=== PATIENT | male | born 1970 | race Caucasian/White ===

== ENCOUNTER → 2018-05-17 | Outpatient (CLI) | payer OTHER ==
--- NOTE | 2018-05-17 16:41 | XR ---
EXAMINATION TYPE: XR shoulder complete RT DATE OF EXAM: 05/17/2018 CLINICAL HISTORY: pain TECHNIQUE: Three views of the right shoulder are obtained. COMPARISON: None FINDINGS: There is no acute fracture/dislocation evident. The acromioclavicular and glenohumeral maryse int spaces appear within normal limits. The visualized ribs are intact and unremarkable. IMPRESSION: 1. There is no acute fracture or dislocation. ICD 10 NO FRACTURE, INITIAL EVALUATION
== END | disposition home or self-care (01) ==
LOC: RADXRMAIN 16:14
PROVIDERS: ATTEND Emergency Medicine
DX: S43.401A Unspecified sprain of right shoulder joint, initial encounter (principal)

== ENCOUNTER 2019-03-03 13:02 | Emergency (ER) | payer BC ==
[2019-03-03] MEDS ORDERED: ONDANSETRON 4 MG/2 ML VIAL IVP STA (13:36)
[2019-03-03] MEDS ORDERED: SODIUM CHLORIDE 0.9% 1,000 ML IV STA ×2 (13:36)
[2019-03-03] MEDS ORDERED: PANTOPRAZOLE 40 MG/10 ML VIAL IVP STA (13:36)
[2019-03-03] MEDS ORDERED: MORPHINE SULFATE 4 MG/ML SYRINGE IV STA (13:36)
--- NOTE | 2019-03-03 13:39 | ED ---
Abdominal Pain HPI - General Chief Complaint: Abdominal Pain Stated Complaint: abdominal pain low right side Time Seen by Provider: 03/03/19 13:22 Source: patient, RN notes reviewed, old records reviewed Mode of arrival: ambulatory Limitations: no limitations - History of Present Illness Initial Comments: Patient's a pleasant 49-year-old male complains of right lower quadrant abdominal pain and back pain onset this morning. Patient states he has a hi story of kidney stones and feels different than his previous kidney stones. Denies any change in urination. He reports he's had some nausea and vomiting due to pain. He has had normal stools. Patient's gallbladder is removed. - Related Data Home Medications Medication Instructions Recorded Confirmed Albuterol Sulfate [Ventolin HFA] 2 puff INHALATION DIRECTED PRN 11/27/14 12/04/14 Losartan Potassium [Cozaar] 100 mg PO DAILY 11/27/14 12/04/14 Previous Rx's Medication Instructions Recorded Cyclobenzaprine [Flexeril] 10 mg PO TID PRN #90 tab 12/06/14 Hydrocodone/Acetaminophen [Luna 1 - 2 each PO Q6HR PRN #90 tab 12/06/14 5-325] Ciprofloxacin HCl [Cipro] 500 mg PO BID 3 Days #6 tab 03/03/19 HYDROcodone/APAP 5-325MG [Luna 1 tab PO Q6HR PRN #10 tab 03/03/19 5-325] Ketorolac [Toradol] 10 mg PO Q6HR #20 tab 03/03/19 Ondansetron [Zofran ODT] 4 mg PO Q12HR #20 tab 03/03/19 Tamsulosin [Flomax] 0.4 mg PO DAILY #7 cap 03/03/19 Allergies Allergy/AdvReac Type Severity Reaction Status Date / Time penicillin V Allergy Swelling Verified 03/03/19 13:14 Review of Systems ROS Statement: Those systems with pertinent positive or pertinent negative responses have been documented in the HPI. ROS Other: All systems not noted in ROS Statement are negative. Past Medical History Past Medical History: Asthma, Hypertension Additional Past Medical History / Comment(s): NUMBNESS/TINGLING LAWRENCE LEGS History of Any Multi-Drug Resistant Organisms: None Reported Past Surgical History: Cholecystectomy, Heart Catheterization, Hernia Repair, Orthopedic Surgery Additional Past Surgical History / Comment(s): RT KNEE, LAWRENCE WRIST, RIGHT SHOULDER, SINUS SX Past Anesthesia/Blood Transfusion Reactions: No Reported Reaction Past Psychological History: No Psychological Hx Reported Smoking Status: Current every day smoker - Past Family History Father Family Medical History: Cancer Additional Family Medical History / Comment(s): COLON General Exam - General Exam Comments Initial Comments: 49 -year-old male. Limitations: no limitations General appearance: alert, in no apparent distress Head exam: Present: atraumatic, normocephalic, normal inspection Eye exam: Present: normal appearance, PERRL, EOMI. Absent: scleral icterus, conjunctival injection, periorbital swelling ENT exam: Present: normal exam, mucous membranes moist Neck exam: Present: normal inspection. Absent: tenderness, meningismus, lymphadenopathy Respiratory exam: Present: normal lung sounds bilaterally. Absent: respiratory distress, wheezes, rales, rhonchi, stridor Cardiovascular Exam: Present: regular rate, normal rhythm, normal heart sounds. Absent: systolic murmur, diastolic murmur, rubs, gallop, clicks GI/Abdominal exam: Present: soft, tenderness (Right lower quadrant tenderness.), normal bowel sounds. Absent: distended, guarding, rebound, rigid Extremities exam: Present: normal inspection Back exam: Present: normal inspection Neurological exam: Present: alert, oriented X3, CN II-XII intact Psychiatric exam: Present: normal affect, normal mood Course Vital Signs 03/03/19 03/03/19 13:12 16:59 Temperature 97.6 F 98.7 F Pulse Rate 56 L 78 Respiratory 18 16 Rate Blood Pressure 162/90 128/70 O2 Sat by Pulse 94 L 98 Oximetry Medical Decision Making - Medical Decision Making 49-year-old male presents for a surgically absent right lower quadrant pain. Patient has a evidence of right lower quadrant pain onset. Urinalysis is positive for blood. Patient's CT shows evidence of a right urinalysis junction stone. Patient's was at house and the elevated. We'll put the Patient on antibiotic until urinalysis is culture is complete. Discussed appropriate follow-up with PCP. - Lab Data Result diagrams: 03/03/19 13:33 03/03/19 13:33 Lab Results 03/03/19 03/03/19 03/03/19 Range/Units 13:33 13:33 13:33 WBC 19.6 H (3.8-10.6) k/uL RBC 5.39 (4.30-5.90) m/uL Hgb 15.8 (13.0-17.5) gm/dL Hct 46.4 (39.0-53.0) % MCV 86.0 (80.0-100.0) fL MCH 29.3 (25.0-35.0) pg MCHC 34.1 (31.0-37.0) g/dL RDW 14.7 (11.5-15.5) % Plt Count 305 (150-450) k/uL Neutrophils % 84 % Lymphocytes % 8 % Monocytes % 5 % Eosinophils % 1 % Basophils % 0 % Neutrophils # 16.5 H (1.3-7.7) k/uL Lymphocytes # 1.6 (1.0-4.8) k/uL Monocytes # 1.0 (0-1.0) k/uL Eosinophils # 0.2 (0-0.7) k/uL Basophils # 0.1 (0-0.2) k/uL PT 10.5 (9.0-12.0) sec INR 1.0 (<1.2) APTT 23.3 (22.0-30.0) sec Sodium 136 L (137-145) mmol/L Potassium 4.5 (3.5-5.1) mmol/L Chloride 105 (98-107) mmol/L Carbon Dioxide 22 (22-30) mmol/L Anion Gap 9 mmol/L BUN 26 H (9-20) mg/dL Creatinine 1.18 (0.66-1.25) mg/dL Est GFR (CKD-EPI)AfAm 82 (>60 ml/min/1.73 sqM) Est GFR (CKD-EPI)NonAf 71 (>60 ml/min/1.73 sqM) Glucose 138 H (74-99) mg/dL Calcium 10.5 H (8.4-10.2) mg/dL Total Bilirubin 0.7 (0.2-1.3) mg/dL AST 35 (17-59) U/L ALT 33 (21-72) U/L Alkaline Phosphatase 86 (38-126) U/L Total Protein 7.6 (6.3-8.2) g/dL Albumin 4.5 (3.5-5.0) g/dL Amylase 32 (30-110) U/L Lipase 198 (23-300) U/L Urine Color Urine Appearance (Clear) Urine pH (5.0-8.0) Ur Specific [place] (1.001-1.035) Urine Protein (Negative) Urine Glucose (UA) (Negative) Urine Ketones (Negative) Urine Blood (Negative) Urine Nitrite (Negative) Urine Bilirubin (Negative) Urine Urobilinogen (<2.0) mg/dL Ur Leukocyte Esterase (Negative) Urine RBC (0-5) /hpf Urine WBC (0-5) /hpf Urine Mucus (None) /hpf 03/03/19 Range/Units 15:34 WBC (3.8-10.6) k/uL RBC (4.30-5.90) m/uL Hgb (13.0-17.5) gm/dL Hct (39.0-53.0) % MCV (80.0-100.0) fL MCH (25.0-35.0) pg MCHC (31.0-37.0) g/dL RDW (11.5-15.5) % Plt Count (150-450) k/uL Neutrophils % % Lymphocytes % % Monocytes % % Eosinophils % % Basophils % % Neutrophils # (1.3-7.7) k/uL Lymphocytes # (1.0-4.8) k/uL Monocytes # (0-1.0) k/uL Eosinophils # (0-0.7) k/uL Basophils # (0-0.2) k/uL PT (9.0-12.0) sec INR (<1.2) APTT (22.0-30.0) sec Sodium (137-145) mmol/L Potassium (3.5-5.1) mmol/L Chloride (98-107) mmol/L Carbon Dioxide (22-30) mmol/L Anion Gap mmol/L BUN (9-20) mg/dL Creatinine (0.66-1.25) mg/dL Est GFR (CKD-EPI)AfAm (>60 ml/min/1.73 sqM) Est GFR (CKD-EPI)NonAf (>60 ml/min/1.73 sqM) Glucose (74-99) mg/dL Calcium (8.4-10.2) mg/dL Total Bilirubin (0.2-1.3) mg/dL AST (17-59) U/L ALT (21-72) U/L Alkaline Phosphatase (38-126) U/L Total Protein (6.3-8.2) g/dL Albumin (3.5-5.0) g/dL Amylase (30-110) U/L Lipase (23-300) U/L Urine Color Yellow Urine Appearance Clear (Clear) Urine pH 5.5 (5.0-8.0) Ur Specific [place] 1.031 (1.001-1.035) Urine Protein Trace H (Negative) Urine Glucose (UA) Negative (Negative) Urine Ketones Negative (Negative) Urine Blood Moderate H (Negative) Urine Nitrite Negative (Negative) Urine Bilirubin Negative (Negative) Urine Urobilinogen <2.0 (<2.0) mg/dL Ur Leukocyte Esterase Negative (Negative) Urine RBC >182 H (0-5) /hpf Urine WBC 4 (0-5) /hpf Urine Mucus Rare H (None) /hpf - Radiology Data Radiology results: report reviewed Small starting high-dose of the right irritable school junction. Disposition Clinical Impression: Right ureteral stone Disposition: HOME SELF-CARE Condition: Good Instructions (If sedation given, give patient instructions): Ureteral Stones (ED) Additional Instructions: Take the medication as prescribed. Close follow-up with primary care doctor. Return to emergency department if any alarming signs or symptoms occur. Prescriptions: Ciprofloxacin HCl [Cipro] 500 mg PO BID 3 Days #6 tab Tamsulosin [Flomax] 0.4 mg PO DAILY #7 cap HYDROcodone/APAP 5-325MG [Luna 5-325] 1 tab PO Q6HR PRN #10 tab PRN Reason: Pain Ketorolac [Toradol] 10 mg PO Q6HR #20 tab Ondansetron [Zofran ODT] 4 mg PO Q12HR #20 tab Is patient prescribed a controlled substance at d/c from ED?: Yes If prescribed controlled substance>3 days was MAPS reviewed?: Prescribed <3 Days If opioid is for acute pain is fill amount 7 days or less?: Yes If Rx opioid, was Start Talking consent form obtained?: Yes Referrals: Manuel Jameson MD [Primary Care Provider] - 1-2 days Time of Disposition: 16:45
[2019-03-03 14:11] LABS: Basophils # (A) 0.1 k/uL (0-0.2); Basophils % (A) 0 %; Eosinophils # (A) 0.2 k/uL (0-0.7); Eosinophils % (A) 1 %; HCT 46.4 % (39.0-53.0); HGB 15.8 gm/dL (13.0-17.5); Lymphocytes # (A) 1.6 k/uL (1.0-4.8); Lymphocytes % (A) 8 %; MCH 29.3 pg (25.0-35.0); MCHC 34.1 g/dL (31.0-37.0); Monocytes % (A) 5 %; Neutrophils # (A) 16.5 k/uL (1.3-7.7); Neutrophils % (A) 84 %; Platelet Count 305 k/uL (150-450); RBC 5.39 m/uL (4.30-5.90); RDW 14.7 % (11.5-15.5); WBC 19.6 k/uL (3.8-10.6)
[2019-03-03 14:21] LABS: Albumin 4.5 g/dL (3.5-5.0); Calcium 10.5 mg/dL (8.4-10.2); Potassium 4.5 mmol/L (3.5-5.1); Total Bilirubin 0.7 mg/dL (0.2-1.3); Total Protein 7.6 g/dL (6.3-8.2)
[2019-03-03 14:23] LABS: Partial Thromboplastin Time 23.3 sec (22.0-30.0); Prothrombin Time 10.5 sec (9.0-12.0)
--- NOTE | 2019-03-03 15:54 | CT ---
EXAMINATION TYPE: CT abdomen pelvis w con DATE OF EXAM: 03/03/2019 COMPARISON: None HISTORY: Pelvic pain with fever and diarrhea CT DLP: 955.3 mGycm Automated exposure control for dose reduction was used. TECHNIQUE: Helical acquisition of images was performed from the lung bases through the pelvis. CONTRAST: Performed without Oral Contrast and with IV Contrast, patient injected with 100 mL of Isovue 300. FINDINGS: There is subsegmental atelectasis at the posterior lung bases. Heart size is normal. There is no jah cardial effusion. Liver spleen pancreas appear normal. There are clips from cholecystectomy. Bile ducts are not dilated . Stomach appears normal. There is no adrenal mass. Right kidney is small. Left kidney has normal size. There is mild right-serge ed hydronephrosis. There is a 5 mm calculus at the right ureterovesical junction. Bladder distends sm oothly. There is no inguinal hernia. There is no free fluid in the pelvis. Appendix appears normal. T here is a 1 cm anterior subluxation of L5 in relation to S1. There is posterior fusion surgery at L5- S1. I see no focal bone destruction. There is no compression fracture. There is no mesenteric edema. There is no ascites. There is no free air. There is no sign of a bowel obstruction. IMPRESSION: THERE IS A SMALL OBSTRUCTING CALCULUS AT THE RIGHT URETEROVESICAL JUNCTION WITH MILD RIGHT-SIDED HYDR ONEPHROSIS AND HYDROURETER. THERE ARE CALCIFICATIONS AT THE LEFT RENAL HILUM THAT ARE PROBABLY VASCUL AR. NORMAL APPENDIX.
[2019-03-03 16:10] LABS: Appearance,Urine Clear (Clear); Bilirubin,Urine Negative (Negative); Blood,Urine Moderate (Negative); Color,Urine Yellow; Glucose,Urine (UA) Negative (Negative); Ketones,Urine Negative (Negative); Leukocyte Esterase,Urine Negative (Negative); Mucus,Urine Rare /hpf; Nitrite,Urine Negative (Negative); PH, Urine 5.5 (5.0-8.0); Protein,Urine Trace (Negative); RBC,Urine >182 /hpf (0-5); Specific Gravity,Urine 1.031 (1.001-1.035); Urobilinogen,Urine <2.0 mg/dL (<2.0); WBC,Urine 4 /hpf (0-5)
[2019-03-03] MEDS ORDERED: KETOROLAC 30 MG/ML 1 ML VIAL IVP STA (16:39)
[2019-03-03] MEDS ORDERED: HYDROmorphone 1 MG/ML 1 ML SYRINGE IVP STA (16:39)
[2019-03-03] MEDS ORDERED: TAMSULOSIN 0.4 MG CAP.ER.24H PO STA (16:46)
[2019-03-03 17:00] VITALS: BP 128/70; PULSE 78; RESP 16; TEMP 98.7
== END 2019-03-03 16:59 | disposition home or self-care (01) ==
LOC: EC 13:02
DX: N13.2 Hydronephrosis with renal and ureteral calculous obstruction (principal); I10 Essential (primary) hypertension; F17.200 Nicotine dependence, unspecified, uncomplicated; Z79.899 Other long term (current) drug therapy; Z88.0 Allergy status to penicillin; Z90.49 Acquired absence of other specified parts of digestive tract; Z95.5 Presence of coronary angioplasty implant and graft
CPT/HCPCS: 36415; 80053; 82150; 83690; 85025; 85610; 85730; 81001; 74177; 99284; 96374; 96375 ×4; 96361 ×3; J2270; J2405; J1885; J1170; C9113; Q9967

== ENCOUNTER → 2019-03-06 | Outpatient (CLI) | payer BC ==
--- NOTE | 2019-03-06 17:01 | XR ---
EXAMINATION TYPE: XR KUB DATE OF EXAM: 03/06/2019 COMPARISON: None INDICATION: Ureteral calculus TECHNIQUE: Single view abdomen supine view FINDINGS: There is a normal bowel gas pattern. Psoas margins are normal. No organomegaly is present. No suspicious calcifications are identified. Some nonspecific calcifications are in the left renal pe lvic region could be some renal stones. Pedicle screws are present L5-S1. Degenerative disc changes are present to that level. Normal bowel g as is present. Cholecystectomy has been performed. IMPRESSION: 1. Possible left renal pelvis stones.
== END ==
LOC: LABWHC1 10:36
PROVIDERS: ATTEND Urology
DX: N20.1 Calculus of ureter (principal); E83.52 Hypercalcemia
CPT/HCPCS: 36415; 74018; 82310; 83970

== ENCOUNTER 2019-04-03 12:59 | Inpatient (IN) | payer BC ==
[2019-04-03] MEDS ORDERED: ASPIRIN 81 MG PO STA (13:06)
--- NOTE | 2019-04-03 13:32 | XR ---
EXAMINATION TYPE: XR chest 2V DATE OF EXAM: 04/03/2019 COMPARISON: NONE HISTORY: Chest pain TECHNIQUE: Frontal and lateral views of the chest are obtained. FINDINGS: There is no focal air space opacity, pleural effusion, or pneumothorax seen. Minimal stran d-like bibasilar atelectasis. The cardiac silhouette size is within normal limits. The osseous str uctures are intact. Mild multilevel degenerative changes of the thoracic spine are noted. IMPRESSION: Minimal strand-like bibasilar subsegmental atelectasis otherwise no acute cardiopulmonar y process.
[2019-04-03 13:36] LABS: Basophils # (A) 0.1 k/uL (0-0.2); Basophils % (A) 1 %; Eosinophils # (A) 0.3 k/uL (0-0.7); Eosinophils % (A) 2 %; HCT 45.7 % (39.0-53.0); HGB 15.3 gm/dL (13.0-17.5); Lymphocytes % (A) 21 %; MCHC 33.4 g/dL (31.0-37.0); MCV 86.7 fL (80.0-100.0); Mean Platelet Volume 7.8; Monocytes # (A) 0.8 k/uL (0-1.0); Monocytes % (A) 6 %; Neutrophils # (A) 9.6 k/uL (1.3-7.7); Neutrophils % (A) 68 %; Platelet Count 280 k/uL (150-450); RBC 5.27 m/uL (4.30-5.90); RDW 14.7 % (11.5-15.5); WBC 14.2 k/uL (3.8-10.6)
[2019-04-03 13:43] LABS: Partial Thromboplastin Time 24.5 sec (22.0-30.0); Prothrombin Time 10.4 sec (9.0-12.0)
[2019-04-03 13:46] LABS: ALT 23 U/L (21-72); AST 23 U/L (17-59); Albumin 4.3 g/dL (3.5-5.0); Alkaline Phosphatase 95 U/L (38-126); Anion Gap 9 mmol/L; Blood Urea Nitrogen 16 mg/dL (9-20); Carbon Dioxide 22 mmol/L (22-30); Chloride 104 mmol/L (98-107); Glucose 108 mg/dL (74-99); Magnesium 1.8 mg/dL (1.6-2.3); Potassium 4.3 mmol/L (3.5-5.1); Sodium 135 mmol/L (137-145); Total Bilirubin 0.7 mg/dL (0.2-1.3); Total Protein 7.2 g/dL (6.3-8.2)
[2019-04-03] MEDS ORDERED: NITROGLYCERIN SL TABS 0.4 MG TAB SUBLINGUAL PRN ×2 (14:46→19:54)
[2019-04-03] MEDS ORDERED: HEPARIN SODIUM,PORCINE 5,000 UNIT/ML 1 ML VIAL IV ONE (14:46)
--- NOTE | 2019-04-03 14:46 | ED ---
Chest Pain HPI - General Chief Complaint: Chest Pain Stated Complaint: chest pain Time Seen by Provider: 04/03/19 13:06 Source: patient, RN notes reviewed Mode of arrival: wheelchair Limitations: no limitations - History of Present Illness Initial Comments: 49-year-old male presents emergency from with chief complaint of Chest pain. Patient states started 1 hour prior arrival. Patient states it's centralized chest pain nonradiating. Patient does have history of hypertension, hyperlipidemia, diabetes and smoking history. Patient states she's had a prior cardiac cath years ago with no acute findings. Patient states he took 3 nitro prior arrival for this pain did not alleviated. Patient did not take any aspirin today. - Related Data Home Medications Medication Instructions Recorded Confirmed Albuterol Sulfate [Ventolin HFA] 2 puff INHALATION RT-Q6H PRN 11/27/14 04/03/19 Atorvastatin [Lipitor] 20 mg PO DAILY 04/03/19 04/03/19 Budesonide-Formot 160-4.5 Mcg 2 puff INHALATION RT-BID 04/03/19 04/03/19 [Symbicort 160-4.5 Mcg Inhaler] Escitalopram [Lexapro] 20 mg PO DAILY 04/03/19 04/03/19 Famotidine [Pepcid] 20 mg PO BID 04/03/19 04/03/19 Losartan/Hydrochlorothiazide 1 tab PO DAILY 04/03/19 04/03/19 [Losartan-Hctz 100-25 mg Tab] Nitroglycerin Sl Tabs [Nitrostat] 0.4 mg SUBLINGUAL Q5M PRN 04/03/19 04/03/19 metFORMIN HCL 1,000 mg PO TID 04/03/19 04/03/19 Previous Rx's Medication Instructions Recorded Tamsulosin [Flomax] 0.4 mg PO DAILY #7 cap 03/03/19 Allergies Allergy/AdvReac Type Severity Reaction Status Date / Time penicillin V Allergy Swelling Verified 04/03/19 14:05 Review of Systems ROS Statement: Those systems with pertinent positive or pertinent negative responses have been documented in the HPI. ROS Other: All systems not noted in ROS Statement are negative. EKG Findings - EKG Comments: EKG Findings:: EKG on at 13:21 sinus bradycardia rate of 58 FL 190 QRS 90 QT/ QTC 414/406 Past Medical History Past Medical History: Asthma, Hypertension Additional Past Medical History / Comment(s): NUMBNESS/TINGLING LAWRENCE LEGS, kidney stone History of Any Multi-Drug Resistant Organisms: None Reported Past Surgical History: Cholecystectomy, Heart Catheterization, Hernia Repair, Orthopedic Surgery Additional Past Surgical History / Comment(s): RT KNEE, LAWRENCE WRIST, RIGHT SHOULDER, SINUS SX Past Anesthesia/Blood Transfusion Reactions: No Reported Reaction Past Psychological History: No Psychological Hx Reported Smoking Status: Current every day smoker Past Alcohol Use History: None Reported Past Drug Use History: None Reported - Past Family History Father Family Medical History: Cancer Additional Family Medical History / Comment(s): COLON General Exam Limitations: no limitations General appearance: alert, in no apparent distress Head exam: Present: atraumatic, normocephalic, normal inspection Neck exam: Present: normal inspection. Absent: tenderness, meningismus, lymphadenopathy Respiratory exam: Present: normal lung sounds bilaterally. Absent: respiratory distress, wheezes, rales, rhonchi, stridor Cardiovascular Exam: Present: regular rate, normal rhythm, normal heart sounds. Absent: systolic murmur, diastolic murmur, rubs, gallop, clicks GI/Abdominal exam: Present: soft, normal bowel sounds. Absent: distended, tenderness, guarding, rebound, rigid Course Vital Signs 04/03/19 04/03/19 04/03/19 13:03 13:20 14:38 Temperature 97.6 F Pulse Rate 64 57 L Respiratory 20 18 18 Rate Blood Pressure 148/89 159/96 O2 Sat by Pulse 99 99 Oximetry Chest Pain MDM - MDM Patiently admitted for NSTEMI Patient started on heparin. Critical Care Time Critical Care Time: Yes Total Critical Care Time: 35 Critical Care Time: Total 35 minutes of critical care time used initially evaluated patient, reviewed vitals, reviewed daily, past medical history. Lab work, EKG, chest x- ray of were ordered and obtained. No acute changes an EKG though patient is found to have elevated she'll 0.1138 patient was started on heparin patient was given aspirin and patient took nitro prior arrival. Patient will be admitted for stroke troponins, cardiology evaluation. Disposition Clinical Impression: NSTEMI (non-ST elevated myocardial infarction) Disposition: ADMITTED IP TO THIS HOSP Condition: Fair Referrals: Manuel Jameson MD [Primary Care Provider] - 1-2 days
[2019-04-03] MEDS ORDERED: HEPARIN SOD,PORK IN 0.45% NACL 25,000 UNIT in 0.45% NACL 1 250ML.BAG IV SCH (15:00)
[2019-04-03] MEDS ORDERED: MORPHINE SULFATE 4 MG/ML SYRINGE IVP STA (17:43)
[2019-04-03] MEDS: NITROGLYCERIN OINT 1 INCH/GM PACKET TOPICAL SCH ×2 (18:16→22:30)
[2019-04-03] MEDS ORDERED: ENALAPRILAT 1.25 MG/ML 1 ML VIAL IVP STA (18:47)
[2019-04-03] MEDS ORDERED: HYDROcodone/APAP 5-325MG 1 EACH TAB PO PRN (19:51)
[2019-04-03] MEDS ORDERED: MORPHINE SULFATE 4 MG/ML SYRINGE IV PRN (19:51)
[2019-04-03] MEDS ORDERED: NALOXONE 0.4 MG/ML 1 ML VIAL IV PRN (19:51)
[2019-04-03] MEDS ORDERED: MELATONIN 3 MG TABLET PO PRN (19:51)
[2019-04-03] MEDS ORDERED: ACETAMINOPHEN TAB 325 MG TAB PO PRN (19:51)
[2019-04-03] MEDS ORDERED: ONDANSETRON 4 MG/2 ML VIAL IVP PRN (19:51)
[2019-04-03] MEDS ORDERED: ALBUTEROL NEBULIZED 2.5 MG/3 ML INHALATION PRN (19:54)
--- NOTE | 2019-04-03 20:07 | P.HPIM ---
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 In the emergency department he underwent an extensive evaluation. On arrival his blood pressure is slightly elevated at 148/89. Initial laboratory analysis demonstrated a slightly elevated white blood cell count of 14.2, sodium 135, and troponin 0.118. EKG as reviewed by myself showed sinus bradycardia at a rate of 58, OR 190, QRS 90, QTC 409. Nonsignificant ST segment elevation in V2 and V3 that is less than 2 mm. There was concerns for non-ST segment elevated myocardial infarction. He was started on a heparin drip, he was not given beta madeleine secondary to bradycardia. His abdomen a dose of aspirin. Arrangements were made for admission. Patient seen and examined at bedside in the emergency department. 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 It was left-sided in nature without radiation. It was as sociated with shortness of breath and some diaphoresis. He also reported intermittent left arm numbness and lightheadedness. He took 2 nitro at work without relief. He did not notice any palpitations. He states that his fit that registered his heart rate is fluctuating between 68 and 98 which is on normal for him. He then went home and continued to have chest pain and took a third nitro. He states that Dr. Jameson prescribed nitroglycerin for his chest pain in the past, he denies any history of coronary artery disease. He states he had his cardiac catheterization approximately 10 years ago that was normal. He does not see a comber tender. He does report that he has overall been more fatigued over the last 2 weeks. He denies any recent cough, cold, fever, flu, nausea, vomiting, diarrhea, constipation. He was having some dysuria approximately a month ago and was diagnosed with kidney stones that this is better. Review of Systems Pertinent positives and negatives as discussed in HPI, a complete review of systems was performed and all other systems are negative. Past Medical History Past Medical History: Asthma, Hypertension Additional Past Medical History / Comment(s): NUMBNESS/TINGLING LAWRENCE LEGS, kidney stone History of Any Multi-Drug Resistant Organisms: None Reported Past Surgical History: Cholecystectomy, Heart Catheterization, Hernia Repair, Orthopedic Surgery Additional Past Surgical History / Comment(s): RT KNEE, LAWRENCE WRIST, RIGHT SHOULDER, SINUS SX Past Anesthesia/Blood Transfusion Reactions: No Reported Reaction Past Psychological History: No Psychological Hx Reported Smoking Status: Current every day smoker Past Alcohol Use History: None Reported Past Drug Use History: None Reported - Past Family History Father Family Medical History: Cancer Additional Family Medical History / Comment(s): COLON Family Additional Family Medical History / Comment(s): Multiple people hypertension. Denies any history of coronary artery disease. Medications and Allergies Home Medications Medication Instructions Recorded Confirmed Type Albuterol Sulfate [Ventolin HFA] 2 puff INHALATION RT-Q6H PRN 11/27/14 04/03/19 History Tamsulosin [Flomax] 0.4 mg PO DAILY #7 cap 03/03/19 04/03/19 Rx Atorvastatin [Lipitor] 20 mg PO DAILY 04/03/19 04/03/19 History Budesonide-Formot 160-4.5 Mcg 2 puff INHALATION RT-BID 04/03/19 04/03/19 History [Symbicort 160-4.5 Mcg Inhaler] Escitalopram [Lexapro] 20 mg PO DAILY 04/03/19 04/03/19 History Famotidine [Pepcid] 20 mg PO BID 04/03/19 04/03/19 History Losartan/Hydrochlorothiazide 1 tab PO DAILY 04/03/19 04/03/19 History [Losartan-Hctz 100-25 mg Tab] Nitroglycerin Sl Tabs [Nitrostat] 0.4 mg SUBLINGUAL Q5M PRN 04/03/19 04/03/19 History metFORMIN HCL 1,000 mg PO TID 04/03/19 04/03/19 History Allergies Allergy/AdvReac Type Severity Reaction Status Date / Time penicillin V Allergy Swelling Verified 04/03/19 14:05 Physical Exam Osteopathic Statement: *. No significant issues noted on an osteopathic structural exam other than those noted in the History and Physical/Consult. Vitals: Vital Signs Temp Pulse Resp BP Pulse Ox 04/03/19 19:09 97.6 F 56 L 18 178/99 97 04/03/19 18:47 180/105 04/03/19 18:39 60 18 182/113 99 04/03/19 16:49 52 L 18 169/98 98 04/03/19 15:21 52 L 18 161/97 98 04/03/19 14:38 57 L 18 159/96 99 04/03/19 13:20 18 04/03/19 13:03 97.6 F 64 20 148/89 99 Intake and Output 04/03/19 04/03/19 04/03/19 06:59 14:59 22:59 Other: Weight 145.15 kg General: non toxic, distress secondary to pain, appears at stated age, obese Derm: no unusual rashes/lesions no unusual ecchymoses, warm, dry, multiple tattoos Head: atraumatic, normocephalic, symmetric Eyes: EOMI, no lid lag, anicteric sclera, pupils equal round reactive to light ENT: Nose and ears atraumatic, no thrush, no pharyngeal erythema Neck: No thyromegaly, no cervical lymphadenopathy, trachea midline, supple Mouth: no lip lesion, mucus membranes moist Cardiovascular: S1S2 reg, no murmur, positive posterior tibial pulse bilateral, no edema, capillary refill less than 2 seconds, chest pain not reproducible Lungs: CTA bilateral, no rhonchi, no rales , no accessory muscle use Abdominal: soft, nontender to palpation, no guarding, no appreciable organomegaly, normal bowel sounds Ext: no gross muscle atrophy, muscle strength 5 out of 5 in all 4 extremities grossly, no contractures, Neuro: CN II-XI grossly intact, light touch intact all 4 extremities, finger to nose within normal limits, Psych: Alert, oriented, appropriate affect Results CBC & Chem 7: 04/03/19 13:15 04/03/19 13:15 Labs: Abnormal Lab Results - Last 24 Hours (Table) 04/03/19 04/03/19 04/03/19 Range/Units 13:15 13:15 13:15 WBC 14.2 H (3.8-10.6) k/uL Neutrophils # 9.6 H (1.3-7.7) k/uL Sodium 135 L (137-145) mmol/L Glucose 108 H (74-99) mg/dL Troponin I 0.118 H* (0.000-0.034) ng/mL Comments: EKG as reviewed by myself showed sinus bradycardia at a rate of 58, OR 190, QRS 90, QTC 409. Nonsignificant ST segment elevation in V2 and V3 that is less than 2 mm. Chest x-ray: report reviewed Thrombosis Risk Factor Assmnt - DVT/VTE Prophylaxis DVT/VTE Prophylaxis: Pharmacologic Prophylaxis ordered Assessment and Plan Assessment: Non-ST segment elevated myocardial infarction -Patient continues to have chest pain will go for morphine and place nitro patch -Serial troponins -Aspirin, increase Lipitor to 80 mg, will not do metoprolol this point in time secondary to bradycardia, heparin gtt -Telemetry, echocardiogram in the morning -Nothing by mouth for tonight -Cardiology consultation - Risk factors include hypertension, morbid obesity, insulin resistance with metformin use, and dyslipidemia Hypertensive urgency versus emergency -Enalaprilat 1 now as blood sugars blood pressure did not decrease with nitro or morphine use -Avoid beta madeleine secondary to bradycardia -Follow blood pressures Dyslipidemia -Check lipid profile -In light of elevated troponins increase Lipitor to 80 mg daily Morbid obesity with BMI 43.4 -Structured outpatient weight loss Asthma without exacerbation -Continue with as needed albuterol inhaler -Resume home Symbicort Leukocytosis - likely stress induced - no other symptoms - check UA with recent kidney stone The patient is admitted with an anticipated greater than 2 midnight stay for evaluation of chest pain with non-STEMI. Surrogate decision-maker: CODE STATUS:Full Code-would not want prolonged mechanical ventilation or life support DVT prophylaxis: Heparin gtt Discussed with: pt, ED nursing, cardiac nursing Anticipated discharge date: 2-[address]: home A total of 55 minutes was spent on the care of this complex patient more than 50% of the time was spent in counseling and care coordination.
[2019-04-03] MEDS: SYMBICORT 160-4.5 MCG INHALER INHALATION SCH (20:27)
[2019-04-03] MEDS: FAMOTIDINE 20 MG TAB PO SCH (20:49)
[2019-04-03] MEDS: LOSARTAN-HCTZ 50-12.5 MG 1 EACH TAB PO SCH (20:49)
[2019-04-03] MEDS: ATORVASTATIN 80 MG TAB PO SCH (20:49)
[2019-04-03] MEDS: INSULIN ASPART (NovoLOG) 100 UNIT/ML VIAL SQ SCH (20:53)
[2019-04-03 20:54] LABS: Glucose,Whole Blood 104 mg/dL (75-99)
[2019-04-04 06:21] LABS: Glucose,Whole Blood 121 mg/dL (75-99)
[2019-04-04] MEDS: INSULIN ASPART (NovoLOG) 100 UNIT/ML VIAL SQ SCH ×4 (06:21→21:37)
[2019-04-04] MEDS: NITROGLYCERIN OINT 1 INCH/GM PACKET TOPICAL SCH ×2 (06:25→20:51)
[2019-04-04] MEDS: LOSARTAN-HCTZ 50-12.5 MG 1 EACH TAB PO SCH (07:54)
[2019-04-04] MEDS: FAMOTIDINE 20 MG TAB PO SCH ×2 (07:55→19:54)
[2019-04-04] MEDS: TAMSULOSIN 0.4 MG CAP.ER.24H PO SCH (07:55)
[2019-04-04] MEDS: ESCITALOPRAM 20 MG TAB PO SCH (07:55)
[2019-04-04] MEDS: SYMBICORT 160-4.5 MCG INHALER INHALATION SCH ×2 (08:07→20:24)
[2019-04-04] MEDS ORDERED: ALPRAZolam 0.5 MG TAB PO PRN (08:24)
[2019-04-04] MEDS ORDERED: ASPIRIN 325 MG TAB PO STA (08:24)
[2019-04-04] MEDS ORDERED: NITROGLYCERIN SL TABS 0.4 MG TAB SUBLINGUAL PRN ×2 (08:24→12:03)
[2019-04-04] MEDS ORDERED: ATORVASTATIN 80 MG TAB PO STA (08:24)
[2019-04-04] MEDS ORDERED: ALPRAZolam 0.25 MG TAB PO PRN (08:24)
[2019-04-04] MEDS ORDERED: SODIUM CHLORIDE 0.9% 1,000 ML in EMPTY BAG 1 BAG IV ONE (08:24)
[2019-04-04] MEDS ORDERED: ASPIRIN 325 MG TAB PO SCH (09:00)
--- NOTE | 2019-04-04 09:28 | CONS ---
CONSULTATION Mr. Murillo is a 49-year-old male with a history of chronic tobacco use, hypertension, hyperlipidemia, and diabetes mellitus who presented with symptoms of chest discomfort that occurred at work. The discomfort persisted, came into the emergency room and subsequently admitted. At the time my evaluation, his pain has resolved. He had not been feeling well for the last few weeks, more tired. He has occasional chest discomfort on and off and he has use nitroglycerin, but has underwent cardiac catheterization about [address] De La Rosa and that was unremarkable. He has not been followed by Cardiology in a long time. He denies any peripheral edema. No dizziness. No palpitation. No syncope. His discomfort yesterday radiated to the left arm. His coronary risk factors are remarkable for hypertension, hyperlipidemia, diabetes and he smokes about a pack and a half a day. MEDICATIONS: His medications include metformin 1 gram 3 times a day, Flomax 0.4 mg daily, losartan HCT 100-25 mg daily, Lexapro 20 mg daily, Symbicort, Lipitor 20 mg daily, and albuterol. REVIEW OF SYSTEMS: RESPIRATOR SYSTEM: He has dyspnea on exertion, history of chronic obstructive lung disease. GI SYSTEM: No recent GI bleeding. No peptic ulcer disease. SYSTEM: No dysuria or hematuria. NERVOUS SYSTEM: No stroke or seizure. PHYSICAL EXAMINATION: He is a 49-year-old male, alert, oriented, in no apparent distress. Blood pressure 133/69 with the heart rate in the 50s. HEAD: Normocephalic. EYES: Sclerae anicteric. NECK: Good carotid upstroke. No bruit. No jugular venous distention. LUNGS: With decreased air exchange, no wheezes. HEART: Regular rate and rhythm. S1, S2. No S3. No rub or gallop appreciated. ABDOMEN: Soft, nontender. Positive bowel sounds. No organomegaly. EXTREMITIES: No edema. Intact distal pulses. LAB DATA: Lab data revealed a troponin of 0.118, 1.2, 5.7. BUN and creatinine 16 and 1.06. Hemoglobin of 15.3. EKG revealed a sinus mechanism, normal axis, rate of 58, early repolarization changes noted with mild ST-segment changes in the anterior precordial leads. Chest x-ray shows no acute infiltrate. IMPRESSION: 1. Non ST-segment elevation myocardial infarction. 2. Hypertension. 3. Hyperlipidemia. 4. Diabetes mellitus. 5. Chronic tobacco use. 6. History of neuropathy. RECOMMENDATION: I recommend proceeding with coronary angiography to assess his status and guide his treatment. The rationale behind the procedure as well as the risks and the complications were discussed with the patient who is in full understanding and agreement. Thank you for this consult. We will follow with you. RIN / ISHA: [id number] /
[2019-04-04] MEDS ORDERED: VERAPAMIL 2.5 MG/ML 2 ML AMP ONE (09:38)
[2019-04-04] MEDS ORDERED: fentaNYL (PF) 50 MCG/ML 2 ML AMP ONE (09:38)
[2019-04-04] MEDS ORDERED: LIDOCAINE 1% INJ 10MG/ML (20 ML MDV) ONE (09:38)
[2019-04-04] MEDS ORDERED: HEPARIN SODIUM 1,000 UN/ML (10ML VL) ONE (09:38)
[2019-04-04] MEDS ORDERED: IV FLUID CONTINUATION 1,000 ML IV ONE (09:43)
[2019-04-04 09:57] LABS: Mean Platelet Volume 7.8; Platelet Count 281 k/uL (150-450)
[2019-04-04 10:07] LABS: Cholesterol 157 mg/dL (<200); HDL Cholesterol 39 mg/dL (40-60); LDL Cholesterol,Calculated 94 mg/dL (0-99); Triglycerides 122 mg/dL (<150)
[2019-04-04] MEDS ORDERED: fentaNYL (PF) 50 MCG/ML 2 ML AMP IV ONE (10:32)
[2019-04-04] MEDS ORDERED: LIDOCAINE 1% INJ 10MG/ML (20 ML MDV) SQ ONE ×2 (10:35)
[2019-04-04] MEDS ORDERED: MIDAZOLAM (PF) 2 MG/2 ML VIAL IV ONE (10:36)
[2019-04-04] MEDS ORDERED: VERAPAMIL SYRINGE (5 MG/10 ML) INTRAARTER ONE (10:37)
[2019-04-04] MEDS ORDERED: PRASUGREL 10 MG TAB ONE (10:44)
[2019-04-04] MEDS ORDERED: BIVALIRUDIN BOLUS 250 MG/50 ML IV ONE (10:45)
[2019-04-04] MEDS ORDERED: PRASUGREL 10 MG TAB PO ONE (10:48)
[2019-04-04] MEDS ORDERED: BIVALIRUDIN 250 MG in SODIUM CHLORIDE 0.9% 50 ML IV ONE ×2 (10:48→11:21)
[2019-04-04] MEDS ORDERED: IOPAMIDOL-370 150ML BTL INJ ONE (11:03)
[2019-04-04] MEDS ORDERED: NITROGLYCERIN 1000MCG/10ML SYRINGE INTRACORON ONE (11:07)
[2019-04-04] MEDS ORDERED: IOPAMIDOL-370 100ML BTL INJ ONE ×2 (11:30→11:40)
[2019-04-04] MEDS ORDERED: RX INFO: IV CONTRAST WAS GIVEN 1 EACH MISC MISCELLANE PRN (12:03)
[2019-04-04] MEDS ORDERED: ZOLPIDEM 5 MG TAB PO PRN (12:03)
[2019-04-04] MEDS ORDERED: ATROPINE SULFATE 0.1 MG/ML 10ML SYRINGE IV PRN (12:03)
[2019-04-04] MEDS ORDERED: MAG HYDROX/AL HYDROX/SIMETH 30 ML CUP PO PRN (12:03)
[2019-04-04] MEDS ORDERED: SODIUM CHLORIDE 0.9% 1,000 ML IV SCH (12:15)
[2019-04-04 12:23] LABS: Glucose,Whole Blood 101 mg/dL (75-99)
--- NOTE | 2019-04-04 12:26 | PTCA ---
PERCUTANEOUSTRANS CORORONARY ANGIOGRAPHY Mr. Murillo is a 49-year-old male with known history of hypertension, hyperlipidemia, diabetes mellitus, and chronic tobacco use, who presented with symptoms of chest discomfort and had evidence of non ST-segment elevation myocardial infarction. He underwent cardiac catheterization, was found totally occluded left circumflex. In view of that, recommendation made regarding angioplasty and stenting. The procedures, risks and complication were discussed with the patient who is in full understanding and agreement. PROCEDURE: Using the 6-[place] FL 3.5 guiding catheter, attempts to advance a wire into the left circumflex using a 0.014 balanced medium weight J-wire were unsuccessful because of the acute angulation of the takeoff of the left circumflex. At that point, the wire was removed and a Super Cross 90 degree catheter with the 0.014 balanced medium weight J- wire were readvanced into the system, but the wire could not be advanced across the total occlusion at that time. The wire was exchanged to a 0.014 whisper J-wire that was successful in crossing the lesion and was positioned in the distal obtuse marginal branch. Following that, a 2.25 x 12 mm Trek balloon was advanced and one inflation at 10 atmospheres was done. Following that, the balloon was removed and attempt to advance a 2.5 x 12 mm Xience Riddhi stent were unsuccessful, because of the tortuosity, that stent was removed and attempt to advance a GuideLiner into the proximal left circumflex were unsuccessful as well. At that point, the guiding catheter, the GuideLiner and the wire were removed and a 6-[place] LB 3.75 guiding catheter introduced into system after cannulating the left main. The left circumflex was re-crossed using the whisper J-wire with the help of the Super Cross 90 degree. Subsequently, the 2.25 x 12 mm Trek balloon was readvanced and one inflation was done at 10 atmospheres. Following that, the balloon was removed and the GuideLiner was readvanced into the system and with the help of the GuideLiner, the 2.5 x 12 mm Xience Riddhi stent was advanced, deployed and post-dilated to 16 atmospheres. After the last inflation, after appropriate wait, the balloon and the guidewire were withdrawn back in the guiding catheter. Images were obtained, repeated. Those images reveal stable successful stenting. At that point, the guiding catheter, the balloon and the guidewire were removed. Subsequently, a left ventricular end-diastolic pressure was calculated using a pigtail catheter. Subsequently, catheter and sheath were removed. Hemostasis was obtained with deployment of a TR band. There was no immediate complication. Patient was returned to his room in stable condition. Of note, the patient received Angiomax per protocol as well as oral loading dose of Effient. He had no significant chest pain or EKG changes with the inflations. RESULTS: Successful recanalization of a totally occluded left circumflex with reduction of stenosis from 100% to 0%. RECOMMENDATION: Patient will be continued on aspirin, Effient, beta blockers and statin. The importance of dual antiplatelet treatment were discussed with the patient and his family and they are in full understanding and agreement. Duration of the procedure is 71 minutes. RIN / ISHA: [id number] /
--- NOTE | 2019-04-04 12:26 | CC ---
CARDIAC CATHETERIZATION REPORT Mr. Murillo is a 49-year-old male with a known history of hypertension, hyperlipidemia, chronic tobacco use, and diabetes mellitus who presented with symptoms of chest discomfort and troponin elevation consistent with non ST-segment elevation myocardial infarction. In view of that, recommendation was made regarding cardiac catheterization. The procedure as well as risks and the complications were discussed with the patient who is in full understanding and agreement. PROCEDURE: Patient was brought to phlebotomy lab assistant in a fasting semi-sedated state after receiving fentanyl and Benadryl and achieving moderate conscious sedated state. Using Xylocaine anesthesia in the Seldinger technique, a 6-Canadian sheath was introduced in the right radial artery. Selective right and left coronary angiography performed using 5- Canadian 3.5 bend right Carol catheter and a 6-Canadian FL 3.5 guiding catheter. Images of the coronary arteries were obtained. Subsequently angioplasty and stenting of the left circumflex was performed. Following that, a 5-Canadian tight pigtail catheter was introduced in the left ventricle and pressures were calculated. Following that catheter and sheath were removed. Hemostasis was obtained with deployment of a TR band. There was no immediate complication. Patient was returned to his room in stable condition. Of note, patient received Angiomax per protocol as well as oral loading dose of Effient. FINDINGS: LEFT MAIN: This is a large-sized vessel trifurcating into the left circumflex, ramus intermedius, and left anterior descending artery. Left main coronary artery has no evidence of high-grade stenosis. LEFT ANTERIOR DESCENDING ARTERY: This is a large-sized vessel reaching toward the apex with a wraparound apex segment giving rise to 2 diagonal branches. Left anterior descending artery proximally has a plaque of 20% in the mid segment has a 30% to 40% plaque. The rest of the vessel has no high-grade stenosis. RAMUS INTERMEDIUS: This is a small size vessel that has no evidence of high- grade stenosis. LEFT CIRCUMFLEX: This vessel is totally occluded proximally with no significant antegrade flow. It has a very acute takeoff from the left main. RIGHT CORONARY ARTERY: This is a large-sized vessel dominant bifurcating distally PDA and posterolateral segment and branches. The right coronary artery in mid segment has a 30% to 40% plaque. The rest of the vessel has no high-grade stenosis. COLLATERALS: There is collateral from the right coronary system toward the obtuse marginal branch. LEFT VENTRICULOGRAM: The left ventriculogram was not performed. HEMODYNAMICS: There was no gradient across the aortic valve. The left ventricular end- diastolic pressure was 8 to 10 mmHg. CONCLUSION: 1. Acutely occluded left circumflex. 2. Mild disease in the left anterior descending artery and the right coronary artery. RECOMMENDATION: In view of finding anatomy, I have recommended proceeding with angioplasty and stenting of the left circumflex. The procedure as well as the risks and the complications were discussed with the patient who is in full understanding and agreement. MMMALLORY / TUNGN: [id number] / MTDD
--- NOTE | 2019-04-04 12:42 | ECHOF ---
Referral Reason:NSTEMI MEASUREMENTS -------- HEIGHT: 182.9 cm WEIGHT: 145.1 kg BP: 159/96 RVIDd: 3.2 cm (< 3.3) IVSd: 1.4 cm (0.6 - 1.1) LVIDd: 4.6 cm (3.9 - 5.3) LVPWd: 1.3 cm (0.6 - 1.1) IVSs: 1.8 cm LVIDs: 3.3 cm LVPWs: 1.6 cm LA Diam: 3.8 cm (2.7 - 3.8) LAESV Index (A-L): 23.94 ml/m Ao Diam: 3.9 cm (2.0 - 3.7) AV Cusp: 2.5 cm (1.5 - 2.6) MV EXCURSION: 19.436 mm (> 18.000) MV EF SLOPE: 130 mm/s (70 - 150) EPSS: 0.3 cm MV E Rohit: 1.09 m/s MV DecT: 215 ms MV A Rohit: 0.29 m/s MV E/A Ratio: 3.80 RAP: 5.00 mmHg RVSP: 35.70 mmHg FINDINGS -------- Sinus rhythm. This was a technically good study. The left ventricular size is normal. There is moderate concentric left ventricular hypertrophy. O verall left ventricular systolic function is normal with, an EF between 60 - 65 %. The right ventricle is normal in size. Normal LA size by volume 22+/-6 ml/m2. The right atrium is normal in size. Interatrial and interventricular septum intact. The aortic valve is trileaflet and appears structurally normal. There is trace to mild mitral regurgitation. Mild tricuspid regurgitation present. There is mild pulmonary hypertension. The right ventricular systolic pressure, as measured by Doppler, is 35.70mmHg. Trace/mild (physiologic) pulmonic regurgitation. The aortic root is dilated measuring 3.9cm. Normal inferior vena cava with normal inspiratory collapse consistent with estimated right atrial pre ssure of 5 mmHg. There is no pericardial effusion. CONCLUSIONS -------- 1. Sinus rhythm. 2. This was a technically good study. 3. The left ventricular size is normal. 4. There is moderate concentric left ventricular hypertrophy. 5. Overall left ventricular systolic function is normal with, an EF between 60 - 65 %. 6. The right ventricle is normal in size. 7. Normal LA size by volume 22+/-6 ml/m2. 8. The right atrium is normal in size. 9. Interatrial and interventricular septum intact. 10. The aortic valve is trileaflet and appears structurally normal. 11. There is trace to mild mitral regurgitation. 12. Mild tricuspid regurgitation present. 13. There is mild pulmonary hypertension. 14. The right ventricular systolic pressure, as measured by Doppler, is 35.70mmHg. 15. Trace/mild (physiologic) pulmonic regurgitation. 16. The aortic root is dilated measuring 3.9cm. 17. Normal inferior vena cava with normal inspiratory collapse consistent with estimated right atrial pressure of 5 mmHg. 18. There is no pericardial effusion. JIG WORKER: Honey Raya RDCS
[2019-04-04 13:49] VITALS: BMI 40.7
--- NOTE | 2019-04-04 14:06 | P.PN ---
Subjective Progress Note Date: 04/04/19 Principal diagnosis: Chest pain Patient is a 49-year-old male with a past medical history of hypertension, neuropathy secondary to chronic degenerative joint disease status post lumbar fusion, asthma, and recent kidney stones who presented to the ER with complaints of chest pain. In the emergency department he underwent an extensive evaluation. On arrival his blood pressure is slightly elevated at 148/89. Initial laboratory analysis demonstrated a slightly elevated white blood cell count of 14.2, sodium 135, and troponin 0.118. EKG as reviewed by myself showed sinus bradycardia at a rate of 58, HI 190, QRS 90, QTC 409. Nonsignificant ST segment elevation in V2 and V3 that is less than 2 mm. There was concerns for non-ST segment elevated myocardial infarction. He was started on a heparin drip, he was not given beta madeleine secondary to bradycardia. His abdomen a dose of aspirin. Arrangements were made for admission. 04/04/2019: Patient is status post cardiac catheterization and stent placement, no chest pain no abdominal pain no nausea no vomiting no shortness of breath no abdominal pain. Patient's is at bedside. Objective - Vital Signs Vital signs: Vital Signs Temp 98.1 F 04/04/19 08:00 Pulse 65 04/04/19 13:48 Resp 18 04/04/19 13:48 BP 128/72 04/04/19 13:48 Pulse Ox 96 04/04/19 13:48 Intake & Output 04/03/19 04/04/19 04/04/19 18:59 06:59 18:59 Intake Total 300 695 Output Total 600 Balance 300 95 Weight 145.15 kg 136.3 kg 136.3 kg Intake: IV 215 Oral 300 480 Output: Urine 600 Other: Voiding Method Urinal # Voids 2 - Exam Constitutional: No acute distress, conversant, pleasant Eyes: Anicteric sclerae, moist conjunctiva, PERRLA ENMT: NC/AT Neck:Supple, FROM, no masses, or JVD, No carotid bruits; No thyromegaly Lungs: Clear to auscultation, Clear to percussion, Normal respiratory effort, no accessory muscle use Cardiovascular: Heart regular in rate and rhythm, No murmurs, gallops, or rubs no peripheral edema Abdominal: Soft Nontender, nom distended, no guarding, no rebound or rigidity, Normoactive bowel sounds No hepatomegaly, No splenomegaly Skin: Normal temperature, tone Extremities:No digital cyanosis No clubbing Psychiatric: Alert and oriented to person, place and time Neuro: Muscles Strength 5/5 in all 4 extremities, Cranial nerves II-XII grossly intact. No focal sensory deficits - Labs CBC & Chem 7: 04/04/19 09:19 04/03/19 13:15 Labs: Abnormal Lab Results - Last 24 Hours (Table) 04/03/19 04/03/19 04/03/19 Range/Units 13:15 19:03 20:53 APTT (22.0-30.0) sec POC Glucose (mg/dL) 104 H (75-99) mg/dL Troponin I 0.118 H* 1.240 H* (0.000-0.034) ng/mL HDL Cholesterol (40-60) mg/dL 04/04/19 04/04/19 04/04/19 Range/Units 00:25 06:19 09:19 APTT (22.0-30.0) sec POC Glucose (mg/dL) 121 H (75-99) mg/dL Troponin I 5.720 H* (0.000-0.034) ng/mL HDL Cholesterol 39 L (40-60) mg/dL 04/04/19 04/04/19 Range/Units 09:19 12:21 APTT 32.2 H (22.0-30.0) sec POC Glucose (mg/dL) 101 H (75-99) mg/dL Troponin I (0.000-0.034) ng/mL HDL Cholesterol (40-60) mg/dL Microbiology - Last 24 Hours (Table) 04/03/19 23:59 Urine Culture - Preliminary Urine,Voided Assessment and Plan Plan: Non-ST segment elevated myocardial infarction Appreciate cardiology input, status post cardiac catheterization and stent placement. -Aspirin, increased Lipitor to 80 mg, not on metoprolol this point in time secondary to bradycardia echocardiogram consistent with EF 60-65%. Trace to mild mild mitral regurgitation, mild tricuspid regurgitation. Mild pulmonary hypertension., Tra ce/mild pulmonary regurgitation. Hypertensive urgency versus emergency -Enalaprilat 1 now as blood sugars blood pressure did not decrease with nitro or morphine use -Avoid beta madeleine secondary to bradycardia Dyslipidemia increased Lipitor to 80 mg daily Morbid obesity with BMI 43.4 Conservative treatment Asthma without exacerbation -Oxygen and bronchodilators as indicated -Continue home Symbicort Leukocytosis - likely stress induced - no other symptoms -Recheck labs Surrogate decision-maker: CODE STATUS:Full Code-would not want prolonged mechanical ventilation or life support DVT prophylaxis: scd Discussed with: pt and his Anticipated discharge date: tomorrow Anticipated discharge place: home A total of 21 minutes was spent on the care of this complex patient more than 50% of the time was spent in counseling and care coordination.
[2019-04-04 16:51] LABS: Glucose,Whole Blood 105 mg/dL (75-99)
[2019-04-04] MEDS: ATORVASTATIN 80 MG TAB PO SCH (19:54)
[2019-04-04 21:53] LABS: Glucose,Whole Blood 104 mg/dL (75-99)
[2019-04-05 06:08] LABS: Glucose,Whole Blood 116 mg/dL (75-99)
[2019-04-05] MEDS: INSULIN ASPART (NovoLOG) 100 UNIT/ML VIAL SQ SCH ×4 (06:17→20:58)
[2019-04-05 06:36] LABS: Basophils # (A) 0.1 k/uL (0-0.2); Basophils % (A) 1 %; Eosinophils # (A) 0.3 k/uL (0-0.7); Eosinophils % (A) 2 %; HCT 49.2 % (39.0-53.0); HGB 15.8 gm/dL (13.0-17.5); Lymphocytes # (A) 2.4 k/uL (1.0-4.8); Lymphocytes % (A) 18 %; MCH 28.4 pg (25.0-35.0); MCHC 32.1 g/dL (31.0-37.0); MCV 88.5 fL (80.0-100.0); Mean Platelet Volume 7.5; Monocytes % (A) 8 %; Neutrophils # (A) 8.8 k/uL (1.3-7.7); Neutrophils % (A) 69 %; Platelet Count 277 k/uL (150-450); RBC 5.56 m/uL (4.30-5.90); RDW 13.9 % (11.5-15.5); WBC 12.8 k/uL (3.8-10.6)
[2019-04-05 06:45] LABS: Albumin 4.1 g/dL (3.5-5.0); Calcium 10.1 mg/dL (8.4-10.2); Potassium 4.8 mmol/L (3.5-5.1); Total Bilirubin 0.7 mg/dL (0.2-1.3)
[2019-04-05] MEDS: SYMBICORT 160-4.5 MCG INHALER INHALATION SCH ×2 (07:39→19:11)
[2019-04-05] MEDS: ASPIRIN 81 MG PO SCH (08:05)
[2019-04-05] MEDS: ESCITALOPRAM 20 MG TAB PO SCH (08:05)
[2019-04-05] MEDS: TAMSULOSIN 0.4 MG CAP.ER.24H PO SCH (08:05)
[2019-04-05] MEDS: FAMOTIDINE 20 MG TAB PO SCH ×2 (08:05→19:57)
[2019-04-05] MEDS: LOSARTAN-HCTZ 50-12.5 MG 1 EACH TAB PO SCH (08:06)
--- NOTE | 2019-04-05 10:58 | PN ---
PROGRESS NOTE Mr. Murillo is a 49-year-old male who presented with non ST-segment elevation myocardial infarction, underwent cardiac catheterization yesterday and stenting of his totally occluded left circumflex. He is doing well this morning, ambulating without difficulty. Denying any chest pain. Denies any dizziness or palpitation. He continues to be on aspirin once a day, Lipitor 80 mg daily, lisinopril HCT 100-25 mg daily, Effient 10 mg daily. PHYSICAL EXAMINATION: Blood pressure 132/70 with the heart rate in 50s. LUNGS: Clear. HEART: Regular rate and rhythm. S1, S2. No S3. No rub. ABDOMEN: Soft, nontender. Right radial pulse intact. LAB DATA: Lab data revealed BUN and creatinine 17 and 1.1, potassium 4.8, hemoglobin of 15.8. He had an echocardiogram performed yesterday and that revealed an ejection fraction of 60% to 65% with mild tricuspid regurgitation. IMPRESSION: 1. Status post [id number] elevation myocardial infarction and stenting of the left circumflex. 2. History of hypertension. 3. Hyperlipidemia. 4. Diabetes mellitus. 5. Chronic tobacco use. RECOMMENDATION: Will increase his present therapy, if he is stable I would expect he should be able to be discharged home tomorrow. MMODL / IJN: [id number] /
[2019-04-05 11:12] LABS: Glucose,Whole Blood 102 mg/dL (75-99)
[2019-04-05] MEDS: PRASUGREL 10 MG TAB PO SCH (15:19)
[2019-04-05 16:06] LABS: Glucose,Whole Blood 111 mg/dL (75-99)
--- NOTE | 2019-04-05 19:31 | PN ---
PROGRESS NOTE DATE OF SERVICE: April 05, 2019. PRESENTING COMPLAINT: Chest pain. INTERVAL HISTORY: Patient admitted with acute non ST elevation myocardial infarction with coronary intervention to left circumflex. Up and about in the hallway. No chest pain or shortness of breath. Feeling well. Seen by Cardiology. REVIEW OF SYSTEMS: Done for constitutional, cardiovascular, GI, pulmonary; relevant findings as above. CURRENT MEDICATIONS: Reviewed that include aspirin, Lipitor, Hyzaar, Effient, Flomax. EXAMINATION: VITAL SIGNS: Afebrile. Pulse 61, respiration 16, blood pressure 117/68. Pulse ox 98% on room air. LUNGS: Slightly decreased breath sounds. CARDIOVASCULAR: First and second sounds normal. No edema. ABDOMEN: Soft, nontender. Liver and spleen not palpable. PSYCHIATRY: Alert and oriented x3. Mood and affect normal. INVESTIGATIONS: White count 12.8, hemoglobin 15.5, potassium 4.8, LDL 94. 2D echocardiogram EF of 60- 65 percent. ASSESSMENT: 1. Acute non-Q-wave myocardial infarction, POA. 2. Urgent cardiac catheterization with intervention to the left circumflex with a stent. 3. COPD in a current smoker. 4. Chronic nicotine dependence, patient is a cigarette smoker. 5. Essential hypertension. 6. Diabetes mellitus type 2. PLAN: Care was discussed with the patient. Continue current medication and treatment plan. I am hoping patient can go home tomorrow. Smoking cessation counseling: This was done with the patient. The patient has been given a nicotine patch. More than 3 minutes was spent on this aspect of the case. MMODL / IJN: [id number] /
[2019-04-05] MEDS: ATORVASTATIN 80 MG TAB PO SCH (19:57)
[2019-04-05 20:57] LABS: Glucose,Whole Blood 128 mg/dL (75-99)
[2019-04-06] MEDS: INSULIN ASPART (NovoLOG) 100 UNIT/ML VIAL SQ SCH (06:22)
[2019-04-06 06:29] LABS: Glucose,Whole Blood 122 mg/dL (75-99)
[2019-04-06] MEDS: SYMBICORT 160-4.5 MCG INHALER INHALATION SCH (08:08)
[2019-04-06] MEDS: ESCITALOPRAM 20 MG TAB PO SCH (08:21)
[2019-04-06] MEDS: FAMOTIDINE 20 MG TAB PO SCH (08:21)
[2019-04-06] MEDS: ASPIRIN 81 MG PO SCH (08:21)
[2019-04-06] MEDS: LOSARTAN-HCTZ 50-12.5 MG 1 EACH TAB PO SCH (08:21)
[2019-04-06] MEDS: PRASUGREL 10 MG TAB PO SCH (08:22)
[2019-04-06] MEDS: TAMSULOSIN 0.4 MG CAP.ER.24H PO SCH (08:22)
[2019-04-06 08:55] LABS: Basophils # (A) 0.1 k/uL (0-0.2); Basophils % (A) 1 %; Eosinophils # (A) 0.3 k/uL (0-0.7); Eosinophils % (A) 2 %; HCT 49.6 % (39.0-53.0); HGB 16.2 gm/dL (13.0-17.5); Lymphocytes # (A) 2.4 k/uL (1.0-4.8); Lymphocytes % (A) 17 %; MCH 28.5 pg (25.0-35.0); MCHC 32.6 g/dL (31.0-37.0); MCV 87.2 fL (80.0-100.0); Mean Platelet Volume 7.8; Monocytes # (A) 0.6 k/uL (0-1.0); Monocytes % (A) 4 %; Neutrophils # (A) 10.3 k/uL (1.3-7.7); Neutrophils % (A) 75 %; Platelet Count 279 k/uL (150-450); RBC 5.69 m/uL (4.30-5.90); RDW 14.7 % (11.5-15.5); WBC 13.8 k/uL (3.8-10.6)
--- NOTE | 2019-04-06 09:07 | PN ---
PROGRESS NOTE Mr. Murillo is a 49-year-old male who presented with non ST-segment elevation myocardial infarction, underwent cardiac catheterization, coronary angioplasty and stenting of the left circumflex. He is doing well this morning. His breathing has been stable. He is denying any chest pain. No dizziness. No palpitation. He denies any nausea. He has been ambulating without difficulty. He continues to be at this time on aspirin once a day, Lipitor 80 mg daily, losartan HCT 100-25 mg daily, Effient 10 mg daily. PHYSICAL EXAMINATION: Blood pressure 124/70 with the heart rate in the 60s. LUNGS: Clear. HEART: Regular rate and rhythm. S1, S2. No S3. No rub. ABDOMEN: Soft, nontender. EXTREMITIES: No edema. His echocardiogram that was performed on the has shown a normal systolic function. IMPRESSION: 1. Status post hrg-[id number] elevation myocardial infarction with stenting of the left circumflex. 2. History of hypertension. 3. Hyperlipidemia. 4. Diabetes mellitus. 5. Chronic tobacco use. RECOMMENDATION: Patient should be able to be discharged home today and followed as an outpatient. Metformin can be re-initiated if it is required at this point. MMODL / IJN: [id number] /
[2019-04-06 09:10] LABS: Albumin 4.1 g/dL (3.5-5.0); Calcium 9.8 mg/dL (8.4-10.2); Potassium 4.4 mmol/L (3.5-5.1); Total Bilirubin 0.9 mg/dL (0.2-1.3); Total Protein 7.1 g/dL (6.3-8.2)
[2019-04-06 11:08] VITALS: BP 112/68; PULSE 80; RESP 16; TEMP 98
--- NOTE | 2019-04-06 22:35 | DS ---
DISCHARGE SUMMARY DATE OF ADMISSION: 04/03/2019 DATE OF DISCHARGE: 04/06/2019 FINAL DIAGNOSES: 1. Acute non-Q-wave myocardial infarction, POA. 2. Urgent cardiac catheterization with intervention to the left circumflex with a stent. 3. Chronic obstructive pulmonary disease in a current smoker. 4. Chronic nicotine dependence, patient is a cigarette smoker. 5. Essential hypertension. 6. Diabetes mellitus type 2. CONSULTATION: Dr. Lozano from Cardiology. HOSPITAL COURSE: This patient presented with acute [place]. Intervention was carried out as above by Dr. Lozano. Two-D echocardiogram shows preserved LV function. On the day of discharge, patient is up and about. PHYSICAL EXAMINATION: Temperature 98, pulse 80, respiration 16, blood pressure 112/68, pulse ox 98% on room air. Lungs slightly decreased breath sounds. Cardiovascular: 1st and 2nd sounds normal. INVESTIGATIONS: Potassium 4.4. DISCHARGE MEDICATIONS: 1. Ventolin HFA 2 puffs q.6 p.r.n. 2. Flomax 0.4 mg p.o. daily. 3. Symbicort 160/4.5, 2 puffs b.i.d. 4. Lexapro 20 mg p.o. daily. 5. Pepcid 20 mg p.o. b.i.d. 6. Losartan hydrochlorothiazide 100/25 1 tablet p.o. daily. 7. Nitrostat 0.4 sublingual q.5 p.r.n. 8. Metformin 1000 mg p.o. t.i.d. 9. Effient 10 mg p.o. daily. 10.Aspirin 81 mg p.o. daily. 11.Lipitor 80 mg q.h.s. FOLLOW UP: Follow up with Dr. Lozano in 1 week; follow up with Dr. Jameson on April 11, 2019. Copy to Dr. Manuel Jameson. MMODL / IJN: [id number] /
--- NOTE | 2019-04-09 00:49 | CDI ---
Pt Name: Tenzin Murillo CONFIDENTIAL MR#: [id number] Adm Date: 04/03/2019 2:34:00 PM Printed:04/09/2019 Physician Documentation Request Page 1 of 1 ICD-10-CM Ready Physicians Documentation Request This Form is Not a Permanent Document in the Medical Record Pt Name: Tenzin Murillo MR #: [id number] Payor: [facility] Unit/Bed: [id number] Adm Date: 04/03/2019 2:34:00 PM Reviewer: Fareed Sesay Ext. call to [phone] Query Date: 04/09/19 By submitting this query, we are merely seeking further clarification of documentation to accurately reflect all conditions that you are monitoring, evaluating, treating or that extend the hospitalization or utilize additional resources of care. Please utilize your independent clinical judgment when addressing the question(s) below. Dear Doctor Alexander Brooks, The patients Clinical Indicators include: See below... Hypertension is document in the medical record. Hypertensive urgency or emergency-Enalaprilat 1 now as blood sugars blood pressure did not decrease with nitro or morphine use, Documented in Progress notes by Raheel Braun. Please specify the type of hypertension such as: Emergency Urgency Other (please specify in the medical record) Clinically unable to further specify Unknown PLEASE DOCUMENT ANY ADDITIONAL DIAGNOSES AND/OR SPECIFICITY IN THE PROGRESS NOTES AND/OR DISCHARGE SUMMARY. Agreed & documented Clinically unable to determine/unknown Disagree with the above request Need to discuss clinically unable to further specify MTDD
== END 2019-04-06 11:55 | disposition home or self-care (01) | DRG 247 ==
LOC: EC 12:59 → 3SCARD 14:34
PROVIDERS: ADMIT Hospitalist; ATTEND Hospitalist
DX: I21.4 Non-ST elevation (NSTEMI) myocardial infarction (principal); Z68.41 Body mass index [BMI] 40.0-44.9, adult; E66.01 Morbid (severe) obesity due to excess calories; I10 Essential (primary) hypertension; E78.5 Hyperlipidemia, unspecified; F17.210 Nicotine dependence, cigarettes, uncomplicated; E11.40 Type 2 diabetes mellitus with diabetic neuropathy, unspecified; I25.10 Atherosclerotic heart disease of native coronary artery without angina pectoris; J44.9 Chronic obstructive pulmonary disease, unspecified; D72.829 Elevated white blood cell count, unspecified; I27.20 Pulmonary hypertension, unspecified; Z79.51 Long term (current) use of inhaled steroids; Z79.02 Long term (current) use of antithrombotics/antiplatelets; Z79.84 Long term (current) use of oral hypoglycemic drugs; Z79.899 Other long term (current) drug therapy; Z88.0 Allergy status to penicillin; Z87.442 Personal history of urinary calculi; Z90.49 Acquired absence of other specified parts of digestive tract; Z80.0 Family history of malignant neoplasm of digestive organs; Z98.1 Arthrodesis status; Z98.890 Other specified postprocedural states; Z82.49 Family history of ischemic heart disease and other diseases of the circulatory system
CPT/HCPCS: 36415; 71046; 80053; 80061; 83036; 83735; 84484; 85025; 85049; 85347; 85379; 85610; 85730; 87086; 93005; 93306; 93458; 94640; 94760; 96365; 96366; 96375; 96376; 99291; C1874

== ENCOUNTER 2019-05-25 07:47 | Day surgery (SDC) | payer BC ==
[~2019-05-25 07:47] MED LIST: ALPRAZolam 0.25 MG TAB PO PRN; ALPRAZolam 0.5 MG TAB PO PRN; ASPIRIN 325 MG TAB PO STA; ATORVASTATIN 80 MG TAB PO STA; NITROGLYCERIN SL TABS 0.4 MG TAB SUBLINGUAL PRN; SODIUM CHLORIDE 0.9% 1,000 ML in EMPTY BAG 1 BAG IV ONE
[2019-05-25] MEDS ORDERED: SODIUM CHLORIDE 0.9% 1,000 ML IV ONE (08:10)
[2019-05-25 08:15] LABS: Glucose,Whole Blood 110 mg/dL (75-99)
[2019-05-25] MEDS ORDERED: fentaNYL (PF) 50 MCG/ML 2 ML AMP ONE (08:31)
[2019-05-25] MEDS ORDERED: LIDOCAINE 1% INJ 10MG/ML (20 ML MDV) ONE (08:31)
[2019-05-25] MEDS ORDERED: VERAPAMIL 2.5 MG/ML 2 ML AMP ONE (08:32)
[2019-05-25] MEDS ORDERED: HEPARIN SODIUM 1,000 UN/ML (10ML VL) ONE ×2 (08:32→09:40)
[2019-05-25] MEDS ORDERED: fentaNYL (PF) 50 MCG/ML 2 ML AMP IV ONE (09:10)
[2019-05-25] MEDS ORDERED: LIDOCAINE 1% INJ 10MG/ML (20 ML MDV) SQ ONE (09:17)
[2019-05-25] MEDS ORDERED: VERAPAMIL SYRINGE (5 MG/10 ML) INTRAARTER ONE (09:20)
[2019-05-25] MEDS: HEPARIN SODIUM 1,000 UN/ML (10ML VL) IV ONE ×2 (09:29→09:41)
[2019-05-25] MEDS ORDERED: NITROGLYCERIN 1000MCG/10ML SYRINGE INTRACORON ONE (09:36)
[2019-05-25] MEDS ORDERED: ADENOSINE 180 MG in SODIUM CHLORIDE 0.9% 30 ML IVP ONE (09:39)
[2019-05-25] MEDS ORDERED: IOPAMIDOL-370 100ML BTL INJ ONE ×2 (09:46→09:53)
[2019-05-25] MEDS ORDERED: PRASUGREL 10 MG TAB ONE (09:53)
[2019-05-25] MEDS ORDERED: PRASUGREL 10 MG TAB PO ONE (09:56)
[2019-05-25] MEDS ORDERED: ZOLPIDEM 5 MG TAB PO PRN (10:16)
[2019-05-25] MEDS ORDERED: MAG HYDROX/AL HYDROX/SIMETH 30 ML CUP PO PRN (10:16)
[2019-05-25] MEDS ORDERED: ATROPINE SULFATE 0.1 MG/ML 10ML SYRINGE IV PRN (10:16)
[2019-05-25] MEDS ORDERED: RX INFO: IV CONTRAST WAS GIVEN 1 EACH MISC MISCELLANE PRN (10:16)
[2019-05-25] MEDS ORDERED: NITROGLYCERIN SL TABS 0.4 MG TAB SUBLINGUAL PRN (10:16)
[2019-05-25 10:28] LABS: Glucose,Whole Blood 112 mg/dL (75-99)
[2019-05-25] MEDS ORDERED: SODIUM CHLORIDE 0.9% 1,000 ML IV SCH (10:30)
--- NOTE | 2019-05-25 10:31 | CC ---
CARDIAC CATHETERIZATION REPORT Mr. Murillo is a 49-year-old male with known history of hypertension, hyperlipidemia, diabetes mellitus, history of chronic tobacco use, who in March, underwent stenting of his left circumflex in the setting of a myocardial infarction. He presents with symptoms of exertional chest discomfort. In view of that, recommendation made regarding cardiac catheterization, the procedures, risks, and complications were discussed with the patient who is in full understanding and agreement. PROCEDURE: Patient was brought to the tag and label cutter in a fasting semi-sedated state after receiving fentanyl and Benadryl and achieving moderate conscious sedated state. Using Xylocaine anesthesia and Seldinger technique, a 6-Ecuadorean sheath was introduced in the right radial artery. Selective right and left coronary angiography performed using 5-Ecuadorean 3.5 bend right and left Carol catheter. Multiple views of the coronary artery including hemiaxial views obtained. Following that, angioplasty and stenting was performed. Following that 5-Ecuadorean tight pigtail catheter introduced in the left ventricle and a 30 degree CHERRY view the left ventricle was obtained. Following that, catheter and sheaths were removed. Hemostasis was obtained with deployment of a TR band. There was no immediate complication. Patient is returned to his room in stable condition. Of note, the patient received intra-arterial verapamil and a total of 11,000 units of intrahepatic venous heparin throughout the procedure. FINDINGS: LEFT MAIN: This is a large-sized vessel, trifurcating into left circumflex, left anterior descending artery. Left main coronary artery has no evidence of high-grade stenosis. LEFT ANTERIOR DESCENDING ARTERY: This is a large-sized vessel, reaching toward the apex with a wraparound apex segment, giving rise to a large diagonal branch. The vessel is mildly aneurysmal approximately, mildly calcified in the mid segment after the takeoff of diagonal branch. There is a 50%-60% plaque. The rest of the vessel has no high-grade stenosis. RAMUS INTERMEDIUS: This is a small size vessel that has no evidence of high-grade stenosis. LEFT CIRCUMFLEX: This is a nondominant vessel, giving rise to a moderately sized obtuse marginal branch. The stented segment in the proximal left circumflex is patent with no evidence of significant obstructive disease. There is mild plaque in the obtuse marginal branch. RIGHT CORONARY ARTERY: This is a large dominant vessel, bifurcating distally into PDA and posterolateral segment and branches. The mid right coronary artery has a 30% to 40% plaque. The rest of the vessel has no high-grade stenosis. LEFT VENTRICULOGRAM: The left ventriculogram is performed in 30 degree CHERRY view and revealed normal left ventricular size and systolic function. Ejection fraction is 55%. There was no significant mitral regurgitation. HEMODYNAMICS: There was no gradient across the aortic valve. The left ventricular end- diastolic pressure was 20 mmHg. CONCLUSION: 1. Borderline significant lesion in the mid left anterior descending artery. 2. Patent stent of the left circumflex. 3. Mild disease in the right coronary artery. 4. Normal left ventricular size and systolic function. RECOMMENDATION: In view of finding anatomy, I recommend proceeding with evaluation of the left anterior descending artery by fractional flow reserve and depending on that, further recommendation will be made. Those findings and recommendations were discussed with the patient who is in full understanding and agreement. MMODL / IJN: [id number] /
--- NOTE | 2019-05-25 11:01 | PTCA ---
PERCUTANEOUSTRANS CORORONARY ANGIOGRAPHY Mr. Murillo is a 49-year-old male with known history of coronary artery disease who presented with symptoms of chest discomfort, underwent cardiac catheterization, was found to have borderline significant lesion in the mid LAD. In view of that, recommendation made regarding evaluation by fractional flow reserve. The procedures, risks and complication were discussed with the patient who is in full understanding and agreement. PROCEDURE: A 6-Azeri FL 3.5 guiding catheter introduced into the system, after cannulating the left main, a [employer] Doppler flow wire was introduced, positioned distally. Following that and after infusion of adenosine per protocol, the fraction flow reserve was calculated at 0.76. At that point a 3.0 x 18 mm Xience Riddhi stent was advanced, deployed and post-dilated at 16 atmospheres. After the last inflation, after appropriate wait, the balloon and the guidewire were withdrawn back in the guiding catheter. Images were obtained and repeated. Those images reveal stable successful stenting. At that point, a left ventriculogram was performed. Following that, catheter and sheath were removed. Hemostasis was obtained with deployment of a TR band. There was no immediate complication. Patient is returned to his room in stable condition. Of note, the patient received a total of 11,000 units of intravenous heparin. He had mild chest discomfort that resolved at the end of the procedure as well EKG changes that resolved. RESULTS: Successful stenting of the mid LAD with positive fractional flow reserve with reduction of stenosis from 60%-70% to 0%. RECOMMENDATION: Patient will be continued on aspirin, Effient, beta madeleine, MILAGROS inhibitor, statin. The importance of dual antiplatelet treatment as well as smoking cessation were discussed with the patient and his family who are in full understanding and agreement. DURATION OF PROCEDURE: 41 minutes. MMODL / IJN: [id number] /
[2019-05-25 13:52] VITALS: BMI 42.4
[2019-05-25] MEDS ORDERED: METOPROLOL TARTRATE 25 MG TAB PO STA (17:48)
[2019-05-25] MEDS ORDERED: LOSARTAN-HCTZ 50-12.5 MG 1 EACH TAB PO ONE (17:51)
[2019-05-25] MEDS: SYMBICORT 160-4.5 MCG INHALER INHALATION SCH (19:13)
[2019-05-25] MEDS ORDERED: ATORVASTATIN 80 MG TAB PO SCH (21:00)
[2019-05-25 21:12] LABS: Glucose,Whole Blood 104 mg/dL (75-99)
[2019-05-25] MEDS: METOPROLOL TARTRATE 12.5 MG TAB PO SCH (23:08)
[2019-05-26 05:18] LABS: African American GFR (CKD) >90 (>60 ml/min/1.73 sqM); Anion Gap 6 mmol/L; Blood Urea Nitrogen 15 mg/dL (9-20); Calcium 8.7 mg/dL (8.4-10.2); Carbon Dioxide 29 mmol/L (22-30); Chloride 102 mmol/L (98-107); Glucose 103 mg/dL (74-99); Potassium 4.9 mmol/L (3.5-5.1); Sodium 137 mmol/L (137-145)
[2019-05-26 06:49] VITALS: PULSE 48
[2019-05-26 07:03] LABS: Glucose,Whole Blood 125 mg/dL (75-99)
[2019-05-26] MEDS ORDERED: INSULIN ASPART (NovoLOG) 100 UNIT/ML VIAL SQ SCH (07:30)
[2019-05-26] MEDS: SYMBICORT 160-4.5 MCG INHALER INHALATION SCH (07:58)
[2019-05-26] MEDS: METOPROLOL TARTRATE 12.5 MG TAB PO SCH (08:25)
[2019-05-26 08:28] VITALS: BP 129/92; RESP 16; TEMP 98.2
--- NOTE | 2019-05-26 08:42 | PN ---
PROGRESS NOTE Mr. Murillo is a 49-year-old male with known history of coronary artery disease who presented with symptoms of chest discomfort, underwent cardiac catheterization, was found to have patent left circumflex stented segment, but had a moderate significant disease in the LAD. Had a positive fractional flow reserve and stenting of the LAD. He is doing well this morning. His breathing has been stable. He is denying any chest pain. No dizziness. No palpitation. He denies any nausea. He continues to be on aspirin once a day, Lipitor 80 mg daily. Hyzaar 100-25 mg daily. PHYSICAL EXAMINATION: Blood pressure 125/80 with a heart rate in the 40s. LUNGS: Clear. HEART: Regular rate and rhythm S1, S2. No S3. No rub. ABDOMEN: Soft nontender. EXTREMITIES: No edema. Right radial pulse intact. LAB DATA: Lab data revealed BUN and creatinine 15 and 0.92, potassium 4.9. IMPRESSION: 1. Status post stenting of the LAD. 2. Hyperlipidemia. 3. Chronic tobacco use. 4. Diabetes. 5. Hypertension. RECOMMENDATIONS: Patient will be discharged home today. We will continue to hold his beta madeleine because of the sinus bradycardia. The importance of smoking cessation was discussed with the patient. MMODL / IJN: [id number] /
[2019-05-26] MEDS ORDERED: PRASUGREL 10 MG TAB PO SCH (09:00)
[2019-05-26] MEDS ORDERED: FAMOTIDINE 20 MG TAB PO SCH (09:00)
[2019-05-26] MEDS ORDERED: LOSARTAN-HCTZ 50-12.5 MG 1 EACH TAB PO SCH (09:00)
[2019-05-26] MEDS ORDERED: ESCITALOPRAM 20 MG TAB PO SCH (09:00)
[2019-05-26] MEDS ORDERED: ASPIRIN 81 MG PO SCH (09:00)
== END 2019-05-26 08:53 | disposition home or self-care (01) ==
LOC: CATHCVL 07:47 → 2SICU 10:10 → CATHCVL 05-26 08:53
PROVIDERS: ATTEND Internal Medicine Interventional Cardiology
DX: I25.119 Atherosclerotic heart disease of native coronary artery with unspecified angina pectoris (principal); Z95.5 Presence of coronary angioplasty implant and graft; I25.2 Old myocardial infarction; R00.1 Bradycardia, unspecified; I10 Essential (primary) hypertension; E78.5 Hyperlipidemia, unspecified; E11.9 Type 2 diabetes mellitus without complications; F17.200 Nicotine dependence, unspecified, uncomplicated; Z79.82 Long term (current) use of aspirin; Z79.899 Other long term (current) drug therapy
CPT/HCPCS: 93458; 94640 ×2; 93571; 80048; C9600; C1887; C1894; C1769; C1874; J2001; J3010; J1644; J0153; Q9967

== ENCOUNTER 2019-08-08 09:13 | Day surgery (SDC) | payer BC ==
[2019-08-07 08:33] VITALS: BMI 43.1
[~2019-08-08 09:13] MED LIST changes: +ATORVASTATIN 80 MG TAB PO ONE; -ATORVASTATIN 80 MG TAB PO STA
[2019-08-08] MEDS ORDERED: SODIUM CHLORIDE 0.9% 1,000 ML IV ONE (09:50)
[2019-08-08 09:59] LABS: Glucose,Whole Blood 111 mg/dL (75-99)
[2019-08-08] MEDS ORDERED: VERAPAMIL 2.5 MG/ML 2 ML AMP ONE (10:05)
[2019-08-08] MEDS ORDERED: LIDOCAINE 1% INJ 10MG/ML (20 ML MDV) ONE (10:05)
[2019-08-08] MEDS ORDERED: fentaNYL (PF) 50 MCG/ML 2 ML AMP ONE (10:34)
[2019-08-08] MEDS ORDERED: PRASUGREL 10 MG TAB ONE (10:35)
[2019-08-08] MEDS ORDERED: PRASUGREL 10 MG TAB PO ONE (10:40)
[2019-08-08] MEDS ORDERED: fentaNYL (PF) 50 MCG/ML 2 ML AMP IV ONE (10:41)
[2019-08-08] MEDS ORDERED: LIDOCAINE 1% INJ 10MG/ML (20 ML MDV) SQ ONE (10:42)
[2019-08-08] MEDS ORDERED: HEPARIN SODIUM 1,000 UN/ML (10ML VL) ONE (10:56)
[2019-08-08] MEDS ORDERED: BIVALIRUDIN BOLUS 250 MG/50 ML IV ONE (11:03)
[2019-08-08] MEDS ORDERED: BIVALIRUDIN 250 MG in SODIUM CHLORIDE 0.9% 50 ML IV ONE (11:04)
[2019-08-08] MEDS ORDERED: IOPAMIDOL-370 125ML BTL INJ ONE (11:10)
[2019-08-08] MEDS ORDERED: IOPAMIDOL-370 100ML BTL INJ ONE (11:20)
[2019-08-08] MEDS ORDERED: MAG HYDROX/AL HYDROX/SIMETH 30 ML CUP PO PRN (11:47)
[2019-08-08] MEDS ORDERED: RX INFO: IV CONTRAST WAS GIVEN 1 EACH MISC MISCELLANE PRN (11:47)
[2019-08-08] MEDS ORDERED: ZOLPIDEM 5 MG TAB PO PRN (11:47)
[2019-08-08] MEDS ORDERED: ATROPINE SULFATE 0.1 MG/ML 10ML SYRINGE IV PRN (11:47)
[2019-08-08] MEDS ORDERED: NITROGLYCERIN SL TABS 0.4 MG TAB SUBLINGUAL PRN (11:47)
[2019-08-08] MEDS ORDERED: ALBUTEROL NEBULIZED 2.5 MG/3 ML INHALATION PRN (11:48)
[2019-08-08 11:57] LABS: Glucose,Whole Blood 108 mg/dL (75-99)
[2019-08-08] MEDS ORDERED: SODIUM CHLORIDE 0.9% 1,000 ML IV SCH (12:00)
--- NOTE | 2019-08-08 12:13 | CC ---
CARDIAC CATHETERIZATION REPORT Mr. Murillo is a 49-year-old male with known history of hypertension, hyperlipidemia, diabetes mellitus, chronic tobacco use and history of coronary artery disease, status post stenting of the left circumflex in March and the LAD in May of this year who presented with symptoms of exertional chest discomfort over the last week. In view of that, recommendation made regarding cardiac catheterization, the procedures, risks, and complication were discussed with the patient who is in full understanding and agreement. PROCEDURE: Patient was brought to labor relations specialist in a fasting semi-sedated state after receiving fentanyl and Benadryl and achieving moderate conscious sedated state. Using Xylocaine anesthesia and Seldinger technique, a 6-Swiss sheath was introduced in the right radial artery. Selective right and left coronary angiography were performed using 5- Swiss 3.5 bend right and left Carol catheter, multiple views of the coronary artery including hemiaxial views obtained. Following that, angioplasty and stenting was performed. Following that, a 5-Swiss tight pigtail catheter was introduced in the left ventricle and pressures were calculated. Following that, catheter and sheath were removed. Hemostasis was obtained with deployment of a TR band. There was no immediate complication. Patient is returned to his room in stable condition. Of note, the patient received intra-arterial verapamil. FINDINGS: LEFT MAIN: This is a large-sized vessel, trifurcating into left circumflex, left anterior descending artery and ramus intermedius. Left main coronary artery has no evidence of obstructive coronary artery disease. LEFT ANTERIOR DESCENDING ARTERY: This is a large-sized vessel, reaching toward the apex with a wraparound apex segment, proximally. Prior to the takeoff of the first diagonal branch, there is an eccentric complex lesion of 90% with what appears to be ruptured plaque. The stented segment in the mid LAD is patent with no evidence of high- grade stenosis. LEFT CIRCUMFLEX: This is a nondominant vessel giving rise to a moderately sized obtuse marginal branch. The stented segment in the left circumflex is patent. There is a 30% plaque distal to it. RAMUS INTERMEDIUS: This is a small size vessel that has no evidence of high-grade stenosis. RIGHT CORONARY ARTERY: This is a large dominant vessel, bifurcating distally into PDA and posterolateral segment and branches. The right coronary artery has a 30% plaque to 40% in the mid segment without any evidence of high-grade stenosis. LEFT VENTRICULOGRAM: Left ventriculogram is not performed. HEMODYNAMICS: There was no gradient across the aortic valve. The left ventricular end- diastolic pressure was 10-14 mmHg. CONCLUSION: 1. Significant stenosis involving the proximal LAD. 2. Moderate disease in the left circumflex and the right coronary artery. 3. No evidence of restenosis at the stented segment of the LAD or the left circumflex. RECOMMENDATION: In view of finding anatomy, I recommend proceeding with angioplasty and stenting of the LAD. The procedure as well as risks and complication were discussed with the patient who is in full understanding and agreement. MMODL / IJN: [id number] /
--- NOTE | 2019-08-08 12:19 | PTCA ---
PERCUTANEOUSTRANS CORORONARY ANGIOGRAPHY ANGIOPLASTY PROCEDURE NOTE: Mr. Murillo is a 49-year-old male with a known history of coronary artery disease who presented with symptoms of new onset angina, underwent cardiac catheterization, was found to have significant disease involving the proximal LAD, recommendations were made regarding angioplasty and stenting. The procedure, risks, and complication were discussed with the patient who is in full understanding and agreement. PROCEDURE: A 6-Mozambican LBU 3.75 guiding catheter introduced into the system after cannulating the left main, a 0.014 balanced medium weight J-wire was advanced across the lesion, positioned distal LAD. Subsequently, a 3.5 x 18 mm Xience Riddhi stent was deployed and post-dilated to 16 atmospheres. Following that, the balloon was removed and a 4.0 x 8 mm [employer] balloon was advanced in the proximal segment prior to the diagonal branch takeoff and one inflation at 14 atmospheres was done. Following that, the balloon and the wire were withdrawn back in the guiding catheter. Images were obtained and repeated. those images reveal stable successful stenting. At that point, the guiding catheter, the balloon and the guidewire were removed and left ventricular end- diastolic pressure was calculated. Following that, catheter and sheaths were removed. Hemostasis was obtained with deployment of a TR band. There was no immediate complication. Patient is returned to his room in stable condition. Of note, the patient had chest discomfort and EKG changes with the inflation that resolved at the end the procedure. He received Angiomax per protocol and Effient. RESULTS: Successful stenting of the proximal LAD with reduction of stenosis from 90% to 0%. RECOMMENDATION: Patient will be continued on aspirin, Effient, beta madeleine, MILAGROS inhibitors and statin. The importance of dual antiplatelet treatment were discussed with the patient and his family and they are in full understanding and agreement. Duration of procedure is 43 minutes. MMODL / IJN: [id number] /
[2019-08-08 17:21] LABS: Glucose,Whole Blood 110 mg/dL (75-99)
[2019-08-08] MEDS: FAMOTIDINE 20 MG TAB PO SCH (20:54)
[2019-08-08 21:00] LABS: Glucose,Whole Blood 103 mg/dL (75-99)
[2019-08-08] MEDS ORDERED: ATORVASTATIN 80 MG TAB PO SCH (21:00)
[2019-08-08 23:21] VITALS: RESP 18
[2019-08-09 06:36] LABS: Glucose,Whole Blood 118 mg/dL (75-99)
[2019-08-09 07:42] LABS: African American GFR (CKD) >90 (>60 ml/min/1.73 sqM); Anion Gap 8 mmol/L; Blood Urea Nitrogen 16 mg/dL (9-20); Carbon Dioxide 25 mmol/L (22-30); Chloride 105 mmol/L (98-107); Glucose 100 mg/dL (74-99); Potassium 4.6 mmol/L (3.5-5.1); Sodium 138 mmol/L (137-145)
[2019-08-09] MEDS: FAMOTIDINE 20 MG TAB PO SCH (08:33)
[2019-08-09 08:39] VITALS: BP 139/90; PULSE 61; TEMP 97.6
[2019-08-09] MEDS ORDERED: ISOSORBIDE MONONITRATE ER 30 MG TAB.ER.24H PO SCH (09:00)
[2019-08-09] MEDS ORDERED: PRASUGREL 10 MG TAB PO SCH (09:00)
[2019-08-09] MEDS ORDERED: ESCITALOPRAM 20 MG TAB PO SCH (09:00)
[2019-08-09] MEDS ORDERED: ASPIRIN 81 MG PO SCH (09:00)
[2019-08-09] MEDS ORDERED: LOSARTAN-HCTZ 50-12.5 MG 1 EACH TAB PO SCH (09:00)
[2019-08-09] MEDS ORDERED: TAMSULOSIN 0.4 MG CAP.ER.24H PO SCH (09:00)
--- NOTE | 2019-08-09 11:47 | PN ---
PROGRESS NOTE Mr. Murillo is a 49-year-old male known history of coronary artery disease who presented with symptoms of angina pectoris, underwent cardiac catheterization, was found to have critical stenosis involving the proximal LAD, underwent stenting of that vessel, he is doing this well this morning, ambulating without difficulty. Denying any chest pain. No dizziness. No palpitation. He continued to be on aspirin once a day, Lipitor 80 mg daily, isosorbide mononitrate 30 mg daily, losartan HCT 100-25 mg daily and Effient 10 mg daily and Flomax 0.4 mg daily. PHYSICAL EXAMINATION: Blood pressure 139/90 with a heart rate in the 60s. LUNGS: Clear, regular rate and rhythm, S1, S2. No S3. No rub. ABDOMEN: Soft, nontender, right radial pulse intact. EKG revealed no acute changes. LAB DATA: BUN and creatinine 16 and 0.97. Potassium 4.6. IMPRESSION: 1. Status post stenting of the LAD/. 2. History of stenting of the mid LAD and left circumflex. 3. Hypertension. 4. Hyperlipidemia. 5. Chronic tobacco use. RECOMMENDATION: The patient will be discharged home today. I discussed with him again the importance of smoking cessation. Those findings and recommendation were discussed with the patient who is in full understanding and agreement. MMODL / IJN: [id number] /
[2019-08-09] MEDS ORDERED: ATORVASTATIN 80 MG TAB PO SCH (21:00)
== END 2019-08-09 10:48 | disposition home or self-care (01) ==
LOC: CATHCVL 09:13 → 3SCARD 11:31 → CATHCVL 08-09 10:48
PROVIDERS: ATTEND Internal Medicine Interventional Cardiology
DX: I25.110 Atherosclerotic heart disease of native coronary artery with unstable angina pectoris (principal); E11.9 Type 2 diabetes mellitus without complications; E78.2 Mixed hyperlipidemia; I10 Essential (primary) hypertension; R35.1 Nocturia; M25.50 Pain in unspecified joint; E78.00 Pure hypercholesterolemia, unspecified; F17.210 Nicotine dependence, cigarettes, uncomplicated; I25.2 Old myocardial infarction; Z79.899 Other long term (current) drug therapy; Z79.82 Long term (current) use of aspirin; Z79.02 Long term (current) use of antithrombotics/antiplatelets; Z82.49 Family history of ischemic heart disease and other diseases of the circulatory system; Z88.0 Allergy status to penicillin; Z79.84 Long term (current) use of oral hypoglycemic drugs; Z95.5 Presence of coronary angioplasty implant and graft
CPT/HCPCS: 93458; 80048; C9600; C1769 ×2; C1887; C1894; C1725; C1874; J2001; J3010; J0583; Q9967 ×2

== ENCOUNTER → 2019-09-24 | Outpatient (CLI) | payer BC ==
[2019-09-24 18:51] LABS: Chol/HDL Ratio 5.06
== END | disposition home or self-care (01) ==
LOC: LABWHC1 13:56
PROVIDERS: ATTEND Nurse Practitioner Adult Health
DX: E78.2 Mixed hyperlipidemia (principal)
CPT/HCPCS: 36415; 80061; 84450; 84460

== ENCOUNTER 2020-05-09 15:07 | Observation (INO) | payer BC ==
--- NOTE | 2020-05-09 15:32 | ED ---
General Adult HPI - General Chief complaint: Recheck/Abnormal Lab/Rx Stated complaint: abn EKG Time Seen by Provider: 05/09/20 15:20 Source: patient, RN notes reviewed, old records reviewed Mode of arrival: ambulatory Limitations: no limitations - History of Present Illness Initial comments: 50-year-old male history of CAD status post stenting presents for evaluation of chest pain, fatigue. Symptoms have been ongoing for the past one week. He was seen by his primary care yesterday and was encouraged to present to the emergency department for evaluation. There was concern by the primary care physician for EKG changes. He denies chest pain at the time my evaluation. He denies associated dyspnea. No diaphoresis. No vomiting or diarrhea. No fever. He states he just not had his usual level of energy. - Related Data Home Medications Medication Instructions Recorded Confirmed Albuterol Sulfate [Ventolin HFA] 2 puff INHALATION Q6HR PRN 11/27/14 08/08/19 Escitalopram [Lexapro] 20 mg PO DAILY 04/03/19 08/08/19 Famotidine [Pepcid] 20 mg PO BID 04/03/19 08/08/19 Losartan/Hydrochlorothiazide 1 tab PO DAILY 04/03/19 08/08/19 [Losartan-Hctz 100-25 mg Tab] Nitroglycerin Sl Tabs [Nitrostat] 0.4 mg SUBLINGUAL Q5M PRN 04/03/19 08/07/19 metFORMIN HCL 1,000 mg PO BID-W/MEALS 04/03/19 08/07/19 Diclofenac Sodium [Voltaren] 75 mg PO BID 05/23/19 08/08/19 Ondansetron [Zofran ODT] 4 mg PO Q8HR PRN 05/23/19 08/08/19 Furosemide [Lasix] 20 mg PO DAILY 08/07/19 08/08/19 Isosorbide Mononitrate [Isosorbide 30 mg PO DAILY 08/07/19 08/08/19 Mononitrate ER] Tamsulosin HCl [Flomax] 0.4 mg PO QAM 08/07/19 08/08/19 Previous Rx's Medication Instructions Recorded Prasugrel [Effient] 10 mg PO DAILY #30 tab 04/05/19 Aspirin 81 mg PO DAILY chew 04/06/19 Atorvastatin [Lipitor] 80 mg PO HS #30 tab 04/06/19 Allergies Allergy/AdvReac Type Severity Reaction Status Date / Time penicillin V Allergy Severe Rapid Verified 05/09/20 15:15 Heart Rate Review of Systems ROS Statement: Those systems with pertinent positive or pertinent negative responses have been documented in the HPI. ROS Other: All systems not noted in ROS Statement are negative. Past Medical History Past Medical History: Asthma, Chest Pain / Angina, Diabetes Mellitus, Hyperlipidemia, Hypertension, Myocardial Infarction ([place]), Pneumonia, Sleep Apnea/CPAP/BIPAP Additional Past Medical History / Comment(s): NUMBNESS/TINGLING LAWRENCE LEGS, kidney stone, "borderline sleep apnea-uses oxygen at night". Last Myocardial Infarction Date:: 03/2019 History of Any Multi-Drug Resistant Organisms: None Reported Past Surgical History: Back Surgery, Cholecystectomy, Heart Catheterization With Stent, Hernia Repair, Orthopedic Surgery, Tonsillectomy Additional Past Surgical History / Comment(s): RT KNEE arthroscopy, LAWRENCE WRIST O RIF, RIGHT SHOULDER arthroscopy x 2, SINUS surgery,. 2 cardiac stents, rt wrist ganglion cyst, 4 screws and 2 rods lower back Past Anesthesia/Blood Transfusion Reactions: No Reported Reaction Date of Last Stent Placement:: 05/2019 Past Psychological History: Depression Smoking Status: Current every day smoker Past Alcohol Use History: None Reported Past Drug Use History: None Reported - Past Family History Father Family Medical History: Cancer, Renal Disease Additional Family Medical History / Comment(s): COLON Family Additional Family Medical History / Comment(s): Multiple people hypertension. Denies any history of coronary artery disease. General Exam Limitations: no limitations General appearance: alert, in no apparent distress Head exam: Present: atraumatic, normocephalic Eye exam: Present: normal appearance, PERRL, EOMI ENT exam: Present: normal exam Neck exam: Present: normal inspection. Absent: tenderness, meningismus Respiratory exam: Present: normal lung sounds bilaterally. Absent: respiratory distress, wheezes Cardiovascular Exam: Present: regular rate, normal rhythm GI/Abdominal exam: Present: soft. Absent: distended, tenderness, guarding, rebound Extremities exam: Present: normal inspection, normal capillary refill. Absent: pedal edema, calf tenderness Neurological exam: Present: alert, oriented X3, CN II-XII intact. Absent: motor sensory deficit Psychiatric exam: Present: normal affect, normal mood Skin exam: Present: warm, dry, intact. Absent: cyanosis, diaphoretic Course Vital Signs 05/09/20 15:10 Temperature 98.3 F Pulse Rate 66 Respiratory 18 Rate Blood Pressure 134/75 O2 Sat by Pulse 98 Oximetry EKG Findings - EKG Comments: EKG Findings:: EKG: Normal sinus rhythm, rate of 61, OK interval 184, QRS duration 84, QTC 406, no ST segment elevation. Medical Decision Making - Medical Decision Making 50-year-old male presenting for evaluation of chest pain, EKG changes at the primary care office. She has EKG showing sinus rhythm with no ST segment elevation, no definitive signs of ischemia at the time of my evaluation. He is asymptomatic. His chest x-ray is negative for acute cardio pulmonary disease. Normal CBC, normal CMP, negative initial troponin. Given the patient's history and risk factors he will be kept in observation for serial cardiac enzymes, telemetry, cardiology consultation. Case is discussed with the admitting physician. - Lab Data Result diagrams: 05/09/20 15:30 05/09/20 15:30 Lab Results 05/09/20 05/09/20 05/09/20 Range/Units 15:30 15:30 15:30 WBC 11.0 H (3.8-10.6) k/uL RBC 4.89 (4.30-5.90) m/uL Hgb 14.6 (13.0-17.5) gm/dL Hct 43.1 (39.0-53.0) % MCV 88.2 (80.0-100.0) fL MCH 29.9 (25.0-35.0) pg MCHC 33.9 (31.0-37.0) g/dL RDW 13.5 (11.5-15.5) % Plt Count 257 (150-450) k/uL Neutrophils % 65 % Lymphocytes % 24 % Monocytes % 5 % Eosinophils % 4 % Basophils % 1 % Neutrophils # 7.2 (1.3-7.7) k/uL Lymphocytes # 2.7 (1.0-4.8) k/uL Monocytes # 0.6 (0-1.0) k/uL Eosinophils # 0.4 (0-0.7) k/uL Basophils # 0.1 (0-0.2) k/uL PT 10.4 (9.0-12.0) sec INR 1.0 (<1.2) APTT 23.5 (22.0-30.0) sec Sodium 135 L (137-145) mmol/L Potassium 3.7 (3.5-5.1) mmol/L Chloride 104 (98-107) mmol/L Carbon Dioxide 22 (22-30) mmol/L Anion Gap 9 mmol/L BUN 15 (9-20) mg/dL Creatinine 1.06 (0.66-1.25) mg/dL Est GFR (CKD-EPI)AfAm >90 (>60 ml/min/1.73 sqM) Est GFR (CKD-EPI)NonAf 81 (>60 ml/min/1.73 sqM) Glucose 163 H (74-99) mg/dL Calcium 9.2 (8.4-10.2) mg/dL Magnesium 1.9 (1.6-2.3) mg/dL Total Bilirubin 0.4 (0.2-1.3) mg/dL AST 23 (17-59) U/L ALT 23 (4-49) U/L Alkaline Phosphatase 98 (38-126) U/L Troponin I (0.000-0.034) ng/mL Total Protein 6.6 (6.3-8.2) g/dL Albumin 3.8 (3.5-5.0) g/dL 05/09/20 Range/Units 15:30 WBC (3.8-10.6) k/uL RBC (4.30-5.90) m/uL Hgb (13.0-17.5) gm/dL Hct (39.0-53.0) % MCV (80.0-100.0) fL MCH (25.0-35.0) pg MCHC (31.0-37.0) g/dL RDW (11.5-15.5) % Plt Count (150-450) k/uL Neutrophils % % Lymphocytes % % Monocytes % % Eosinophils % % Basophils % % Neutrophils # (1.3-7.7) k/uL Lymphocytes # (1.0-4.8) k/uL Monocytes # (0-1.0) k/uL Eosinophils # (0-0.7) k/uL Basophils # (0-0.2) k/uL PT (9.0-12.0) sec INR (<1.2) APTT (22.0-30.0) sec Sodium (137-145) mmol/L Potassium (3.5-5.1) mmol/L Chloride (98-107) mmol/L Carbon Dioxide (22-30) mmol/L Anion Gap mmol/L BUN (9-20) mg/dL Creatinine (0.66-1.25) mg/dL Est GFR (CKD-EPI)AfAm (>60 ml/min/1.73 sqM) Est GFR (CKD-EPI)NonAf (>60 ml/min/1.73 sqM) Glucose (74-99) mg/dL Calcium (8.4-10.2) mg/dL Magnesium (1.6-2.3) mg/dL Total Bilirubin (0.2-1.3) mg/dL AST (17-59) U/L ALT (4-49) U/L Alkaline Phosphatase (38-126) U/L Troponin I <0.012 (0.000-0.034) ng/mL Total Protein (6.3-8.2) g/dL Albumin (3.5-5.0) g/dL Disposition Clinical Impression: Chest pain Disposition: ADMITTED IP TO THIS [facility] Condition: Stable Is patient prescribed a controlled substance at d/c from ED?: No Referrals: Manuel Jameson MD [Primary Care Provider] - 1-2 days Decision to Admit Reason: Admit from EC Decision Date: 05/09/20 Decision Time: 16:19
[2020-05-09 15:53] LABS: Partial Thromboplastin Time 23.5 sec (22.0-30.0); Prothrombin Time 10.4 sec (9.0-12.0)
[2020-05-09 15:54] LABS: ALT 23 U/L (4-49); AST 23 U/L (17-59); African American GFR (CKD) >90 (>60 ml/min/1.73 sqM); Albumin 3.8 g/dL (3.5-5.0); Alkaline Phosphatase 98 U/L (38-126); Anion Gap 9 mmol/L; Blood Urea Nitrogen 15 mg/dL (9-20); Calcium 9.2 mg/dL (8.4-10.2); Carbon Dioxide 22 mmol/L (22-30); Chloride 104 mmol/L (98-107); Glucose 163 mg/dL (74-99); Magnesium 1.9 mg/dL (1.6-2.3); Non-African American GFR(CKD) 81 (>60 ml/min/1.73 sqM); Potassium 3.7 mmol/L (3.5-5.1); Sodium 135 mmol/L (137-145); Total Bilirubin 0.4 mg/dL (0.2-1.3); Total Protein 6.6 g/dL (6.3-8.2)
--- NOTE | 2020-05-09 15:55 | XR ---
EXAMINATION TYPE: XR chest 2V DATE OF EXAM: 05/09/2020 COMPARISON: 04/03/2019 INDICATION: Chest pain, abnormal EKG TECHNIQUE: Frontal and lateral views of the chest are obtained. FINDINGS: The heart size is normal. The pulmonary vasculature is normal. The lungs are clear. IMPRESSION: 1. No acute pulmonary process.
[2020-05-09 15:58] LABS: Basophils # (A) 0.1 k/uL (0-0.2); Basophils % (A) 1 %; Eosinophils # (A) 0.4 k/uL (0-0.7); Eosinophils % (A) 4 %; HCT 43.1 % (39.0-53.0); HGB 14.6 gm/dL (13.0-17.5); Lymphocytes # (A) 2.7 k/uL (1.0-4.8); Lymphocytes % (A) 24 %; MCH 29.9 pg (25.0-35.0); MCHC 33.9 g/dL (31.0-37.0); MCV 88.2 fL (80.0-100.0); Mean Platelet Volume 7.9; Monocytes # (A) 0.6 k/uL (0-1.0); Monocytes % (A) 5 %; Neutrophils # (A) 7.2 k/uL (1.3-7.7); Neutrophils % (A) 65 %; Platelet Count 257 k/uL (150-450); RBC 4.89 m/uL (4.30-5.90); RDW 13.5 % (11.5-15.5)
[2020-05-09] MEDS ORDERED: ASPIRIN 325 MG TAB PO STA (16:18)
[2020-05-09] MEDS ORDERED: ACETAMINOPHEN TAB 325 MG TAB PO PRN (16:20)
[2020-05-09] MEDS ORDERED: NALOXONE 0.4 MG/ML 1 ML VIAL IV PRN (16:20)
--- NOTE | 2020-05-09 18:32 | P.HPIM ---
History of Present Illness H&P Date: 05/09/20 The patient is a 50-year-old male with a PMH of coronary artery disease status post 3 stents, hypertension, hyperlipidemia, and type 2 diabetes mellitus who presented to the ED with complaints of chest discomfort. The patient notes that the pain has been ongoing for the past 1 week, is substernal, intermittent, associated with exertion, 2-3 out of 10 at maximal intensity, relieved by rest, pressure like, and nonradiating. The patient notes that he was seen at his primary care physician's office earlier today who then prompted him to come to the ED to have his pain be further evaluated. At time of interview, he denied any active chest pain. He did report occasional intermittent nausea though denied diaphoresis, dizziness, palpitations, or shortness breath. Also denied fever, or chills. He underwent an extensive outpatient emergency room with EKG showing normal sinus rhythm at [address]/T-wave changes noted. Chest x- ray was unremarkable. Laboratory evaluation revealed a troponin less than 0.012, WBC count 11.0, hemoglobin 14.6, platelets 257, sodium 135, potassium 3.7, BUN 15, creatinine 1.06, and glucose 163. Review of Systems Pertinent positives and negatives as discussed in HPI, a complete review of systems was performed and all other systems are negative. Past Medical History Past Medical History: Asthma, Chest Pain / Angina, Diabetes Mellitus, Hyperlipidemia, Hypertension, Myocardial Infarction (OR), Pneumonia, Sleep Apnea/CPAP/BIPAP Additional Past Medical History / Comment(s): NUMBNESS/TINGLING LAWRENCE LEGS, kidney stone, "borderline sleep apnea-uses oxygen at night". Last Myocardial Infarction Date:: 03/2019 History of Any Multi-Drug Resistant Organisms: None Reported Past Surgical History: Back Surgery, Cholecystectomy, Heart Catheterization With Stent, Hernia Repair, Orthopedic Surgery, Tonsillectomy Additional Past Surgical History / Comment(s): RT KNEE arthroscopy, LAWRENCE WRIST ORIF, RIGHT SHOULDER arthroscopy x 2, SINUS surgery,. 2 cardiac stents, rt wr ist ganglion cyst, 4 screws and 2 rods lower back Past Anesthesia/Blood Transfusion Reactions: No Reported Reaction Date of Last Stent Placement:: 05/2019 Past Psychological History: Depression Smoking Status: Current every day smoker Past Alcohol Use History: None Reported Additional Past Alcohol Use History / Comment(s): smokes 1/2 PPD for > 30 yrs Past Drug Use History: None Reported - Past Family History Father Family Medical History: Cancer, Renal Disease Additional Family Medical History / Comment(s): COLON Family Additional Family Medical History / Comment(s): Multiple people hypertension. Denies any history of coronary artery disease. Medications and Allergies Home Medications Medication Instructions Recorded Confirmed Type Albuterol Sulfate [Ventolin HFA] 2 puff INHALATION Q6HR PRN 11/27/14 08/08/19 History Escitalopram [Lexapro] 20 mg PO DAILY 04/03/19 08/08/19 History Famotidine [Pepcid] 20 mg PO BID 04/03/19 08/08/19 History Losartan/Hydrochlorothiazide 1 tab PO DAILY 04/03/19 08/08/19 History [Losartan-Hctz 100-25 mg Tab] Nitroglycerin Sl Tabs [Nitrostat] 0.4 mg SUBLINGUAL Q5M PRN 04/03/19 08/07/19 History metFORMIN HCL 1,000 mg PO BID-W/MEALS 04/03/19 08/07/19 History Prasugrel [Effient] 10 mg PO DAILY #30 tab 04/05/19 08/07/19 Rx Aspirin 81 mg PO DAILY chew 04/06/19 08/08/19 Rx Atorvastatin [Lipitor] 80 mg PO HS #30 tab 04/06/19 08/08/19 Rx Diclofenac Sodium [Voltaren] 75 mg PO BID 05/23/19 08/08/19 History Ondansetron [Zofran ODT] 4 mg PO Q8HR PRN 05/23/19 08/08/19 History Furosemide [Lasix] 20 mg PO DAILY 08/07/19 08/08/19 History Isosorbide Mononitrate [Isosorbide 30 mg PO DAILY 08/07/19 08/08/19 History Mononitrate ER] Tamsulosin HCl [Flomax] 0.4 mg PO QAM 08/07/19 08/08/19 History Allergies Allergy/AdvReac Type Severity Reaction Status Date / Time penicillin V Allergy Severe Rapid Verified 05/09/20 15:15 Heart Rate Physical Exam Vitals: Vital Signs Temp Pulse Pulse Resp BP BP Pulse Ox 05/09/20 17:36 98.4 F 57 L 16 139/82 98 05/09/20 17:35 98.4 F 05/09/20 17:00 57 L 16 124/68 96 05/09/20 16:00 62 16 132/74 98 05/09/20 15:24 60 16 138/75 98 05/09/20 15:10 98.3 F 66 18 134/75 98 Intake and Output 05/09/20 05/09/20 05/09/20 06:59 14:59 22:59 Other: Voiding Method Toilet # Voids 1 Weight 145.15 kg General: non toxic, no distress, appears at stated age, normal weight Derm: no unusual rashes/lesions no unusual ecchymoses, warm, dry Head: atraumatic, normocephalic, symmetric Eyes: EOMI, no lid lag, anicteric sclera, pupils equal round reactive to light ENT: Nose and ears atraumatic, no thrush, no pharyngeal erythema Neck: No thyromegaly, no cervical lymphadenopathy, trachea midline, supple Mouth: no lip lesion, mucus membranes moist Cardiovascular: S1S2 reg, no murmur, positive posterior tibial pulse bilateral, no edema, capillary refill less than 2 seconds Lungs: CTA bilateral, no rhonchi, no rales , no accessory muscle use Abdominal: soft, nontender to palpation, no guarding, no appreciable organomegaly, normal bowel sounds Ext: no gross muscle atrophy, muscle strength 5 out of 5 in all 4 extremities grossly, no contractures, Neuro: CN II-XI grossly intact, light touch intact all 4 extremities, finger to nose within normal limits, Psych: Alert, oriented, appropriate affect Results CBC & Chem 7: 05/09/20 15:30 05/09/20 15:30 Labs: Abnormal Lab Results - Last 24 Hours (Table) 05/09/20 05/09/20 Range/Units 15:30 15:30 WBC 11.0 H (3.8-10.6) k/uL Sodium 135 L (137-145) mmol/L Glucose 163 H (74-99) mg/dL Thrombosis Risk Factor Assmnt - Choose All That Apply Any of the Below Risk Factors Present?: Yes Each Factor Represents 1 point: Age 41-60 years, Obesity (BMI >25) Other Risk Factors: No Thrombosis Risk Factor Assessment Total Risk Factor Score: 2 Thrombosis Risk Factor Assessment Level: Low Risk Assessment and Plan Plan: Chest pain, rule out ACS -Cardial to consult -Cardiac monitoring -Trend troponin -Continue with aspirin -Continue with home meds: Effient and Lipitor Leukocytosis -No signs of active infection at this time -Monitor CBC for now Chronic conditions: Hypertension, hyperlipidemia, type II DM -Continue with home meds -ZULLY with blood glucose monitoring -Check A1c DVT prophylaxis -Heparin subq The patient is admitted with an anticipated less than 2 midnight stay for evaluation of chest pain CODE STATUS: Full Code Discussed with: Patient Anticipated discharge date: 1-[address]: Home A total of 35 minutes was spent on the care of this complex patient more than 50% of the time was spent in counseling and care coordination.
[2020-05-09] MEDS ORDERED: ALBUTEROL HFA INHALER INHALATION PRN (19:22)
[2020-05-09] MEDS ORDERED: IPRATROPIUM-ALBUTEROL 3 ML NEB INHALATION PRN (19:22)
[2020-05-09] MEDS ORDERED: NITROGLYCERIN SL TABS 0.4 MG TAB SUBLINGUAL PRN (19:26)
[2020-05-09 21:19] LABS: Glucose,Whole Blood 104 mg/dL (75-99)
[2020-05-09] MEDS: FAMOTIDINE 20 MG TAB PO SCH (21:20)
[2020-05-09] MEDS: ATORVASTATIN 80 MG TAB PO SCH (21:20)
[2020-05-09] MEDS: INSULIN ASPART (NovoLOG) 100 UNIT/ML VIAL SQ SCH (21:21)
[2020-05-09] MEDS: GABAPENTIN 300 MG CAP PO SCH (21:21)
[2020-05-09] MEDS: HEPARIN SODIUM,PORCINE 5,000 UNIT/ML 1 ML VIAL SQ SCH (23:22)
[2020-05-10 04:06] LABS: HCT 42.5 % (39.0-53.0); HGB 13.9 gm/dL (13.0-17.5); MCH 28.7 pg (25.0-35.0); MCHC 32.6 g/dL (31.0-37.0); Mean Platelet Volume 7.7; Platelet Count 258 k/uL (150-450); RBC 4.82 m/uL (4.30-5.90); RDW 13.7 % (11.5-15.5); WBC 12.7 k/uL (3.8-10.6)
[2020-05-10 06:58] LABS: Glucose,Whole Blood 113 mg/dL (75-99)
[2020-05-10] MEDS ORDERED: INSULIN ASPART (NovoLOG) 100 UNIT/ML VIAL SQ SCH (07:30)
[2020-05-10] MEDS: INSULIN ASPART (NovoLOG) 100 UNIT/ML VIAL SQ SCH ×4 (07:41→20:55)
[2020-05-10] MEDS: FAMOTIDINE 20 MG TAB PO SCH ×2 (07:49→20:26)
[2020-05-10] MEDS: ISOSORBIDE MONONITRATE ER 30 MG TAB.ER.24H PO SCH (07:49)
[2020-05-10] MEDS: ESCITALOPRAM 20 MG TAB PO SCH (07:50)
[2020-05-10] MEDS: LOSARTAN 50 MG TAB PO SCH (07:50)
[2020-05-10] MEDS: buPROPion XL 150 MG TAB.ER.24H PO SCH (07:50)
[2020-05-10] MEDS: FUROSEMIDE 20 MG TAB PO SCH (07:50)
[2020-05-10] MEDS: GABAPENTIN 300 MG CAP PO SCH ×3 (07:50→20:26)
[2020-05-10] MEDS: HEPARIN SODIUM,PORCINE 5,000 UNIT/ML 1 ML VIAL SQ SCH (07:51)
[2020-05-10] MEDS: ASPIRIN 81 MG PO SCH (07:51)
[2020-05-10] MEDS: TAMSULOSIN 0.4 MG CAP.ER.24H PO SCH (07:51)
[2020-05-10] MEDS: PRASUGREL 10 MG TAB PO SCH (07:51)
[2020-05-10] MEDS: hydroCHLOROthiazide 25 MG TAB PO SCH (07:51)
[2020-05-10] MEDS ORDERED: FAMOTIDINE 40 MG PO SCH (09:00)
--- NOTE | 2020-05-10 09:59 | CONS ---
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 He has a history of hypertension, type 2 diabetes, hyperlipidemia, obesity, previous PCI of circumflex and LAD. He came into the hospital at the advice of his primary care physician who he saw on Tuesday. Dr. Jameson is his primary care physician who evaluated him and because of some fatigue, nondescript chest tightness. His EKG thought revealed some abnormalities. Advised him to go to the hospital, but he decided to wait a day and came in yesterday and stood almost 48 hours after his visit with the PCP. After arrival, he has no further chest pain. He is resting comfortably. Occasional nondescript achy feeling in the chest. He has history that is significant in the form of non-ST elevation HI with circumflex stenting in 2018 or so and subsequently LAD stenting performed in May of 2019 and another stent in the proximal LAD in July of 2019. He sees Dr[address] Lozano in the outpatient setting. At the time of my evaluation, he is resting comfortably without symptoms. PAST MEDICAL HISTORY: 1. Hypertension. 2. Hyperlipidemia. 3. Type 2 diabetes. 4. Obesity. 5. History of CAD with multivessel PCI in the past. SOCIAL HISTORY: Patient continues to smoke regularly. PAST SURGICAL HISTORY: The patient is status post back surgery, cholecystectomy and some hernia operation and tonsillectomy. ALLERGIES: He is allergic to PENICILLIN. MEDICATIONS: Medications at home include prasugrel 10 mg daily, aspirin 81 mg daily, atorvastatin 80 mg daily, Imdur 30 mg daily, Lasix 20 mg daily, Flomax, he also takes losartan HCTZ 125 1 tab daily, metformin 1000 mg b.i.d., and famotidine. PHYSICAL EXAMINATION: On examination, blood pressure is 130/80, pulse rate is 56 per minute regular. HEENT unremarkable. Fundus was not examined by me. NECK is supple. No JVD. I do not hear a carotid bruit. There is no thyromegaly. HEART exam reveals S1, S2 heard normally. No rub, murmur or gallop. LUNGS are clear. ABDOMEN is soft, nontender. LOWER EXTREMITIES reveal normal pulses. No edema. CENTRAL NERVOUS SYSTEM is normal. EKG revealed sinus mechanism, no acute changes. LAB DATA: Three unremarkable troponins and no other significant abnormal labs. The patient volunteered to say that he has some fatigue more than chest pain, but he also has occasional achiness in the chest. I am recommending that we put him on Lovenox 100 mg subcu q.12 hours, Lopressor 12.5 mg b.i.d., 0.9 saline 75 mL daily. Diabetic diet, increase activity and if he has no further symptoms for additional 24 hours, I will discharge him tomorrow morning and have him see Dr. Lozano for an outpatient stress test. However, if he has symptoms while he is here, we will consider coronary angiography. I discussed my thoughts in detail with the patient. He understands and he will let us know if he has symptoms. Thank you very much for the consult. RIN / ISHA: [id number] /
[2020-05-10] MEDS: METOPROLOL TARTRATE 12.5 MG TAB PO SCH (10:02)
[2020-05-10] MEDS: SODIUM CHLORIDE 0.9% 1,000 ML IV SCH ×2 (10:02→23:10)
[2020-05-10] MEDS: ENOXAPARIN 100 MG/ML SYRINGE SQ SCH ×2 (11:29→20:25)
[2020-05-10 11:40] LABS: Glucose,Whole Blood 147 mg/dL (75-99)
--- NOTE | 2020-05-10 12:25 | P.PN ---
Subjective Progress Note Date: 05/10/20 50 yo male admitted yesterday with chest pain, placed in observation for cardiac workup. He has not had any episodes of chest pain since admission, vitals have been normal, troponin neg x3, EKG shows NSR with no ST changes. denies any dyspnea, no fever or chills, no cough, no headache, no dizziness. Otherwise stable and has no new concerns or symptoms. Plan for cardiac stress on Tuesday Objective - Vital Signs Vital signs: Vital Signs Temp 97.6 F 05/10/20 11:27 Pulse 52 L 05/10/20 11:27 Resp 16 05/10/20 11:27 BP 137/73 05/10/20 11:27 Pulse Ox 98 05/10/20 11:27 Intake & Output 05/09/20 05/10/20 05/10/20 18:59 06:59 18:59 Weight 145.15 kg Other: Voiding Method Toilet Toilet Toilet # Voids 1 1 1 - Exam General: non toxic, no distress, appears at stated age Head: atraumatic, normocephalic, symmetric Eyes: EOMI, no lid lag, anicteric sclera, pupils equal round reactive to light ENT: Nose and ears atraumatic, no thrush, no pharyngeal erythema Neck: No thyromegaly, no cervical lymphadenopathy, trachea midline, supple Mouth: no lip lesion, mucus membranes moist Cardiovascular: S1S2 reg, no murmur, no edema, capillary refill less than 2 seconds Lungs: CTA bilateral, no rhonchi, no rales , no accessory muscle use Abdominal: soft, nontender to palpation, no guarding, no appreciable organomegaly, normal bowel sounds Ext: no gross muscle atrophy, muscle strength 5 out of 5 in all 4 extremities grossly, no contractures, - Labs CBC & Chem 7: 05/10/20 03:28 05/09/20 15:30 Labs: Abnormal Lab Results - Last 24 Hours (Table) 05/09/20 05/09/20 05/09/20 Range/Units 15:30 15:30 21:08 WBC 11.0 H (3.8-10.6) k/uL Sodium 135 L (137-145) mmol/L Glucose 163 H (74-99) mg/dL POC Glucose (mg/dL) 104 H (75-99) mg/dL 05/10/20 05/10/20 Range/Units 03:28 06:49 WBC 12.7 H (3.8-10.6) k/uL Sodium (137-145) mmol/L Glucose (74-99) mg/dL POC Glucose (mg/dL) 113 H (75-99) mg/dL Assessment and Plan (1) Chest pain Current Visit: Yes Status: Acute Code(s): R07.9 - CHEST PAIN, UNSPECIFIED SNOMED Code(s): 55739620 Plan: # Chest pain, rule out ACS -troponin negative x3 -EKG shows NSR, no ST changes -Cardiology consult -Cardiac monitoring -Continue with aspirin -Continue with home meds: Effient and Lipitor # Leukocytosis -WBC increased from 11 to 12.7 -there is no signs of infection, will continue to monitor # Chronic conditions: Hypertension, hyperlipidemia, type II DM -Continue with home meds -ZULLY with blood glucose monitoring -Check A1c DVT prophylaxis -Heparin subq Time with Patient: Less than 30
[2020-05-10 16:42] LABS: Glucose,Whole Blood 106 mg/dL (75-99)
[2020-05-10] MEDS: ETODOLAC 400 MG TAB PO SCH (17:12)
[2020-05-10] MEDS: metFORMIN 500 MG TAB PO SCH (17:13)
[2020-05-10] MEDS: ATORVASTATIN 80 MG TAB PO SCH (20:25)
[2020-05-10 20:48] LABS: Glucose,Whole Blood 102 mg/dL (75-99)
[2020-05-11 03:35] VITALS: PULSE 50; TEMP 97.7
[2020-05-11 06:27] LABS: Glucose,Whole Blood 99 mg/dL (75-99)
[2020-05-11 06:44] LABS: Basophils # (A) 0.1 k/uL (0-0.2); Basophils % (A) 1 %; Eosinophils # (A) 0.5 k/uL (0-0.7); Eosinophils % (A) 4 %; HCT 42.8 % (39.0-53.0); HGB 13.8 gm/dL (13.0-17.5); Lymphocytes # (A) 3.2 k/uL (1.0-4.8); Lymphocytes % (A) 26 %; MCH 28.5 pg (25.0-35.0); MCHC 32.2 g/dL (31.0-37.0); MCV 88.5 fL (80.0-100.0); Monocytes # (A) 0.8 k/uL (0-1.0); Monocytes % (A) 7 %; Neutrophils # (A) 7.6 k/uL (1.3-7.7); Neutrophils % (A) 61 %; Platelet Count 244 k/uL (150-450); RBC 4.84 m/uL (4.30-5.90); RDW 13.6 % (11.5-15.5); WBC 12.4 k/uL (3.8-10.6)
[2020-05-11 06:54] LABS: ALT 23 U/L (4-49); AST 24 U/L (17-59); African American GFR (CKD) >90 (>60 ml/min/1.73 sqM); Albumin 3.6 g/dL (3.5-5.0); Alkaline Phosphatase 112 U/L (38-126); Anion Gap 6 mmol/L; Blood Urea Nitrogen 18 mg/dL (9-20); Calcium 8.8 mg/dL (8.4-10.2); Carbon Dioxide 26 mmol/L (22-30); Chloride 103 mmol/L (98-107); Glucose 97 mg/dL (74-99); Non-African American GFR(CKD) 81 (>60 ml/min/1.73 sqM); Potassium 4.1 mmol/L (3.5-5.1); Sodium 135 mmol/L (137-145); Total Bilirubin 0.5 mg/dL (0.2-1.3); Total Protein 6.5 g/dL (6.3-8.2)
[2020-05-11 07:10] VITALS: BP 124/84; RESP 16
[2020-05-11] MEDS: ETODOLAC 400 MG TAB PO SCH (07:18)
[2020-05-11] MEDS: ESCITALOPRAM 20 MG TAB PO SCH (07:18)
[2020-05-11] MEDS: hydroCHLOROthiazide 25 MG TAB PO SCH (07:18)
[2020-05-11] MEDS: buPROPion XL 150 MG TAB.ER.24H PO SCH (07:18)
[2020-05-11] MEDS: LOSARTAN 50 MG TAB PO SCH (07:18)
[2020-05-11] MEDS: PRASUGREL 10 MG TAB PO SCH (07:18)
[2020-05-11] MEDS: ISOSORBIDE MONONITRATE ER 30 MG TAB.ER.24H PO SCH (07:18)
[2020-05-11] MEDS: metFORMIN 500 MG TAB PO SCH (07:18)
[2020-05-11] MEDS: FUROSEMIDE 20 MG TAB PO SCH (07:19)
[2020-05-11] MEDS: METOPROLOL TARTRATE 12.5 MG TAB PO SCH (07:19)
[2020-05-11] MEDS: INSULIN ASPART (NovoLOG) 100 UNIT/ML VIAL SQ SCH (07:19)
[2020-05-11] MEDS: TAMSULOSIN 0.4 MG CAP.ER.24H PO SCH (07:19)
[2020-05-11] MEDS: ENOXAPARIN 100 MG/ML SYRINGE SQ SCH (07:19)
[2020-05-11] MEDS: GABAPENTIN 300 MG CAP PO SCH (07:19)
[2020-05-11] MEDS: FAMOTIDINE 20 MG TAB PO SCH (07:19)
[2020-05-11] MEDS: ASPIRIN 81 MG PO SCH (07:19)
--- NOTE | 2020-05-11 09:26 | PN ---
PROGRESS NOTE Mr. Murillo has history of multivessel PCI. I saw him yesterday. Advised to stay back and see how he does. I am saw the patient this morning. Vitals are stable. He is absolutely asymptomatic. He walked the hallways at least 6 times, has no chest pain whatsoever. He insists on going home and promises to have a stress test as an outpatient. Vitals are stable. No JVD. S1, S2 heard normally. Lungs are clear. Abdomen and lower extremity exam unchanged. I am recommending that he can be discharged with the understanding take his medications regularly. He will call the office to set up stress test appointment with Dr. Lozano. Advised not to do strenuous activity and work with smoking cessation. Patient can be discharged today. MMODL / IJN: [id number] /
--- NOTE | 2020-05-11 17:09 | P.DS ---
Providers Date of admission: 05/09/20 16:20 Expected date of discharge: 05/11/20 Attending physician: Marley Schafer, Consults: 05/09/20 16:20 Consult Physician Routine Consulting Provider: Dimitris Lozano Consult Reason/Comments: CP Do you want consulting provider notified?: Yes Primary care physician: Manuel Jameson - Discharge Diagnosis(es) (1) Chest pain Status: Acute Priority: High Onset Date: ~05/07/20 Hospital Course: HPI from admission on 05/09/2020: The patient is a 50-year-old male with a PMH of coronary artery disease status post 3 stents, hypertension, hyperlipidemia, and type 2 diabetes mellitus who presented to the ED with complaints of chest discomfort. The patient notes that the pain has been ongoing for the past 1 week, is substernal, intermittent, associated with exertion, 2-3 out of 10 at maximal intensity, relieved by rest, pressure like, and nonradiating. The patient notes that he was seen at his primary care physician's office earlier today who then prompted him to come to the ED to have his pain be further evaluated. At time of interview, he denied any active chest pain. He did report occasional intermittent nausea though denied diaphoresis, dizziness, palpitations, or shortness breath. Also denied fever, or chills. He underwent an extensive outpatient emergency room with EKG showing normal sinus rhythm at [address]/T-wave changes noted. Chest x- ray was unremarkable. Laboratory evaluation revealed a troponin less than 0.012, WBC count 11.0, hemoglobin 14.6, platelets 257, sodium 135, potassium 3.7, BUN 15, creatinine 1.06, and glucose 163. Assessment: Patient was placed in observation for cardiac workup. He has not had any episodes of chest pain since admission, vitals have been normal, troponin neg x3, EKG shows NSR with no ST changes. denies any dyspnea, no fever or chills, no cough, no headache, no dizziness. Plan was for stress test on Tuesday, however patient was adamant about going home since he has been back to his normal state of health with no episodes of chest pain even prior to admission. He ambulated in the hallway several times with no dyspnea, no chest pain or pressure and no significant changes in vital signs. He was discharged home after he was evaluated by cardiology as he promised to have a stress test outpatient. Patient Condition at Discharge: Good Plan - Discharge Summary Discharge Rx Participant: No New Discharge Prescriptions: Continue Albuterol Sulfate [Ventolin HFA] 2 puff INHALATION RT-Q4H PRN PRN Reason: Shortness Of Breath Escitalopram [Lexapro] 20 mg PO DAILY metFORMIN HCL 1,000 mg PO BID-W/MEALS Nitroglycerin Sl Tabs [Nitrostat] 0.4 mg SUBLINGUAL Q5M PRN PRN Reason: Chest Pain Prasugrel [Effient] 10 mg PO DAILY #30 tab Aspirin 81 mg PO DAILY chew Atorvastatin [Lipitor] 80 mg PO HS #30 tab Diclofenac Sodium [Voltaren] 75 mg PO BID-W/MEALS Furosemide [Lasix] 20 mg PO DAILY Isosorbide Mononitrate [Isosorbide Mononitrate ER] 30 mg PO DAILY Tamsulosin HCl [Flomax] 0.4 mg PO DAILY Losartan Potassium [Cozaar] 100 mg PO DAILY buPROPion HCL [Wellbutrin XL] 150 mg PO DAILY Ipratropium-Albuterol Nebulize [Duoneb 0.5 mg-3 mg/3 ml Soln] 3 ml INHALATION RT-QID PRN PRN Reason: Shortness Of Breath Hydrochlorothiazide 25 mg PO DAILY Gabapentin [Neurontin] 300 mg PO TID Famotidine 40 mg PO DAILY Cimetidine [Tagamet] 400 mg PO BID Discharge Medication List Albuterol Sulfate [Ventolin HFA] 2 puff INHALATION RT-Q4H PRN 11/27/14 [History] Escitalopram [Lexapro] 20 mg PO DAILY 04/03/19 [History] Nitroglycerin Sl Tabs [Nitrostat] 0.4 mg SUBLINGUAL Q5M PRN 04/03/19 [History] metFORMIN HCL 1,000 mg PO BID-W/MEALS 04/03/19 [History] Prasugrel [Effient] 10 mg PO DAILY #30 tab 04/05/19 [Rx] Aspirin 81 mg PO DAILY chew 04/06/19 [Rx] Atorvastatin [Lipitor] 80 mg PO HS #30 tab 04/06/19 [Rx] Diclofenac Sodium [Voltaren] 75 mg PO BID-W/MEALS 05/23/19 [History] Furosemide [Lasix] 20 mg PO DAILY 08/07/19 [History] Isosorbide Mononitrate [Isosorbide Mononitrate ER] 30 mg PO DAILY 08/07/19 [History] Tamsulosin HCl [Flomax] 0.4 mg PO DAILY 08/07/19 [History] Cimetidine [Tagamet] 400 mg PO BID 05/09/20 [History] Famotidine 40 mg PO DAILY 05/09/20 [History] Gabapentin [Neurontin] 300 mg PO TID 05/09/20 [History] Hydrochlorothiazide 25 mg PO DAILY 05/09/20 [History] Ipratropium-Albuterol Nebulize [Duoneb 0.5 mg-3 mg/3 ml Soln] 3 ml INHALATION RT-QID PRN 05/09/20 [History] Losartan Potassium [Cozaar] 100 mg PO DAILY 05/09/20 [History] buPROPion HCL [Wellbutrin XL] 150 mg PO DAILY 05/09/20 [History] Follow up Appointment(s)/Referral(s): Dimitris Lozano MD [STAFF PHYSICIAN] - 1 Week Manuel Jameson MD [Primary Care Provider] - 1-2 days Patient Instructions/Handouts: Chest Pain (DC) Discharge Disposition: HOME SELF-CARE
== END 2020-05-11 10:22 | disposition home or self-care (01) ==
LOC: EC 15:07 → 1SOBS 16:20
PROVIDERS: ADMIT Internal Medicine; ATTEND Internal Medicine
DX: R07.89 Other chest pain (principal); R07.2 Precordial pain; R94.31 Abnormal electrocardiogram [ECG] [EKG]; R53.83 Other fatigue; R11.0 Nausea; D72.829 Elevated white blood cell count, unspecified; I25.10 Atherosclerotic heart disease of native coronary artery without angina pectoris; J45.909 Unspecified asthma, uncomplicated; E11.9 Type 2 diabetes mellitus without complications; E78.5 Hyperlipidemia, unspecified; I10 Essential (primary) hypertension; I25.2 Old myocardial infarction; G47.30 Sleep apnea, unspecified; Z99.89 Dependence on other enabling machines and devices; R20.0 Anesthesia of skin; R20.2 Paresthesia of skin; E66.9 Obesity, unspecified; Z68.41 Body mass index [BMI] 40.0-44.9, adult; F17.210 Nicotine dependence, cigarettes, uncomplicated; F32.9 Major depressive disorder, single episode, unspecified; Z79.899 Other long term (current) drug therapy; Z87.442 Personal history of urinary calculi; Z95.5 Presence of coronary angioplasty implant and graft; Z79.84 Long term (current) use of oral hypoglycemic drugs; Z88.0 Allergy status to penicillin; Z87.01 Personal history of pneumonia (recurrent); Z90.49 Acquired absence of other specified parts of digestive tract; Z79.82 Long term (current) use of aspirin; Z79.02 Long term (current) use of antithrombotics/antiplatelets; Z82.49 Family history of ischemic heart disease and other diseases of the circulatory system; Z80.0 Family history of malignant neoplasm of digestive organs; Z84.1 Family history of disorders of kidney and ureter; Z11.59 Encounter for screening for other viral diseases
CPT/HCPCS: 93005 ×2; 96360; 96361; 96372 ×3; 99285; 36415; 80053 ×2; 83735; 84484 ×2; 85025 ×2; 85027; 85610; 85730; 71046; G0378 ×3; U0003; J1644 ×2; J1650 ×2

== ENCOUNTER 2020-05-27 09:27 | Day surgery (SDC) | payer BC ==
[2020-05-22 10:11] VITALS: BMI 43.4
[~2020-05-27 09:27] MED LIST changes: +ASPIRIN 325 MG TAB PO ONE; -ASPIRIN 325 MG TAB PO STA; -ATORVASTATIN 80 MG TAB PO ONE
[2020-05-27] MEDS ORDERED: ASPIRIN 81 MG ONE (09:42)
[2020-05-27 09:57] VITALS: TEMP 97.7
[2020-05-27 10:03] LABS: Glucose,Whole Blood 146 mg/dL (75-99)
[2020-05-27] MEDS ORDERED: fentaNYL (PF) 50 MCG/ML 2 ML AMP IV ONE (12:21)
[2020-05-27] MEDS ORDERED: LIDOCAINE 1% INJ 10MG/ML (20 ML MDV) SQ ONE (12:24)
[2020-05-27] MEDS ORDERED: VERAPAMIL SYRINGE (5 MG/10 ML) INTRAARTER ONE (12:25)
[2020-05-27] MEDS ORDERED: PRASUGREL 10 MG TAB PO ONE (12:29)
[2020-05-27] MEDS ORDERED: NITROGLYCERIN 1000MCG/10ML SYRINGE INTRACORON ONE (12:35)
[2020-05-27] MEDS ORDERED: IOPAMIDOL-370 100ML BTL INJ ONE (12:43)
[2020-05-27] MEDS ORDERED: RX INFO: IV CONTRAST WAS GIVEN 1 EACH MISC MISCELLANE PRN (12:54)
[2020-05-27] MEDS ORDERED: IPRATROPIUM-ALBUTEROL 3 ML NEB INHALATION PRN (12:55)
[2020-05-27] MEDS ORDERED: ALBUTEROL HFA INHALER INHALATION PRN (12:55)
[2020-05-27] MEDS ORDERED: SODIUM CHLORIDE 0.9% 1,000 ML IV SCH (13:00)
[2020-05-27 14:40] VITALS: BP 131/64; PULSE 52; RESP 16
[2020-05-27] MEDS ORDERED: GABAPENTIN 400 MG CAP PO SCH (16:00)
--- NOTE | 2020-05-27 16:43 | CC ---
CARDIAC CATHETERIZATION REPORT Mr. Murillo is a 50-year-old male with a known history of coronary artery disease, status post stenting of the LAD and to the left circumflex, who presented with symptoms of chest discomfort, exertional pattern. In view of that, recommendation made regarding cardiac catheterization. The procedures, risks, and complication were discussed with the patient, who is in full understanding and agreement. PROCEDURE: Patient was brought to cardiovascular lab director in a fasting semi-sedated state after receiving fentanyl and Benadryl and achieving moderate conscious sedated state. Using Xylocaine anesthesia and Seldinger technique, a 6-Maltese sheath was introduced in the right radial artery. Selective right and left coronary angiography performed using 5-Maltese, 3.5 bend right and left Carol catheter, multiple views of the coronary artery including hemiaxial views obtained. Following that, 5-Maltese tight pigtail catheter was introduced into the left ventricle and pressures were calculated. Following that, catheter and sheath were removed. Hemostasis was obtained with deployment of a TR band. There was no immediate complication. Of note, the patient received 5000 units of intravenous heparin as well as intra-arterial verapamil and intra coronary nitrate. FINDINGS: LEFT MAIN: This is a large-sized vessel, bifurcating into left circumflex, left anterior descending artery. Left main coronary artery has no evidence of high-grade stenosis. LEFT ANTERIOR DESCENDING ARTERY: This is a large-sized vessel, reaching toward the apex with a wraparound apex segment, giving rise to 2 diagonal branches. The stented segment and proximal mid LAD are patent. The distal vessel has mild intimal disease 20% to 30% without any evidence of high-grade stenosis. The vessel appears to be much larger after the intracoronary nitroglycerin. LEFT CIRCUMFLEX: This is a nondominant vessel, giving rise 2 obtuse marginal branch. The stented segment in the left circumflex is patent. There is mild to moderate disease distal to it of 30% without any evidence of high-grade stenosis. RIGHT CORONARY ARTERY: This is a large dominant vessel bifurcating distally PDA and posterolateral segment branches. The mid right coronary artery has a 20% to 30% plaque. There is intimal disease in the distal side of the vessel. The PLV has mild intimal disease without any evidence of high-grade stenosis. LEFT VENTRICULOGRAM: Left ventriculogram was not performed. HEMODYNAMICS: There was no gradient across the aortic valve. The left ventricular end- diastolic pressure was 10-14 mmHg. CONCLUSION: 1. No evidence of restenosis in the stented segment of the LAD and left circumflex. 2. Mild to moderate triple-vessel coronary artery disease. 3. Normal left ventricular diastolic pressure. RECOMMENDATION: In view of findings and anatomy, recommend continue medical therapy with aggressive coronary risk modifications have been initiated. Those findings and recommendation were discussed with the patient and his family and they are in full understand and agreement. The importance of smoking cessation was discussed with him. Duration of procedure is 18 minutes. MMODL / IJN: [id number] /
[2020-05-27] MEDS ORDERED: CIMETIDINE 400 MG PO SCH (21:00)
[2020-05-27] MEDS ORDERED: ATORVASTATIN 80 MG TAB PO SCH (21:00)
[2020-05-28] MEDS ORDERED: buPROPion XL 150 MG TAB.ER.24H PO SCH (09:00)
[2020-05-28] MEDS ORDERED: ESCITALOPRAM 20 MG TAB PO SCH (09:00)
[2020-05-28] MEDS ORDERED: LOSARTAN 50 MG TAB PO SCH (09:00)
[2020-05-28] MEDS ORDERED: FAMOTIDINE 20 MG TAB PO SCH (09:00)
[2020-05-28] MEDS ORDERED: HYDROCHLOROTHIAZIDE 25 MG TAB PO SCH (09:00)
[2020-05-28] MEDS ORDERED: ISOSORBIDE MONONITRATE ER 30 MG TAB.ER.24H PO SCH (09:00)
[2020-05-28] MEDS ORDERED: PRASUGREL 10 MG TAB PO SCH (09:00)
[2020-05-28] MEDS ORDERED: ASPIRIN 81 MG PO SCH (09:00)
[2020-05-28] MEDS ORDERED: TAMSULOSIN 0.4 MG CAP.ER.24H PO SCH (09:00)
== END 2020-05-27 17:25 | disposition home or self-care (01) ==
LOC: CATHCVL 09:27
PROVIDERS: ATTEND Internal Medicine Interventional Cardiology
DX: I25.10 Atherosclerotic heart disease of native coronary artery without angina pectoris (principal); R07.89 Other chest pain; R06.00 Dyspnea, unspecified; R53.83 Other fatigue; R94.39 Abnormal result of other cardiovascular function study; R60.0 Localized edema; I10 Essential (primary) hypertension; E11.9 Type 2 diabetes mellitus without complications; E78.00 Pure hypercholesterolemia, unspecified; E78.2 Mixed hyperlipidemia; F17.210 Nicotine dependence, cigarettes, uncomplicated; M19.90 Unspecified osteoarthritis, unspecified site; I25.2 Old myocardial infarction; Z95.5 Presence of coronary angioplasty implant and graft; Z88.0 Allergy status to penicillin; Z79.899 Other long term (current) drug therapy; Z79.51 Long term (current) use of inhaled steroids; Z79.84 Long term (current) use of oral hypoglycemic drugs; Z79.82 Long term (current) use of aspirin; Z79.02 Long term (current) use of antithrombotics/antiplatelets; Z98.890 Other specified postprocedural states; Z98.1 Arthrodesis status; Z90.49 Acquired absence of other specified parts of digestive tract; Z82.49 Family history of ischemic heart disease and other diseases of the circulatory system
CPT/HCPCS: 93458; C1769; C1894; J2001; J3010; J1644; Q9967

== ENCOUNTER → 2021-03-05 | Outpatient (CLI) | payer BC | END | disposition home or self-care (01) | LOC: LABWHC1 15:32 | PROVIDERS: ATTEND Nurse Practitioner Adult Health | DX: R06.00 Dyspnea, unspecified (principal) | CPT/HCPCS: 36415; 85379 ==

== ENCOUNTER 2021-03-16 19:24 | Observation (INO) | payer BC ==
[2021-03-16 20:18] LABS: Basophils # (A) 0.1 k/uL (0-0.2); Basophils % (A) 1 %; Eosinophils # (A) 0.3 k/uL (0-0.7); Eosinophils % (A) 2 %; HCT 43.5 % (39.0-53.0); HGB 14.4 gm/dL (13.0-17.5); Lymphocytes % (A) 14 %; MCH 29.2 pg (25.0-35.0); MCHC 33.2 g/dL (31.0-37.0); MCV 88.1 fL (80.0-100.0); Mean Platelet Volume 7.6; Monocytes # (A) 0.8 k/uL (0-1.0); Monocytes % (A) 6 %; Neutrophils # (A) 10.5 k/uL (1.3-7.7); Neutrophils % (A) 76 %; Platelet Count 235 k/uL (150-450); RBC 4.94 m/uL (4.30-5.90); RDW 14.6 % (11.5-15.5); WBC 13.8 k/uL (3.8-10.6)
[2021-03-16 20:29] LABS: Albumin 4.4 g/dL (3.5-5.0); Calcium 9.9 mg/dL (8.4-10.2); Potassium 4.3 mmol/L (3.5-5.1); Total Bilirubin 0.3 mg/dL (0.2-1.3)
--- NOTE | 2021-03-16 20:37 | XR ---
EXAMINATION TYPE: XR chest 2V DATE OF EXAM: 03/16/2021 COMPARISON: 05/09/2020 HISTORY: Chest pain TECHNIQUE: FINDINGS: Heart and mediastinum are normal. Lungs are clear. Diaphragm is normal. Bony thorax appears normal. IMPRESSION: Normal chest. No change.
--- NOTE | 2021-03-16 20:46 | ED ---
Chest Pain HPI - General Chief Complaint: Chest Pain Stated Complaint: Chest pain Time Seen by Provider: 03/16/21 20:36 Source: patient, family Mode of arrival: wheelchair Limitations: no limitations - History of Present Illness Initial Comments: This 51-year-old male presents with a complaint of some left-sided chest pain. It is described as a tightness type of sensation and is nonradiating. It occurred at rest. He took 3 sublingual nitroglycerin with limited relief. He states that it feels much better at this time rated approximately 3 of 10. He does relate some shortness of breath as well. He denies any leg pain or swelling. He does relate a history of cardiac disease. He had a heart attack a couple years ago and received 3 stents. He states that this feels similar. No other complaints or modifying factors. He is unsure of his last stress test but it likely has not been for a couple of years. - Related Data Home Medications Medication Instructions Recorded Confirmed Albuterol Sulfate [Ventolin HFA] 2 puff INHALATION RT-Q4H PRN 11/27/14 03/16/21 Nitroglycerin Sl Tabs [Nitrostat] 0.4 mg SUBLINGUAL Q5M PRN 04/03/19 03/16/21 metFORMIN HCL 1,000 mg PO BID-W/MEALS 04/03/19 03/16/21 Furosemide [Lasix] 20 mg PO DAILY 08/07/19 03/16/21 Tamsulosin HCl [Flomax] 0.4 mg PO DAILY 08/07/19 03/16/21 Famotidine 20 mg PO BID 05/09/20 03/16/21 Ipratropium-Albuterol Nebulize 3 ml INHALATION RT-QID PRN 05/09/20 03/16/21 [Duoneb 0.5 mg-3 mg/3 ml Soln] Losartan Potassium [Cozaar] 50 mg PO DAILY 05/09/20 03/16/21 hydroCHLOROthiazide 25 mg PO DAILY 05/09/20 03/16/21 Budesonide/Formoterol Fumarate 2 puff INHALATION RT-BID 03/16/21 03/16/21 [Symbicort 160-4.5 Mcg Inhaler] DULoxetine HCL [Cymbalta] 30 mg PO DAILY 03/16/21 03/16/21 DULoxetine HCL [Cymbalta] 60 mg PO DAILY 03/16/21 03/16/21 Gabapentin 800 mg PO TID 03/16/21 03/16/21 Isosorbide Mononitrate ER [Imdur] 60 mg PO DAILY 03/16/21 03/16/21 Metoprolol Tartrate [Lopressor] 12.5 mg PO BID 03/16/21 03/16/21 OLANZapine [ZyPREXA] 2.5 mg PO HS 03/16/21 03/16/21 hydrOXYzine pamoate [Vistaril] 25 mg PO QID 03/16/21 03/16/21 Previous Rx's Medication Instructions Recorded Prasugrel [Effient] 10 mg PO DAILY #30 tab 04/05/19 Aspirin 81 mg PO DAILY chew 04/06/19 Atorvastatin [Lipitor] 80 mg PO HS #30 tab 04/06/19 Allergies Allergy/AdvReac Type Severity Reaction Status Date / Time penicillin V Allergy Severe Rapid Verified 03/16/21 21:52 Heart Rate Review of Systems ROS Statement: Those systems with pertinent positive or pertinent negative responses have been documented in the HPI. ROS Other: All systems not noted in ROS Statement are negative. Past Medical History Past Medical History: Asthma, Chest Pain / Angina, Diabetes Mellitus, Hyperlipidemia, Hypertension, Myocardial Infarction ([place]), Pneumonia, Sleep Apnea/CPAP/BIPAP Additional Past Medical History / Comment(s): NUMBNESS/TINGLING LAWRENCE LEGS, kidney stone, Last Myocardial Infarction Date:: 03/2019 History of Any Multi-Drug Resistant Organisms: None Reported Past Surgical History: Back Surgery, Cholecystectomy, Heart Catheterization With Stent, Hernia Repair, Orthopedic Surgery, Tonsillectomy Additional Past Surgical History / Comment(s): RT KNEE arthroscopy, LAWRENCE WRIST ORIF, RIGHT SHOULDER arthroscopy x 2, SINUS surgery,. 3 cardiac stents, rt wrist ganglion cyst, 4 screws and 2 rods lower back Past Anesthesia/Blood Transfusion Reactions: No Reported Reaction Date of Last Stent Placement:: 05/2019 Past Psychological History: Anxiety, Depression Smoking Status: Current every day smoker Past Alcohol Use History: None Reported Past Drug Use History: None Reported - Past Family History Father Family Medical History: Cancer Additional Family Medical History / Comment(s): COLON Family Additional Family Medical History / Comment(s): Multiple people hypertension. Denies any history of coronary artery disease. General Exam - General Exam Comments Initial Comments: GENERAL: The patient is well nourished and well hydrated. VITAL SIGNS: Heart rate, blood pressure, respiratory rate reviewed as recorded in nurse's notes. EYES: Pupils are round and reactive. Extraocular movements are intact. No conjunctival / lid redness or swelling. ENT: No external evidence of injury, swelling, or ecchymosis. Airway is patent. Throat is clear. NECK: Nontender. No swelling or evidence of injury. No subcutaneous emphysema. Trachea is midline. No thyroid mass. HEART: Regular rate and rhythm. Good peripheral pulses. LUNGS/CHEST: Breath sounds clear and equal bilaterally. No rales, rhonchi, or wheezes. No ecchymosis, subcutaneous emphysema. There is mild tenderness noted to the left medial chest. ABDOMEN: Abdomen soft without tenderness. No palpable masses or organomegaly. No peritoneal signs. No abdominal wall swelling or ecchymosis. EXTREMITIES: No extremity tenderness. Normal muscle tone and function. No thoracolumbar tenderness. NEUROLOGIC: Sensation is grossly intact. Cranial nerve exam reveals face is symmetrical, tongue is midline, speech is clear. SKIN: No abrasions or ecchymosis is noted. No induration or masses noted. PSYCHIATRIC: Alert and oriented. Appropriate behavior and judgment. Limitations: no limitations Course Vital Signs 03/16/21 19:38 Temperature 98.0 F Pulse Rate 66 Respiratory 20 Rate Blood Pressure 160/72 O2 Sat by Pulse 97 Oximetry Chest Pain MDM - MDM The patient was seen and examined. All diagnostics were reviewed. An IV is established and he is placed on the monitor worker. No ectopy is identified. The EKG shows a normal sinus rhythm at a rate of 65. There is no acute ST-T wave changes identified. The DC intervals 186, QRS duration is 92, and the QTC intervals 411. The patient does receive aspirin as well as some Nitropaste. The laboratory shows a mild cytosis as well as mild hyperglycemia. Troponin is negative. Chest x-ray does not show any acute processes. The case is discussed with Dr. Merrill and he is agreeable with admission. It is felt as though he would require admission to rule out the possibility of acute coronary syndrome. The patient is agreeable as well. Disposition Clinical Impression: Unstable angina pectoris, Chest pain, Hypertension, Diabetes Disposition: ADMITTED IP TO THIS HOSP Condition: Fair Is patient prescribed a controlled substance at d/c from ED?: No Referrals: Manuel Jameson MD [Primary Care Provider] - 1-2 days Time of Disposition: 22:10 Decision Date: 03/16/21 Decision Time: 22:10
[2021-03-16] MEDS ORDERED: NITROGLYCERIN OINT 1 INCH/GM PACKET TOPICAL STA (20:47)
[2021-03-16] MEDS ORDERED: ASPIRIN 81 MG PO STA (20:47)
[2021-03-16 20:52] LABS: INR 0.9 (<1.2); Partial Thromboplastin Time 20.8 sec (22.0-30.0); Prothrombin Time 10.2 sec (9.0-12.0)
[2021-03-16] MEDS ORDERED: ALBUTEROL HFA INHALER INHALATION PRN (22:07)
[2021-03-16] MEDS ORDERED: NITROGLYCERIN SL TABS 0.4 MG TAB SUBLINGUAL PRN (22:07)
[2021-03-16] MEDS ORDERED: IPRATROPIUM-ALBUTEROL 3 ML NEB INHALATION PRN (22:07)
--- NOTE | 2021-03-17 00:18 | P.HPIM ---
History of Present Illness H&P Date: 03/16/21 Patient is a 51-year-old male with an extensive PMH including coronary artery disease status post TX and 3 stents, type II DM, hypertension, hyperlipidemia, and obstructive sleep apnea who presented to the emergency room with complaints of chest pain. The patient notes that he was in his usual state of health until about 6:30 tonight when he suddenly developed left-sided chest tightness. The patient was sitting on his couch when the pain started, was constant, gradually increased to an 8 out of 10, nonradiating, nonpleuritic, with no associated alleviating or exacerbating features. Patient notes that his pain gradually improved after being brought into the emergency room. He reported associated nausea but denied shortness of breath, palpitations, dizziness. At time of interview, noted that it was a 3 out of 10. The patient notes that the pain is somewhat different from the pain when he had his TX several years ago. The patient denied fever, chills, cough, abdominal pain, diarrhea, leg pain, recent travel, or leg swelling. He underwent an extensive evaluation in the emergency room an EKG showing normal sinus rhythm at [address]/T-wave changes noted as reviewed by me. Chest x-ray was unremarkable. Laboratory evaluation was remarkable for WBC count 13.8, sodium 135, chloride 95, CO2 31, BUN 23, creatinine 1.16, glucose 193, and troponin less than 0.012. Review of Systems Pertinent positives and negatives as discussed in HPI, a complete review of systems was performed and all other systems are negative. Past Medical History Past Medical History: Asthma, Chest Pain / Angina, Diabetes Mellitus, Hyperlipidemia, Hypertension, Myocardial Infarction ([place]), Pneumonia, Sleep Apnea/CPAP/BIPAP Additional Past Medical History / Comment(s): NUMBNESS/TINGLING LAWRENCE LEGS, kidney stone, Last Myocardial Infarction Date:: 03/2019 History of Any Multi-Drug Resistant Organisms: None Reported Past Surgical History: Back Surgery, Cholecystectomy, Heart Catheterization With Stent, Hernia Repair, Orthopedic Surgery, Tonsillectomy Additional Past Surgical History / Comment(s): RT KNEE arthroscopy, LAWRENCE WRIST ORIF, RIGHT SHOULDER arthroscopy x 2, SINUS surgery,. 3 cardiac stents, rt wrist ganglion cyst, 4 screws and 2 rods lower back Past Anesthesia/Blood Transfusion Reactions: No Reported Reaction Date of Last Stent Placement:: 05/2019 Past Psychological History: Anxiety, Depression Smoking Status: Current every day smoker Past Alcohol Use History: None Reported Past Drug Use History: None Reported - Past Family History Father Family Medical History: Cancer Additional Family Medical History / Comment(s): COLON Family Additional Family Medical History / Comment(s): Multiple people hypertension. Denies any history of coronary artery disease. Medications and Allergies Home Medications Medication Instructions Recorded Confirmed Type Albuterol Sulfate [Ventolin HFA] 2 puff INHALATION RT-Q4H PRN 11/27/14 03/16/21 History Nitroglycerin Sl Tabs [Nitrostat] 0.4 mg SUBLINGUAL Q5M PRN 04/03/19 03/16/21 History metFORMIN HCL 1,000 mg PO BID-W/MEALS 04/03/19 03/16/21 History Prasugrel [Effient] 10 mg PO DAILY #30 tab 04/05/19 03/16/21 Rx Aspirin 81 mg PO DAILY chew 04/06/19 03/16/21 Rx Atorvastatin [Lipitor] 80 mg PO HS #30 tab 04/06/19 03/16/21 Rx Furosemide [Lasix] 20 mg PO DAILY 08/07/19 03/16/21 History Tamsulosin HCl [Flomax] 0.4 mg PO DAILY 08/07/19 03/16/21 History Famotidine 20 mg PO BID 05/09/20 03/16/21 History Ipratropium-Albuterol Nebulize 3 ml INHALATION RT-QID PRN 05/09/20 03/16/21 History [Duoneb 0.5 mg-3 mg/3 ml Soln] Losartan Potassium [Cozaar] 50 mg PO DAILY 05/09/20 03/16/21 History hydroCHLOROthiazide 25 mg PO DAILY 05/09/20 03/16/21 History Budesonide/Formoterol Fumarate 2 puff INHALATION RT-BID 03/16/21 03/16/21 History [Symbicort 160-4.5 Mcg Inhaler] DULoxetine HCL [Cymbalta] 30 mg PO DAILY 03/16/21 03/16/21 History DULoxetine HCL [Cymbalta] 60 mg PO DAILY 03/16/21 03/16/21 History Gabapentin 800 mg PO TID 03/16/21 03/16/21 History Isosorbide Mononitrate ER [Imdur] 60 mg PO DAILY 03/16/21 03/16/21 History Metoprolol Tartrate [Lopressor] 12.5 mg PO BID 03/16/21 03/16/21 History OLANZapine [ZyPREXA] 2.5 mg PO HS 03/16/21 03/16/21 History hydrOXYzine pamoate [Vistaril] 25 mg PO QID 03/16/21 03/16/21 History Allergies Allergy/AdvReac Type Severity Reaction Status Date / Time penicillin V Allergy Severe Rapid Verified 03/16/21 21:52 Heart Rate Physical Exam Vitals: Vital Signs Temp Pulse Resp BP Pulse Ox 03/16/21 22:18 62 18 137/73 97 03/16/21 19:38 98.0 F 66 20 160/72 97 Intake and Output 03/16/21 03/16/21 03/17/21 14:59 22:59 06:59 Other: Weight 149.685 kg General: non toxic, no distress, appears at stated age, morbidly obese Derm: no unusual rashes/lesions no unusual ecchymoses, warm, dry Head: atraumatic, normocephalic, symmetric Eyes: EOMI, no lid lag, anicteric sclera, pupils equal round reactive to light ENT: Nose and ears atraumatic, no thrush, no pharyngeal erythema Neck: No thyromegaly, no cervical lymphadenopathy, trachea midline, supple Mouth: no lip lesion, mucus membranes moist Cardiovascular: S1S2 reg, no murmur, positive posterior tibial pulse bilateral, no edema, capillary refill less than 2 seconds, no chest wall tenderness on palpation Lungs: CTA bilateral, no rhonchi, no rales , no accessory muscle use Abdominal: soft, obese nontender to palpation, no guarding, no appreciable o rganomegaly, normal bowel sounds Ext: no gross muscle atrophy, muscle strength 5 out of 5 in all 4 extremities grossly, no contractures, Neuro: CN II-XI grossly intact, light touch intact all 4 extremities, finger to nose within normal limits, Psych: Alert, oriented, appropriate affect Results CBC & Chem 7: 03/16/21 20:13 03/16/21 20:13 Labs: Abnormal Lab Results - Last 24 Hours (Table) 03/16/21 03/16/21 03/16/21 Range/Units 20:13 20:13 20:13 WBC 13.8 H (3.8-10.6) k/uL Neutrophils # 10.5 H (1.3-7.7) k/uL APTT 20.8 L (22.0-30.0) sec Sodium 135 L (137-145) mmol/L Chloride 95 L (98-107) mmol/L Carbon Dioxide 31 H (22-30) mmol/L BUN 23 H (9-20) mg/dL Glucose 193 H (74-99) mg/dL Assessment and Plan Plan: Chest pain, rule out ACS -Cardiac consult -Trend troponin -Echocardiogram -Continue with aspirin -Telemetry monitoring Leukocytosis, no signs of active infection at this time -Monitor for now Alkalosis, suspected compensatory with COPD and obstructive sleep apnea with suspected hypercapnia -Obtain ABG Chronic conditions: COPD, type II DM, hypertension, hyperlipidemia, coronary artery disease -Continue with home medications -Check A1c -Lispro insulin sinus scale with blood glucose monitoring -Patient advised to have his family bring in his home CPAP machine DVT prophylaxis -Heparin subq The patient is admitted with an anticipated less than 2 midnight stay for evaluation of chest pain CODE STATUS: Full Code Discussed with: Patient Anticipated discharge date: in am Anticipated discharge place: home A total of 35 minutes was spent on the care of this complex patient more than 50% of the time was spent in counseling and care coordination.
[2021-03-17] MEDS ORDERED: HEPARIN SODIUM 1,000 UN/ML (10ML VL) IV ONE ×2 (00:29→12:29)
[2021-03-17] MEDS ORDERED: HEPARIN SODIUM 1,000 UN/ML (10ML VL) IV PRN (00:29)
[2021-03-17] MEDS ORDERED: HEPARIN SOD,PORK IN 0.45% NACL 25,000 UNIT in 0.45% NACL 1 250ML.BAG IV SCH (00:30)
[2021-03-17 02:03] LABS: ABG Base Excess 4.7 mmol/L; ABG HCO3 30 mmol/L (21-25); ABG Oxygen Saturation 95.4 % (94-97); ABG PCO2 50 mmHg (35-45); ABG PH 7.38 (7.35-7.45); ABG PO2 78 mmHg (83-108); ABG TCO2 31 mmol/L (19-24); Allen Test Performed? Yes
[2021-03-17] MEDS ORDERED: metFORMIN 500 MG TAB PO SCH (07:30)
[2021-03-17] MEDS: SYMBICORT 160-4.5 MCG INHALER INHALATION SCH ×2 (07:46→20:17)
[2021-03-17] MEDS ORDERED: ALPRAZolam 0.25 MG TAB PO PRN (08:47)
[2021-03-17] MEDS ORDERED: ALPRAZolam 0.5 MG TAB PO PRN (08:47)
[2021-03-17] MEDS ORDERED: ATORVASTATIN 80 MG TAB PO STA (08:47)
[2021-03-17] MEDS ORDERED: NITROGLYCERIN SL TABS 0.4 MG TAB SUBLINGUAL PRN (08:47)
[2021-03-17] MEDS ORDERED: SODIUM CHLORIDE 0.9% 1,000 ML in EMPTY BAG 1 BAG IV ONE (08:47)
[2021-03-17] MEDS ORDERED: ASPIRIN 325 MG TAB PO STA (08:47)
[2021-03-17 08:58] LABS: Cholesterol 122 mg/dL (<200); HDL Cholesterol 46 mg/dL (40-60); LDL Cholesterol,Calculated 47 mg/dL (0-99); Triglycerides 144 mg/dL (<150)
[2021-03-17] MEDS ORDERED: ASPIRIN 325 MG TAB PO SCH (09:00)
--- NOTE | 2021-03-17 09:24 | CONS ---
CONSULTATION Mr. Murillo is a 51-year-old male with known history of coronary artery disease, history of diabetes, hypertension, hyperlipidemia and chronic tobacco use, who presented with symptoms of chest discomfort. He has a known history of coronary artery disease and underwent stenting of the LAD and left circumflex in 2018. In May 2020, underwent repeat cardiac catheterization and at that time had no evidence of significant restenosis with mild to moderate triple-vessel disease. Yesterday, he had severe left-sided chest discomfort that persisted. He used 3 nitroglycerin with moderate improvement. He came into the emergency room and subsequently admitted. The patient is pain-free at the time of my evaluation. He has dyspnea on exertion. He denies any dizziness or palpitation. No syncope. No PND or orthopnea. No peripheral edema. His coronary risk factors as noted for the hypertension, hyperlipidemia, diabetes mellitus and chronic tobacco use. MEDICATION: His medications at home include Zyprexa, Lipitor 80 mg daily, Flomax, Ventolin, Effient 10 mg daily, Lopressor 12.5 mg twice a day, Cozaar 50 mg daily, isosorbide mononitrate 60 mg daily, Lasix 20 mg twice a day, gabapentin, hydrochlorothiazide 25 mg daily, DuoNeb, Cymbalta, and aspirin 81 mg daily. REVIEW OF SYSTEMS: RESPIRATORY SYSTEM: He had dyspnea on exertion. History of chronic tobacco use. GI SYSTEM: No recent GI bleeding. No peptic ulcer disease. SYSTEM: No dysuria or hematuria. NERVOUS SYSTEM: No stroke or seizure. PHYSICAL EXAMINATION: He is a 51-year-old male, alert, oriented, in no apparent distress. Blood pressure running in the 130s to 140s with the heart rate in the 50s. HEAD: Normocephalic. EYES: Sclerae anicteric. NECK: Good carotid upstroke. No bruit. No jugular venous distention. LUNGS: With few crackles bilaterally. No wheezes. HEART: Regular rate and rhythm. S1, S2. No S3. No rub. No gallop. ABDOMEN: Soft, nontender, obese. Positive bowel sounds. No organomegaly. EXTREMITIES: No edema. Intact distal pulses. LAB DATA: Lab data revealed white blood cells 13.8, hemoglobin 14.4. BUN and creatinine 23 and 1.16. Troponin less than 0.012, 0.11 and 0.399. He is negative for COVID-19. His pH 7.38, pCO2 of 50, pO2 of 78. His EKG revealed a sinus mechanism, normal axis and intervals without acute ST-segment changes. He had a chest x-ray that shows no acute infiltrate. IMPRESSION: 1. Chest discomfort with evidence of [id number] myocardial infarction in a patient with known history of coronary artery disease, status post multivessel stenting. 2. History of stenting of the left circumflex and the LAD done in 2019. 3. Chronic tobacco use. 4. Hypertension. 5. Hyperlipidemia. RECOMMENDATION: In view of his presentation and his symptoms, I have recommended proceeding with repeat coronary angiography to assess his status and guide his treatment. We will obtain an echocardiogram with Doppler to evaluate left ventricular systolic function and depending on his progress, further recommendation will be made. Thank you for this consult. We will follow with you. RIN / TUNGN: [id number] /
[2021-03-17] MEDS: HEPARIN SODIUM,PORCINE/PF 5,000 UNIT/0.5 ML SYRINGE SQ SCH ×3 (09:36→20:29)
[2021-03-17] MEDS: ISOSORBIDE MONONITRATE ER 60 MG TAB.ER.24H PO SCH (09:36)
[2021-03-17] MEDS: METOPROLOL TARTRATE 12.5 MG TAB PO SCH ×2 (09:36→20:28)
[2021-03-17] MEDS: FAMOTIDINE 20 MG TAB PO SCH ×2 (09:37→20:29)
[2021-03-17] MEDS: hydrOXYzine pamoate 25 MG CAP PO SCH ×4 (09:37→20:28)
[2021-03-17] MEDS: FUROSEMIDE 20 MG TAB PO SCH (09:37)
[2021-03-17] MEDS: DULoxetine HCL 30 MG CAPSULE.DR PO SCH (09:37)
[2021-03-17] MEDS: ASPIRIN 81 MG PO SCH (09:37)
[2021-03-17] MEDS: hydroCHLOROthiazide 25 MG TAB PO SCH (09:37)
[2021-03-17] MEDS: TAMSULOSIN 0.4 MG CAP.ER.24H PO SCH (09:37)
[2021-03-17] MEDS: LOSARTAN 50 MG TAB PO SCH (09:37)
[2021-03-17] MEDS: DULoxetine HCL 60 MG CAPSULE.DR PO SCH (09:37)
[2021-03-17] MEDS: GABAPENTIN 400 MG CAP PO SCH ×3 (09:38→20:28)
[2021-03-17 09:54] LABS: African American GFR (CKD) >90 (>60 ml/min/1.73 sqM); Anion Gap 8 mmol/L; Blood Urea Nitrogen 19 mg/dL (9-20); Calcium 9.6 mg/dL (8.4-10.2); Carbon Dioxide 30 mmol/L (22-30); Chloride 98 mmol/L (98-107); Glucose 109 mg/dL (74-99); Non-African American GFR(CKD) >90 (>60 ml/min/1.73 sqM); Potassium 4.1 mmol/L (3.5-5.1); Sodium 136 mmol/L (137-145)
--- NOTE | 2021-03-17 10:50 | ECHOF ---
Referral Reason:cp MEASUREMENTS -------- HEIGHT: 182.9 cm WEIGHT: 149.7 kg BP: 149/85 RVIDd: 3.5 cm (< 3.3) IVSd: 1.2 cm (0.6 - 1.1) LVIDd: 4.7 cm (3.9 - 5.3) LVPWd: 1.2 cm (0.6 - 1.1) IVSs: 2.0 cm LVIDs: 3.1 cm LVPWs: 1.8 cm LA Diam: 3.7 cm (2.7 - 3.8) Ao Diam: 3.8 cm (2.0 - 3.7) AV Cusp: 2.5 cm (1.5 - 2.6) MV EXCURSION: 10.325 mm (> 18.000) MV EF SLOPE: 47 mm/s (70 - 150) EPSS: 0.9 cm MV E Rohit: 0.82 m/s MV DecT: 296 ms MV A Rohit: 0.67 m/s MV E/A Ratio: 1.23 RAP: 5.00 mmHg RVSP: 21.70 mmHg FINDINGS -------- Sinus rhythm. This was a technically difficult study with suboptimal views. The left ventricular size is normal. There is borderline concentric left ventricular hypertrophy. Overall left ventricular systolic function is low-normal with, an EF between 50 - 55 %. The right ventricle is mildly enlarged. The left atrium is normal in size. The right atrial size is normal. Interatrial and interventricular septum intact. The aortic valve is trileaflet, and appears structurally normal. No aortic stenosis or regurgitation. The mitral valve is normal. Mild mitral regurgitation is present. The tricuspid valve appears structurally normal. Mild tricuspid regurgitation present. Right vent ricular systolic pressure is normal at < 35 mmHg. The pulmonic valve was not well visualized. There is no pulmonic regurgitation present. The aortic root is dilated measuring 3.8cm. IVC Not well visulized. There is no pericardial effusion. CONCLUSIONS -------- 1. There is borderline concentric left ventricular hypertrophy. 2. Overall left ventricular systolic function is low-normal with, an EF between 50 - 55 %. 3. The right ventricle is mildly enlarged. 4. The aortic valve is trileaflet, and appears structurally normal. No aortic stenosis or regurgitati on. 5. Mild mitral regurgitation is present. 6. Mild tricuspid regurgitation present. 7. The aortic root is dilated measuring 3.8cm. 8. There is no pericardial effusion. [employer] FINISH[employer] RANGE OPERATOR: Honey Raya RDCS
[2021-03-17] MEDS: SODIUM CHLORIDE 0.9% 1,000 ML IV SCH (11:45)
[2021-03-17] MEDS: PRASUGREL 10 MG TAB PO SCH (11:45)
[2021-03-17] MEDS ORDERED: LIDOCAINE 1% INJ 10MG/ML (20 ML MDV) SQ ONE (12:21)
[2021-03-17] MEDS ORDERED: fentaNYL (PF) 50 MCG/ML 2 ML AMP IV ONE ×2 (12:25)
[2021-03-17] MEDS ORDERED: VERAPAMIL SYRINGE (5 MG/10 ML) INTRAARTER ONE (12:25)
[2021-03-17] MEDS ORDERED: IV FLUID CONTINUATION 950 ML IV ONE (12:25)
[2021-03-17] MEDS ORDERED: IOPAMIDOL-370 125ML BTL INJ ONE (12:34)
[2021-03-17] MEDS ORDERED: RX INFO: IV CONTRAST WAS GIVEN 1 EACH MISC MISCELLANE PRN (12:51)
[2021-03-17] MEDS ORDERED: SODIUM CHLORIDE 0.9% 1,000 ML IV SCH (13:00)
[2021-03-17 16:27] LABS: HCT 42.9 % (39.6-50.0); HGB 13.9 g/dL (13.0-17.0); MCH 29.6 pg (27.0-32.0); MCHC 32.4 g/dL (32.0-37.0); MCV 91.3 fL (80.0-97.0); Mean Platelet Volume 11.2 fL (9.5-12.2); Platelet Count 249 X 10*3/uL (140-440); RDW 15.1 % (11.5-14.5); WBC 11.64 X 10*3/uL (4.50-10.00)
[2021-03-17 16:54] LABS: Glucose,Whole Blood 131 mg/dL (75-99)
--- NOTE | 2021-03-17 17:00 | P.PN ---
Subjective Progress Note Date: 03/17/21 No new complaints. S/p LHC today with no acute plaque rupture. Objective - Vital Signs Vital signs: Vital Signs Temp 98.3 F 03/17/21 11:49 Pulse 51 L 03/17/21 15:47 Resp 14 03/17/21 13:00 BP 148/73 03/17/21 15:47 Pulse Ox 92 L 03/17/21 15:47 Intake & Output 03/16/21 03/17/21 03/17/21 18:59 06:59 18:59 Intake Total 134.833 Balance 134.833 Weight 149.685 kg 149.685 kg Intake: IV 50 Intake, IV Titration 84.833 Amount Heparin Sod,Pork in 0.45% 84.833 NaCl 25,000 unit In 0.45 % NaCl 1 250ml.bag @ 6. 681 UNITS/KG/HR 10 mls/hr IV .Q24H [facility]CIAL Rx#: [id number] Other: # Voids 1 - Exam Gen: awake, alert HEENT: normocephalic, atraumatic, good hearing acuity, moist mucous membranes Resp: good air exchange, breathing comfortably with no accessory muscle use, clear to auscultation bilaterally without wheezes or crackles CVS: good distal perfusion x 4, regular rate and rhythm without murmurs GI: soft, NTTP, ND, appropriate bowel sounds : no SPT, no CVAT, manriquez catheter not present MSK: no pitting edema, no clubbing Neuro: non-focal, moving all extremities Psych: cooperative, euthymic mood - Labs CBC & Chem 7: 03/17/21 07:46 03/17/21 07:46 Labs: Abnormal Lab Results - Last 24 Hours (Table) 03/16/21 03/16/21 03/16/21 Range/Units 20:13 20:13 20:13 WBC 13.8 H (3.8-10.6) k/uL RDW (11.5-14.5) % Neutrophils # 10.5 H (1.3-7.7) k/uL APTT 20.8 L (22.0-30.0) sec ABG pCO2 (35-45) mmHg ABG pO2 (83-108) mmHg ABG HCO3 (21-25) mmol/L ABG Total CO2 (19-24) mmol/L Sodium 135 L (137-145) mmol/L Chloride 95 L (98-107) mmol/L Carbon Dioxide 31 H (22-30) mmol/L BUN 23 H (9-20) mg/dL Glucose 193 H (74-99) mg/dL POC Glucose (mg/dL) (75-99) mg/dL Troponin I (0.000-0.034) ng/mL 03/16/21 03/17/21 03/17/21 Range/Units 22:47 01:23 02:00 WBC (3.8-10.6) k/uL RDW (11.5-14.5) % Neutrophils # (1.3-7.7) k/uL APTT (22.0-30.0) sec ABG pCO2 50 H (35-45) mmHg ABG pO2 78 L (83-108) mmHg ABG HCO3 30 H (21-25) mmol/L ABG Total CO2 31 H (19-24) mmol/L Sodium (137-145) mmol/L Chloride (98-107) mmol/L Carbon Dioxide (22-30) mmol/L BUN (9-20) mg/dL Glucose (74-99) mg/dL POC Glucose (mg/dL) (75-99) mg/dL Troponin I 0.111 H* 0.399 H* (0.000-0.034) ng/mL 03/17/21 03/17/21 03/17/21 Range/Units 07:46 07:46 16:53 WBC 11.64 H (3.8-10.6) k/uL RDW 15.1 H (11.5-14.5) % Neutrophils # (1.3-7.7) k/uL APTT (22.0-30.0) sec ABG pCO2 (35-45) mmHg ABG pO2 (83-108) mmHg ABG HCO3 (21-25) mmol/L ABG Total CO2 (19-24) mmol/L Sodium 136 L (137-145) mmol/L Chloride (98-107) mmol/L Carbon Dioxide (22-30) mmol/L BUN (9-20) mg/dL Glucose 109 H (74-99) mg/dL POC Glucose (mg/dL) 131 H (75-99) mg/dL Troponin I (0.000-0.034) ng/mL Assessment and Plan Assessment: Chest pain, rule out ACS -Cardiac consult, s/p LHC -Trend troponin -Echocardiogram, EF 50-55%, RVE, -Continue with aspirin -Telemetry monitoring Leukocytosis, no signs of active infection at this time -Monitor for now Alkalosis, suspected compensatory with COPD and obstructive sleep apnea with suspected hypercapnia -Obtain ABG Chronic conditions: COPD, hypertension, hyperlipidemia, coronary artery disease -Continue with home medications -Patient advised to have his family bring in his home CPAP machine DVT prophylaxis -Heparin subq The patient is admitted with an anticipated less than 2 midnight stay for evaluation of chest pain CODE STATUS: Full Code Discussed with: Patient Anticipated discharge date: in am Anticipated discharge place: home
[2021-03-17 17:31] LABS: Hemoglobin A1C 6.9 % (4.0-6.0)
--- NOTE | 2021-03-17 19:06 | CC ---
CARDIAC CATHETERIZATION REPORT PROCEDURE PERFORMED: Cardiac catheterization. HISTORY OF PRESENT ILLNESS: Mr. Murillo 51-year-old male with a known history of coronary artery disease status post percutaneous revascularization of his left circumflex and LAD, who presented with an episode of chest discomfort and minimal troponin elevation. In view of that, recommendation was made regarding cardiac catheterization. The procedure as well as the risks and the complications were discussed with the patient who is in full understanding and agreement. PROCEDURE: Patient was brought to the woodworking shop laborer in a fasting semi-sedated state after receiving fentanyl and Benadryl and achieving moderate conscious sedated state. Using Xylocaine anesthesia and Seldinger technique, a 6-Kinyarwanda sheath was introduced in the right radial artery. Selective right and left coronary angiography was performed using 5- Kinyarwanda, 3.5 bent right and left Carol catheters and multiple views of the coronary artery including hemiaxial views were obtained. Following that a 5-Kinyarwanda tight pigtail catheter was introduced in the left ventricle and pressures were calculated. Following that, catheter and sheath were removed. Hemostasis was obtained with deployment of a TR band. There was no immediate complication. Patient is returned to his room in stable condition. Of note, the patient received 5000 of intravenous heparin as well as intra-arterial verapamil. FINDINGS: Left main. This is a large-sized vessel, trifurcating into the left circumflex, left anterior descending artery and ramus intermedius. Left main coronary artery has no evidence of high-grade stenosis. Left anterior descending artery. This is a large-sized vessel reaching toward the apex with a wraparound apex segment. The stented segment in the mid LAD is patent. There is mild intimal disease of 20% without any evidence of high-grade stenosis. Ramus intermedius. This is a small sized vessel that has no evidence of high-grade stenosis. Left circumflex. This is a nondominant vessel giving rise to one obtuse marginal branch. The stented segment in the left circumflex is patent. Beyond that there is mild intimal disease of 20% to 30% without any evidence of high-grade stenosis. Right coronary artery. This is a large dominant vessel bifurcating distally into PDA and posterolateral segment and branches. The right coronary artery in the mid segment has an irregular plaque with an area of stenosis of 30 to 40%. The rest of the vessel has intimal disease without any evidence of high-grade stenosis. LEFT VENTRICULOGRAM: Left ventriculogram was not performed. HEMODYNAMICS: There was no gradient across the aortic valve. The left ventricle end-diastolic pressure was 6-8 mmHg. CONCLUSION: 1. Patent stent of the left anterior descending and the left circumflex. 2. Mild to moderate triple-vessel coronary artery disease with no significant progression compared to 2020. RECOMMENDATIONS: In view of the findings and the anatomy, I recommend continue medical therapy with aggressive coronary risk modifications that have been initiated. It is possible that the patient had a plaque rupture that could have been worsened by his smoking habits. I have discussed with the patient those finding. I have discussed with him the importance of smoking cessation. Will continue on the maximal medical therapy and depending on his progress, further recommendation will be made. Duration of sedation is 17 minutes. MMODL / IJN: [id number] /
[2021-03-17 20:16] LABS: Glucose,Whole Blood 128 mg/dL (75-99)
[2021-03-17] MEDS ORDERED: OLANZapine 2.5 MG TAB PO SCH (21:00)
[2021-03-17] MEDS ORDERED: ATORVASTATIN 80 MG TAB PO SCH (21:00)
[2021-03-18 05:56] LABS: Basophils # (A) 0.1 k/uL (0-0.2); Basophils % (A) 1 %; Eosinophils # (A) 0.4 k/uL (0-0.7); Eosinophils % (A) 3 %; HGB 16.3 gm/dL (13.0-17.5); Lymphocytes % (A) 25 %; MCH 29.9 pg (25.0-35.0); MCHC 33.1 g/dL (31.0-37.0); MCV 90.1 fL (80.0-100.0); Mean Platelet Volume 7.7; Monocytes # (A) 0.8 k/uL (0-1.0); Monocytes % (A) 7 %; Neutrophils # (A) 7.5 k/uL (1.3-7.7); Neutrophils % (A) 62 %; Platelet Count 287 k/uL (150-450); RBC 5.44 m/uL (4.30-5.90); RDW 14.8 % (11.5-15.5); WBC 12.1 k/uL (3.8-10.6)
[2021-03-18 06:00] LABS: Prothrombin Time 10.8 sec (9.0-12.0)
[2021-03-18 06:20] LABS: African American GFR (CKD) 83 (>60 ml/min/1.73 sqM); Anion Gap 10 mmol/L; Blood Urea Nitrogen 21 mg/dL (9-20); Calcium 10.2 mg/dL (8.4-10.2); Carbon Dioxide 32 mmol/L (22-30); Chloride 96 mmol/L (98-107); Glucose 121 mg/dL (74-99); Non-African American GFR(CKD) 72 (>60 ml/min/1.73 sqM); Potassium 5.2 mmol/L (3.5-5.1); Sodium 138 mmol/L (137-145)
[2021-03-18] MEDS ORDERED: HEPARIN SODIUM,PORCINE 2,500 UNIT in SODIUM CHLORIDE 0.9% 250 ML IRRIGATION PRN (07:00)
[2021-03-18] MEDS ORDERED: HEPARIN SODIUM,PORCINE 10,000 UNIT in SODIUM CHLORIDE 0.9% 1,000 ML IRRIGATION PRN (07:00)
[2021-03-18 07:52] LABS: Glucose,Whole Blood 116 mg/dL (75-99)
[2021-03-18 08:04] VITALS: BP 128/66; PULSE 52; RESP 20; TEMP 97.6
[2021-03-18] MEDS: ASPIRIN 81 MG PO SCH (08:07)
[2021-03-18] MEDS: FUROSEMIDE 20 MG TAB PO SCH (08:07)
[2021-03-18] MEDS: hydrOXYzine pamoate 25 MG CAP PO SCH (08:07)
[2021-03-18] MEDS: DULoxetine HCL 30 MG CAPSULE.DR PO SCH (08:07)
[2021-03-18] MEDS: LOSARTAN 50 MG TAB PO SCH (08:07)
[2021-03-18] MEDS: METOPROLOL TARTRATE 12.5 MG TAB PO SCH (08:07)
[2021-03-18] MEDS: SODIUM CHLORIDE 0.9% 1,000 ML IV SCH (08:08)
[2021-03-18] MEDS: ISOSORBIDE MONONITRATE ER 60 MG TAB.ER.24H PO SCH (08:08)
[2021-03-18] MEDS: DULoxetine HCL 60 MG CAPSULE.DR PO SCH (08:08)
[2021-03-18] MEDS: FAMOTIDINE 20 MG TAB PO SCH (08:08)
[2021-03-18] MEDS: hydroCHLOROthiazide 25 MG TAB PO SCH (08:08)
[2021-03-18] MEDS: HEPARIN SODIUM,PORCINE/PF 5,000 UNIT/0.5 ML SYRINGE SQ SCH (08:08)
[2021-03-18] MEDS: TAMSULOSIN 0.4 MG CAP.ER.24H PO SCH (08:09)
[2021-03-18] MEDS: GABAPENTIN 400 MG CAP PO SCH (08:09)
[2021-03-18] MEDS: PRASUGREL 10 MG TAB PO SCH (08:09)
[2021-03-18] MEDS: SYMBICORT 160-4.5 MCG INHALER INHALATION SCH (08:58)
--- NOTE | 2021-03-18 09:58 | P.PN ---
Subjective This is a pleasant 51-year-old male past medical history significant for coronary artery disease, hypertension, diabetes mellitus, dyslipidemia, chronic nicotine dependence and morbid obesity. He underwent cardiac catheterization yesterday revealing a patent stent in the LAD and circumflex with mild to moderate triple-vessel coronary artery disease with no significant progression compared to previous study performed last year. He is seen and examined sitting up in bed eating breakfast in no acute distress. He has had no further symptoms of chest discomfort. Breathing is stable. Blood pressure 128/66 heart rate 52 afebrile maintaining oxygen saturation on room air. Echocardiogram obtained reveals preserved LV systolic function with ejection fraction 50-55%, mild MR and mild TR. He also has a dilated aortic root measuring 3.8 cm. Currently maintained on aspirin 81 mg daily, atorvastatin 80 mg daily, Lasix 20 mg daily, hydrochlorothiazide 25 mg daily, Imdur 60 mg daily, losartan 50 mg daily, Lopressor 12.5 mg twice a day and Effient 10 mg daily. GENERAL: Well-appearing, well-nourished and in no acute distress. NECK: Supple without JVD or thyromegaly. LUNGS: Breath sounds clear to auscultation bilaterally. Respiration equal and unlabored. No wheezes, rales or rhonchi. HEART: Regular rate and rhythm without murmurs, rubs or gallops. S1 and S2 heard. EXTREMITIES: Normal range of motion, no edema. No clubbing or cyanosis. Peripheral pulses intact. Right radial access site soft, nontender with no evidence of hematoma, ecchymosis or bleeding. ASSESSMENT Non-ST elevated myocardial infarction Coronary artery disease Hypertension Dyslipidemia Diabetes mellitus Morbid obesity, BMI 44 Chronic nicotine dependence PLAN Stable for discharge on current medical regimen. Discussed and encouraged smoking cessation. Lifestyle modifications are recommended. Follow-up in the office with Dr. Lozano in one week. Post cardiac catheterization instructions provided to the patient. Nurse Practitioner note has been reviewed, I agree with a documented findings and plan of care. Patient was seen and examined. Objective - Vital Signs Vital signs: Vital Signs Temp 97.6 F 03/18/21 07:00 Pulse 52 L 03/18/21 07:00 Resp 20 03/18/21 07:00 BP 128/66 03/18/21 07:00 Pulse Ox 95 03/18/21 08:59 Intake & Output 03/17/21 03/18/21 03/18/21 18:59 06:59 18:59 Intake Total 134.833 Balance 134.833 Weight 149.685 kg Intake: IV 50 Intake, IV Titration 84.833 Amount Heparin Sod,Pork in 0.45% 84.833 NaCl 25,000 unit In 0.45 % NaCl 1 250ml.bag @ 6. 681 UNITS/KG/HR 10 mls/hr IV .Q24H [facility] Rx#: [id number] Other: # Voids 1 2 # Bowel Movements 1 - Labs CBC & Chem 7: 03/18/21 05:27 03/18/21 05:27 Labs: Abnormal Lab Results - Last 24 Hours (Table) 03/17/21 03/17/21 03/17/21 Range/Units 07:46 07:46 07:46 WBC 11.64 H (4.50-10.00) X 10*3/uL RDW 15.1 H (11.5-14.5) % Sodium 136 L (137-145) mmol/L Potassium (3.5-5.1) mmol/L Chloride (98-107) mmol/L Carbon Dioxide (22-30) mmol/L BUN (9-20) mg/dL Glucose 109 H (74-99) mg/dL POC Glucose (mg/dL) (75-99) mg/dL Hemoglobin A1c 6.9 H (4.0-6.0) % 03/17/21 03/17/21 03/18/21 Range/Units 16:53 20:15 05:27 WBC (4.50-10.00) X 10*3/uL RDW (11.5-14.5) % Sodium (137-145) mmol/L Potassium 5.2 H (3.5-5.1) mmol/L Chloride 96 L (98-107) mmol/L Carbon Dioxide 32 H (22-30) mmol/L BUN 21 H (9-20) mg/dL Glucose 121 H (74-99) mg/dL POC Glucose (mg/dL) 131 H 128 H (75-99) mg/dL Hemoglobin A1c (4.0-6.0) % 03/18/21 03/18/21 Range/Units 05:27 07:48 WBC 12.1 H (4.50-10.00) X 10*3/uL RDW (11.5-14.5) % Sodium (137-145) mmol/L Potassium (3.5-5.1) mmol/L Chloride (98-107) mmol/L Carbon Dioxide (22-30) mmol/L BUN (9-20) mg/dL Glucose (74-99) mg/dL POC Glucose (mg/dL) 116 H (75-99) mg/dL Hemoglobin A1c (4.0-6.0) %
--- NOTE | 2021-03-20 00:01 | P.DS ---
Providers Date of admission: 03/17/21 11:03 Expected date of discharge: 03/18/21 Attending physician: Alexander Brooks Consults: 03/16/21 22:11 Consult Physician Urgent Consulting Provider: Candace Crespo Consult Reason/Comments: adri guzman Do you want consulting provider notified?: Yes Primary care physician: [facility] Course: Hospital course: Patient is a 51-year-old male with an extensive PMH including coronary artery disease status post MS and 3 stents, type II DM, hypertension, hyperlipidemia, and obstructive sleep apnea who presented to the emergency room with complaints of chest pain. The patient notes that he was in his usual state of health until about 6:30 tonight when he suddenly developed left-sided chest tightness. The patient was sitting on his couch when the pain started, was constant, gradually increased to an 8 out of 10, nonradiating, nonpleuritic, with no associated alleviating or exacerbating features. Patient notes that his pain gradually improved after being brought into the emergency room. He reported associated nausea but denied shortness of breath, palpitations, dizziness. At time of interview, noted that it was a 3 out of 10. The patient notes that the pain is somewhat different from the pain when he had his MS several years ago. The patient denied fever, chills, cough, abdominal pain, diarrhea, leg pain, recent travel, or leg swelling. He underwent an extensive evaluation in the emergency room an EKG showing normal sinus rhythm at [address]/T-wave changes noted as reviewed by me. Chest x-ray was unremarkable. Laboratory evaluation was remarkable for WBC count 13.8, sodium 135, chloride 95, CO2 31, BUN 23, creatinine 1.16, glucose 193, Troponin is: 0.111, 0.399. Patient underwent cardiac catheterization and was found of a patent stent. And some [id number] triple-vessel disease. With no significant progression. Plan was to manage the patient medically. Today: No chest pain. Breathing stable. Cleared by cardiology. Patient is to be managed medically. And will follow up with his strategy execution consultant. Consultation: Cardiology associates On examination: VITAL SIGNS: 97.6, 52, 20, 128/66, 92% room air GENERAL APPEARANCE: Average build. Sitting up comfortable. HEENT: Normal external appearance of nose and ear. Oral cavity normal EYES: Pupils equal. Conjunctiva normal. NECK: JVD not raised. Mass not palpable. RESPIRATORY: Respiratory effort normal. Lungs clear to auscultation. CARDIOVASCULAR: First and second sounds normal. No edema. ABDOMEN: Soft. Liver and spleen not palpable. No tenderness. No mass palpable. PSYCHIATRY: Alert and oriented x3. Mood and affect normal. INVESTIGATIONS, reviewed in the clinical context: WBC 11.6 hemoglobin 13.9 platelets 249 potassium 4.1 creatinine 0.95 Troponin I: Less than 0.012, 0.111, 0.399 Chest x-ray: Normal EKG tracing: Normal sinus rhythm, 2-D echocardiogram: EF 50-55%. Assessment -Acute non-Q-wave MS -Coronary artery disease prior history of stent -Asthma -Diabetes mellitus type 2 -Hyperlipidemia -Essential hypertension -Obstructive sleep apnea -Diabetic peripheral neuropathy -Chronic nicotine dependence cigarette smoker -Anxiety depression otherwise specified Disposition: Home - Plan - Discharge Summary Discharge Rx Participant: No New Discharge Prescriptions: New Nicotine 14Mg/24Hr Patch [Habitrol] 1 patch TRANSDERM DAILY #14 patch Continue Albuterol Sulfate [Ventolin HFA] 2 puff INHALATION RT-Q4H PRN PRN Reason: Shortness Of Breath metFORMIN HCL 1,000 mg PO BID-W/MEALS Nitroglycerin Sl Tabs [Nitrostat] 0.4 mg SUBLINGUAL Q5M PRN PRN Reason: Chest Pain Prasugrel [Effient] 10 mg PO DAILY #30 tab Aspirin 81 mg PO DAILY chew Atorvastatin [Lipitor] 80 mg PO HS #30 tab Furosemide [Lasix] 20 mg PO DAILY Tamsulosin HCl [Flomax] 0.4 mg PO DAILY Losartan Potassium [Cozaar] 50 mg PO DAILY Ipratropium-Albuterol Nebulize [Duoneb 0.5 mg-3 mg/3 ml Soln] 3 ml INHALATION RT-QID PRN PRN Reason: Shortness Of Breath Famotidine 20 mg PO BID Budesonide/Formoterol Fumarate [Symbicort 160-4.5 Mcg Inhaler] 2 puff INHALATION RT-BID DULoxetine HCL [Cymbalta] 60 mg PO DAILY DULoxetine HCL [Cymbalta] 30 mg PO DAILY OLANZapine [ZyPREXA] 2.5 mg PO HS Metoprolol Tartrate [Lopressor] 12.5 mg PO BID Isosorbide Mononitrate ER [Imdur] 60 mg PO DAILY hydrOXYzine pamoate [Vistaril] 25 mg PO QID Gabapentin 800 mg PO TID Discontinued hydroCHLOROthiazide 25 mg PO DAILY Discharge Medication List Albuterol Sulfate [Ventolin HFA] 2 puff INHALATION RT-Q4H PRN 11/27/14 [History] Nitroglycerin Sl Tabs [Nitrostat] 0.4 mg SUBLINGUAL Q5M PRN 04/03/19 [History] metFORMIN HCL 1,000 mg PO BID-W/MEALS 04/03/19 [History] Prasugrel [Effient] 10 mg PO DAILY #30 tab 04/05/19 [Rx] Aspirin 81 mg PO DAILY chew 04/06/19 [Rx] Atorvastatin [Lipitor] 80 mg PO HS #30 tab 04/06/19 [Rx] Furosemide [Lasix] 20 mg PO DAILY 08/07/19 [History] Tamsulosin HCl [Flomax] 0.4 mg PO DAILY 08/07/19 [History] Famotidine 20 mg PO BID 05/09/20 [History] Ipratropium-Albuterol Nebulize [Duoneb 0.5 mg-3 mg/3 ml Soln] 3 ml INHALATION RT-QID PRN 05/09/20 [History] Losartan Potassium [Cozaar] 50 mg PO DAILY 05/09/20 [History] Budesonide/Formoterol Fumarate [Symbicort 160-4.5 Mcg Inhaler] 2 puff INHALATION RT-BID 03/16/21 [History] DULoxetine HCL [Cymbalta] 30 mg PO DAILY 03/16/21 [History] DULoxetine HCL [Cymbalta] 60 mg PO DAILY 03/16/21 [History] Gabapentin 800 mg PO TID 03/16/21 [History] Isosorbide Mononitrate ER [Imdur] 60 mg PO DAILY 03/16/21 [History] Metoprolol Tartrate [Lopressor] 12.5 mg PO BID 03/16/21 [History] OLANZapine [ZyPREXA] 2.5 mg PO HS 03/16/21 [History] hydrOXYzine pamoate [Vistaril] 25 mg PO QID 03/16/21 [History] Nicotine 14Mg/24Hr Patch [Habitrol] 1 patch TRANSDERM DAILY #14 patch 03/18/21 [Rx] Follow up Appointment(s)/Referral(s): Dimitris Lozano MD [STAFF PHYSICIAN] - 1 Week (office will call pt with appointment ) Manuel Jameson MD [Primary Care Provider] - 1-2 days Patient Instructions/Handouts: How to Stop Smoking (ED), Cigarette Smoking and Your Health (GEN), After Radial Heart Catheterization (GEN) Activity/Diet/Wound Care/Special Instructions: activity as tolerated heart healthy diet
== END 2021-03-18 11:28 | disposition home or self-care (01) ==
LOC: EC 19:24 → 6NMEDSUR 22:11 → INTOOBSV 03-17 11:03 → OBSVTOIN 03-17 11:03 → 6NMEDSUR 03-17 12:47 → UNDODISIN 03-18 11:28
PROVIDERS: ADMIT Hospitalist; ATTEND Hospitalist
DX: I21.4 Non-ST elevation (NSTEMI) myocardial infarction (principal); I25.10 Atherosclerotic heart disease of native coronary artery without angina pectoris; Z95.5 Presence of coronary angioplasty implant and graft; I10 Essential (primary) hypertension; G47.33 Obstructive sleep apnea (adult) (pediatric); I25.2 Old myocardial infarction; E78.5 Hyperlipidemia, unspecified; E11.42 Type 2 diabetes mellitus with diabetic polyneuropathy; E11.65 Type 2 diabetes mellitus with hyperglycemia; F17.210 Nicotine dependence, cigarettes, uncomplicated; F41.9 Anxiety disorder, unspecified; F32.9 Major depressive disorder, single episode, unspecified; D72.829 Elevated white blood cell count, unspecified; E87.3 Alkalosis; E66.01 Morbid (severe) obesity due to excess calories; Z68.41 Body mass index [BMI] 40.0-44.9, adult; J44.9 Chronic obstructive pulmonary disease, unspecified; I77.810 Thoracic aortic ectasia; I08.1 Rheumatic disorders of both mitral and tricuspid valves; Z20.822 Contact with and (suspected) exposure to COVID-19; Z99.89 Dependence on other enabling machines and devices; Z87.19 Personal history of other diseases of the digestive system; Z87.09 Personal history of other diseases of the respiratory system; Z98.890 Other specified postprocedural states; Z87.39 Personal history of other diseases of the musculoskeletal system and connective tissue; Z87.81 Personal history of (healed) traumatic fracture; Z87.01 Personal history of pneumonia (recurrent); Z87.442 Personal history of urinary calculi; Z90.89 Acquired absence of other organs; Z90.49 Acquired absence of other specified parts of digestive tract; Z79.899 Other long term (current) drug therapy; Z79.84 Long term (current) use of oral hypoglycemic drugs; Z79.82 Long term (current) use of aspirin; Z79.51 Long term (current) use of inhaled steroids; Z79.02 Long term (current) use of antithrombotics/antiplatelets; Z88.0 Allergy status to penicillin; Z82.49 Family history of ischemic heart disease and other diseases of the circulatory system; Z80.0 Family history of malignant neoplasm of digestive organs
CPT/HCPCS: 96376; 96365; 96367; 99285; 36415; 94640 ×2; 36600; 94760; 93005 ×2; 93306; 93458; 80061; 80053; 80048 ×2; 82805; 84484 ×2; 85025 ×2; 85027; 85610 ×2; 85730 ×2; 83036; 87636; 71046; G0378 ×3; C1769; C1894; J2001; J3010; J1644 ×4; Q9967

== ENCOUNTER → 2021-09-17 | Outpatient (CLI) | payer BC ==
[2021-09-17 14:35] LABS: Basophils # (A) 0.1 k/uL (0-0.2); Basophils % (A) 1 %; Eosinophils # (A) 0.3 k/uL (0-0.7); Eosinophils % (A) 2 %; HCT 44.7 % (39.0-53.0); HGB 14.4 gm/dL (13.0-17.5); Lymphocytes # (A) 3.3 k/uL (1.0-4.8); Lymphocytes % (A) 22 %; MCHC 32.2 g/dL (31.0-37.0); Mean Platelet Volume 8.2; Monocytes # (A) 0.9 k/uL (0-1.0); Monocytes % (A) 6 %; Neutrophils # (A) 10.5 k/uL (1.3-7.7); Neutrophils % (A) 68 %; Platelet Count 288 k/uL (150-450); RBC 5.14 m/uL (4.30-5.90); RDW 14.2 % (11.5-15.5); WBC 15.4 k/uL (3.8-10.6)
[2021-09-17 14:46] LABS: ALT 26 U/L (4-49); AST 30 U/L (17-59); African American GFR (CKD) >90 (>60 ml/min/1.73 sqM); Albumin 4.1 g/dL (3.5-5.0); Albumin/Globulin Ratio 1.3; Alkaline Phosphatase 136 U/L (38-126); Anion Gap 12 mmol/L; Blood Urea Nitrogen 17 mg/dL (9-20); Carbon Dioxide 23 mmol/L (22-30); Chloride 98 mmol/L (98-107); Globulin 3.2 g/dL; Glucose 233 mg/dL (74-99); Non-African American GFR(CKD) >90 (>60 ml/min/1.73 sqM); Potassium 4.6 mmol/L (3.5-5.1); Sodium 133 mmol/L (137-145); Total Bilirubin 0.4 mg/dL (0.2-1.3); Total Protein 7.3 g/dL (6.3-8.2)
[2021-09-17 15:07] LABS: Creatine Kinase MB 1.5 ng/mL (0.0-2.4); Troponin I <0.012 ng/mL (0.000-0.034)
== END | disposition home or self-care (01) ==
LOC: LABWHC1 13:49
PROVIDERS: ATTEND Nurse Practitioner Adult Health
DX: I25.84 Coronary atherosclerosis due to calcified coronary lesion (principal); E11.9 Type 2 diabetes mellitus without complications; R60.0 Localized edema
CPT/HCPCS: 36415; 80053; 82553; 83036; 83880; 84484; 85025

== ENCOUNTER 2021-12-23 19:56 | Inpatient (IN) | payer BC ==
[2021-12-23] MEDS ORDERED: NITROGLYCERIN SL TABS 0.4 MG TAB SUBLINGUAL PRN ×2 (20:12→23:00)
[2021-12-23] MEDS ORDERED: ASPIRIN 81 MG PO STA (20:12)
[2021-12-23] MEDS ORDERED: SODIUM CHLORIDE 0.9% 1,000 ML IV STA (20:12)
[2021-12-23] MEDS ORDERED: HEPARIN SODIUM 1,000 UN/ML (10ML VL) IV ONE (20:12)
[2021-12-23] MEDS ORDERED: MORPHINE SULFATE 4 MG/ML SYRINGE IVP STA ×2 (20:13→20:27)
[2021-12-23 20:15] LABS: Glucose,Whole Blood 148 mg/dL (75-99)
[2021-12-23] MEDS ORDERED: HEPARIN SOD,PORK IN 0.45% NACL 25,000 UNIT in 0.45% NACL 1 250ML.BAG IV SCH (20:15)
[2021-12-23] MEDS ORDERED: ATORVASTATIN 80 MG TAB PO STA (20:20)
--- NOTE | 2021-12-23 20:20 | ED ---
General Adult HPI - General Stated complaint: Chest Pain Source: patient, RN notes reviewed, old records reviewed Mode of arrival: ambulatory Limitations: no limitations - History of Present Illness Initial comments: Patient is a 51-year-old male with past medical history remarkable for significant CAD, prior MIs, prior cardiac stents, asthma, hypertension, sleep apnea who presents emergency Department complaining of acute onset of chest pain with associated mild shortness of breath starting at approximately 7:15 this evening. Was plowing snow when onset occurred. Took 3 nitroglycerin tablets without improvement of chest pain at home. Presents emergency Department complaining of worsening chest pain, but may be secondary to new [place]. Discussed chest pain as a pressure-like sensation located over the left side and substernal chest. Does not radiate. Remains a 10 out of 10 at this time. No known palliative or provocative factors. Denies any nausea, vomiting, abdominal pain, lightheadedness, weakness otherwise. His no other acute complaints at this time. - Related Data Home Medications Medication Instructions Recorded Confirmed metFORMIN HCL [Glucophage] 1,000 mg PO BID-W/MEALS 04/03/19 03/16/21 Furosemide [Lasix] 20 mg PO DAILY 08/07/19 03/16/21 Tamsulosin HCl [Flomax] 0.4 mg PO DAILY 08/07/19 03/16/21 Famotidine 20 mg PO BID 05/09/20 03/16/21 Losartan Potassium [Cozaar] 50 mg PO DAILY 05/09/20 03/16/21 DULoxetine HCL [Cymbalta] 30 mg PO DAILY 03/16/21 03/16/21 DULoxetine HCL [Cymbalta] 60 mg PO DAILY 03/16/21 03/16/21 Gabapentin 800 mg PO TID 03/16/21 03/16/21 Isosorbide Mononitrate ER [Imdur] 60 mg PO DAILY 03/16/21 03/16/21 Metoprolol Tartrate [Lopressor] 12.5 mg PO BID 03/16/21 03/16/21 OLANZapine [ZyPREXA] 2.5 mg PO HS 03/16/21 03/16/21 Insulin Degludec [Tresiba 60 units SQ DAILY 12/23/21 12/23/21 Flextouch U-100 Pen] hydroCHLOROthiazide 25 mg PO DAILY 12/23/21 12/23/21 Previous Rx's Medication Instructions Recorded Atorvastatin [Lipitor] 80 mg PO HS #30 tab 04/06/19 Allergies Allergy/AdvReac Type Severity Reaction Status Date / Time penicillin V Allergy Severe Rapid Verified 12/23/21 20:28 Heart Rate Review of Systems ROS Statement: Those systems with pertinent positive or pertinent negative responses have been documented in the HPI. Review of Systems: CONST: Denies fever EYES: Denies blurry vision ENT: Denies nasal congestion C/V: Endorses chest pain RESP: Denies shortness of breath GI: Denies abdominal pain : Denies dysuria SKIN: Denies rash. MSK: Denies joint pain. NEURO: Denies headache ROS Other: All systems not noted in ROS Statement are negative. Past Medical History Past Medical History: Asthma, Chest Pain / Angina, Diabetes Mellitus, Hyperlipidemia, Hypertension, Myocardial Infarction ([place]), Pneumonia, Sleep Apnea/CPAP/BIPAP Additional Past Medical History / Comment(s): NUMBNESS/TINGLING LAWRENCE LEGS, kidney stone, Last Myocardial Infarction Date:: 03/2019 History of Any Multi-Drug Resistant Organisms: None Reported Past Surgical History: Back Surgery, Cholecystectomy, Heart Catheterization With Stent, Hernia Repair, Orthopedic Surgery, Tonsillectomy Additional Past Surgical History / Comment(s): RT KNEE arthroscopy, LAWRENCE WRIST ORIF, RIGHT SHOULDER arthroscopy x 2, SINUS surgery,. 3 cardiac stents, rt wrist ganglion cyst, 4 screws and 2 rods lower back Past Anesthesia/Blood Transfusion Reactions: No Reported Reaction Date of Last Stent Placement:: 05/2019 Past Psychological History: Anxiety, Depression Smoking Status: Current every day smoker Past Alcohol Use History: None Reported Past Drug Use History: Marijuana - Past Family History Father Family Medical History: Cancer Additional Family Medical History / Comment(s): COLON Family Additional Family Medical History / Comment(s): Multiple people hypertension. Denies any history of coronary artery disease. General Exam - General Exam Comments Initial Comments: General: Appears in moderate distress secondary to chest pain. HEAD: Normal with no signs of head trauma. EYES: PERRLA, EOMI, conjunctiva normal, no discharge. ENT: Hearing grossly intact, normal oropharynx. RESPIRATORY: Clear breath sounds bilaterally. No wheezes, rales, or rhonchi. C/V: Regular rate and rhythm. S1 and S2 auscultated. No peripheral edema. C hest pain is not reproducible on palpation. Peripheral pulses are 2+ and intact. ABD: Abd is soft, nontender, nondistended EXT: Normal range of motion, no obvious deformity SKIN: No rashes or lesions observed on exposed skin. NEURO: Alert and oriented x 4. Limitations: no limitations Course Vital Signs 12/23/21 12/23/21 20:04 20:24 Temperature 97.8 F Pulse Rate 80 78 Respiratory 18 24 Rate Blood Pressure 150/102 141/104 O2 Sat by Pulse 98 97 Oximetry Medical Decision Making - Medical Decision Making Based on the patient's presentation and physical exam, I'm concerned for acute STEMI. He was immediately placed in resuscitation bay. Code STEMI was called. I spoke with marketing services vice president Dr. Lozano over the phone who agreed to take the patient to the [facility]. Heart attack labs will be ordered. He will be bolus 4000 units of heparin and placed on a heparin drip. He'll be given an aspirin. Also be given a 1 L fluid bolus in addition to analgesia with morphine, and 1 additional nitro tablet. He was placed on oxygen as well. Patient was in agreement with this plan. Laboratory studies are still pending at this time. He'll be placed on continuous cardiac monitoring. EKG showed signs concerning for an anteroseptal infarct.Most of the patient's results returned after the patient was already Plan. Patient's chest x-ray revealed possible right lower lobe pneumonia, however the patient's clinical picture does not align with this. Laboratory studies are remarkable for an initial troponin of 0.022. Potassium is hemolyzed. Repeat was ordered. Patient is a leukocytosis of 21.2 which is likely reactive. I evaluated the patient multiple times throughout his stay in the emergency department prior to his cath. Patient was dosed an additional dose of IV morphine for pain control. Vital signs remained within normal limits and stable throughout his stay in the department. Patient was eventually taken for cardiac cath in serious condition. Patient was therefore dispositioned to the cardiac [facility] in serious condition. I spoke with the admitting team, Dr. Merrill who accepted the patient. He will be admitted following cath. - Lab Data Result diagrams: 12/23/21 20:16 12/23/21 20:16 Lab Results 12/23/21 12/23/21 12/23/21 Range/Units 20:14 20:16 20:16 WBC 21.2 H (3.8-10.6) k/uL RBC 5.02 (4.30-5.90) m/uL Hgb 13.4 (13.0-17.5) gm/dL Hct 41.4 (39.0-53.0) % MCV 82.4 (80.0-100.0) fL MCH 26.6 (25.0-35.0) pg MCHC 32.3 (31.0-37.0) g/dL RDW 14.3 (11.5-15.5) % Plt Count 402 (150-450) k/uL MPV 7.8 Neutrophils % 66 % Lymphocytes % 20 % Monocytes % 7 % Eosinophils % 3 % Basophils % 1 % Neutrophils # 14.0 H (1.3-7.7) k/uL Lymphocytes # 4.3 (1.0-4.8) k/uL Monocytes # 1.4 H (0-1.0) k/uL Eosinophils # 0.6 (0-0.7) k/uL Basophils # 0.2 (0-0.2) k/uL Hypochromasia Slight PT 10.4 (9.0-12.0) sec INR 0.9 (<1.2) APTT 23.0 (22.0-30.0) sec Sodium (137-145) mmol/L Potassium (3.5-5.1) mmol/L Chloride (98-107) mmol/L Carbon Dioxide (22-30) mmol/L Anion Gap mmol/L BUN (9-20) mg/dL Creatinine (0.66-1.25) mg/dL Est GFR (CKD-EPI)AfAm (>60 ml/min/1.73 sqM) Est GFR (CKD-EPI)NonAf (>60 ml/min/1.73 sqM) Glucose (74-99) mg/dL POC Glucose (mg/dL) 148 H (75-99) mg/dL POC Glu Parts Salesman ID Willing, Isabell Calcium (8.4-10.2) mg/dL Total Bilirubin (0.2-1.3) mg/dL AST (17-59) U/L ALT (4-49) U/L Alkaline Phosphatase (38-126) U/L Troponin I (0.000-0.034) ng/mL Total Protein (6.3-8.2) g/dL Albumin (3.5-5.0) g/dL Coronavirus (PCR) (Not Detectd) 12/23/21 12/23/21 12/23/21 Range/Units 20:16 20:16 20:29 WBC (3.8-10.6) k/uL RBC (4.30-5.90) m/uL Hgb (13.0-17.5) gm/dL Hct (39.0-53.0) % MCV (80.0-100.0) fL MCH (25.0-35.0) pg MCHC (31.0-37.0) g/dL RDW (11.5-15.5) % Plt Count (150-450) k/uL MPV Neutrophils % % Lymphocytes % % Monocytes % % Eosinophils % % Basophils % % Neutrophils # (1.3-7.7) k/uL Lymphocytes # (1.0-4.8) k/uL Monocytes # (0-1.0) k/uL Eosinophils # (0-0.7) k/uL Basophils # (0-0.2) k/uL Hypochromasia PT (9.0-12.0) sec INR (<1.2) APTT (22.0-30.0) sec Sodium 134 L (137-145) mmol/L Potassium 5.3 H (3.5-5.1) mmol/L Chloride 99 (98-107) mmol/L Carbon Dioxide 20 L (22-30) mmol/L Anion Gap 15 mmol/L BUN 20 (9-20) mg/dL Creatinine 1.37 H (0.66-1.25) mg/dL Est GFR (CKD-EPI)AfAm 68 (>60 ml/min/1.73 sqM) Est GFR (CKD-EPI)NonAf 59 (>60 ml/min/1.73 sqM) Glucose 148 H (74-99) mg/dL POC Glucose (mg/dL) (75-99) mg/dL POC Glu Parts Salesman ID Calcium 10.2 (8.4-10.2) mg/dL Total Bilirubin 1.0 (0.2-1.3) mg/dL AST 43 (17-59) U/L ALT 21 (4-49) U/L Alkaline Phosphatase 142 H (38-126) U/L Troponin I 0.022 (0.000-0.034) ng/mL Total Protein 8.3 H (6.3-8.2) g/dL Albumin 4.7 (3.5-5.0) g/dL Coronavirus (PCR) Not Detected (Not Detectd) - EKG Data -: EKG Interpreted by Me EKG Comments: 12-lead Electrocardiogram Interpretation Note EKG was reviewed and interpreted by myself. 12-lead ECG performed at 2006 is interpreted by me as revealing normal sinus rhythm at a rate of 80 beats per minute. [place] is normal. OR interval is 196 seconds, QRS ration is 112 ms, QTc is 422 ms.. There are findings concerning for possible anteroseptal infarct, with ST segment elevations in V1, V2, V3. There are some depressions in lead 2, 3. ST segment elevation in aVL. Possible depressions in lateral precordial leads as well.. R wave progression across the precordium was satisfactory. By my interpretation, this EKG is concerning for acute ischemia, STEMI. Critical Care Time Critical Care Time: Yes Total Critical Care Time: 35 Critical Care Time: Upon my evaluation, this patient had a high probability of imminent or life- threatening deterioration due to STEMI, which required my direct attention, intervention, and personal management. I have personally provided 35 minutes of critical care time exclusive of time spent on separately billable procedures. Time includes review of laboratory data, radiology results, discussion with consultants, and monitoring for potential decompensation. Interventions were performed as documented in my note. Disposition Clinical Impression: STEMI (ST elevation myocardial infarction), Chest pain Disposition: ADMITTED IP TO THIS HOSP Condition: Serious Referrals: Manuel Jameson MD [Primary Care Provider] - 1-2 days
[2021-12-23] MEDS ORDERED: NALOXONE 0.4 MG/ML 1 ML VIAL IV PRN (20:21)
[2021-12-23 20:24] LABS: Basophils # (A) 0.2 k/uL (0-0.2); Basophils % (A) 1 %; Eosinophils # (A) 0.6 k/uL (0-0.7); Eosinophils % (A) 3 %; HCT 41.4 % (39.0-53.0); HGB 13.4 gm/dL (13.0-17.5); Hypochromasia Slight; Lymphocytes # (A) 4.3 k/uL (1.0-4.8); Lymphocytes % (A) 20 %; MCH 26.6 pg (25.0-35.0); MCHC 32.3 g/dL (31.0-37.0); MCV 82.4 fL (80.0-100.0); Mean Platelet Volume 7.8; Monocytes # (A) 1.4 k/uL (0-1.0); Monocytes % (A) 7 %; Neutrophils % (A) 66 %; Platelet Count 402 k/uL (150-450); RBC 5.02 m/uL (4.30-5.90); RDW 14.3 % (11.5-15.5); WBC 21.2 k/uL (3.8-10.6)
[2021-12-23 20:33] LABS: INR 0.9 (<1.2); Prothrombin Time 10.4 sec (9.0-12.0)
--- NOTE | 2021-12-23 20:33 | XR ---
EXAMINATION TYPE: XR chest 1V portable DATE OF EXAM: 12/23/2021 COMPARISON: 03/16/2021 HISTORY: Chest pain TECHNIQUE: 2 views FINDINGS: Heart is normal. Lungs are clear of consolidation. There is increased interstitial density right lower lobe. There is no pleural effusion. IMPRESSION: Evidence of some new mild diffuse pneumonia right lower lobe compared to old exam.
[2021-12-23 20:34] LABS: Albumin 4.7 g/dL (3.5-5.0); Calcium 10.2 mg/dL (8.4-10.2); Total Protein 8.3 g/dL (6.3-8.2)
[2021-12-23 20:38] LABS: Potassium 5.3 mmol/L (3.5-5.1)
[2021-12-23] MEDS ORDERED: LIDOCAINE 1% INJ 10MG/ML (20 ML MDV) ONE (20:46)
[2021-12-23] MEDS ORDERED: VERAPAMIL 2.5 MG/ML 2 ML AMP ONE (20:46)
[2021-12-23] MEDS ORDERED: fentaNYL (PF) 50 MCG/ML 2 ML AMP ONE (20:47)
[2021-12-23] MEDS ORDERED: HEPARIN SODIUM 1,000 UN/ML (10ML VL) ONE (20:47)
[2021-12-23] MEDS ORDERED: LIDOCAINE 1% INJ 10MG/ML (20 ML MDV) SQ ONE (21:00)
[2021-12-23] MEDS ORDERED: IV FLUID CONTINUATION 1,000 ML IV ONE (21:00)
[2021-12-23] MEDS ORDERED: fentaNYL (PF) 50 MCG/ML 2 ML AMP IVP ONE (21:00)
[2021-12-23] MEDS ORDERED: VERAPAMIL SYRINGE (5 MG/10 ML) INTRAARTER ONE (21:02)
[2021-12-23] MEDS ORDERED: PRASUGREL 10 MG TAB ONE (21:06)
[2021-12-23] MEDS: HEPARIN SODIUM 1,000 UN/ML (10ML VL) IV ONE ×3 (21:06→22:00)
[2021-12-23] MEDS ORDERED: PRASUGREL 10 MG TAB PO ONE (21:09)
[2021-12-23] MEDS ORDERED: METOPROLOL TARTRATE 5 MG/5 ML VIAL IVP ONE ×2 (21:12→21:15)
[2021-12-23] MEDS ORDERED: IOPAMIDOL-370 125ML BTL INJ ONE ×2 (21:27→22:00)
--- NOTE | 2021-12-23 22:22 | P.CRDCN ---
History of Present Illness Consult date: 12/23/21 History of present illness: The patient is a 51-year-old male with a known history of CAD status post stenting of the LAD and left circumflex in 2018, history of hypertension, hyperlipidemia and diabetes mellitus who presented with an acute episode of chest discomfort while cleaning the snow. On presentation to the emergency room he had evidence of an acute anterior wall myocardial infarction with ST segment elevation anteriorly. Patient was dyspneic. He denies any chest discomfort since his last visit to the office until today. He denies any dizziness, palpit ations or syncope. He has no PND, orthopnea or peripheral edema. His coronary risk factors are positive for hypertension, hyperlipidemia, diabetes mellitus and chronic tobacco use. He is underwent cardiac catheterization in February 2021 and at that time had no evidence of significant obstructive disease with [id number] triple-vessel disease. The patient activity has been stable without any changes. His initial troponin was 0.022, his creatinine was 1.37. Review of system: Respiratory: No history of asthma, bronchitis , the patient has chronic dyspnea related to his chronic tobacco use and COPD. GI: No nausea, vomiting. No history of peptic ulcer disease. No recent GI bleed. : No hematuria or dysuria. Nervous System: No stroke or seizure. Physical examination: The patient was examined in the cardiac catheterization laboratory, he is in moderate discomfort. Blood pressure in the 120s systolic with a heart rate in the 70s Eyes: Sclerae nonicteric. Neck: Good carotid upstroke, no bruit, no jugular venous distention. Lungs: Decreased air exchange bilaterally Heart: Regular rate and rhythm, S1-S2, no S3, no or rub., Systolic murmur at the base Abdomen: Soft nontender, positive bowel sounds no organomegaly. Extremities: No edema, intact distal pulses. Impression: 1. [ Acute anterolateral wall myocardial infarction] 2. Status post stenting of LAD and left circumflex in 2019 3. History of hypertension 4. History of diabetes and hyperlipidemia 5. Chronic tobacco use and COPD Plan: I have recommended to proceed with coronary angiography, the procedure as well as the risk and the complications were discussed with the patient. He is in full understanding and agreement. The prognosis is guarded. Depending on his progress further recommendations will be made. Thank you for this consult we will follow with you. Past Medical History Past Medical History: Asthma, Chest Pain / Angina, Diabetes Mellitus, Hyperlipidemia, Hypertension, Myocardial Infarction ([place]), Pneumonia, Sleep Apnea/CPAP/BIPAP Additional Past Medical History / Comment(s): NUMBNESS/TINGLING LAWRENCE LEGS, kidney stone, Last Myocardial Infarction Date:: 03/2019 History of Any Multi-Drug Resistant Organisms: None Reported Past Surgical History: Back Surgery, Cholecystectomy, Heart Catheterization With Stent, Hernia Repair, Orthopedic Surgery, Tonsillectomy Additional Past Surgical History / Comment(s): RT KNEE arthroscopy, LAWRENCE WRIST ORIF, RIGHT SHOULDER arthroscopy x 2, SINUS surgery,. 3 cardiac stents, rt wrist ganglion cyst, 4 screws and 2 rods lower back Past Anesthesia/Blood Transfusion Reactions: No Reported Reaction Date of Last Stent Placement:: 05/2019 Past Psychological History: Anxiety, Depression Smoking Status: Current every day smoker Past Alcohol Use History: None Reported Past Drug Use History: Marijuana - Past Family History Father Family Medical History: Cancer Additional Family Medical History / Comment(s): COLON Family Additional Family Medical History / Comment(s): Multiple people hypertension. Denies any history of coronary artery disease. Medications and Allergies Home Medications Medication Instructions Recorded Confirmed Type metFORMIN HCL [Glucophage] 1,000 mg PO BID 04/03/19 12/23/21 History Atorvastatin [Lipitor] 80 mg PO HS #30 tab 04/06/19 12/23/21 Rx Furosemide [Lasix] 20 mg PO DAILY 08/07/19 12/23/21 History Tamsulosin HCl [Flomax] 0.4 mg PO DAILY 08/07/19 12/23/21 History Famotidine 20 mg PO BID 05/09/20 12/23/21 History Losartan Potassium [Cozaar] 100 mg PO DAILY 05/09/20 12/23/21 History DULoxetine HCL [Cymbalta] 30 mg PO DAILY 03/16/21 12/23/21 History DULoxetine HCL [Cymbalta] 60 mg PO DAILY 03/16/21 12/23/21 History Gabapentin 800 mg PO TID 03/16/21 12/23/21 History Isosorbide Mononitrate ER [Imdur] 90 mg PO DAILY 03/16/21 12/23/21 History Metoprolol Tartrate [Lopressor] 12.5 mg PO BID 03/16/21 12/23/21 History OLANZapine [ZyPREXA] 2.5 mg PO HS 03/16/21 12/23/21 History Insulin Degludec [Tresiba 60 units SQ DAILY 12/23/21 12/23/21 History Flextouch U-100 Pen] hydroCHLOROthiazide 25 mg PO DAILY 12/23/21 12/23/21 History Allergies Allergy/AdvReac Type Severity Reaction Status Date / Time penicillin V Allergy Severe Rapid Verified 12/23/21 20:28 Heart Rate Physical Exam Vitals: Vital Signs Temp Pulse Resp BP Pulse Ox 12/23/21 20:45 72 20 146/92 96 12/23/21 20:24 78 24 141/104 97 12/23/21 20:04 97.8 F 80 18 150/102 98 Intake and Output 12/23/21 12/23/21 12/23/21 06:59 14:59 22:59 Intake Total 400 Balance 400 Intake: IV 400 Other: Weight 145.15 kg Results 12/23/21 20:16 12/23/21 20:16 Cardiac Enzymes 12/23/21 12/23/21 Range/Units 20:16 20:16 AST 43 (17-59) U/L Troponin I 0.022 (0.000-0.034) ng/mL Coagulation 12/23/21 Range/Units 20:16 PT 10.4 (9.0-12.0) sec APTT 23.0 (22.0-30.0) sec CBC 12/23/21 Range/Units 20:16 WBC 21.2 H (3.8-10.6) k/uL RBC 5.02 (4.30-5.90) m/uL Hgb 13.4 (13.0-17.5) gm/dL Hct 41.4 (39.0-53.0) % Plt Count 402 (150-450) k/uL Comprehensive Metabolic Panel 12/23/21 Range/Units 20:16 Sodium 134 L (137-145) mmol/L Potassium 5.3 H (3.5-5.1) mmol/L Chloride 99 (98-107) mmol/L Carbon Dioxide 20 L (22-30) mmol/L BUN 20 (9-20) mg/dL Creatinine 1.37 H (0.66-1.25) mg/dL Glucose 148 H (74-99) mg/dL Calcium 10.2 (8.4-10.2) mg/dL AST 43 (17-59) U/L ALT 21 (4-49) U/L Alkaline Phosphatase 142 H (38-126) U/L Total Protein 8.3 H (6.3-8.2) g/dL Albumin 4.7 (3.5-5.0) g/dL Current Medications Generic Name Dose Route Start Last Admin Trade Name Freq PRN Reason Stop Dose Admin Heparin Sodium/Sodium Chloride 250 mls @ 10.001 mls/hr 12/23/21 20:15 25,000 unit/ Sodium Chloride IV .Q24H [facility] Protocol 6.89 UNITS/KG/HR Naloxone HCl 0.2 mg 12/23/21 20:21 Naloxone 0.4 Mg/Ml 1 Ml Vial IV Q2M PRN Opioid Reversal Nitroglycerin 0.4 mg 12/23/21 20:12 12/23/21 20:31 Nitroglycerin Sl Tabs 0.4 Mg Tab SUBLINGUAL 0.4 mg Q5M PRN Administration Chest Pain Intake and Output 12/23/21 12/23/21 12/23/21 06:59 14:59 22:59 Intake Total 400 Balance 400 Intake: IV 400 Other: Weight 145.15 kg Patient Weight 12/24/21 06:59 Weight 145.15 kg 12/23/21 20:16 12/23/21 20:16
--- NOTE | 2021-12-23 22:27 | P.CARDCATH ---
Date of Procedure: 12/23/21 Description of Procedure: Cardiac Catheterization: The patient is a 51-year-old male who presented with an acute anterior wall myocardial infarction, he has a known history of prior PCI to the LAD and left circumflex. Recommendations were made regarding cardiac catheterization, the risks and the complications were discussed with the patient who is in full understanding and agreement. Procedure Description: Patient was brought to [facility] in fasting semi-sedated state after receiving Fentanyl and Benadryl achieiving moderate conscious sedated state. Using Xylocaine Anesthesia and Seldinger technique, a 6-Spanish sheath was introduced in the [right] radial artery . Subsequently, selective [left coronary] angiography performed using a [6-Spanish]-Spanish [3.5] bend [left Carol guide] catheter. Images of the LAD were performed. Angioplasty and stenting of the LAD was done subsequently a 5-Spanish 3.5 right Carol catheter was used to obtain images to the right coronary artery. Multiple views of the coronary artery including hemiaxial views were obtained. The [5-Spanish pig tail] catheter was used to cross the aortic valve and [LVEDP] was calculated. Following that, catheter and sheath were removed. Hemostasis was obtained with deployment of TR band . There was no immediate complication. Patient was returned to room in stable condition. Of note, the patient received a total of [8000] units of intravenous heparin as well as intra-arterial verapamil. There was no immediate complications. Findings: Left main: [This is a large size vessel, bifurcating into LAD and left circumflex, left main has no evidence of high-grade stenosis] LAD: This vessel is totally occluded proximally with no antegrade flow at the site of the prior stent Left circumflex: This is a nondominant vessel, giving rise to obtuse marginal branch, the stented segment in the left circumflex is patent, there is mild obstructive disease of 10-20%. RCA: This is a large dominant vessel, bifurcating into PDA and PLV, the RCA has mild intimal disease with no high-grade stenosis [Left] Ventriculogram: Was not performed Hemodynamics: There was no gradient across the aortic valve, LVEDP 12-16 mmHg Conclusion: 1. Acutely occluded proximal LAD 2. Mild disease in the left circumflex was patent stent 3. Mild to moderate disease in the RCA Recommendations: I have recommended to proceed with angioplasty and stenting of the LAD, the procedure and the risks and the complications were discussed with the patient was in full agreement to proceed. Duration of sedation is [70] minutes.
[2021-12-23 22:28] LABS: Glucose,Whole Blood 122 mg/dL (75-99)
[2021-12-23] MEDS ORDERED: RX INFO: IV CONTRAST WAS GIVEN 1 EACH MISC MISCELLANE PRN (22:34)
--- NOTE | 2021-12-23 22:34 | P.CARDCATH ---
Date of Procedure: 12/23/21 Description of Procedure: PERCUTANEOUS TRANSLUMINAL CORONARY ANGIOPLASTY CLINICAL INFORMATION: The patient is a 51-year-old male who presented with an acute inferior wall myocardial infarction, underwent cardiac catheterization and was found to have acutely occluded proximal LAD. Recommendations were made regarding angioplasty and stenting. The procedure and the risk and the complications were discussed with the patient was informed standing and agreement. PROCEDURE: A 6 [place] 3.5 left Carol guiding catheter was introduced into the system. After cannulating the left main, a [0.014 balanced medium J-wire with a finding across microcatheter] was advanced across the lesion and positioned distally. After removing the microcatheter a 2.5 x 12 mm Treck balloon was advanced into inflation at maximum of 10 amadeo were done. Subsequently an export catheter was advanced and 1 run was done with aspiration of thrombotic material. Following that another 0.014 balanced medium weight wire was introduced and the diagonal branch and attempt to advance a 2.25 x 12 mm balloon were unsuccessful, the balloon was removed and a 1.5 x 12 mm treck balloon was advanced and multiple inflation at maximum of 12 amadeo were done, following that the balloon was removed and the 2.25 x 12 mm balloon was advanced into the gap branch and inflations were done at a maximum of 10 amadeo. Subsequently the balloon was removed Following that a [3.25 x 23 millimeter Xience shaheen point] stent was deployed. It was dilated at [16 amadeo]. Subsequently a 3.5 x 12 mm NC Treck balloon was advanced and one inflation at 12 amadeo was done, following that the balloon was removed and a 4.0 x 8 mm NC balloon was advanced and one inflation at 12 amadeo was done. After the last inflation, after appropriate wait, the balloon and the guidewire were withdrawn back into the guiding catheter. Images were obtained and repeated. Those images reveal stable successful stenting. At that point, the guiding catheter, the balloon, and guidewire were removed. Images of the right coronary artery were performed. The sheath was [removed]. Hemostasis was obtained with [deployment of a TR band]. There were no immediate complications. The patient was returned to the room in stable condition. Of note, the patient received [8000] units of heparin and his ACT was followed and he received a loading dose of Effient. The patient was pain-free at the end of the procedure, he continued to have ST segment elevation with some improvement. RESULTS: Successful stenting of the [proximal LAD] with reduction of stenosis from [100%]% to [year percent]% with very late thrombosis of the stent of 2019. RECOMMENDATIONS: [ The patient will be continued on dual antiplatelets treatment for one year, his blood pressure will be monitored closely. He'll be started on an MILAGROS inhibitor and low dose beta madeleine. An echocardiogram with Doppler will be obtained. Depending on his progress further recommendations will be made. The findings and the recommendations are discussed with the patient and his family and they are in full understanding and agreement. The prognosis is guarded.]
[2021-12-23] MEDS ORDERED: ATROPINE SULFATE 0.1 MG/ML 10ML SYRINGE IV PRN (23:00)
[2021-12-23] MEDS ORDERED: SODIUM CHLORIDE 0.9% 1,000 ML in EMPTY BAG 1 BAG IV SCH (23:00)
[2021-12-23] MEDS ORDERED: MAG HYDROX/AL HYDROX/SIMETH 30 ML CUP PO PRN (23:00)
[2021-12-23] MEDS: GABAPENTIN 400 MG CAP PO SCH (23:27)
[2021-12-23] MEDS ORDERED: ZOLPIDEM 5 MG TAB PO PRN (23:30)
--- NOTE | 2021-12-24 00:09 | P.HPIM ---
History of Present Illness H&P Date: 12/23/21 The patient is a 51-year-old male with a PMH of coronary artery disease status post 2 stents, ongoing tobacco use, hypertension, obstructive sleep apnea, type II DM, and asthma who presented to the emergency room with complaints of chest discomfort. The patient reports that he was shoveling snow at around 7 PM when he suddenly developed a pressure-like substernal chest discomfort with associated shortness of breath, nausea, diaphoresis. The pain quickly worsened to a 10 out of 10 at which time he decided to come to the emergency room. EKG the emergency room revealed ST elevations in the precordial leads for which a code STEMI was activated. The patient was taken to the cardiac collaborating supervising physician by Dr. Lozano where successful stenting of the proximal LAD was performed with reduction of stenosis of a stent from 2019 via right radial approach. The patient was seen postoperatively in the medical ICU. He reported significant improvement in his chest discomfort, currently rated as a 1 out of 10. He reported no additional complaints. Denied shortness of breath, fever, chills, cough, nausea, vomiting, abdominal pain, diarrhea. Laboratory evaluation was remarkable for leukocytosis of 21.2, sodium 134, potassium 5.3 (hemolyzed), creatinine 1.37, and glucose 148. Chest x-ray revealed mild diffuse pneumonia in the right lower lobe. Review of systems: Pertinent positives and negatives as discussed in HPI, a complete review of systems was performed and all other systems are negative. Physical examination: General: non toxic, no distress, appears at stated age, morbidly obese Derm: no unusual rashes/lesions no unusual ecchymoses, warm, dry Head: atraumatic, normocephalic, symmetric Eyes: EOMI, no lid lag, anicteric sclera, pupils equal round reactive to light ENT: Nose and ears atraumatic, no thrush, no pharyngeal erythema Neck: No thyromegaly, no cervical lymphadenopathy, trachea midline, supple Mouth: no lip lesion, mucus membranes moist Cardiovascular: S1S2 reg, no murmur, positive posterior tibial pulse bilateral, no edema, capillary refill less than 2 seconds Lungs: CTA bilateral, no rhonchi, no rales , no accessory muscle use Abdominal: soft, nontender to palpation, no guarding, no appreciable organomegaly, normal bowel sounds Ext: no gross muscle atrophy, muscle strength 5 out of 5 in all 4 extremities grossly, no contractures, Neuro: CN II-XI grossly intact, light touch intact all 4 extremities, finger to nose within normal limits, Psych: Alert, oriented, appropriate affect Assessment/plan STEMI status post stenting of the LAD -Defer management to the cardiology service -Cardiac monitoring -Currently on Aspirin and Effient -Strongly advised patient on smoking cessation Abnormal CXR -No signs of active infection at this time -Patient denying cough, fever, chills -Hold off on antibiotics at this time Leukocytosis, likely due to acute stressor -Monitor for now Acute kidney injury on chronic kidney disease -Gentle IV fluids -Monitor for now Chronic conditions: Type II DM, hypertension, hyperlipidemia -Insulin sliding scale blood glucose monitoring -Check A1c -Continue with home meds DVT prophylaxis -Heparin The patient is admitted with an anticipated greater than 2 midnight stay for evaluation of STEMI CODE STATUS: Full Code Discussed with: Patient Anticipated discharge date: 2-[address]: Home Past Medical History Past Medical History: Asthma, Chest Pain / Angina, Diabetes Mellitus, Hyperlipidemia, Hypertension, Myocardial Infarction (ND), Pneumonia, Sleep Apnea/CPAP/BIPAP Additional Past Medical History / Comment(s): NUMBNESS/TINGLING LAWRENCE LEGS, kidney stone, Last Myocardial Infarction Date:: 03/2019 History of Any Multi-Drug Resistant Organisms: None Reported Past Surgical History: Back Surgery, Cholecystectomy, Heart Catheterization With Stent, Hernia Repair, Orthopedic Surgery, Tonsillectomy Additional Past Surgical History / Comment(s): RT KNEE arthroscopy, LAWRENCE WRIST ORIF, RIGHT SHOULDER arthroscopy x 2, SINUS surgery,. 3 cardiac stents, rt wrist ganglion cyst, 4 screws and 2 rods lower back Past Anesthesia/Blood Transfusion Reactions: No Reported Reaction Date of Last Stent Placement:: 05/2019 Past Psychological History: Anxiety, Depression Smoking Status: Current every day smoker Past Alcohol Use History: None Reported Past Drug Use History: Marijuana - Past Family History Father Family Medical History: Cancer Additional Family Medical History / Comment(s): COLON Family Additional Family Medical History / Comment(s): Multiple people hypertension. Denies any history of coronary artery disease. Medications and Allergies Home Medications Medication Instructions Recorded Confirmed Type metFORMIN HCL [Glucophage] 1,000 mg PO BID 04/03/19 12/23/21 History Atorvastatin [Lipitor] 80 mg PO HS #30 tab 04/06/19 12/23/21 Rx Furosemide [Lasix] 20 mg PO DAILY 08/07/19 12/23/21 History Tamsulosin HCl [Flomax] 0.4 mg PO DAILY 08/07/19 12/23/21 History Famotidine 20 mg PO BID 05/09/20 12/23/21 History Losartan Potassium [Cozaar] 100 mg PO DAILY 05/09/20 12/23/21 History DULoxetine HCL [Cymbalta] 30 mg PO DAILY 03/16/21 12/23/21 History DULoxetine HCL [Cymbalta] 60 mg PO DAILY 03/16/21 12/23/21 History Gabapentin 800 mg PO TID 03/16/21 12/23/21 History Isosorbide Mononitrate ER [Imdur] 90 mg PO DAILY 03/16/21 12/23/21 History Metoprolol Tartrate [Lopressor] 12.5 mg PO BID 03/16/21 12/23/21 History OLANZapine [ZyPREXA] 2.5 mg PO HS 03/16/21 12/23/21 History Insulin Degludec [Tresiba 60 units SQ DAILY 12/23/21 12/23/21 History Flextouch U-100 Pen] hydroCHLOROthiazide 25 mg PO DAILY 12/23/21 12/23/21 History Allergies Allergy/AdvReac Type Severity Reaction Status Date / Time penicillin V Allergy Severe Rapid Verified 12/23/21 20:28 Heart Rate Physical Exam Vitals: Vital Signs Temp Pulse Resp BP Pulse Ox 12/23/21 23:00 97.5 F L 88 13 130/90 98 12/23/21 22:00 80 13 121/87 97 12/23/21 20:45 72 20 146/92 96 12/23/21 20:24 78 24 141/104 97 12/23/21 20:04 97.8 F 80 18 150/102 98 Intake and Output 12/23/21 12/23/21 12/24/21 14:59 22:59 06:59 Intake Total 475 Balance 475 Intake: IV 475 Sodium Chloride 0.9% 1, 75 000 ml In Empty Bag 1 bag @ 75 mls/hr IV .[id number] [facility] Rx#:[id number] Other: Weight 144.5 kg Results CBC & Chem 7: 12/23/21 20:16 12/23/21 20:16 Labs: Abnormal Lab Results - Last 24 Hours (Table) 12/23/21 12/23/21 12/23/21 Range/Units 20:14 20:16 20:16 WBC 21.2 H (3.8-10.6) k/uL Neutrophils # 14.0 H (1.3-7.7) k/uL Monocytes # 1.4 H (0-1.0) k/uL Sodium 134 L (137-145) mmol/L Potassium 5.3 H (3.5-5.1) mmol/L Carbon Dioxide 20 L (22-30) mmol/L Creatinine 1.37 H (0.66-1.25) mg/dL Glucose 148 H (74-99) mg/dL POC Glucose (mg/dL) 148 H (75-99) mg/dL Alkaline Phosphatase 142 H (38-126) U/L Total Protein 8.3 H (6.3-8.2) g/dL 12/23/21 Range/Units 22:24 WBC (3.8-10.6) k/uL Neutrophils # (1.3-7.7) k/uL Monocytes # (0-1.0) k/uL Sodium (137-145) mmol/L Potassium (3.5-5.1) mmol/L Carbon Dioxide (22-30) mmol/L Creatinine (0.66-1.25) mg/dL Glucose (74-99) mg/dL POC Glucose (mg/dL) 122 H (75-99) mg/dL Alkaline Phosphatase (38-126) U/L Total Protein (6.3-8.2) g/dL Thrombosis Risk Factor Assmnt - Choose All That Apply Each Factor Represents 1 point: Acute ND, Age 41-60 years Thrombosis Risk Factor Assessment Total Risk Factor Score: 2 Thrombosis Risk Factor Assessment Level: Low Risk
[2021-12-24 06:20] LABS: Basophils # (A) 0.1 k/uL (0-0.2); Basophils % (A) 0 %; Eosinophils # (A) 0.1 k/uL (0-0.7); Eosinophils % (A) 1 %; HGB 13.4 gm/dL (13.0-17.5); Hypochromasia Slight; Lymphocytes # (A) 1.8 k/uL (1.0-4.8); Lymphocytes % (A) 8 %; MCH 26.5 pg (25.0-35.0); Mean Platelet Volume 7.6; Monocytes # (A) 1.1 k/uL (0-1.0); Monocytes % (A) 5 %; Neutrophils # (A) 18.2 k/uL (1.3-7.7); Neutrophils % (A) 85 %; Platelet Count 309 k/uL (150-450); RBC 5.06 m/uL (4.30-5.90); RDW 14.3 % (11.5-15.5); WBC 21.5 k/uL (3.8-10.6)
[2021-12-24 06:28] LABS: Glucose,Whole Blood 180 mg/dL (75-99)
[2021-12-24 06:43] LABS: Calcium 9.8 mg/dL (8.4-10.2); Magnesium 2.1 mg/dL (1.6-2.3); Potassium 4.6 mmol/L (3.5-5.1); Total Bilirubin 0.5 mg/dL (0.2-1.3); Total Protein 7.3 g/dL (6.3-8.2)
[2021-12-24] MEDS: INSULIN ASPART (NovoLOG) 100 UNIT/ML VIAL SQ SCH ×4 (06:45→21:08)
--- NOTE | 2021-12-24 07:14 | P.PN ---
Subjective Progress Note Date: 12/24/21 PROGRESS NOTE The patient presented yesterday with evidence of an acute anterior wall myocardial infarction and was found to have totally occluded proximal LAD. He underwent stenting to the LAD. He is doing well this morning with minimal chest discomfort, his breathing is stable, his blood pressure and heart rate are stable. He had no evidence of ventricle ectopic activity. He denies any dizziness, palpitations or nausea. Hemodynamically he is stable. His EKG showed sinus mechanism with QS anteriorly and mild ST segment elevation, improved compared to yesterday. PHYSICAL EXAMINATION: Blood pressure [150/90] heart rate [84] LUNGS: [Decreased breath sounds] HEART: [Regular rate and rhythm, S1, S2. No S3. Systolic murmur at the base ABDOMEN: [Soft, nontender, no organomegaly] EXTREMETIES: [No edema], right radial pulse intact LAB: BUN 19, creatinine 1.1, peak troponin 73, AST 1000, ALT 104 IMPRESSION: 1. [ Acute anterior wall NV status post stenting of the LAD 2. [ Elevated transaminase probably secondary to the acute myocardial infarction] 3. [ Prior history of stenting of the LAD and the left circumflex] 4. [ Chronic tobacco use 5. History of hypertension 6. Diabetes mellitus] PLAN: We will obtain an echocardiogram with Doppler today, I would increase the dose of his Cozaar and metoprolol. Increase his level of activity gradually and follow his blood pressure. Depending on his progress further recommendations will be made. The prognosis remains guarded. We'll continue to follow his liver function test. Objective - Vital Signs Vital signs: Vital Signs Temp 97.8 F 12/24/21 04:00 Pulse 84 12/24/21 07:00 Resp 17 12/24/21 07:00 BP 150/94 12/24/21 07:00 Pulse Ox 93 L 12/24/21 07:00 Intake & Output 12/23/21 12/24/21 12/24/21 18:59 06:59 18:59 Intake Total 925 Output Total 0 0 Balance 925 0 Weight 140.2 kg Intake: IV 925 Sodium Chloride 0.9% 1, 525 000 ml In Empty Bag 1 bag @ 75 mls/hr IV .[id number] [facility] Rx#:[id number] Output: Urine 0 0 Other: # Voids 1 # Bowel Movements 1 - Labs CBC & Chem 7: 12/24/21 05:42 12/24/21 05:42 Labs: Abnormal Lab Results - Last 24 Hours (Table) 12/23/21 12/23/21 12/23/21 Range/Units 20:14 20:16 20:16 WBC 21.2 H (3.8-10.6) k/uL Neutrophils # 14.0 H (1.3-7.7) k/uL Monocytes # 1.4 H (0-1.0) k/uL Sodium 134 L (137-145) mmol/L Potassium 5.3 H (3.5-5.1) mmol/L Carbon Dioxide 20 L (22-30) mmol/L Creatinine 1.37 H (0.66-1.25) mg/dL Glucose 148 H (74-99) mg/dL POC Glucose (mg/dL) 148 H (75-99) mg/dL ALT (4-49) U/L Alkaline Phosphatase 142 H (38-126) U/L Troponin I (0.000-0.034) ng/mL Total Protein 8.3 H (6.3-8.2) g/dL 12/23/21 12/23/21 12/24/21 Range/Units 22:24 23:36 05:42 WBC 21.5 H (3.8-10.6) k/uL Neutrophils # 18.2 H (1.3-7.7) k/uL Monocytes # 1.1 H (0-1.0) k/uL Sodium (137-145) mmol/L Potassium (3.5-5.1) mmol/L Carbon Dioxide (22-30) mmol/L Creatinine (0.66-1.25) mg/dL Glucose (74-99) mg/dL POC Glucose (mg/dL) 122 H (75-99) mg/dL ALT (4-49) U/L Alkaline Phosphatase (38-126) U/L Troponin I 73.700 H* (0.000-0.034) ng/mL Total Protein (6.3-8.2) g/dL 12/24/21 12/24/21 Range/Units 05:42 06:26 WBC (3.8-10.6) k/uL Neutrophils # (1.3-7.7) k/uL Monocytes # (0-1.0) k/uL Sodium 135 L (137-145) mmol/L Potassium (3.5-5.1) mmol/L Carbon Dioxide (22-30) mmol/L Creatinine (0.66-1.25) mg/dL Glucose 166 H (74-99) mg/dL POC Glucose (mg/dL) 180 H (75-99) mg/dL ALT 104 H (4-49) U/L Alkaline Phosphatase 147 H (38-126) U/L Troponin I (0.000-0.034) ng/mL Total Protein (6.3-8.2) g/dL
[2021-12-24] MEDS: TAMSULOSIN 0.4 MG CAP.ER.24H PO SCH (08:30)
[2021-12-24] MEDS: FUROSEMIDE 20 MG TAB PO SCH (08:30)
[2021-12-24] MEDS: ASPIRIN 81 MG PO SCH (08:30)
[2021-12-24] MEDS: SPIRONOLACTONE 25 MG TAB PO SCH (08:30)
[2021-12-24] MEDS: DULoxetine HCL 60 MG CAPSULE.DR PO SCH (08:30)
[2021-12-24] MEDS: PRASUGREL 10 MG TAB PO SCH (08:30)
[2021-12-24] MEDS: METOPROLOL TARTRATE 25 MG TAB PO SCH ×2 (08:30→20:59)
[2021-12-24] MEDS: HEPARIN SODIUM,PORCINE/PF 5,000 UNIT/0.5 ML SYRINGE SQ SCH ×3 (08:30→23:38)
[2021-12-24] MEDS: LOSARTAN 50 MG TAB PO SCH (08:31)
[2021-12-24] MEDS: GABAPENTIN 400 MG CAP PO SCH ×3 (08:31→20:59)
[2021-12-24] MEDS: DULoxetine HCL 30 MG CAPSULE.DR PO SCH (08:32)
[2021-12-24] MEDS ORDERED: LOSARTAN 25 MG TAB PO SCH (09:00)
[2021-12-24] MEDS ORDERED: FUROSEMIDE 20 MG TAB PO SCH (09:00)
[2021-12-24] MEDS ORDERED: METOPROLOL TARTRATE 12.5 MG TAB PO SCH (09:00)
--- NOTE | 2021-12-24 09:22 | ECHOF ---
Referral Reason:mi MEASUREMENTS -------- HEIGHT: 182.9 cm WEIGHT: 140.2 kg BP: RVIDd: 3.7 cm (< 3.3) IVSd: 1.4 cm (0.6 - 1.1) LVIDd: 6.3 cm (3.9 - 5.3) LVPWd: 1.6 cm (0.6 - 1.1) IVSs: 2.0 cm LVIDs: 4.2 cm LVPWs: 1.9 cm LA Diam: 4.1 cm (2.7 - 3.8) Ao Diam: 4.2 cm (2.0 - 3.7) AV Cusp: 2.1 cm (1.5 - 2.6) MV EXCURSION: 14.837 mm (> 18.000) MV EF SLOPE: 100 mm/s (70 - 150) MV E Rohit: 0.49 m/s MV DecT: 124 ms MV A Rohit: 0.87 m/s MV E/A Ratio: 0.57 RAP: 5.00 mmHg RVSP: 11.95 mmHg FINDINGS -------- Sinus rhythm. Morbid Obesity This was a techncally difficult study with suboptimal views, , Definity utilized for enhancement of images. The left ventricular size is normal. There is mild concentric left ventricular hypertrophy. Overa ll left ventricular systolic function is severely impaired with, an EF < 20%. Apical lateral LV wal l motion is hypokinetic. Apical inferior LV wall motion is hypokinetic. Apical septum LV wall m otion is hypokinetic. Anterseptal Hypokinesis Aquilla Hypokinesis. The right ventricle is mildly enlarged. The left atrium is mildly dilated. The right atrial size is normal. The aortic valve is trileaflet, and appears structurally normal. No aortic stenosis or regurgitation. Mild mitral regurgitation is present. Mild tricuspid regurgitation present. Right ventricular systolic pressure is normal at < 35 mmHg. The pulmonic valve was not well visualized. There is no pericardial effusion. CONCLUSIONS -------- 1. Morbid Obesity 2. This was a techncally difficult study with suboptimal views, , Definity utilized for enhancement o f images. 3. The left ventricular size is normal. 4. There is mild concentric left ventricular hypertrophy. 5. Overall left ventricular systolic function is severely impaired with, an EF < 20%. 6. Apical lateral LV wall motion is hypokinetic. 7. Apical inferior LV wall motion is hypokinetic. 8. Apical septum LV wall motion is hypokinetic. 9. Anterseptal Hypokinesis 10. Aquilla Hypokinesis. 11. The right ventricle is mildly enlarged. 12. The left atrium is mildly dilated. 13. The right atrial size is normal. 14. The aortic valve is trileaflet, and appears structurally normal. No aortic stenosis or regurgitat ion. 15. Mild mitral regurgitation is present. 16. Mild tricuspid regurgitation present. 17. The pulmonic valve was not well visualized. 18. There is no pericardial effusion. STOCK CONTROL CLERK: Julisa Merino RDCS
--- NOTE | 2021-12-24 10:35 | P.PN ---
Subjective Progress Note Date: 12/24/21 Patient feels okay no chest pain Continue management as better cardiology in the ICU team STEMI status post stenting of the LAD -Defer management to the cardiology service -Cardiac monitoring -Currently on Aspirin and Effient -Strongly advised patient on smoking cessation Abnormal CXR -No signs of active infection at this time -Patient denying cough, fever, chills -Hold off on antibiotics at this time Leukocytosis, likely due to acute stressor -Monitor for now Acute kidney injury on chronic kidney disease -Gentle IV fluids -Monitor for now Chronic conditions: Type II DM, hypertension, hyperlipidemia -Insulin sliding scale blood glucose monitoring -Check A1c -Continue with home meds DVT prophylaxis -Heparin The patient is admitted with an anticipated greater than 2 midnight stay for evaluation of STEMI CODE STATUS: Full Code Discussed with: Patient Anticipated discharge date: 2-[address]: Home Constitutional: No acute distress, conversant, pleasant Eyes: Anicteric sclerae, moist conjunctiva, no lid-lag PERRLA ENMT: NC/AT Oropharynx clear, no erythema, exudates Neck: Supple, FROM, no masses, or JVD No carotid bruits No thyromegaly Lungs: Clear to auscultation Clear to percussion Normal respiratory effort, no accessory muscle use Cardiovascular: Heart regular in rate and rhythm, No murmurs, gallops, or rubs No peripheral edema Abdominal: Soft Nontender, no guarding, rebound or rigidity Abdomen moving with respiration Normoactive bowel sounds No hepatomegaly, No splenomegaly No palpable mass No abdominal wall hernia noted Skin: Normal temperature, tone, texture, turgor No induration No subcutaneous nodules No rash, lesions No ulcers Extremities: No digital cyanosis No clubbing Pedal pulses intact and symmetrical Radial pulses intact and symmetrical Normal gait and station No calf tenderness Psychiatric:Alert and oriented to person, place and time Appropriate affect Intact judgement Neuro: Muscles Strength 5/5 in all 4 extremities Sensation to light touch grossly present throughout Cranial nerves II-XII grossly intact No focal sensory deficits Objective - Vital Signs Vital signs: Vital Signs Temp 97.8 F 12/24/21 09:00 Pulse 80 12/24/21 10:00 Resp 17 12/24/21 10:00 BP 124/94 12/24/21 10:00 Pulse Ox 90 L 12/24/21 10:00 Intake & Output 02/01/1212/24/21 12/24/21 18:59 06:59 18:59 Intake Total 925 200 Output Total 0 1100 Balance 925 -900 Weight 140.2 kg Intake: IV 925 Sodium Chloride 0.9% 1, 525 000 ml In Empty Bag 1 bag @ 75 mls/hr IV .[id number] [facility] Rx#:[id number] Oral 200 Output: Urine 0 1100 Other: # Voids 1 # Bowel Movements 1 1 - Labs CBC & Chem 7: 12/24/21 05:42 12/24/21 05:42 Labs: Abnormal Lab Results - Last 24 Hours (Table) 12/23/21 12/23/21 12/23/21 Range/Units 20:14 20:16 20:16 WBC 21.2 H (3.8-10.6) k/uL Neutrophils # 14.0 H (1.3-7.7) k/uL Monocytes # 1.4 H (0-1.0) k/uL Sodium 134 L (137-145) mmol/L Potassium 5.3 H (3.5-5.1) mmol/L Carbon Dioxide 20 L (22-30) mmol/L Creatinine 1.37 H (0.66-1.25) mg/dL Glucose 148 H (74-99) mg/dL POC Glucose (mg/dL) 148 H (75-99) mg/dL AST (17-59) U/L ALT (4-49) U/L Alkaline Phosphatase 142 H (38-126) U/L Troponin I (0.000-0.034) ng/mL Total Protein 8.3 H (6.3-8.2) g/dL 12/23/21 12/23/21 12/24/21 Range/Units 22:24 23:36 05:42 WBC (3.8-10.6) k/uL Neutrophils # (1.3-7.7) k/uL Monocytes # (0-1.0) k/uL Sodium (137-145) mmol/L Potassium (3.5-5.1) mmol/L Carbon Dioxide (22-30) mmol/L Creatinine (0.66-1.25) mg/dL Glucose (74-99) mg/dL POC Glucose (mg/dL) 122 H (75-99) mg/dL AST (17-59) U/L ALT (4-49) U/L Alkaline Phosphatase (38-126) U/L Troponin I 73.700 H* 260.000 H* (0.000-0.034) ng/mL Total Protein (6.3-8.2) g/dL 12/24/21 12/24/21 12/24/21 Range/Units 05:42 05:42 06:26 WBC 21.5 H (3.8-10.6) k/uL Neutrophils # 18.2 H (1.3-7.7) k/uL Monocytes # 1.1 H (0-1.0) k/uL Sodium 135 L (137-145) mmol/L Potassium (3.5-5.1) mmol/L Carbon Dioxide (22-30) mmol/L Creatinine (0.66-1.25) mg/dL Glucose 166 H (74-99) mg/dL POC Glucose (mg/dL) 180 H (75-99) mg/dL AST 1000 H (17-59) U/L ALT 104 H (4-49) U/L Alkaline Phosphatase 147 H (38-126) U/L Troponin I (0.000-0.034) ng/mL Total Protein (6.3-8.2) g/dL
[2021-12-24 11:19] VITALS: BMI 41.9
[2021-12-24 12:56] LABS: Glucose,Whole Blood 136 mg/dL (75-99)
[2021-12-24 14:04] LABS: Chol/HDL Ratio 3.68 Ratio; LDL Cholesterol,Calculated 23.8 mg/dL (0.0-131.0)
[2021-12-24 17:56] LABS: Glucose,Whole Blood 118 mg/dL (75-99)
[2021-12-24] MEDS: ATORVASTATIN 80 MG TAB PO SCH (20:59)
[2021-12-24 21:05] LABS: Glucose,Whole Blood 147 mg/dL (75-99)
[2021-12-24] MEDS: OLANZapine 2.5 MG TAB PO SCH (21:14)
[2021-12-25 06:01] LABS: Basophils # (A) 0.1 k/uL (0-0.2); Basophils % (A) 1 %; Eosinophils # (A) 0.2 k/uL (0-0.7); Eosinophils % (A) 1 %; HCT 41.5 % (39.0-53.0); HGB 13.2 gm/dL (13.0-17.5); Hypochromasia Slight; Lymphocytes # (A) 1.9 k/uL (1.0-4.8); Lymphocytes % (A) 10 %; MCH 26.4 pg (25.0-35.0); MCHC 31.7 g/dL (31.0-37.0); MCV 83.3 fL (80.0-100.0); Mean Platelet Volume 7.9; Monocytes # (A) 1.6 k/uL (0-1.0); Monocytes % (A) 8 %; Neutrophils # (A) 14.6 k/uL (1.3-7.7); Neutrophils % (A) 78 %; Platelet Count 285 k/uL (150-450); RBC 4.98 m/uL (4.30-5.90); RDW 14.4 % (11.5-15.5); WBC 18.6 k/uL (3.8-10.6)
[2021-12-25 06:26] LABS: Albumin 3.6 g/dL (3.5-5.0); Calcium 9.4 mg/dL (8.4-10.2); Potassium 4.7 mmol/L (3.5-5.1); Total Bilirubin 0.9 mg/dL (0.2-1.3); Total Protein 6.9 g/dL (6.3-8.2)
[2021-12-25 06:47] LABS: Glucose,Whole Blood 132 mg/dL (75-99)
[2021-12-25] MEDS: INSULIN ASPART (NovoLOG) 100 UNIT/ML VIAL SQ SCH ×4 (06:48→21:34)
--- NOTE | 2021-12-25 07:29 | P.PN ---
Subjective Progress Note Date: 12/25/21 PROGRESS NOTE The patient is a 51-year-old male with a known history of CAD who presented with an acute anterior wall myocardial infarction and was found to have acutely occluded proximal LAD, underwent stenting of that vessel. He is feeling well this morning, denies any chest pain, dizziness or palpitations. He continues to be in sinus mechanism without any ventricular ectopic activity. His echocardi ogram showed a severely impaired systolic function. He has no symptoms of heart failure at this time. He continues to be on aspirin, Effient, atorvastatin, metoprolol tartrate 25 mg twice a day and losartan. PHYSICAL EXAMINATION: Blood pressure [132/68] heart rate [80] LUNGS: [Clear to auscultation] HEART: [Regular rate and rhythm, S1, S2. No S3. No systolic murmur] ABDOMEN: [Soft, nontender, no organomegaly] EXTREMETIES: [No edema] LAB: BUN and creatinine 19 and 1.17, hemoglobin of 13.2, his AST is down to 396 IMPRESSION: 1. [ Acute anterior wall myocardial infarction with stenting of the LAD] 2. [ Severe ischemic cardiomyopathy] 3. [ History of hypertension] 4. [ History of smoking] PLAN: 1. Increase beta madeleine to 50 mg twice a day 2. I would recommend to obtain a life vest in view of his severe cardiomyopathy 3. Increase activity. 4. If stable probable discharge home tomorrow with close follow-up of his ejection fraction to see if he is a candidate for permanent pacemaker implantation. Objective - Vital Signs Vital signs: Vital Signs Temp 98.6 F 12/25/21 04:00 Pulse 81 12/25/21 04:00 Resp 14 12/25/21 04:00 BP 135/109 12/25/21 04:00 Pulse Ox 95 12/25/21 04:00 Intake & Output 12/24/21 12/25/21 12/25/21 18:59 06:59 18:59 Intake Total 500 100 Output Total 1300 Balance -800 100 Weight 140.2 kg Intake: Oral 500 100 Output: Urine 1300 Other: # Voids 1 # Bowel Movements 1 1 - Labs CBC & Chem 7: 12/25/21 05:35 12/25/21 05:35 Labs: Abnormal Lab Results - Last 24 Hours (Table) 02/03/22 02/03/22 02/03/22 Range/Units 05:42 05:42 05:42 WBC (3.8-10.6) k/uL Neutrophils # (1.3-7.7) k/uL Monocytes # (0-1.0) k/uL Sodium (137-145) mmol/L Glucose (74-99) mg/dL POC Glucose (mg/dL) (75-99) mg/dL Hemoglobin A1c 8.5 H (0.0-6.0) % AST (17-59) U/L ALT (4-49) U/L Alkaline Phosphatase (38-126) U/L Troponin I 260.000 H* (0.000-0.034) ng/mL Triglycerides 296.00 H (0.00-149.00) mg/dL VLDL Cholesterol, Calc 59.20 H (5.00-40.00) mg/dL HDL Cholesterol 31.00 L (40.00-60.00) mg/dL 12/24/21 12/24/21 12/24/21 Range/Units 12:55 17:54 21:03 WBC (3.8-10.6) k/uL Neutrophils # (1.3-7.7) k/uL Monocytes # (0-1.0) k/uL Sodium (137-145) mmol/L Glucose (74-99) mg/dL POC Glucose (mg/dL) 136 H 118 H 147 H (75-99) mg/dL Hemoglobin A1c (0.0-6.0) % AST (17-59) U/L ALT (4-49) U/L Alkaline Phosphatase (38-126) U/L Troponin I (0.000-0.034) ng/mL Triglycerides (0.00-149.00) mg/dL VLDL Cholesterol, Calc (5.00-40.00) mg/dL HDL Cholesterol (40.00-60.00) mg/dL 12/25/21 12/25/21 12/25/21 Range/Units 05:35 05:35 06:45 WBC 18.6 H (3.8-10.6) k/uL Neutrophils # 14.6 H (1.3-7.7) k/uL Monocytes # 1.6 H (0-1.0) k/uL Sodium 135 L (137-145) mmol/L Glucose 120 H (74-99) mg/dL POC Glucose (mg/dL) 132 H (75-99) mg/dL Hemoglobin A1c (0.0-6.0) % AST 396 H (17-59) U/L ALT 89 H (4-49) U/L Alkaline Phosphatase 128 H (38-126) U/L Troponin I (0.000-0.034) ng/mL Triglycerides (0.00-149.00) mg/dL VLDL Cholesterol, Calc (5.00-40.00) mg/dL HDL Cholesterol (40.00-60.00) mg/dL
--- NOTE | 2021-12-25 08:36 | P.PN ---
Subjective Progress Note Date: 12/25/21 Continue management as better cardiology in the ICU team STEMI status post stenting of the LAD -Defer management to the cardiology service -Cardiac monitoring -Currently on Aspirin and Effient -Strongly advised patient on smoking cessation Plan for LifeVest today Abnormal CXR -No signs of active infection at this time -Patient denying cough, fever, chills -Hold off on antibiotics at this time Leukocytosis, likely due to acute stressor -Monitor for now Acute kidney injury on chronic kidney disease -Gentle IV fluids -Monitor for now Chronic conditions: Type II DM, hypertension, hyperlipidemia -Insulin sliding scale blood glucose monitoring -Check A1c -Continue with home meds DVT prophylaxis -Heparin Discharge in a day or 2 when cleared by cardiology The patient is admitted with an anticipated greater than 2 midnight stay for evaluation of STEMI CODE STATUS: Full Code Discussed with: Patient Anticipated discharge date: 2-[address]: Home Constitutional: No acute distress, conversant, pleasant Eyes: Anicteric sclerae, moist conjunctiva, no lid-lag PERRLA ENMT: NC/AT Oropharynx clear, no erythema, exudates Neck: Supple, FROM, no masses, or JVD No carotid bruits No thyromegaly Lungs: Clear to auscultation Clear to percussion Normal respiratory effort, no accessory muscle use Cardiovascular: Heart regular in rate and rhythm, No murmurs, gallops, or rubs No peripheral edema Abdominal: Soft Nontender, no guarding, rebound or rigidity Abdomen moving with respiration Normoactive bowel sounds No hepatomegaly, No splenomegaly No palpable mass No abdominal wall hernia noted Skin: Normal temperature, tone, texture, turgor No induration No subcutaneous nodules No rash, lesions No ulcers Extremities: No digital cyanosis No clubbing Pedal pulses intact and symmetrical Radial pulses intact and symmetrical Normal gait and station No calf tenderness Psychiatric:Alert and oriented to person, place and time Appropriate affect Intact judgement Neuro: Muscles Strength 5/5 in all 4 extremities Sensation to light touch grossly present throughout Cranial nerves II-XII grossly intact No focal sensory deficits Patient feels okay today no chest pain no shortness of breath Objective - Vital Signs Vital signs: Vital Signs Temp 98.6 F 12/25/21 04:00 Pulse 81 12/25/21 04:00 Resp 14 12/25/21 04:00 BP 135/109 12/25/21 04:00 Pulse Ox 95 12/25/21 04:00 Intake & Output 12/24/21 12/25/21 12/25/21 18:59 06:59 18:59 Intake Total 500 100 Output Total 1300 Balance -800 100 Weight 140.2 kg Intake: Oral 500 100 Output: Urine 1300 Other: # Voids 1 # Bowel Movements 1 1 - Labs CBC & Chem 7: 12/25/21 05:35 12/25/21 05:35 Labs: Abnormal Lab Results - Last 24 Hours (Table) 12/24/21 12/24/21 12/24/21 Range/Units 05:42 05:42 12:55 WBC (3.8-10.6) k/uL Neutrophils # (1.3-7.7) k/uL Monocytes # (0-1.0) k/uL Sodium (137-145) mmol/L Glucose (74-99) mg/dL POC Glucose (mg/dL) 136 H (75-99) mg/dL Hemoglobin A1c 8.5 H (0.0-6.0) % AST (17-59) U/L ALT (4-49) U/L Alkaline Phosphatase (38-126) U/L Triglycerides 296.00 H (0.00-149.00) mg/dL VLDL Cholesterol, Calc 59.20 H (5.00-40.00) mg/dL HDL Cholesterol 31.00 L (40.00-60.00) mg/dL 12/24/21 12/24/21 12/25/21 Range/Units 17:54 21:03 05:35 WBC 18.6 H (3.8-10.6) k/uL Neutrophils # 14.6 H (1.3-7.7) k/uL Monocytes # 1.6 H (0-1.0) k/uL Sodium (137-145) mmol/L Glucose (74-99) mg/dL POC Glucose (mg/dL) 118 H 147 H (75-99) mg/dL Hemoglobin A1c (0.0-6.0) % AST (17-59) U/L ALT (4-49) U/L Alkaline Phosphatase (38-126) U/L Triglycerides (0.00-149.00) mg/dL VLDL Cholesterol, Calc (5.00-40.00) mg/dL HDL Cholesterol (40.00-60.00) mg/dL 12/25/21 12/25/21 Range/Units 05:35 06:45 WBC (3.8-10.6) k/uL Neutrophils # (1.3-7.7) k/uL Monocytes # (0-1.0) k/uL Sodium 135 L (137-145) mmol/L Glucose 120 H (74-99) mg/dL POC Glucose (mg/dL) 132 H (75-99) mg/dL Hemoglobin A1c (0.0-6.0) % AST 396 H (17-59) U/L ALT 89 H (4-49) U/L Alkaline Phosphatase 128 H (38-126) U/L Triglycerides (0.00-149.00) mg/dL VLDL Cholesterol, Calc (5.00-40.00) mg/dL HDL Cholesterol (40.00-60.00) mg/dL
[2021-12-25] MEDS: TAMSULOSIN 0.4 MG CAP.ER.24H PO SCH (08:45)
[2021-12-25] MEDS: ASPIRIN 81 MG PO SCH (08:45)
[2021-12-25] MEDS: PRASUGREL 10 MG TAB PO SCH (08:45)
[2021-12-25] MEDS: GABAPENTIN 400 MG CAP PO SCH ×3 (08:46→21:00)
[2021-12-25] MEDS: DULoxetine HCL 30 MG CAPSULE.DR PO SCH (08:46)
[2021-12-25] MEDS: DULoxetine HCL 60 MG CAPSULE.DR PO SCH (08:46)
[2021-12-25] MEDS: SPIRONOLACTONE 25 MG TAB PO SCH (08:46)
[2021-12-25] MEDS: METOPROLOL TARTRATE 50 MG TAB PO SCH ×2 (08:46→21:00)
[2021-12-25] MEDS: HEPARIN SODIUM,PORCINE/PF 5,000 UNIT/0.5 ML SYRINGE SQ SCH ×2 (08:46→16:32)
[2021-12-25] MEDS: LOSARTAN 50 MG TAB PO SCH (08:46)
[2021-12-25] MEDS: FUROSEMIDE 20 MG TAB PO SCH (08:46)
[2021-12-25 12:03] LABS: Glucose,Whole Blood 116 mg/dL (75-99)
--- NOTE | 2021-12-25 13:58 | CDI ---
Documentation Clarification Form Date: 12/25/2021 01:35:35 PM From: Meredith Staples RN, CCDS Admit Date: 12/23/2021 08:21:00 PM Patient Name: Tenzin Murillo Visit Number: [id number] Discharge Date: ATTENTION: The Clinical Documentation Specialists (CDI) and [employer] Coding Staff appreciate your assistance in clarifying documentation. Please respond to the clarification below the line at the bottom and electronically sign. The CDI & [employer] Coding staff will review the response and follow-up if needed. Please note: Queries are made part of the Legal Health Record. If you have any questions, please contact the author of this message via ITS. Dr. Yougn Girard Unspecified CKD is documented in the H/P and subsequent progress notes. Additional clarification regarding the stage of CKD is requested. History/Risk Factors: Coronary artery disease with prior MIs, Hypertension, Diabetes Mellitus Patients Historical: 03/18/21: BUN 21, Creatinine 1.16 GFR 72 Clinical Indicators: 51-year-old male with history of chronic kidney disease per HP, present with chest pain and ruled in for anterior wall STEMI. 12/23/21 BUN 20 Creatinine 1.37 GFR 59 12/24/21 BUN 19 Creatinine 1.18 GFR 70 Treatment: Monitor renal function BUN, CR, GFR QD X2 .9NS 1,000 MLS/HR @ 999 IV STA, then 75 MLS HR (12/23/21 20:21-23:28) Please clarify the stage of the CKD, if known: [ ] CKD Stage 1 (GFR > 90) [ ] CKD Stage 2 (GFR 60-89) [ ] CKD Stage 3 (GFR 30-59) [ ] CKD Stage 3a (GFR 45-59) [ ] CKD Stage 3b (GFR 30-44) [ ] Other, please specify [ ] Unable to determine (Template Last revised: December 2020) Acute kidney injury on Chronic kidney disease stage II Dictated By: Juan Ruiz Signed By: <Electronically signed by Juan SHERIFF> 12/26/21 1145 <Electronically signed by Godwin Vaughn MD> 12/26/21 1717 [facility]
[2021-12-25 16:33] LABS: Glucose,Whole Blood 108 mg/dL (75-99)
[2021-12-25] MEDS: ATORVASTATIN 80 MG TAB PO SCH (21:00)
[2021-12-25 21:03] LABS: Glucose,Whole Blood 97 mg/dL (75-99)
[2021-12-25] MEDS: OLANZapine 2.5 MG TAB PO SCH (22:08)
[2021-12-26] MEDS: HEPARIN SODIUM,PORCINE/PF 5,000 UNIT/0.5 ML SYRINGE SQ SCH ×3 (00:25→12:02)
[2021-12-26 04:17] LABS: Glucose,Whole Blood 135 mg/dL (75-99)
[2021-12-26 06:05] LABS: Glucose,Whole Blood 123 mg/dL (75-99)
[2021-12-26] MEDS: INSULIN ASPART (NovoLOG) 100 UNIT/ML VIAL SQ SCH ×3 (06:47→12:02)
[2021-12-26] MEDS: ASPIRIN 81 MG PO SCH (08:22)
[2021-12-26] MEDS: GABAPENTIN 400 MG CAP PO SCH ×2 (08:23→12:02)
[2021-12-26] MEDS: DULoxetine HCL 30 MG CAPSULE.DR PO SCH (08:23)
[2021-12-26] MEDS: DULoxetine HCL 60 MG CAPSULE.DR PO SCH (08:23)
[2021-12-26] MEDS: FUROSEMIDE 20 MG TAB PO SCH (08:23)
[2021-12-26] MEDS: LOSARTAN 50 MG TAB PO SCH (08:23)
[2021-12-26] MEDS: SPIRONOLACTONE 25 MG TAB PO SCH (08:24)
[2021-12-26] MEDS: TAMSULOSIN 0.4 MG CAP.ER.24H PO SCH (08:24)
[2021-12-26] MEDS: METOPROLOL TARTRATE 50 MG TAB PO SCH (08:24)
[2021-12-26] MEDS: PRASUGREL 10 MG TAB PO SCH (08:24)
[2021-12-26 08:26] VITALS: BP 118/62; PULSE 61; RESP 20; TEMP 97.5
[2021-12-26 08:30] LABS: Basophils # (A) 0.1 k/uL (0-0.2); Basophils % (A) 1 %; Eosinophils # (A) 0.4 k/uL (0-0.7); Eosinophils % (A) 2 %; HCT 42.1 % (39.0-53.0); HGB 12.9 gm/dL (13.0-17.5); Hypochromasia Moderate; Lymphocytes # (A) 2.2 k/uL (1.0-4.8); Lymphocytes % (A) 14 %; MCHC 30.6 g/dL (31.0-37.0); MCV 84.9 fL (80.0-100.0); Mean Platelet Volume 8.1; Monocytes # (A) 1.1 k/uL (0-1.0); Monocytes % (A) 7 %; Neutrophils # (A) 11.9 k/uL (1.3-7.7); Neutrophils % (A) 74 %; Platelet Count 264 k/uL (150-450); RBC 4.96 m/uL (4.30-5.90); RDW 14.6 % (11.5-15.5)
[2021-12-26 08:48] LABS: Albumin 3.5 g/dL (3.5-5.0); Calcium 9.7 mg/dL (8.4-10.2); Total Bilirubin 0.6 mg/dL (0.2-1.3); Total Protein 6.7 g/dL (6.3-8.2)
--- NOTE | 2021-12-26 10:58 | P.PN ---
Subjective Progress Note Date: 12/26/21 PROGRESS NOTE The patient is a 51-year-old male with a known history of coronary disease status post PCI in the past who presented with an acute anterior wall myocardial infarction and underwent stenting of the proximal LAD. He is doing well this morning, he denies any chest discomfort him a dizziness or palpitations. His breathing is stable. He continues to be in sinus mechanism. He has evidence of severely impaired systolic function. He has a LifeVest placed yesterday. He continues to be on furosemide 20 mg daily, insulin, aspirin, Lipitor 80 mg daily, Cozaar 50 mg daily, metoprolol tartrate 50 mg twice a day, Effient 10 mg daily, Aldactone 25 mg daily. PHYSICAL EXAMINATION: Blood pressure [118/60] heart rate [60] LUNGS: [Clear to auscultation] HEART: [Regular rate and rhythm, S1, S2. No S3. systolic murmur at the base] ABDOMEN: [Soft, nontender, no organomegaly, obese] EXTREMETIES: [No edema] LAB: BUN 25, creatinine 1.37, AST 147, ALT 66 IMPRESSION: 1. [ Acute anterior wall myocardial infarction with stenting of the LAD] 2. [ Severe ischemic cardiomyopathy with LifeVest] 3. [ History of chronic tobacco use] 4. [ History of diabetes] PLAN: 1. Continue present therapy 2. Probable discharge home today and follow-up as an outpatient, if there is no improvement in his ejection fraction in 6 weeks then proceed with ICD implantation 3. I discussed with him again the importance of smoking cessation. 4. Follow renal functions as an outpatient. Objective - Vital Signs Vital signs: Vital Signs Temp 97.5 F L 12/26/21 08:25 Pulse 61 12/26/21 08:25 Resp 20 12/26/21 08:25 BP 118/62 12/26/21 08:25 Pulse Ox 98 12/26/21 08:25 Intake & Output 12/25/21 12/26/21 12/26/21 18:59 06:59 18:59 Intake Total 100 250 Balance 100 250 Weight 139.2 kg Intake: IV 10 Invasive Line 1 10 Oral 100 240 Other: Voiding Method Toilet Urinal # Voids 2 1 1 - Labs CBC & Chem 7: 12/26/21 07:56 12/26/21 07:56 Labs: Abnormal Lab Results - Last 24 Hours (Table) 12/25/21 12/25/21 12/26/21 Range/Units 12:02 16:31 04:16 WBC (3.8-10.6) k/uL Hgb (13.0-17.5) gm/dL MCHC (31.0-37.0) g/dL Neutrophils # (1.3-7.7) k/uL Monocytes # (0-1.0) k/uL Sodium (137-145) mmol/L BUN (9-20) mg/dL Creatinine (0.66-1.25) mg/dL Glucose (74-99) mg/dL POC Glucose (mg/dL) 116 H 108 H 135 H (75-99) mg/dL AST (17-59) U/L ALT (4-49) U/L 12/26/21 12/26/21 12/26/21 Range/Units 06:02 07:56 07:56 WBC 16.0 H (3.8-10.6) k/uL Hgb 12.9 L (13.0-17.5) gm/dL MCHC 30.6 L (31.0-37.0) g/dL Neutrophils # 11.9 H (1.3-7.7) k/uL Monocytes # 1.1 H (0-1.0) k/uL Sodium 136 L (137-145) mmol/L BUN 25 H (9-20) mg/dL Creatinine 1.37 H (0.66-1.25) mg/dL Glucose 130 H (74-99) mg/dL POC Glucose (mg/dL) 123 H (75-99) mg/dL AST 147 H (17-59) U/L ALT 66 H (4-49) U/L
[2021-12-26 11:30] LABS: Glucose,Whole Blood 132 mg/dL (75-99)
--- NOTE | 2021-12-26 11:45 | P.DS ---
<Juan Ruiz - Last Filed: 12/26/21 11:21> Providers Expected date of discharge: 12/26/21 Hospital Course: Discharge Diagnosis: ST elevated myocardial infarction Severe Ischemic Cardiomyopathy with EF less than 20% status post LifeVest Insulin-dependent diabetes mellitus type II with hemoglobin A1c of 8.5%. Acute kidney injury on Chronic kidney disease stage II Transaminitis, improving History of nicotine dependence, recommend complete cessation Obstructive sleep apnea BPH Hospital Course: Patient is a very pleasant 51-year-old male with a past medical history of CAD with previous MIs and stents, hypertension, hyperlipidemia, insulin-dependent diabetes mellitus type 2, obstructive sleep apnea, nicotine dependence, and BPH. He presented to the hospital on 12/23/21 with a chief complaint of chest pain. Patient was seen and evaluated in the emergency department. EKG confirmed patient to be an anterolateral STEMI and patient was taken to the cardiac offset label rewinder. Cardiac cath completed revealing 100% occlusion of proximal LAD, mild disease in the left circumflex with patent stent, and [id number] disease in the RCA. Cardiology then proceeded with successful angioplasty and stenting of the LAD. The following morning on 12/24/21, Echocardiogram was completed and revealed a severely impaired EF less than 20% with diffuse left ventricular, anteroseptal hypokinesis, hypokinetic apex with mild mitral and tricuspid regurgitation. Cardiac medications were optimized. Patient placed on dual antiplatelet therapy with Effient and aspirin. Aldactone and nitroglycerin were also added daily medication regimen. Metoprolol was increased to 50 mg twice daily. Secondary to severely impaired systolic function patient was placed on LifeVest on 12/25/21. Patient appears to be doing well this morning. Vital signs are stable and patient denies having complaints including headache, lightheadedness, dizziness, chest pain, palpitations, shortness of breath, or experiencing any numbness/tingling/weakness in his extremities. Right wrist (cardiac cath access site) showing no sign of hematoma, bleeding, or drainage. Patient has LifeVest in place and received education/training on use currently denies having any questions or concerns regarding this. Patient is medically stable for discharge at this time. He was instructed on importance of following up outpatient with his PCP and cardiology. Patient reported understanding that pending further cardiac workup, he may need AICD placement. Physical examination: Vital signs reviewed and stable. General: Nontoxic, no distress and appears stated age. Derm: Skin warm and dry, normal coloration for ethnicity. Head: Atraumatic, normocephalic and symmetric. Eyes: EOMs intact, no lid lag, and anicteric sclera Mouth: no lip lesions, mucus membranes moist Cardiovascular: regular rate and rhythm with normal S1S2, no murmur, positive posterior tibial pulses bilaterally, and cap refill < 2 seconds. Lungs: Respirations even, regular, and unlabored on room air. Lungs CTA bilaterally, no rhonchi, no rales, no wheezing, and no accessory muscle usage. Abdominal: soft, nontender to palpation, no guarding, no appreciable organomegaly Ext: ROM intact. No gross muscle atrophy, no edema, no contractures Neuro: Speech clear, face symmetrical and CN II-XII grossly intact with no noted focal neuro deficits Psych: Alert and oriented to person, place, time, and situation. Appropriate and pleasant affect. A total of 45 minutes of time were spent preparing this complex discharge summary. Patient Condition at Discharge: Stable Plan - Discharge Summary Discharge Rx Participant: No New Discharge Prescriptions: New Aspirin 81 mg PO DAILY Spironolactone [Aldactone] 25 mg PO DAILY #90 tab Prasugrel [Effient] 10 mg PO DAILY #90 tab Metoprolol Tartrate [Lopressor] 50 mg PO BID #180 tab Nitroglycerin Sl Tabs [Nitrostat] 0.4 mg SUBLINGUAL Q5M PRN #25 tab PRN Reason: Chest Pain Continue metFORMIN HCL [Glucophage] 1,000 mg PO BID Atorvastatin [Lipitor] 80 mg PO HS #30 tab Furosemide [Lasix] 20 mg PO DAILY Tamsulosin HCl [Flomax] 0.4 mg PO DAILY Famotidine 20 mg PO BID DULoxetine HCL [Cymbalta] 60 mg PO DAILY DULoxetine HCL [Cymbalta] 30 mg PO DAILY Insulin Degludec [Tresiba Flextouch U-100 Pen] 60 units SQ DAILY OLANZapine [ZyPREXA] 2.5 mg PO HS Gabapentin 800 mg PO TID Changed Losartan Potassium [Cozaar] 50 mg PO DAILY #0 Discontinued Metoprolol Tartrate [Lopressor] 12.5 mg PO BID Isosorbide Mononitrate ER [Imdur] 90 mg PO DAILY hydroCHLOROthiazide 25 mg PO DAILY Discharge Medication List metFORMIN HCL [Glucophage] 1,000 mg PO BID 04/03/19 [History] Atorvastatin [Lipitor] 80 mg PO HS #30 tab 04/06/19 [Rx] Furosemide [Lasix] 20 mg PO DAILY 08/07/19 [History] Tamsulosin HCl [Flomax] 0.4 mg PO DAILY 08/07/19 [History] Famotidine 20 mg PO BID 05/09/20 [History] DULoxetine HCL [Cymbalta] 30 mg PO DAILY 03/16/21 [History] DULoxetine HCL [Cymbalta] 60 mg PO DAILY 03/16/21 [History] Gabapentin 800 mg PO TID 03/16/21 [History] OLANZapine [ZyPREXA] 2.5 mg PO HS 03/16/21 [History] Insulin Degludec [Tresiba Flextouch U-100 Pen] 60 units SQ DAILY 12/23/21 [History] Aspirin 81 mg PO DAILY 12/26/21 [Rx] Losartan Potassium [Cozaar] 50 mg PO DAILY #0 12/26/21 [Rx] Metoprolol Tartrate [Lopressor] 50 mg PO BID #180 tab 12/26/21 [Rx] Nitroglycerin Sl Tabs [Nitrostat] 0.4 mg SUBLINGUAL Q5M PRN #25 tab 12/26/21 [Rx] Prasugrel [Effient] 10 mg PO DAILY #90 tab 12/26/21 [Rx] Spironolactone [Aldactone] 25 mg PO DAILY #90 tab 12/26/21 [Rx] Follow up Appointment(s)/Referral(s): Dimitris Lozano MD [STAFF PHYSICIAN] - 1 Week (Offices are closed. Please call Tuesday12/28/2021 to make a Post Hospital Follow up appointment; Reason STEMI with cardiac cath and stent placement. Follow up ECHO in 6 weeks. If no impovement in cardiac function will plan for ICD placement.) Manuel Jameson MD [Primary Care Provider] - 1-2 days (Offices are closed pleae call Tuesday12/28/2021 to make a post hospital appoint ment to update them on current medical treatement. ) Ambulatory/Diagnostic Orders: Basic Metabolic Panel [LAB.AMB] Time Frame: 1 Week, Location: None Selected Patient Instructions/Handouts: Heart Attack (DC) Activity/Diet/Wound Care/Special Instructions: Activity: As tolerated. Take breaks as needed. Diet: Heart healthy and carb consistent diet. Avoid salts, or foods with hidden salts such as canned or boxed foods and frozen dinners. Extra salt makes your heart work harder and traps the fluid in your body for longer. Special Instructions: Weigh yourself every morning after you urinate. If you gain 3 pounds overnight or more than 5 pounds in one week, call your primary physician and director of publications for guidance on your medications or they may want to see you in their office. Keep a daily log of your weights and be sure to bring with you at follow up visits with your PCP and director of publications. Take all of your medications as directed, especially your water pills. NEVER skip a dose. And remember to keep all of your doctor's appointments and follow- up as needed. Elevate your legs when you are not up moving around to help with circulation and prevent swelling. Compression stockings are also a great way to improve lower extremity circulation and prevent lower extremity edema. Call your primary care provider and director of publications if you notice any extra swelling in your legs, ankles, feet or abdomen, if you have a new dry cough, if he began to experience increased shortness of breath or if you feel more fatigued. Strongly encourage smoking cessation. You have received education and training for your life vest. Please refer to instructions given and the number provided if you have any questions regarding this. If you have further questions and the number provided is unable to help you, please call director of publications's office for further direction/guidance. Return to the emergency department immediately if you experience any further chest pain/discomfort. Thank you for allowing us to participate in your care, it was truly a pleasure having you for our patient!!! Discharge Disposition: HOME SELF-CARE <RoderickGabrielajimmy - Last Filed: 12/26/21 17:09> Providers Date of admission: 12/23/21 20:21 Attending physician: Denzel Merrill MD Consults: 12/23/21 20:13 Consult Physician Stat Consulting Provider: [facility] Consult Reason/Comments: STEMI ACTIVATION COMPLETE Do you want consulting provider notified?: Yes 12/23/21 22:34 Consult Physician Routine Consulting Provider: [facility] Consult Reason/Comments: Post Interventional patient Do you want consulting provider notified?: Already Contacted Primary care physician: Manuel [facility] Course: I reviewed the documentation as provided by the IDNRA above, who is the original author of this note. I agree with the documented assessment and plan, with the following changes: None
== END 2021-12-26 12:07 | disposition home or self-care (01) | DRG 247 ==
LOC: EC 19:56 → 2SICU 20:21 → 3SCARD 12-25 17:48
PROVIDERS: ADMIT Internal Medicine; ATTEND Internal Medicine
PROC: 4A023N7 Measurement of Cardiac Sampling and Pressure, Left Heart, Percutaneous Approach (ICD-10-PCS; principal; 2021-12-23 20:44)
PROC: 027034Z Dilation of Coronary Artery, One Artery with Drug-eluting Intraluminal Device, Percutaneous Approach (ICD-10-PCS; principal; 2021-12-23 20:44)
PROC: B2111ZZ Fluoroscopy of Multiple Coronary Arteries using Low Osmolar Contrast (ICD-10-PCS; principal; 2021-12-23 20:44)
PROC: 02C03ZZ Extirpation of Matter from Coronary Artery, One Artery, Percutaneous Approach (ICD-10-PCS; principal; 2021-12-23 20:44)
DX: I21.09 ST elevation (STEMI) myocardial infarction involving other coronary artery of anterior wall (principal); N17.9 Acute kidney failure, unspecified; Z68.41 Body mass index [BMI] 40.0-44.9, adult; E11.22 Type 2 diabetes mellitus with diabetic chronic kidney disease; J44.9 Chronic obstructive pulmonary disease, unspecified; E66.01 Morbid (severe) obesity due to excess calories; Z79.4 Long term (current) use of insulin; Z20.822 Contact with and (suspected) exposure to COVID-19; N18.2 Chronic kidney disease, stage 2 (mild); I12.9 Hypertensive chronic kidney disease with stage 1 through stage 4 chronic kidney disease, or unspecified chronic kidney disease; I25.5 Ischemic cardiomyopathy; N40.0 Benign prostatic hyperplasia without lower urinary tract symptoms; E78.5 Hyperlipidemia, unspecified; I08.1 Rheumatic disorders of both mitral and tricuspid valves; F32.A Depression, unspecified; F41.9 Anxiety disorder, unspecified; I25.2 Old myocardial infarction; F17.210 Nicotine dependence, cigarettes, uncomplicated; Z71.6 Tobacco abuse counseling; G47.33 Obstructive sleep apnea (adult) (pediatric); Z79.84 Long term (current) use of oral hypoglycemic drugs; Z79.899 Other long term (current) drug therapy; Z95.5 Presence of coronary angioplasty implant and graft; Z87.442 Personal history of urinary calculi; Z90.49 Acquired absence of other specified parts of digestive tract; Z90.89 Acquired absence of other organs; Z87.19 Personal history of other diseases of the digestive system; Z87.39 Personal history of other diseases of the musculoskeletal system and connective tissue; Z87.2 Personal history of diseases of the skin and subcutaneous tissue; Z98.890 Other specified postprocedural states; Z71.3 Dietary counseling and surveillance; Z88.0 Allergy status to penicillin; Z80.0 Family history of malignant neoplasm of digestive organs; Z82.49 Family history of ischemic heart disease and other diseases of the circulatory system
CPT/HCPCS: 36415; 71045; 80053; 80061; 83036; 83735; 84484; 85025; 85610; 85730; 87635; 93005; 93306; 93458; 96374; 99291

== ENCOUNTER 2021-12-29 15:45 | Inpatient (IN) | payer BC ==
[2021-12-29] MEDS ORDERED: SODIUM CHLORIDE 0.9% 500 ML 250 ML IV STA (16:01)
--- NOTE | 2021-12-29 16:06 | ED ---
General Adult HPI - General Chief complaint: Syncope Stated complaint: Syncope Time Seen by Provider: 12/29/21 15:51 Source: EMS Mode of arrival: EMS Limitations: no limitations - History of Present Illness Initial comments: 51-year-old male with past medical history of diabetes, hypertension, coronary artery disease presents emergency department after he had a single episode. He was at home getting ready to go to his primary care appointment. Patient was just recently hospitalized at our facility for STEMI. One stent was placed in his LAD. Post cath echo was performed which demonstrated an EF of 20%. Patient was sent home on a LifeVest. He did have some medication changes. He was taken off of his Imdur and hydrochlorothiazide. They did increase his dose of Toprol from 12.5 mg twice daily to 50 mg twice daily. Patient denies having any chest pain, shortness breath, headache prior to the incident and states that it happened relatively quick. He went slowly down to the ground and was present. States that he did not sustain any injury from the fall. Patient was only out for less than a minute. EMS was called. He arrives with blood pressures of 50/30. He states he is asymptomatic at this time. He has had some diarrhea. Denies any black or bloody stools. States that upon discharge he has had extremely low blood pressures at home with a systolic that is normally around 90 systolic. Previous to his hospitalization his blood pressure was normally around 120 systolic. No other alleviating, precipitating or modifying factors - Related Data Home Medications Medication Instructions Recorded Confirmed metFORMIN HCL [Glucophage] 1,000 mg PO BID 04/03/19 12/29/21 Furosemide [Lasix] 20 mg PO DAILY 08/07/19 12/29/21 Tamsulosin HCl [Flomax] 0.4 mg PO DAILY 08/07/19 12/29/21 Famotidine 20 mg PO BID 05/09/20 12/29/21 DULoxetine HCL [Cymbalta] 30 mg PO DAILY 03/16/21 12/29/21 DULoxetine HCL [Cymbalta] 60 mg PO DAILY 03/16/21 12/29/21 Gabapentin 800 mg PO TID 03/16/21 12/29/21 OLANZapine [ZyPREXA] 2.5 mg PO HS 03/16/21 12/29/21 Insulin Degludec [Tresiba 60 units SQ DAILY 12/23/21 12/29/21 Flextouch U-100 Pen] Losartan Potassium [Cozaar] 100 mg PO DAILY 12/29/21 12/29/21 Previous Rx's Medication Instructions Recorded Atorvastatin [Lipitor] 80 mg PO HS #30 tab 04/06/19 Aspirin 81 mg PO DAILY 12/26/21 Metoprolol Tartrate [Lopressor] 50 mg PO BID #180 tab 12/26/21 Nitroglycerin Sl Tabs [Nitrostat] 0.4 mg SUBLINGUAL Q5M PRN #25 tab 12/26/21 Prasugrel [Effient] 10 mg PO DAILY #90 tab 12/26/21 Spironolactone [Aldactone] 25 mg PO DAILY #90 tab 12/26/21 Allergies Allergy/AdvReac Type Severity Reaction Status Date / Time penicillin V Allergy Severe Rapid Verified 12/29/21 17:28 Heart Rate Review of Systems ROS Statement: Those systems with pertinent positive or pertinent negative responses have been documented in the HPI. ROS Other: All systems not noted in ROS Statement are negative. Past Medical History Past Medical History: Asthma, Chest Pain / Angina, Diabetes Mellitus, Hyperlipidemia, Hypertension, Myocardial Infarction (MD), Pneumonia, Sleep Apnea /CPAP/BIPAP Additional Past Medical History / Comment(s): NUMBNESS/TINGLING LAWRENCE LEGS, kidney stone, Last Myocardial Infarction Date:: 03/2019 History of Any Multi-Drug Resistant Organisms: None Reported Past Surgical History: Back Surgery, Cholecystectomy, Heart Catheterization With Stent, Hernia Repair, Orthopedic Surgery, Tonsillectomy Additional Past Surgical History / Comment(s): RT KNEE arthroscopy, LAWRENCE WRIST ORIF, RIGHT SHOULDER arthroscopy x 2, SINUS surgery,. 3 cardiac stents, rt wrist ganglion cyst, 4 screws and 2 rods lower back, recent stent placed Past Anesthesia/Blood Transfusion Reactions: No Reported Reaction Date of Last Stent Placement:: 05/2019 Past Psychological History: Anxiety, Depression Smoking Status: Current every day smoker Past Alcohol Use History: None Reported Past Drug Use History: Marijuana - Past Family History Father Family Medical History: Cancer Additional Family Medical History / Comment(s): COLON Family Additional Family Medical History / Comment(s): Multiple people hypertension. Denies any history of coronary artery disease. General Exam Limitations: no limitations Course Vital Signs 12/29/21 12/29/21 12/29/21 15:49 15:57 16:40 Temperature 98 F Pulse Rate 65 65 60 Respiratory 18 18 18 Rate Blood Pressure 75/55 85/53 78/49 O2 Sat by Pulse 93 L 93 L 94 L Oximetry 12/29/21 12/29/21 12/29/21 17:30 17:58 19:05 Temperature Pulse Rate 58 L 62 59 L Respiratory 16 16 16 Rate Blood Pressure 98/85 79/51 85/54 O2 Sat by Pulse 96 93 L 94 L Oximetry 12/29/21 12/29/21 12/29/21 19:32 20:31 21:23 Temperature Pulse Rate 72 58 L 62 Respiratory 16 16 16 Rate Blood Pressure 98/59 95/65 101/64 O2 Sat by Pulse 98 98 Oximetry 12/29/21 22:19 Temperature Pulse Rate 58 L Respiratory 16 Rate Blood Pressure 103/62 O2 Sat by Pulse 98 Oximetry EKG Findings - EKG Comments: EKG Findings:: EKG demonstrates sinus rhythm with a rate of 69. HI interval 219. QRS 121. QTC of 408. Biphasic T wave V3 and V4. No acute ST segment elevations. Medical Decision Making - Medical Decision Making On arrival patient is placed in a trauma for. A thorough history and physical exam is performed. IV access established the patient is given a 250 bolus of normal saline. Laboratory studies are conducted. Patient is monitored in the emergency department and does not have much improvement in his pressure. He has of this he is given an additional 500 mL of saline. The patient is then taken for a chest x-ray. Laboratory studies demonstrate a creatinine mildly elevated at 1.4. Troponin is 14 however this is improved from patient's previous. Chest x-ray demonstrates bilateral central increased markings suspected reactive airway disease. No suspicious focal consolidation. Patient remains symptom free in the emergency department. Blood pressures are still low. I did speak with Dr. De La Rosa who feels that the patient should be started on a small amount of levothyroid with a goal of 90 systolic. This will be started through a peripherally which is higher than the before meals. I will hold the patient's metoprolol at this time. I spoke with Dr. Mark in regards to the admission. Levothyroid is ordered however never hung on the patient as he does maintain systolic of 90 on his own. Patient transferred to the floor in stable condition - Lab Data Result diagrams: 12/29/21 16:08 12/29/21 16:08 Lab Results 12/29/21 12/29/21 12/29/21 Range/Units 16:08 16:08 16:08 WBC 11.4 H (3.8-10.6) k/uL RBC 4.35 (4.30-5.90) m/uL Hgb 11.4 L (13.0-17.5) gm/dL Hct 36.3 L (39.0-53.0) % MCV 83.4 (80.0-100.0) fL MCH 26.3 (25.0-35.0) pg MCHC 31.6 (31.0-37.0) g/dL RDW 14.4 (11.5-15.5) % Plt Count 291 (150-450) k/uL MPV 8.3 Neutrophils % 72 % Lymphocytes % 18 % Monocytes % 4 % Eosinophils % 3 % Basophils % 1 % Neutrophils # 8.2 H (1.3-7.7) k/uL Lymphocytes # 2.0 (1.0-4.8) k/uL Monocytes # 0.5 (0-1.0) k/uL Eosinophils # 0.4 (0-0.7) k/uL Basophils # 0.1 (0-0.2) k/uL Hypochromasia Slight PT 10.7 (9.0-12.0) sec INR 1.0 (<1.2) APTT 22.0 (22.0-30.0) sec Sodium 132 L (137-145) mmol/L Potassium 4.4 (3.5-5.1) mmol/L Chloride 105 (98-107) mmol/L Carbon Dioxide 15 L (22-30) mmol/L Anion Gap 12 mmol/L BUN 22 H (9-20) mg/dL Creatinine 1.46 H (0.66-1.25) mg/dL Est GFR (CKD-EPI)AfAm 63 (>60 ml/min/1.73 sqM) Est GFR (CKD-EPI)NonAf 54 (>60 ml/min/1.73 sqM) Glucose 178 H (74-99) mg/dL Calcium 9.0 (8.4-10.2) mg/dL Magnesium 1.7 (1.6-2.3) mg/dL Total Bilirubin 0.7 (0.2-1.3) mg/dL AST 61 H (17-59) U/L ALT 47 (4-49) U/L Alkaline Phosphatase 104 (38-126) U/L Troponin I (0.000-0.034) ng/mL NT-Pro-B Natriuret Pep pg/mL Total Protein 6.3 (6.3-8.2) g/dL Albumin 3.3 L (3.5-5.0) g/dL 12/29/21 12/29/21 Range/Units 16:08 16:08 WBC (3.8-10.6) k/uL RBC (4.30-5.90) m/uL Hgb (13.0-17.5) gm/dL Hct (39.0-53.0) % MCV (80.0-100.0) fL MCH (25.0-35.0) pg MCHC (31.0-37.0) g/dL RDW (11.5-15.5) % Plt Count (150-450) k/uL MPV Neutrophils % % Lymphocytes % % Monocytes % % Eosinophils % % Basophils % % Neutrophils # (1.3-7.7) k/uL Lymphocytes # (1.0-4.8) k/uL Monocytes # (0-1.0) k/uL Eosinophils # (0-0.7) k/uL Basophils # (0-0.2) k/uL Hypochromasia PT (9.0-12.0) sec INR (<1.2) APTT (22.0-30.0) sec Sodium (137-145) mmol/L Potassium (3.5-5.1) mmol/L Chloride (98-107) mmol/L Carbon Dioxide (22-30) mmol/L Anion Gap mmol/L BUN (9-20) mg/dL Creatinine (0.66-1.25) mg/dL Est GFR (CKD-EPI)AfAm (>60 ml/min/1.73 sqM) Est GFR (CKD-EPI)NonAf (>60 ml/min/1.73 sqM) Glucose (74-99) mg/dL Calcium (8.4-10.2) mg/dL Magnesium (1.6-2.3) mg/dL Total Bilirubin (0.2-1.3) mg/dL AST (17-59) U/L ALT (4-49) U/L Alkaline Phosphatase (38-126) U/L Troponin I 14.200 H* (0.000-0.034) ng/mL NT-Pro-B Natriuret Pep 2300 pg/mL Total Protein (6.3-8.2) g/dL Albumin (3.5-5.0) g/dL Disposition Clinical Impression: Syncope and collapse, Hypotension Disposition: ADMITTED IP TO THIS HOSP Condition: Serious Is patient prescribed a controlled substance at d/c from ED?: No Decision to Admit Reason: Admit from EC Decision Date: 12/29/21 Decision Time: 18:41
[2021-12-29 16:13] LABS: Basophils # (A) 0.1 k/uL (0-0.2); Basophils % (A) 1 %; Eosinophils # (A) 0.4 k/uL (0-0.7); Eosinophils % (A) 3 %; HCT 36.3 % (39.0-53.0); HGB 11.4 gm/dL (13.0-17.5); Hypochromasia Slight; Lymphocytes % (A) 18 %; MCH 26.3 pg (25.0-35.0); MCHC 31.6 g/dL (31.0-37.0); MCV 83.4 fL (80.0-100.0); Mean Platelet Volume 8.3; Monocytes # (A) 0.5 k/uL (0-1.0); Monocytes % (A) 4 %; Neutrophils # (A) 8.2 k/uL (1.3-7.7); Neutrophils % (A) 72 %; Platelet Count 291 k/uL (150-450); RBC 4.35 m/uL (4.30-5.90); RDW 14.4 % (11.5-15.5); WBC 11.4 k/uL (3.8-10.6)
[2021-12-29 16:22] LABS: Albumin 3.3 g/dL (3.5-5.0); Magnesium 1.7 mg/dL (1.6-2.3); Potassium 4.4 mmol/L (3.5-5.1); Total Bilirubin 0.7 mg/dL (0.2-1.3); Total Protein 6.3 g/dL (6.3-8.2)
--- NOTE | 2021-12-29 16:27 | XR ---
EXAMINATION TYPE: XR chest 2V DATE OF EXAM: 12/29/2021 COMPARISON: Chest x-ray 6 days ago and older studies HISTORY: Syncope with hypotension. TECHNIQUE: Frontal and lateral views of the chest are obtained. FINDINGS: Increased central markings bilaterally . There is no suspicious focal air space opacity, pl eural effusion, or pneumothorax seen. The cardiac silhouette size is upper limits of normal. Bridgin g osteophytes in the thoracic spine are noted. IMPRESSION: Bilateral central increased markings suspect reactive airway disease possibly from a vir al bronchiolitis. No suspicious focal consolidation. Correlate clinically.
[2021-12-29] MEDS ORDERED: SODIUM CHLORIDE 0.9% 500 ML 500 ML IV STA (16:30)
[2021-12-29 16:34] LABS: Prothrombin Time 10.7 sec (9.0-12.0)
[2021-12-29] MEDS ORDERED: NOREPINEPHRINE 32 MG in SODIUM CHLORIDE 0.9% 218 ML IV ONE (17:58)
[2021-12-29] MEDS ORDERED: NOREPINEPHRINE 4 MG in SODIUM CHLORIDE 0.9% 250 ML IV ONE (18:43)
[2021-12-29] MEDS ORDERED: NALOXONE 0.4 MG/ML 1 ML VIAL IV PRN (18:45)
[2021-12-29 22:33] LABS: Glucose,Whole Blood 97 mg/dL (75-99)
--- NOTE | 2021-12-30 00:08 | P.HPIM ---
History of Present Illness H&P Date: 12/29/21 Chief Complaint: syncope 51 year old male with DM , HTN, recent ACS s/p stent patient comes in for evaluation after experiencing an episode of syncope , he was getting ready to go see his PCP, when suddenly experienced a syncope episode, his wittnessed the episode and described it as slowly fell down to the ground. then he was out for about couple minutes. denies experiencing any symptoms before or after the episode. however, by the time he regained full consciousness, EMS arrived, and found to have low blood pressure 50/30. he was recently hospitalized for ACS , where he was diagnosed with STEMI and required a stent in his LAD. upon discharge his meds were adjusted , Metoprolol increased to 50 mg BID from 12.5 mg. and his rn mobile stopped his HCTZ ad i mdure since discharge he noticed that his blood pressure readings at home has been low , usually in low 90s . but otherwise he was asymptomatic . His LVEF was 20% and he was discharged with a life vest. patient denies getting shocked by his life vest today. he also denies any injuries with the fall. ED discussed case with cardiology , and recommended strating him on levophed for low blood pressure blood work in the ED , showed mild anemia , low Na, and HAROON with acidosis . torponins were elevated , however , they are trending down since last discharge patient otherwise, denies feeling sick, denies any fever, hills, chest pain , trouble breathing, nausea or vomiting, abd pain , or urinary symptoms . he does report some episodes of none bloody diarrhea. he denies any smoking, drugs , or alcohol abuse. Review of Systems Pertinent positives as noted in HPI. All other systems were reviewed and are negative Past Medical History Past Medical History: Asthma, Chest Pain / Angina, Diabetes Mellitus, Hyperlipidemia, Hypertension, Myocardial Infarction ([place]), Pneumonia, Sleep Apnea/CPAP/BIPAP Additional Past Medical History / Comment(s): NUMBNESS/TINGLING LAWRENCE LEGS, kidney stone, Last Myocardial Infarction Date:: 03/2019 History of Any Multi-Drug Resistant Organisms: None Reported Past Surgical History: Back Surgery, Cholecystectomy, Heart Catheterization With Stent, Hernia Repair, Orthopedic Surgery, Tonsillectomy Additional Past Surgical History / Comment(s): RT KNEE arthroscopy, LAWRENCE WRIST ORIF, RIGHT SHOULDER arthroscopy x 2, SINUS surgery,. 3 cardiac stents, rt wrist ganglion cyst, 4 screws and 2 rods lower back, recent stent placed Past Anesthesia/Blood Transfusion Reactions: No Reported Reaction Date of Last Stent Placement:: 05/2019 Past Psychological History: Anxiety, Depression Smoking Status: Current every day smoker Past Alcohol Use History: None Reported Past Drug Use History: Marijuana - Past Family History Father Family Medical History: Cancer Additional Family Medical History / Comment(s): COLON Family Additional Family Medical History / Comment(s): Multiple people hypertension. Denies any history of coronary artery disease. Medications and Allergies Home Medications Medication Instructions Recorded Confirmed Type metFORMIN HCL [Glucophage] 1,000 mg PO BID 04/03/19 12/29/21 History Atorvastatin [Lipitor] 80 mg PO HS #30 tab 04/06/19 12/29/21 Rx Furosemide [Lasix] 20 mg PO DAILY 08/07/19 12/29/21 History Tamsulosin HCl [Flomax] 0.4 mg PO DAILY 08/07/19 12/29/21 History Famotidine 20 mg PO BID 05/09/20 12/29/21 History DULoxetine HCL [Cymbalta] 30 mg PO DAILY 03/16/21 12/29/21 History DULoxetine HCL [Cymbalta] 60 mg PO DAILY 03/16/21 12/29/21 History Gabapentin 800 mg PO TID 03/16/21 12/29/21 History OLANZapine [ZyPREXA] 2.5 mg PO HS 03/16/21 12/29/21 History Insulin Degludec [Tresiba 60 units SQ DAILY 12/23/21 12/29/21 History Flextouch U-100 Pen] Aspirin 81 mg PO DAILY 12/26/21 12/29/21 Rx Metoprolol Tartrate [Lopressor] 50 mg PO BID #180 tab 12/26/21 12/29/21 Rx Nitroglycerin Sl Tabs [Nitrostat] 0.4 mg SUBLINGUAL Q5M PRN #25 tab 12/26/21 12/29/21 Rx Prasugrel [Effient] 10 mg PO DAILY #90 tab 12/26/21 12/29/21 Rx Spironolactone [Aldactone] 25 mg PO DAILY #90 tab 12/26/21 12/29/21 Rx Losartan Potassium [Cozaar] 100 mg PO DAILY 12/29/21 12/29/21 History Allergies Allergy/AdvReac Type Severity Reaction Status Date / Time penicillin V Allergy Severe Rapid Verified 12/29/21 17:28 Heart Rate Physical Exam Vitals: Vital Signs Temp Pulse Resp BP Pulse Ox 12/29/21 19:32 72 16 98/59 98 12/29/21 19:05 59 L 16 85/54 94 L 12/29/21 17:58 62 16 79/51 93 L 12/29/21 17:30 58 L 16 98/85 96 12/29/21 16:40 60 18 78/49 94 L 12/29/21 15:57 65 18 85/53 93 L 12/29/21 15:49 98 F 65 18 75/55 93 L Intake and Output 12/29/21 12/29/21 12/29/21 06:59 14:59 22:59 Intake Total 7.492 Balance 7.492 Intake: Intake, IV Titration 7.492 Amount Norepinephrine 4 mg In 7.492 Sodium Chloride 0.9% 250 ml @ 0.05 MCG/KG/MIN 26. 441 mls/hr IV .[id number] ONE Rx#:[id number] Other: Weight 138.799 kg Constitutional: No acute distress, conversant, pleasant Eyes: Anicteric sclerae, moist conjunctiva, Pupils equal round reactive to light ENMT: NC/AT Oropharynx clear, no erythema, or exudates Neck: Supple, no masses, or JVD No carotid bruits No thyromegaly Lungs: Clear to auscultation Clear to percussion Normal respiratory effort, no accessory muscle use Cardiovascular: Heart regular in rate and rhythm, No murmurs, gallops, or rubs No peripheral edema Abdominal: Soft Nontender, no guarding, rebound or rigidity Abdomen moving with respiration Normoactive bowel sounds No hepatomegaly, No splenomegaly No palpable mass No abdominal wall hernia noted Skin: Normal temperature, tone, texture, turgor No induration No subcutaneous nodules No rash, lesions No ulcers Extremities: No digital cyanosis No clubbing Pedal pulses intact and symmetrical Radial pulses intact and symmetrical No calf tenderness Psychiatric: Alert and oriented to person, place and time Appropriate affect fair judgement Neuro Muscles Strength 5/5 in all 4 extremities Sensation to light touch grossly present throughout Cranial nerves II-XII grossly intact No focal sensory deficits Lymphatics: no palpable cervical or supraclavicular , or inguinal lymph nodes Results CBC & Chem 7: 12/29/21 16:08 12/29/21 16:08 Labs: Abnormal Lab Results - Last 24 Hours (Table) 12/29/21 12/29/21 12/29/21 Range/Units 16:08 16:08 16:08 WBC 11.4 H (3.8-10.6) k/uL Hgb 11.4 L (13.0-17.5) gm/dL Hct 36.3 L (39.0-53.0) % Neutrophils # 8.2 H (1.3-7.7) k/uL Sodium 132 L (137-145) mmol/L Carbon Dioxide 15 L (22-30) mmol/L BUN 22 H (9-20) mg/dL Creatinine 1.46 H (0.66-1.25) mg/dL Glucose 178 H (74-99) mg/dL AST 61 H (17-59) U/L Troponin I 14.200 H* (0.000-0.034) ng/mL Albumin 3.3 L (3.5-5.0) g/dL Assessment and Plan Assessment: syncope episode HAROON Ischemic CMP , LVEF 20% s/p life vest plan life vest on , no report of firing cardiology eval elevated trops, however trending down from recent episode of STEMI pvc monitor monitor vital signs Metoprolol dose adjusted down to 25 mg resume cardiac meds hold nephro toxic meds, ACEI, diuretics fall precautions check TSH check carotid US chronic conditions DM , resume home insulin , add insulin sliding scale hypertension as above full code heparin sc tid for DVT PPX anticipated length of stay < 2 midnights
[2021-12-30] MEDS ORDERED: SODIUM CHLORIDE 0.9% 1,000 ML IV SCH (00:15)
[2021-12-30] MEDS: HEPARIN SODIUM,PORCINE/PF 5,000 UNIT/0.5 ML SYRINGE SQ SCH ×3 (00:23→23:23)
[2021-12-30 06:16] LABS: Basophils # (A) 0.1 k/uL (0-0.2); Basophils % (A) 1 %; Eosinophils # (A) 0.4 k/uL (0-0.7); Eosinophils % (A) 3 %; HCT 36.5 % (39.0-53.0); HGB 11.3 gm/dL (13.0-17.5); Hypochromasia Moderate; Lymphocytes % (A) 14 %; MCH 26.1 pg (25.0-35.0); MCHC 30.9 g/dL (31.0-37.0); MCV 84.5 fL (80.0-100.0); Mean Platelet Volume 8.3; Monocytes # (A) 0.7 k/uL (0-1.0); Monocytes % (A) 5 %; Neutrophils # (A) 10.1 k/uL (1.3-7.7); Neutrophils % (A) 73 %; Platelet Count 263 k/uL (150-450); RBC 4.32 m/uL (4.30-5.90); RDW 14.7 % (11.5-15.5); WBC 13.8 k/uL (3.8-10.6)
[2021-12-30 06:47] LABS: Glucose,Whole Blood 105 mg/dL (75-99)
[2021-12-30] MEDS: INSULIN ASPART (NovoLOG) 100 UNIT/ML VIAL SQ SCH ×4 (06:49→20:40)
[2021-12-30 06:50] LABS: African American GFR (CKD) 77 (>60 ml/min/1.73 sqM); Anion Gap 5 mmol/L; Blood Urea Nitrogen 19 mg/dL (9-20); Carbon Dioxide 24 mmol/L (22-30); Chloride 106 mmol/L (98-107); Glucose 104 mg/dL (74-99); Non-African American GFR(CKD) 66 (>60 ml/min/1.73 sqM); Potassium 4.5 mmol/L (3.5-5.1); Sodium 135 mmol/L (137-145)
[2021-12-30] MEDS: INSULIN DETEMIR (LEVEMIR) 100 UNIT/ML SYR SQ SCH (06:51)
[2021-12-30] MEDS ORDERED: INSULIN ASPART (NovoLOG) 100 UNIT/ML VIAL SQ SCH (07:30)
[2021-12-30] MEDS: PRASUGREL 10 MG TAB PO SCH (08:24)
[2021-12-30] MEDS: GABAPENTIN 400 MG CAP PO SCH ×3 (08:24→20:39)
[2021-12-30] MEDS: FAMOTIDINE 20 MG TAB PO SCH ×2 (08:24→20:40)
[2021-12-30] MEDS: DULoxetine HCL 30 MG CAPSULE.DR PO SCH (08:25)
[2021-12-30] MEDS: DULoxetine HCL 60 MG CAPSULE.DR PO SCH (08:25)
[2021-12-30] MEDS: TAMSULOSIN 0.4 MG CAP.ER.24H PO SCH (08:25)
[2021-12-30] MEDS: ASPIRIN 81 MG PO SCH (08:25)
--- NOTE | 2021-12-30 08:27 | P.CRDCN ---
History of Present Illness History of present illness: HISTORY OF PRESENTING ILLNESS Patient is a pleasant 51-year-old male with history of CAD with prior stenting of the LAD and circumflex in 2019 and more recent anterior WV, history of hypertension, hyperlipidemia, diabetes mellitus, ischemic cardiomyopathy with recent WV 12/23/2021. Patient had initially presented one week ago with chest discomfort while cleaning snow and underwent catheterization with stenting of the LAD. Patient had ischemic cardiomyopathy with ejection fraction less than 20% and was placed on heart failure regimen with medications including metoprolol being increased initially 12.5 twice a day up to 50 mg twice a day. Patient states he had been doing fine at home until he started getting ready to go to a doctor's appointment and then felt somewhat lightheaded and then lost consciousness. Per patient he had been feeling well however he did note his blood pressure was somewhat lower the night before with the systolic 90's and he had been feeling somewhat "fuzzy" that morning. He was wearing his LifeVest at the time however no shock that he knows of. He denies any chest pain or pressure. He was noted to be somewhat hypotensive on presentation with sys tolics 70s to 80s. No recent fevers or chills. No other changes to his medications. He has been eating and drinking okay. REVIEW OF SYSTEMS At the time of my exam: CONSTITUTIONAL: Denies fever or chills. CARDIOVASCULAR: Denies chest pain, shortness of breath, orthopnea, PND or palpitations. RESPIRATORY: Denies cough. GASTROINTESTINAL: Denies abdominal pain, diarrhea, constipation, nausea or v omiting. MUSCULOSKELETAL: Denies myalgias. NEUROLOGIC: Denies numbness, tingling or weakness. ENDOCRINE: Denies fatigue, weight change, polydipsia or polyurina. GENITOURINARY: Denies burning, hematuria or urgency with micturation. HEMATOLOGIC: Denies history of anemia or bleeding. PHYSICAL EXAMINATION Vital signs reviewed. CONSTITUTIONAL: No apparent distress. HEENT: Head is normocephalic. Pupils are equal, round. Sclerae anicteric. Mucous membranes of the mouth are moist. No JVD. No carotid bruit. CHEST EXAMINATION: Lungs are clear to auscultation. No chest wall tenderness is noted on palpation or with deep breathing. HEART EXAMINATION: Regular rate and rhythm. S1, S2 heard. No murmurs, gallops or rub. ABDOMEN: Soft, nontender. Positive bowel sounds. EXTREMITIES: 2+ peripheral pulses, no lower extremity edema and no calf tenderness. NEUROLOGIC EXAMINATION: Patient is awake, alert and oriented x3. ASSESSMENT 1. Syncope, rule out related to medication effect, hypotension versus arrhythmia however no LifeVest shock 2. Ischemic cardiopathy EF less than 20% 3. Status post anterior WV 12/23/2021 with PCI LAD 4. Coronary artery disease with prior LAD and circumflex stenting 5. Hypertension, currently borderline 6. Diabetes mellitus type 2 7. Elevated troponin, likely related to recent WV, continue to trend PLAN Patient currently appears somewhat improved after IV fluids and holding blood pressure medications. We will attempt to restart heart failure regimen at lower dose with metoprolol 12.5 mg twice a day. Check repeat 2-D echo to rule out any complication from WV. Also interrogate LifeVest to rule out any other slow VT or other arrhythmia that may have exacerbated symptoms. Continue to monitor hemodynamically. Recommend monitoring for at least 24 hours and if remains stable likely discharge home tomorrow. Past Medical History Past Medical History: Asthma, Chest Pain / Angina, Diabetes Mellitus, Hyperlipidemia, Hypertension, Myocardial Infarction (WV), Pneumonia, Sleep Apnea/CPAP/BIPAP Additional Past Medical History / Comment(s): NUMBNESS/TINGLING LAWRENCE LEGS, kidney stone, Last Myocardial Infarction Date:: 03/2019 History of Any Multi-Drug Resistant Organisms: None Reported Past Surgical History: Back Surgery, Cholecystectomy, Heart Catheterization With Stent, Hernia Repair, Orthopedic Surgery, Tonsillectomy Additional Past Surgical History / Comment(s): RT KNEE arthroscopy, LAWRENCE WRIST ORIF, RIGHT SHOULDER arthroscopy x 2, SINUS surgery,. 3 cardiac stents, rt wrist ganglion cyst, 4 screws and 2 rods lower back, recent stent placed Past Anesthesia/Blood Transfusion Reactions: No Reported Reaction Date of Last Stent Placement:: 05/2019 Past Psychological History: Anxiety, Depression Smoking Status: Current every day smoker Past Alcohol Use History: None Reported Past Drug Use History: Marijuana - Past Family History Father Family Medical History: Cancer Additional Family Medical History / Comment(s): COLON Family Additional Family Medical History / Comment(s): Multiple people hypertension. Denies any history of coronary artery disease. Medications and Allergies Home Medications Medication Instructions Recorded Confirmed Type metFORMIN HCL [Glucophage] 1,000 mg PO BID 04/03/19 12/29/21 History Atorvastatin [Lipitor] 80 mg PO HS #30 tab 04/06/19 12/29/21 Rx Furosemide [Lasix] 20 mg PO DAILY 08/07/19 12/29/21 History Tamsulosin HCl [Flomax] 0.4 mg PO DAILY 08/07/19 12/29/21 History Famotidine 20 mg PO BID 05/09/20 12/29/21 History DULoxetine HCL [Cymbalta] 30 mg PO DAILY 03/16/21 12/29/21 History DULoxetine HCL [Cymbalta] 60 mg PO DAILY 03/16/21 12/29/21 History Gabapentin 800 mg PO TID 03/16/21 12/29/21 History OLANZapine [ZyPREXA] 2.5 mg PO HS 03/16/21 12/29/21 History Insulin Degludec [Tresiba 60 units SQ DAILY 12/23/21 12/29/21 History Flextouch U-100 Pen] Aspirin 81 mg PO DAILY 12/26/21 12/29/21 Rx Metoprolol Tartrate [Lopressor] 50 mg PO BID #180 tab 12/26/21 12/29/21 Rx Nitroglycerin Sl Tabs [Nitrostat] 0.4 mg SUBLINGUAL Q5M PRN #25 tab 12/26/21 12/29/21 Rx Prasugrel [Effient] 10 mg PO DAILY #90 tab 12/26/21 12/29/21 Rx Spironolactone [Aldactone] 25 mg PO DAILY #90 tab 12/26/21 12/29/21 Rx Losartan Potassium [Cozaar] 100 mg PO DAILY 12/29/21 12/29/21 History Allergies Allergy/AdvReac Type Severity Reaction Status Date / Time penicillin V Allergy Severe Rapid Verified 12/29/21 17:28 Heart Rate Physical Exam Vitals: Vital Signs Temp Pulse Resp BP Pulse Ox 12/30/21 07:00 65 12 97/70 92 L 12/30/21 06:30 86 24 103/68 95 12/30/21 06:00 61 17 106/74 93 L 12/30/21 05:30 62 14 109/54 94 L 12/30/21 05:00 61 16 94/47 92 L 12/30/21 04:30 64 16 103/64 94 L 12/30/21 04:00 98.9 F 59 L 14 116/82 95 12/30/21 03:30 67 15 110/47 94 L 12/30/21 03:00 53 L 8 L 85/48 95 12/30/21 02:30 57 L 16 106/65 94 L 12/30/21 02:00 58 L 16 99/69 91 L 12/30/21 01:30 60 16 110/71 90 L 12/30/21 01:00 50 L 14 102/61 97 12/30/21 00:30 55 L 15 105/70 95 12/30/21 00:00 98.6 F 60 20 98/64 90 L 12/29/21 23:30 57 L 11 L 108/70 94 L 12/29/21 23:00 56 L 14 100/73 96 12/29/21 22:40 97.6 F 57 L 19 100/73 96 12/29/21 22:19 58 L 16 103/62 98 12/29/21 21:23 62 16 101/64 12/29/21 20:31 58 L 16 95/65 98 12/29/21 19:32 72 16 98/59 98 12/29/21 19:05 59 L 16 85/54 94 L 12/29/21 17:58 62 16 79/51 93 L 12/29/21 17:30 58 L 16 98/85 96 12/29/21 16:40 60 18 78/49 94 L 12/29/21 15:57 65 18 85/53 93 L 12/29/21 15:49 98 F 65 18 75/55 93 L Intake and Output 12/29/21 12/30/21 12/30/21 22:59 06:59 14:59 Intake Total 7.492 960 Output Total 400 500 Balance -392.508 460 Intake: IV 600 Sodium Chloride 0.9% 1, 600 000 ml @ 75 mls/hr IV . [id number] [facility] Rx#:[id number] Intake, IV Titration 7.492 Amount Norepinephrine 4 mg In 7.492 Sodium Chloride 0.9% 250 ml @ 0.05 MCG/KG/MIN 26. 441 mls/hr IV .Q9H37M [facility] Rx#:[id number] Oral 360 Output: Urine 400 500 Other: Voiding Method Urinal # Voids 1 1 Weight 143 kg Results 12/30/21 05:47 12/30/21 05:47 Cardiac Enzymes 12/29/21 12/29/21 Range/Units 16:08 16:08 AST 61 H (17-59) U/L Troponin I 14.200 H* (0.000-0.034) ng/mL Coagulation 12/29/21 Range/Units 16:08 PT 10.7 (9.0-12.0) sec APTT 22.0 (22.0-30.0) sec CBC 12/29/21 12/30/21 Range/Units 16:08 05:47 WBC 11.4 H 13.8 H (3.8-10.6) k/uL RBC 4.35 4.32 (4.30-5.90) m/uL Hgb 11.4 L 11.3 L (13.0-17.5) gm/dL Hct 36.3 L 36.5 L (39.0-53.0) % Plt Count 291 263 (150-450) k/uL Comprehensive Metabolic Panel 12/29/21 12/30/21 Range/Units 16:08 05:47 Sodium 132 L 135 L (137-145) mmol/L Potassium 4.4 4.5 (3.5-5.1) mmol/L Chloride 105 106 (98-107) mmol/L Carbon Dioxide 15 L 24 (22-30) mmol/L BUN 22 H 19 (9-20) mg/dL Creatinine 1.46 H 1.24 (0.66-1.25) mg/dL Glucose 178 H 104 H (74-99) mg/dL Calcium 9.0 9.0 (8.4-10.2) mg/dL AST 61 H (17-59) U/L ALT 47 (4-49) U/L Alkaline Phosphatase 104 (38-126) U/L Total Protein 6.3 (6.3-8.2) g/dL Albumin 3.3 L (3.5-5.0) g/dL Current Medications Generic Name Dose Route Start Last Admin Trade Name Freq PRN Reason Stop Dose Admin Aspirin 81 mg 12/30/21 09:00 Aspirin 81 Mg PO DAILY [facility] Atorvastatin Calcium 80 mg 12/30/21 21:00 Atorvastatin 80 Mg Tab PO [facility] Duloxetine HCl 30 mg 12/30/21 09:00 Duloxetine Hcl 30 Mg Capsule. PO DAILY [facility] Duloxetine HCl 60 mg 12/30/21 09:00 Duloxetine Hcl 60 Mg Capsule. PO DAILY [facility] Famotidine 20 mg 12/30/21 09:00 Famotidine 20 Mg Tab PO BID [facility] Gabapentin 800 mg 12/30/21 09:00 Gabapentin 400 Mg Cap PO TID [facility] Heparin Sodium (Porcine) 5,000 unit 12/30/21 08:00 12/30/21 00:23 Heparin Sodium,Porcine/Pf 5,000 Unit/0.5 Ml Syringe SQ 5,000 unit Q8HR [facility] Administration Insulin Aspart 0 unit 12/30/21 07:30 12/30/21 06:49 Insulin Aspart (Novolog) 100 Unit/Ml Vial SQ Not Given ACHS [facility] Protocol Insulin Detemir 60 unit 12/30/21 07:00 12/30/21 06:51 Insulin Detemir (Levemir) 100 Unit/Ml Syr SQ 60 unit DAILY@0700 [facility] Administration Metoprolol Tartrate 25 mg 12/30/21 09:00 Metoprolol Tartrate 25 Mg Tab PO BID [facility] Naloxone HCl 0.2 mg 12/29/21 18:45 Naloxone 0.4 Mg/Ml 1 Ml Vial IV Q2M PRN Opioid Reversal Olanzapine 2.5 mg 12/30/21 21:00 Olanzapine 2.5 Mg Tab PO HS [facility] Prasugrel 10 mg 12/30/21 09:00 Prasugrel 10 Mg Tab PO DAILY [facility] Tamsulosin HCl 0.4 mg 12/30/21 09:00 Tamsulosin 0.4 Mg Cap.Er.24h PO DAILY [facility] Intake and Output 12/29/21 12/30/21 12/30/21 22:59 06:59 14:59 Intake Total 7.492 960 Output Total 400 500 Balance -392.508 460 Intake: IV 600 Sodium Chloride 0.9% 1, 600 000 ml @ 75 mls/hr IV . [id number] [facility] Rx#:[id number] Intake, IV Titration 7.492 Amount Norepinephrine 4 mg In 7.492 Sodium Chloride 0.9% 250 ml @ 0.05 MCG/KG/MIN 26. 441 mls/hr IV .Q9H37M [facility] Rx#:[id number] Oral 360 Output: Urine 400 500 Other: Voiding Method Urinal # Voids 1 1 Weight 143 kg 12/30/21 05:47 02/09/22 05:47
--- NOTE | 2021-12-30 08:32 | US ---
EXAMINATION TYPE: US carotid duplex BILAT DATE OF EXAM: 12/30/2021 COMPARISON: NONE CLINICAL HISTORY: syncope. Syncope EXAM MEASUREMENTS: RIGHT: Peak Systolic Velocity (PSV) cm/sec ----- Right CCA: 55.7 ----- Right ICA: 85.6 ----- Right ECA: 199.6 ICA/CCA ratio: 1.5 RIGHT: End Diastole cm/sec ----- Right CCA: 13.0 ----- Right ICA: 43.9 ----- Right ECA: 18.4 LEFT: Peak Systolic Velocity (PSV) cm/sec ----- Left CCA: 57.2 ----- Left ICA: 85.3 ----- Left ECA: 104.8 ICA/CCA ratio: 1.5 LEFT: End Diastole cm/sec ----- Left CCA: 16.3 ----- Left ICA: 33.5 ----- Left ECA: 19.2 VERTEBRALS (direction of flow): Right Vertebral: Antegrade Left Vertebral: Antegrade Rhythm: Normal Slightly elevated velocities right ECA, otherwise no significant stenosis seen IMPRESSION: No evidence for hemodynamically significant stenosis. Criteria for Assigning % of Stenosis / Diameter reduction (Estimation based on the indirect measurements of the internal carotid artery velocities (ICA PSV). 1. Normal (no stenosis)=ICA PSV < 125 cm/s: ratio < 2.0: ICA EDV<40 cm/s. 2. Less than 50% stenosis=ICA PSV < 125 cm/s: ratio < 2.0: ICA EDV<40 cm/s. 3. 50 to 69% stenosis=ICA PSV of 125 to 230 cm/s: ration 2.0 ? 4.0: ICA EDV 40-100 cm/s. 4. Greater than 70% stenosis to near occlusion= ICA PSV > 230 cm/s: ratio > 4.0: ICA EDV > 100 cm/s. 5. Near occlusion= ICA PSV velocities may be low or undetectable: variable ratio and ICA EDV. 6. Total occlusion=unable to detect flow.
[2021-12-30] MEDS ORDERED: METOPROLOL TARTRATE 12.5 MG TAB PO SCH (09:00)
[2021-12-30] MEDS ORDERED: METOPROLOL TARTRATE 50 MG TAB PO SCH (09:00)
[2021-12-30] MEDS ORDERED: METOPROLOL TARTRATE 25 MG TAB PO SCH (09:00)
[2021-12-30] MEDS: LOSARTAN 25 MG TAB PO SCH (09:16)
[2021-12-30] MEDS: SPIRONOLACTONE 25 MG TAB PO SCH (09:16)
--- NOTE | 2021-12-30 10:11 | CDI ---
Documentation Clarification Form Date: 12/30/2021 09:37:29 AM From: Clara Corbett RN CCDS Admit Date: 12/29/2021 06:55:00 PM Patient Name: Tenzin Murillo Visit Number: [id number] Discharge Date: ATTENTION: The Clinical Documentation Specialists (CDI) and [facility] Coding Staff appreciate your assistance in clarifying documentation. Please respond to the clarification below the line at the bottom and electronically sign. The CDI & [facility] Coding staff will review the response and follow-up if needed. Please note: Queries are made part of the Legal Health Record. If you have any questions, please contact the author of this message via ITS. Dr. Hood Eisenberg Your patient has the documented diagnosis of Ischemic cardiomyopathy 12/30, Cardiology consult. Additional diagnosis is requested. History/Risk Factors: 51-year-old male presents to the ED via EMS after having an episode of syncope. EMS found patient to have low blood pressure 50/30. Recently hospitalized for ACS diagnosed with STEMI. Medical History: DM, HLD, HTN, and PA. 12/29, H&P. Clinical Indicators: VS/Pulse OX: 12/29 B/P 75/55; HR 65; Temp 98.0 F Oral; SpO2 93% ra BNP: 12/29 2300 Echocardiogram Results: 12/24 EF <20% Mild mitral regurgitation, mild tricuspid regurgitation. Chest X Ray: 12/29 Bilateral central increased markings. Treatment: 12/30 Lopressor 12.5mg PO BID, Aldactone 25mg PO Daily In your professional opinion, can you please clarify the acuity and type of CHF if known? [ X ] Chronic Systolic Heart Failure (reduced EF) [ ] Other, please specify [ ] Unable to determine (Template Last Revised: December 2020) MTDD
[2021-12-30 11:35] LABS: Glucose,Whole Blood 157 mg/dL (75-99)
--- NOTE | 2021-12-30 13:52 | ECHOF ---
Referral Reason:re: syncope, rule out post OR complication MEASUREMENTS -------- HEIGHT: 182.9 cm WEIGHT: 142.9 kg BP: 100/64 RVIDd: 3.6 cm (< 3.3) IVSd: 1.4 cm (0.6 - 1.1) LVIDd: 5.6 cm (3.9 - 5.3) LVPWd: 1.7 cm (0.6 - 1.1) IVSs: 2.4 cm LVIDs: 4.0 cm LVPWs: 1.3 cm LAESV Index (A-L): 32.77 ml/m RAP: 5.00 mmHg RVSP: 28.46 mmHg FINDINGS -------- Sinus rhythm. This was a technically difficult study with suboptimal views. The left ventricular size is normal. There is moderate concentric left ventricular hypertrophy. O verall left ventricular systolic function is severely impaired with, an EF between 20 - 25 %. Globa l hypokinesis The right ventricle is mildly enlarged. LA is midly dilated 29-33ml/m2. The right atrial size is normal. 5.0mg of Lumason was utilized for enhancement of images Interatrial and interventricular septum intact. There is no evidence of aortic regurgitation. There is no evidence of aortic stenosis. Wrua-[id number]-efywfyek mitral regurgitation is present. Mild tricuspid regurgitation present. There is no evidence of pulmonary hypertension. The right v entricular systolic pressure, as measured by Doppler, is 28.46mmHg. There is no pulmonic regurgitation present. The aortic root size is normal. IVC Not well visulized. There is no pericardial effusion. CONCLUSIONS -------- 1. The left ventricular size is normal. 2. There is moderate concentric left ventricular hypertrophy. 3. Overall left ventricular systolic function is severely impaired with, an EF between 20 - 25 %. 4. The right ventricle is mildly enlarged. 5. LA is midly dilated 29-33ml/m2. 6. Fclt-[id number]-ttuunwqr mitral regurgitation is present. 7. Mild tricuspid regurgitation present. PROCESS WORKER: Va Sepulveda, [facility]
--- NOTE | 2021-12-30 15:45 | P.PN ---
Subjective Progress Note Date: 12/30/21 HISTORY OF PRESENTING ILLNESS Patient is a pleasant 51-year-old male with history of CAD with prior stenting of the LAD and circumflex in 2019 and more recent anterior CA, history of hypertension, hyperlipidemia, diabetes mellitus, ischemic cardiomyopathy with recent CA 12/23/2021. Patient had initially presented one week ago with chest discomfort while cleaning snow and underwent catheterization with stenting of the LAD. Patient had ischemic cardiomyopathy with ejection fraction less than 20% and was placed on heart failure regimen with medications including metoprolol being increased initially 12.5 twice a day up to 50 mg twice a day. Patient states he had been doing fine at home until he started getting ready to go to a doctor's appointment and then felt somewhat lightheaded and then lost consciousness. Per patient he had been feeling well however he did note his blood pressure was somewhat lower the night before with the systolic 90's and he had been feeling somewhat "fuzzy" that morning. He was wearing his LifeVest at the time however no shock that he knows of. He denies any chest pain or pressure. He was noted to be somewhat hypotensive on presentation with systolics 70s to 80s. No recent fevers or chills. No other changes to his medications. He has been eating and drinking okay. Interval history: Patient isn't examined at the bedside. He is alert and oriented 3. He denies any lightheadedness or dizziness. He denies any chest pain or shortness of breath. No reported acute changes overnight Objective - Vital Signs Vital signs: Vital Signs Temp 98.2 F 12/30/21 12:00 Pulse 67 12/30/21 12:00 Resp 18 12/30/21 12:00 BP 106/69 12/30/21 12:00 Pulse Ox 94 L 12/30/21 12:00 Intake & Output 12/29/21 12/30/21 12/30/21 18:59 06:59 18:59 Intake Total 967.492 75 Output Total 900 Balance 67.492 75 Weight 138.799 kg 143 kg Intake: IV 600 75 Sodium Chloride 0.9% 1, 600 75 000 ml @ 75 mls/hr IV . [id number] [facility] Rx#:[id number] Intake, IV Titration 7.492 Amount Norepinephrine 4 mg In 7.492 Sodium Chloride 0.9% 250 ml @ 0.05 MCG/KG/MIN 26. 441 mls/hr IV .Q9H37M [facility] Rx#:[id number] Oral 360 Output: Urine 900 Other: Voiding Method Urinal # Voids 1 2 # Bowel Movements 1 - Exam General: non toxic, no distress, appears older than stated age obese Derm: warm, dry Head: atraumatic, normocephalic, symmetric Eyes: EOMI, no lid lag, anicteric sclera Mouth: no lip lesion, mucus membranes moist. Poor oral dentition Cardiovascular: S1S2 reg, no murmur, positive posterior tibial pulse bilateral, Lungs: CTA bilateral, no rhonchi, no rales , no accessory muscle use Abdominal: soft, nontender to palpation, no guarding, no appreciable organomegaly Ext: no gross muscle atrophy, no edema, no contractures Neuro: CN II-XI grossly intact, no focal neuro deficits Psych: Alert, oriented, appropriate affect - Labs CBC & Chem 7: 12/30/21 05:47 12/30/21 05:47 Labs: Abnormal Lab Results - Last 24 Hours (Table) 12/29/21 12/29/21 12/29/21 Range/Units 16:08 16:08 16:08 WBC 11.4 H (3.8-10.6) k/uL Hgb 11.4 L (13.0-17.5) gm/dL Hct 36.3 L (39.0-53.0) % MCHC (31.0-37.0) g/dL Neutrophils # 8.2 H (1.3-7.7) k/uL Sodium 132 L (137-145) mmol/L Carbon Dioxide 15 L (22-30) mmol/L BUN 22 H (9-20) mg/dL Creatinine 1.46 H (0.66-1.25) mg/dL Glucose 178 H (74-99) mg/dL POC Glucose (mg/dL) (75-99) mg/dL AST 61 H (17-59) U/L Troponin I 14.200 H* (0.000-0.034) ng/mL Albumin 3.3 L (3.5-5.0) g/dL 12/30/21 12/30/21 12/30/21 Range/Units 05:47 05:47 06:45 WBC 13.8 H (3.8-10.6) k/uL Hgb 11.3 L (13.0-17.5) gm/dL Hct 36.5 L (39.0-53.0) % MCHC 30.9 L (31.0-37.0) g/dL Neutrophils # 10.1 H (1.3-7.7) k/uL Sodium 135 L (137-145) mmol/L Carbon Dioxide (22-30) mmol/L BUN (9-20) mg/dL Creatinine (0.66-1.25) mg/dL Glucose 104 H (74-99) mg/dL POC Glucose (mg/dL) 105 H (75-99) mg/dL AST (17-59) U/L Troponin I (0.000-0.034) ng/mL Albumin (3.5-5.0) g/dL 12/30/21 Range/Units 11:34 WBC (3.8-10.6) k/uL Hgb (13.0-17.5) gm/dL Hct (39.0-53.0) % MCHC (31.0-37.0) g/dL Neutrophils # (1.3-7.7) k/uL Sodium (137-145) mmol/L Carbon Dioxide (22-30) mmol/L BUN (9-20) mg/dL Creatinine (0.66-1.25) mg/dL Glucose (74-99) mg/dL POC Glucose (mg/dL) 157 H (75-99) mg/dL AST (17-59) U/L Troponin I (0.000-0.034) ng/mL Albumin (3.5-5.0) g/dL Assessment and Plan Assessment: Assessment and plan: #Syncope -Most likely secondary to hypotension induced by medications -General Supervisor decrease metoprolol -The lower without significant stenosis -Patient was given IV fluid -Continue to monitor to rule out arrhythmia -LifeVest interrogation -Check orthostatics every shift #Ischemic, with EF less than 20% -Status post anterior CA 12/23/2021 with PCI LAD -Coronary artery disease with prior LAD and circumflex stenting -Status post LifeVest -Cardiology following #Leukocytosis -Patient afebrile -Chest x-ray suspicious for viral bronchiolitis we'll check for COVID-19 infection -Suspect reactive secondary to above -Urinalysis with culture and blood culture ordered -Order CBC daily #Hypertension -Patient was hypotensive. Medication was adjusted by cardiology #Elevated troponin secondary to recent CA #Morbid obesity BMI 42
[2021-12-30 16:51] LABS: Glucose,Whole Blood 97 mg/dL (75-99)
[2021-12-30 17:47] LABS: Appearance,Urine Clear (Clear); Bilirubin,Urine Negative (Negative); Blood,Urine Negative (Negative); Color,Urine Light Yellow; Glucose,Urine (UA) Negative (Negative); Ketones,Urine Negative (Negative); Leukocyte Esterase,Urine Negative (Negative); Nitrite,Urine Negative (Negative); Protein,Urine Negative (Negative); Specific Gravity,Urine 1.005 (1.001-1.035); Urobilinogen,Urine <2.0 mg/dL (<2.0)
[2021-12-30 20:35] LABS: Glucose,Whole Blood 192 mg/dL (75-99)
[2021-12-30] MEDS: METOPROLOL TARTRATE 12.5 MG TAB PO SCH (20:39)
[2021-12-30] MEDS ORDERED: ATORVASTATIN 80 MG TAB PO SCH (21:00)
[2021-12-30] MEDS ORDERED: OLANZapine 2.5 MG TAB PO SCH (21:00)
[2021-12-31 04:38] VITALS: TEMP 97.6
[2021-12-31 05:58] LABS: Glucose,Whole Blood 89 mg/dL (75-99)
[2021-12-31] MEDS: INSULIN ASPART (NovoLOG) 100 UNIT/ML VIAL SQ SCH (05:58)
[2021-12-31] MEDS: INSULIN DETEMIR (LEVEMIR) 100 UNIT/ML SYR SQ SCH (07:16)
--- NOTE | 2021-12-31 08:22 | P.PN ---
Subjective HISTORY OF PRESENTING ILLNESS Patient is a pleasant 51-year-old male with history of CAD with prior stenting of the LAD and circumflex in 2019 and more recent anterior OK, history of hypertension, hyperlipidemia, diabetes mellitus, ischemic cardiomyopathy with recent OK 12/23/2021. Patient had initially presented one week ago with chest discomfort while cleaning snow and underwent catheterization with stenting of the LAD. Patient had ischemic cardiomyopathy with ejection fraction less than 20% and was placed on heart failure regimen with medications including metoprolol being increased initially 12.5 twice a day up to 50 mg twice a day. Patient states he had been doing fine at home until he started getting ready to go to a doctor's appointment and then felt somewhat lightheaded and then lost consciousness. Per patient he had been feeling well however he did note his blood pressure was somewhat lower the night before with the systolic 90's and he had been feeling somewhat "fuzzy" that morning. He was wearing his LifeVest at the time however no shock that he knows of. He denies any chest pain or pressure. He was noted to be somewhat hypotensive on presentation with systolics 70s to 80s. No recent fevers or chills. No other changes to his medications. He has been eating and drinking okay. 12/30 Patient seen and examined. Blood pressure medications were decreased and blood pressures been more stable in the 110 range systolics. No arrhythmias noted on telemetry. Echo performed showing continued cardiomyopathy EF 20-25% mild to moderate mitral regurgitation without any other significant findings. PHYSICAL EXAMINATION Vital signs reviewed. CONSTITUTIONAL: No apparent distress. HEENT: Head is normocephalic. Pupils are equal, round. Sclerae anicteric. Mucous membranes of the mouth are moist. No JVD. No carotid bruit. CHEST EXAMINATION: Lungs are clear to auscultation. No chest wall tenderness is noted on palpation or with deep breathing. HEART EXAMINATION: Regular rate and rhythm. S1, S2 heard. No murmurs, gallops or rub. ABDOMEN: Soft, nontender. Positive bowel sounds. EXTREMITIES: 2+ peripheral pulses, no lower extremity edema and no calf tenderness. NEUROLOGIC EXAMINATION: Patient is awake, alert and oriented x3. ASSESSMENT 1. Syncope, rule out related to medication effect, hypotension versus a rrhythmia however no LifeVest shock 2. Ischemic cardiopathy EF less than 20% 3. Status post anterior OK 12/23/2021 with PCI LAD 4. Coronary artery disease with prior LAD and circumflex stenting 5. Hypertension, currently borderline 6. Diabetes mellitus type 2 7. Elevated troponin, likely related to recent OK, continue to trend PLAN Patient appears much better today without any arrhythmias noted on telemetry and blood pressures improved on lower doses of heart failure regimen. Patient appea rs stable for discharge home on current regimen. No significant changes noted on echo. Objective - Vital Signs Vital signs: Vital Signs Temp 97.6 F 12/31/21 04:00 Pulse 60 12/31/21 04:00 Resp 18 12/31/21 04:00 BP 115/80 12/31/21 04:00 Pulse Ox 95 12/31/21 04:00 Intake & Output 12/30/21 12/31/21 12/31/21 18:59 06:59 18:59 Intake Total 75 Balance 75 Weight 145 kg Intake: IV 75 Sodium Chloride 0.9% 1, 75 000 ml @ 75 mls/hr IV . [id number] MARCIAL Rx#:[id number] Other: # Voids 2 1 # Bowel Movements 1 - Labs CBC & Chem 7: 12/30/21 05:47 12/30/21 05:47 Labs: Abnormal Lab Results - Last 24 Hours (Table) 12/30/21 12/30/21 Range/Units 11:34 20:33 POC Glucose (mg/dL) 157 H 192 H (75-99) mg/dL Microbiology - Last 24 Hours (Table) 12/30/21 17:30 Urine Culture - Preliminary Urine,Clean Catch
[2021-12-31 08:30] VITALS: BP 111/74; PULSE 65; RESP 16
[2021-12-31] MEDS: HEPARIN SODIUM,PORCINE/PF 5,000 UNIT/0.5 ML SYRINGE SQ SCH (09:17)
[2021-12-31] MEDS: PRASUGREL 10 MG TAB PO SCH (09:18)
[2021-12-31] MEDS: FAMOTIDINE 20 MG TAB PO SCH (09:18)
[2021-12-31] MEDS: METOPROLOL TARTRATE 12.5 MG TAB PO SCH (09:18)
[2021-12-31] MEDS: ASPIRIN 81 MG PO SCH (09:18)
[2021-12-31] MEDS: DULoxetine HCL 30 MG CAPSULE.DR PO SCH (09:18)
[2021-12-31] MEDS: GABAPENTIN 400 MG CAP PO SCH (09:18)
[2021-12-31] MEDS: DULoxetine HCL 60 MG CAPSULE.DR PO SCH (09:18)
[2021-12-31] MEDS: SPIRONOLACTONE 25 MG TAB PO SCH (09:18)
[2021-12-31] MEDS: TAMSULOSIN 0.4 MG CAP.ER.24H PO SCH (09:18)
[2021-12-31] MEDS: LOSARTAN 25 MG TAB PO SCH (09:18)
[2021-12-31 10:44] LABS: Basophils # (A) 0.1 k/uL (0-0.2); Basophils % (A) 1 %; Eosinophils # (A) 0.4 k/uL (0-0.7); Eosinophils % (A) 3 %; HCT 38.9 % (39.0-53.0); HGB 12.2 gm/dL (13.0-17.5); Hypochromasia Moderate; Lymphocytes % (A) 17 %; MCH 26.3 pg (25.0-35.0); MCHC 31.3 g/dL (31.0-37.0); MCV 84.1 fL (80.0-100.0); Mean Platelet Volume 8.2; Monocytes # (A) 0.9 k/uL (0-1.0); Monocytes % (A) 8 %; Neutrophils # (A) 8.1 k/uL (1.3-7.7); Neutrophils % (A) 70 %; Platelet Count 269 k/uL (150-450); RBC 4.63 m/uL (4.30-5.90); RDW 14.7 % (11.5-15.5); WBC 11.6 k/uL (3.8-10.6)
--- NOTE | 2021-12-31 11:34 | P.DS ---
Providers Date of admission: 12/29/21 18:55 Attending physician: Rambo Mark MD Consults: 12/29/21 18:51 Consult Physician Urgent Consulting Provider: [facility] Consult Reason/Comments: syncope, hypotension, recent stemi Do you want consulting provider notified?: Already Contacted Primary care physician: Manuel Johnson [facility] Hospital Course: HISTORY OF PRESENTING ILLNESS Patient is a pleasant 51-year-old male with history of CAD with prior stenting of the LAD and circumflex in 2019 and more recent anterior NH, history of hypertension, hyperlipidemia, diabetes mellitus, ischemic cardiomyopathy with recent NH 12/23/2021. Patient had initially presented one week ago with chest discomfort while cleaning snow and underwent catheterization with stenting of the LAD. Patient had ischemic cardiomyopathy with ejection fraction less than 20% and was placed on heart failure regimen with medications including metoprolol being increased initially 12.5 twice a day up to 50 mg twice a day. Patient states he had been doing fine at home until he started getting ready to go to a doctor's appointment and then felt somewhat lightheaded and then lost consciousness. Per patient he had been feeling well however he did note his blood pressure was somewhat lower the night before with the systolic 90's and he had been feeling somewhat "fuzzy" that morning. He was wearing his LifeVest at the time however no shock that he knows of. He denies any chest pain or pressure. He was noted to be somewhat hypotensive on presentation with systolics 70s to 80s. No recent fevers or chills. No other changes to his medications. He has been eating and drinking okay. Detailed problem list: #Syncope secondary to hypotension -Most likely secondary to hypotension induced by medications -Summer Counselor decreased metoprolol and losartan dose -Carotid Doppler without significant stenosis -Lasix and hold. Patient was given IV fluid -LifeVest interrogation unremarkable cardiology notes -Cardiology cleared the patient for discharge #Ischemic, with EF less than 20% -Status post anterior NH 12/23/2021 with PCI LAD -Coronary artery disease with prior LAD and circumflex stenting -Status post LifeVest -Cardiology following #Reactive Leukocytosis -Patient afebrile - negative COVID-19 -Unremarkable urinalysis #Hypertension -Patient was hypotensive. Medication was adjusted by cardiology #Elevated troponin secondary to recent NH #Morbid obesity BMI 42 Assessment: General: non toxic, no distress, appears older than stated age obese Derm: warm, dry Head: atraumatic, normocephalic, symmetric Eyes: EOMI, no lid lag, anicteric sclera Mouth: no lip lesion, mucus membranes moist. Poor oral dentition Cardiovascular: S1S2 reg, no murmur, positive posterior tibial pulse bilateral, Lungs: CTA bilateral, no rhonchi, no rales , no accessory muscle use Abdominal: soft, nontender to palpation, no guarding, no appreciable organomegaly Ext: no gross muscle atrophy, no edema, no contractures Neuro: CN II-XI grossly intact, no focal neuro deficits Psych: Alert, oriented, appropriate affect Patient Condition at Discharge: Stable Plan - Discharge Summary New Discharge Prescriptions: New Metoprolol Tartrate [Lopressor] 12.5 mg PO BID 30 Days #30 tab Losartan [Cozaar] 25 mg PO DAILY 30 Days #30 tab Continue metFORMIN HCL [Glucophage] 1,000 mg PO BID Atorvastatin [Lipitor] 80 mg PO HS #30 tab Tamsulosin HCl [Flomax] 0.4 mg PO DAILY Famotidine 20 mg PO BID DULoxetine HCL [Cymbalta] 60 mg PO DAILY DULoxetine HCL [Cymbalta] 30 mg PO DAILY Insulin Degludec [Tresiba Flextouch U-100 Pen] 60 units SQ DAILY Aspirin 81 mg PO DAILY OLANZapine [ZyPREXA] 2.5 mg PO HS Gabapentin 800 mg PO TID Spironolactone [Aldactone] 25 mg PO DAILY #90 tab Prasugrel [Effient] 10 mg PO DAILY #90 tab Nitroglycerin Sl Tabs [Nitrostat] 0.4 mg SUBLINGUAL Q5M PRN #25 tab PRN Reason: Chest Pain Discontinued Furosemide [Lasix] 20 mg PO DAILY Metoprolol Tartrate [Lopressor] 50 mg PO BID #180 tab Losartan Potassium [Cozaar] 100 mg PO DAILY Discharge Medication List metFORMIN HCL [Glucophage] 1,000 mg PO BID 04/03/19 [History] Atorvastatin [Lipitor] 80 mg PO HS #30 tab 04/06/19 [Rx] Tamsulosin HCl [Flomax] 0.4 mg PO DAILY 08/07/19 [History] Famotidine 20 mg PO BID 05/09/20 [History] DULoxetine HCL [Cymbalta] 30 mg PO DAILY 03/16/21 [History] DULoxetine HCL [Cymbalta] 60 mg PO DAILY 03/16/21 [History] Gabapentin 800 mg PO TID 03/16/21 [History] OLANZapine [ZyPREXA] 2.5 mg PO HS 03/16/21 [History] Insulin Degludec [Tresiba Flextouch U-100 Pen] 60 units SQ DAILY 12/23/21 [History] Aspirin 81 mg PO DAILY 12/26/21 [Rx] Nitroglycerin Sl Tabs [Nitrostat] 0.4 mg SUBLINGUAL Q5M PRN #25 tab 12/26/21 [Rx] Prasugrel [Effient] 10 mg PO DAILY #90 tab 12/26/21 [Rx] Spironolactone [Aldactone] 25 mg PO DAILY #90 tab 12/26/21 [Rx] Losartan [Cozaar] 25 mg PO DAILY 30 Days #30 tab 12/31/21 [Rx] Metoprolol Tartrate [Lopressor] 12.5 mg PO BID 30 Days #30 tab 12/31/21 [Rx] Follow up Appointment(s)/Referral(s): Dimitris Lozano MD [STAFF PHYSICIAN] - 01/04/22 3:30 pm Manuel Jameson MD [Primary Care Provider] - 01/01/22 1:30 pm (with wanda howell) Patient Instructions/Handouts: Syncope (DC), Hypotension (DC) Discharge Disposition: HOME SELF-CARE
[2021-12-31 11:39] LABS: Calcium 9.5 mg/dL (8.4-10.2); Potassium 4.9 mmol/L (3.5-5.1)
== END 2021-12-31 11:05 | disposition home or self-care (01) | DRG 281 ==
LOC: EC 15:45 → 2SICU 18:55
PROVIDERS: ADMIT Internal Medicine; ATTEND Internal Medicine
DX: I95.2 Hypotension due to drugs (principal); I21.09 ST elevation (STEMI) myocardial infarction involving other coronary artery of anterior wall; Z68.41 Body mass index [BMI] 40.0-44.9, adult; E87.2 Acidosis; N17.9 Acute kidney failure, unspecified; I50.22 Chronic systolic (congestive) heart failure; T44.7X5A Adverse effect of beta-adrenoreceptor antagonists, initial encounter; D64.9 Anemia, unspecified; D72.828 Other elevated white blood cell count; E11.9 Type 2 diabetes mellitus without complications; E66.01 Morbid (severe) obesity due to excess calories; E78.5 Hyperlipidemia, unspecified; F17.200 Nicotine dependence, unspecified, uncomplicated; F32.A Depression, unspecified; F41.9 Anxiety disorder, unspecified; I25.10 Atherosclerotic heart disease of native coronary artery without angina pectoris; Z20.822 Contact with and (suspected) exposure to COVID-19; I11.0 Hypertensive heart disease with heart failure; I25.5 Ischemic cardiomyopathy; I34.0 Nonrheumatic mitral (valve) insufficiency; J45.909 Unspecified asthma, uncomplicated; Z79.02 Long term (current) use of antithrombotics/antiplatelets; Z79.82 Long term (current) use of aspirin; Z79.84 Long term (current) use of oral hypoglycemic drugs; Z79.899 Other long term (current) drug therapy; Z82.49 Family history of ischemic heart disease and other diseases of the circulatory system; Z87.442 Personal history of urinary calculi; Z95.5 Presence of coronary angioplasty implant and graft; I95.9 Hypotension, unspecified; R77.8 Other specified abnormalities of plasma proteins
CPT/HCPCS: 36415; 71046; 80048; 80053; 81003; 83735; 83880; 84443; 84484; 85025; 85610; 85730; 87040; 87086; 87635; 93005; 93306; 93880; 96360; 99285

== ENCOUNTER 2022-03-14 16:00 | Emergency (ER) | payer BC ==
[2022-03-14 16:07] VITALS: RESP 18; TEMP 98.2
[2022-03-14] MEDS ORDERED: SODIUM CHLORIDE 0.9% 500 ML 500 ML IV STA (16:23)
--- NOTE | 2022-03-14 16:28 | ED ---
General Adult HPI - General Chief complaint: Dizziness Stated complaint: Lightheaded Time Seen by Provider: 03/14/22 16:09 Source: patient, RN notes reviewed, old records reviewed Mode of arrival: ambulatory Limitations: no limitations - History of Present Illness Initial comments: 52-year-old male history of CAD, ischemic cardiomyopathy with low EF currently wearing a LifeVest presenting for evaluation of hypotension. Patient has diabetes, hyperlipidemia, CAD. He is on metoprolol, spironolactone, and losartan. He noticed his blood pressure was low today and he felt somewhat dizzy. Upon arrival his blood pressures in the 80s systolic. He has no central chest pain. He has a minimal chest discomfort. No fever. No vomiting or diarrhea. - Related Data Home Medications Medication Instructions Recorded Confirmed metFORMIN HCL [Glucophage] 1,000 mg PO BID 04/03/19 12/29/21 Tamsulosin HCl [Flomax] 0.4 mg PO DAILY 08/07/19 12/29/21 Famotidine 20 mg PO BID 05/09/20 12/29/21 DULoxetine HCL [Cymbalta] 30 mg PO DAILY 03/16/21 12/29/21 DULoxetine HCL [Cymbalta] 60 mg PO DAILY 03/16/21 12/29/21 Gabapentin 800 mg PO TID 03/16/21 12/29/21 OLANZapine [ZyPREXA] 2.5 mg PO HS 03/16/21 12/29/21 Insulin Degludec [Tresiba 60 units SQ DAILY 12/23/21 12/29/21 Flextouch U-100 Pen] Previous Rx's Medication Instructions Recorded Atorvastatin [Lipitor] 80 mg PO HS #30 tab 04/06/19 Aspirin 81 mg PO DAILY 12/26/21 Nitroglycerin Sl Tabs [Nitrostat] 0.4 mg SUBLINGUAL Q5M PRN #25 tab 12/26/21 Prasugrel [Effient] 10 mg PO DAILY #90 tab 12/26/21 Spironolactone [Aldactone] 25 mg PO DAILY #90 tab 12/26/21 Losartan [Cozaar] 25 mg PO DAILY 30 Days #30 tab 12/31/21 Metoprolol Tartrate [Lopressor] 12.5 mg PO BID 30 Days #30 tab 12/31/21 Allergies Allergy/AdvReac Type Severity Reaction Status Date / Time penicillin V Allergy Severe Rapid Verified 03/14/22 16:07 Heart Rate Mushroom AdvReac Mild Nausea & Verified 03/14/22 16:07 Vomiting Review of Systems ROS Statement: Those systems with pertinent positive or pertinent negative responses have been documented in the HPI. ROS Other: All systems not noted in ROS Statement are negative. Past Medical History Past Medical History: Asthma, Chest Pain / Angina, Diabetes Mellitus, Hyperlipidemia, Hypertension, Myocardial Infarction (PR), Pneumonia, Sleep Apnea/CPAP/BIPAP Additional Past Medical History / Comment(s): NUMBNESS/TINGLING LAWRENCE LEGS, kidney stone, Last Myocardial Infarction Date:: 03/2019 History of Any Multi-Drug Resistant Organisms: None Reported Past Surgical History: Back Surgery, Cholecystectomy, Heart Catheterization With Stent, Hernia Repair, Orthopedic Surgery, Tonsillectomy Additional Past Surgical History / Comment(s): RT KNEE arthroscopy, LAWRENCE WRIST ORIF, RIGHT SHOULDER arthroscopy x 2, SINUS surgery,. 3 cardiac stents, rt wrist ganglion cyst, 4 screws and 2 rods lower back, recent stent placed Past Anesthesia/Blood Transfusion Reactions: No Reported Reaction Date of Last Stent Placement:: 05/2019 Past Psychological History: Anxiety, Depression Smoking Status: Current every day smoker Past Alcohol Use History: None Reported Past Drug Use History: Marijuana - Past Family History Father Family Medical History: Cancer Additional Family Medical History / Comment(s): COLON Family Additional Family Medical History / Comment(s): Multiple people hypertension. Denies any history of coronary artery disease. General Exam Limitations: no limitations General appearance: alert, in no apparent distress Head exam: Present: atraumatic, normocephalic Eye exam: Present: normal appearance, PERRL ENT exam: Present: normal exam Neck exam: Present: normal inspection. Absent: tenderness, meningismus Respiratory exam: Present: wheezes (Minimal scattered wheezing). Absent: respiratory distress, rales Cardiovascular Exam: Present: regular rate, normal rhythm GI/Abdominal exam: Present: soft. Absent: distended, tenderness Rectal exam: Present: normal inspection. Absent: black stool, bloody stool, hemorrhoids Extremities exam: Present: normal capillary refill, pedal edema (trace) Neurological exam: Present: alert, oriented X3, CN II-XII intact. Absent: motor sensory deficit Psychiatric exam: Present: normal affect, normal mood Skin exam: Present: warm, dry, intact. Absent: cyanosis, diaphoretic Course Vital Signs 03/14/22 16:04 Temperature 98.2 F Pulse Rate 77 Respiratory 18 Rate Blood Pressure 87/54 O2 Sat by Pulse 98 Oximetry - Reevaluation(s) Reevaluation #1: 03/14/22 17:42 Blood pressure is stable 112 systolic, normal heart rate, patient without complaint. EKG Findings - EKG Comments: EKG Findings:: Sinus rhythm rate of 80, no ST segment elevation, KS interval 180, QRS duration 97, QTc 412 Medical Decision Making - Medical Decision Making 52-year-old male presenting for evaluation of hypotension at home with lightheadedness. Patient has history of an ischemic cardiomyopathy with an EF of 20. He does currently wear a LifeVest. He had a recent echo and is awaiting these results. He presented with hypotension, initial blood pressure is in the 80s. Workup is initiated. He has a EKG which is stable from prior, no ST segment elevation, sinus rhythm. Chest x-rays clear, no pulmonary edema or focal pneumonia. CBC shows a mild leukocytosis, hemoglobin of 8.3 from a baseline of 12.5. I did request and the patient about his recent bowel movements. He states for the past 4 days he's had dark stool. No previous history of GI bleed. I did perform a rectal exam which did not have any stool within the rectal vault. He started on Protonix. There is a high suspicion for gastrointestinal bleeding given the significant drop in hemoglobin, as well as the fact that this patient is on 2 antiplatelet medication and has had melanotic stool. I repeated the CBC to ensure that this is accurate his repeat is 7.7. This was after a 500 mL bolus. I discussed the fact we did not have gastrointestinal services at this institution currently and the patient will require transfer. He will be transferred to [facility]. Accepting physician is Maria Esther. - Lab Data Result diagrams: 03/14/22 17:28 03/14/22 16:26 Lab Results 03/14/22 03/14/22 03/14/22 Range/Units 16:26 16:26 16:26 WBC 13.2 H (3.8-10.6) k/uL RBC 3.78 L (4.30-5.90) m/uL Hgb 8.3 L (13.0-17.5) gm/dL Hct 27.3 L (39.0-53.0) % MCV 72.2 L (80.0-100.0) fL MCH 21.9 L (25.0-35.0) pg MCHC 30.3 L (31.0-37.0) g/dL RDW 15.5 (11.5-15.5) % Plt Count 435 (150-450) k/uL MPV 7.3 Neutrophils % 70 % Lymphocytes % 19 % Monocytes % 5 % Eosinophils % 3 % Basophils % 1 % Neutrophils # 9.2 H (1.3-7.7) k/uL Lymphocytes # 2.5 (1.0-4.8) k/uL Monocytes # 0.7 (0-1.0) k/uL Eosinophils # 0.4 (0-0.7) k/uL Basophils # 0.1 (0-0.2) k/uL Hypochromasia Marked Poikilocytosis Slight Microcytosis Moderate PT 11.1 (9.0-12.0) sec INR 1.0 (<1.2) APTT 21.7 L (22.0-30.0) sec Sodium 135 L (137-145) mmol/L Potassium 4.1 (3.5-5.1) mmol/L Chloride 103 (98-107) mmol/L Carbon Dioxide 23 (22-30) mmol/L Anion Gap 9 mmol/L BUN 14 (9-20) mg/dL Creatinine 1.32 H (0.66-1.25) mg/dL Est GFR (CKD-EPI)AfAm 71 (>60 ml/min/1.73 sqM) Est GFR (CKD-EPI)NonAf 61 (>60 ml/min/1.73 sqM) Glucose 132 H (74-99) mg/dL Calcium 9.1 (8.4-10.2) mg/dL Magnesium 1.9 (1.6-2.3) mg/dL Total Bilirubin 0.5 (0.2-1.3) mg/dL AST 21 (17-59) U/L ALT 14 (4-49) U/L Alkaline Phosphatase 122 (38-126) U/L Troponin I (0.000-0.034) ng/mL NT-Pro-B Natriuret Pep pg/mL Total Protein 6.8 (6.3-8.2) g/dL Albumin 3.7 (3.5-5.0) g/dL 03/14/22 03/14/22 03/14/22 Range/Units 16:26 16:26 17:28 WBC 13.7 H (3.8-10.6) k/uL RBC 3.58 L (4.30-5.90) m/uL Hgb 7.7 L (13.0-17.5) gm/dL Hct 25.8 L (39.0-53.0) % MCV 72.0 L (80.0-100.0) fL MCH 21.4 L (25.0-35.0) pg MCHC 29.7 L (31.0-37.0) g/dL RDW 15.6 H (11.5-15.5) % Plt Count 393 (150-450) k/uL MPV 6.9 Neutrophils % 66 % Lymphocytes % 21 % Monocytes % 6 % Eosinophils % 3 % Basophils % 1 % Neutrophils # 9.0 H (1.3-7.7) k/uL Lymphocytes # 2.9 (1.0-4.8) k/uL Monocytes # 0.9 (0-1.0) k/uL Eosinophils # 0.4 (0-0.7) k/uL Basophils # 0.1 (0-0.2) k/uL Hypochromasia Marked Poikilocytosis Slight Microcytosis Moderate PT (9.0-12.0) sec INR (<1.2) APTT (22.0-30.0) sec Sodium (137-145) mmol/L Potassium (3.5-5.1) mmol/L Chloride (98-107) mmol/L Carbon Dioxide (22-30) mmol/L Anion Gap mmol/L BUN (9-20) mg/dL Creatinine (0.66-1.25) mg/dL Est GFR (CKD-EPI)AfAm (>60 ml/min/1.73 sqM) Est GFR (CKD-EPI)NonAf (>60 ml/min/1.73 sqM) Glucose (74-99) mg/dL Calcium (8.4-10.2) mg/dL Magnesium (1.6-2.3) mg/dL Total Bilirubin (0.2-1.3) mg/dL AST (17-59) U/L ALT (4-49) U/L Alkaline Phosphatase (38-126) U/L Troponin I 0.030 (0.000-0.034) ng/mL NT-Pro-B Natriuret Pep 1480 pg/mL Total Protein (6.3-8.2) g/dL Albumin (3.5-5.0) g/dL Critical Care Time Critical Care Time: Yes Total Critical Care Time: 35 Disposition Clinical Impression: Ischemic cardiomyopathy, Anemia, Melanotic stools, GI bleed Disposition: OTHER INSTITUTION NOT DEFINED Condition: Stable Is patient prescribed a controlled substance at d/c from ED?: No Referrals: Manuel Jameson MD [Primary Care Provider] - 1-2 days Time of Disposition: 17:43 - Out of Hospital Transfer - Req. Specs Out of Hospital Transfer - Requested Specifics: Other Emergency Center (Transferred to [facility])
--- NOTE | 2022-03-14 16:46 | XR ---
EXAMINATION TYPE: XR chest 2V DATE OF EXAM: 03/14/2022 COMPARISON: 12/29/2021 HISTORY: Hypotension. Syncope. TECHNIQUE: FINDINGS: Heart and mediastinum are normal. Lungs are clear of infiltrate. No heart failure. Diaphrag m is normal. Bony thorax is intact. IMPRESSION: No active cardiopulmonary disease. No change.
[2022-03-14 16:47] LABS: Basophils # (A) 0.1 k/uL (0-0.2); Basophils % (A) 1 %; Eosinophils # (A) 0.4 k/uL (0-0.7); Eosinophils % (A) 3 %; HCT 27.3 % (39.0-53.0); HGB 8.3 gm/dL (13.0-17.5); Hypochromasia Marked; Lymphocytes # (A) 2.5 k/uL (1.0-4.8); Lymphocytes % (A) 19 %; MCH 21.9 pg (25.0-35.0); MCHC 30.3 g/dL (31.0-37.0); MCV 72.2 fL (80.0-100.0); Mean Platelet Volume 7.3; Microcytosis Moderate; Monocytes # (A) 0.7 k/uL (0-1.0); Monocytes % (A) 5 %; Neutrophils # (A) 9.2 k/uL (1.3-7.7); Neutrophils % (A) 70 %; Platelet Count 435 k/uL (150-450); Poikilocytosis Slight; RBC 3.78 m/uL (4.30-5.90); RDW 15.5 % (11.5-15.5); WBC 13.2 k/uL (3.8-10.6)
[2022-03-14 16:59] LABS: ALT 14 U/L (4-49); AST 21 U/L (17-59); African American GFR (CKD) 71 (>60 ml/min/1.73 sqM); Albumin 3.7 g/dL (3.5-5.0); Alkaline Phosphatase 122 U/L (38-126); Anion Gap 9 mmol/L; Blood Urea Nitrogen 14 mg/dL (9-20); Calcium 9.1 mg/dL (8.4-10.2); Carbon Dioxide 23 mmol/L (22-30); Chloride 103 mmol/L (98-107); Glucose 132 mg/dL (74-99); Magnesium 1.9 mg/dL (1.6-2.3); Non-African American GFR(CKD) 61 (>60 ml/min/1.73 sqM); Potassium 4.1 mmol/L (3.5-5.1); Prothrombin Time 11.1 sec (9.0-12.0); Sodium 135 mmol/L (137-145); Total Bilirubin 0.5 mg/dL (0.2-1.3); Total Protein 6.8 g/dL (6.3-8.2)
[2022-03-14] MEDS ORDERED: PANTOPRAZOLE 40 MG/10 ML VIAL IVP STA (17:07)
[2022-03-14 17:09] LABS: Partial Thromboplastin Time 21.7 sec (22.0-30.0)
[2022-03-14 17:32] LABS: Basophils # (A) 0.1 k/uL (0-0.2); Basophils % (A) 1 %; Eosinophils # (A) 0.4 k/uL (0-0.7); Eosinophils % (A) 3 %; HCT 25.8 % (39.0-53.0); HGB 7.7 gm/dL (13.0-17.5); Hypochromasia Marked; Lymphocytes # (A) 2.9 k/uL (1.0-4.8); Lymphocytes % (A) 21 %; MCH 21.4 pg (25.0-35.0); MCHC 29.7 g/dL (31.0-37.0); Mean Platelet Volume 6.9; Microcytosis Moderate; Monocytes # (A) 0.9 k/uL (0-1.0); Monocytes % (A) 6 %; Neutrophils % (A) 66 %; Platelet Count 393 k/uL (150-450); Poikilocytosis Slight; RBC 3.58 m/uL (4.30-5.90); RDW 15.6 % (11.5-15.5); WBC 13.7 k/uL (3.8-10.6)
[2022-03-14 18:18] VITALS: BP 112/69; PULSE 64
[2022-03-14] MEDS ORDERED: PANTOPRAZOLE 40 MG/10 ML VIAL IVP SCH (21:00)
[2022-03-14 22:46] LABS: LDL Cholesterol,Calculated 41.2 mg/dL (0.0-131.0)
== END 2022-03-14 18:56 | disposition other institution (70) ==
LOC: EC 16:00
DX: I25.5 Ischemic cardiomyopathy (principal); D64.9 Anemia, unspecified; K92.1 Melena; K92.2 Gastrointestinal hemorrhage, unspecified; D72.829 Elevated white blood cell count, unspecified; E11.9 Type 2 diabetes mellitus without complications; E78.5 Hyperlipidemia, unspecified; F17.200 Nicotine dependence, unspecified, uncomplicated; I10 Essential (primary) hypertension; I25.2 Old myocardial infarction; J45.909 Unspecified asthma, uncomplicated; Z79.4 Long term (current) use of insulin; Z79.899 Other long term (current) drug therapy; Z88.0 Allergy status to penicillin; Z95.5 Presence of coronary angioplasty implant and graft; Z91.018 Allergy to other foods
CPT/HCPCS: 36415; 93005; 83880; 80061; 80053; 83735; 84484; 85025; 85610; 85730; 71046; 99291; 96374; C9113

== ENCOUNTER 2022-04-01 10:58 | Observation (INO) | payer BC ==
[2022-04-01 13:14] LABS: Anisocytosis Slight; Basophils # (A) 0.1 k/uL (0-0.2); Basophils % (A) 1 %; Eosinophils # (A) 0.7 k/uL (0-0.7); Eosinophils % (A) 6 %; HCT 30.4 % (39.0-53.0); HGB 8.4 gm/dL (13.0-17.5); Hypochromasia Marked; Lymphocytes # (A) 1.6 k/uL (1.0-4.8); Lymphocytes % (A) 14 %; MCH 20.4 pg (25.0-35.0); MCHC 27.8 g/dL (31.0-37.0); MCV 73.6 fL (80.0-100.0); Mean Platelet Volume 7.2; Microcytosis Moderate; Monocytes # (A) 0.5 k/uL (0-1.0); Monocytes % (A) 5 %; Neutrophils # (A) 8.5 k/uL (1.3-7.7); Neutrophils % (A) 73 %; Platelet Count 443 k/uL (150-450); Poikilocytosis Slight; RBC 4.13 m/uL (4.30-5.90); RDW 17.7 % (11.5-15.5); WBC 11.7 k/uL (3.8-10.6)
[2022-04-01 13:23] LABS: Partial Thromboplastin Time 22.7 sec (22.0-30.0)
[2022-04-01 13:40] LABS: Albumin 4.2 g/dL (3.5-5.0); Calcium 9.2 mg/dL (8.4-10.2); Potassium 4.9 mmol/L (3.5-5.1); Total Bilirubin 1.1 mg/dL (0.2-1.3); Total Protein 7.8 g/dL (6.3-8.2)
--- NOTE | 2022-04-01 15:29 | ED ---
General Adult HPI - General Chief complaint: Recheck/Abnormal Lab/Rx Stated complaint: Recheck/Abnormal Labs Time Seen by Provider: 04/01/22 15:03 Source: patient, family, RN notes reviewed, old records reviewed Mode of arrival: ambulatory Limitations: no limitations - History of Present Illness Initial comments: 52-year-old male presents for evaluation of abnormal outpatient labs. Patient was told by his primary care physician that his hemoglobin was low and that he should present to the emergency department. Patient states he had recent GI bleed and received endoscopy at outside facility. He is scheduled for outpatient colonoscopy. He is also scheduled for the fibrillator placement next week. He has had fatigue, exertional dyspnea and some chest discomfort. He has no pain at the time my evaluation. No fever, mild cough. - Related Data Home Medications Medication Instructions Recorded Confirmed metFORMIN HCL [Glucophage] 1,000 mg PO BID 04/03/19 12/29/21 Tamsulosin HCl [Flomax] 0.4 mg PO DAILY 08/07/19 12/29/21 Famotidine 20 mg PO BID 05/09/20 12/29/21 DULoxetine HCL [Cymbalta] 30 mg PO DAILY 03/16/21 12/29/21 DULoxetine HCL [Cymbalta] 60 mg PO DAILY 03/16/21 12/29/21 Gabapentin 800 mg PO TID 03/16/21 12/29/21 OLANZapine [ZyPREXA] 2.5 mg PO HS 03/16/21 12/29/21 Insulin Degludec [Tresiba 60 units SQ DAILY 12/23/21 12/29/21 Flextouch U-100 Pen] Previous Rx's Medication Instructions Recorded Atorvastatin [Lipitor] 80 mg PO HS #30 tab 04/06/19 Aspirin 81 mg PO DAILY 12/26/21 Nitroglycerin Sl Tabs [Nitrostat] 0.4 mg SUBLINGUAL Q5M PRN #25 tab 12/26/21 Prasugrel [Effient] 10 mg PO DAILY #90 tab 12/26/21 Spironolactone [Aldactone] 25 mg PO DAILY #90 tab 12/26/21 Losartan [Cozaar] 25 mg PO DAILY 30 Days #30 tab 12/31/21 Metoprolol Tartrate [Lopressor] 12.5 mg PO BID 30 Days #30 tab 12/31/21 Allergies Allergy/AdvReac Type Severity Reaction Status Date / Time penicillin V Allergy Severe Rapid Verified 04/01/22 12:45 Heart Rate Mushroom AdvReac Mild Nausea & Verified 04/01/22 12:45 Vomiting Review of Systems ROS Statement: Those systems with pertinent positive or pertinent negative responses have been documented in the HPI. ROS Other: All systems not noted in ROS Statement are negative. Past Medical History Past Medical History: Asthma, Chest Pain / Angina, Diabetes Mellitus, Hyperlipidemia, Hypertension, Myocardial Infarction (MS), Pneumonia, Sleep Apnea/CPAP/BIPAP Additional Past Medical History / Comment(s): NUMBNESS/TINGLING LAWRENCE LEGS, kidney stone, Last Myocardial Infarction Date:: 03/2019 History of Any Multi-Drug Resistant Organisms: None Reported Past Surgical History: Back Surgery, Cholecystectomy, Heart Catheterization With Stent, Hernia Repair, Orthopedic Surgery, Tonsillectomy Additional Past Surgical History / Comment(s): RT KNEE arthroscopy, LAWRENCE WRIST ORIF, RIGHT SHOULDER arthroscopy x 2, SINUS surgery,. 3 cardiac stents, rt wrist ganglion cyst, 4 screws and 2 rods lower back, recent stent placed Past Anesthesia/Blood Transfusion Reactions: No Reported Reaction Date of Last Stent Placement:: 05/2019 Past Psychological History: Anxiety, Depression Smoking Status: Current every day smoker Past Alcohol Use History: None Reported Past Drug Use History: Marijuana - Past Family History Father Family Medical History: Cancer Additional Family Medical History / Comment(s): COLON Family Additional Family Medical History / Comment(s): Multiple people hypertension. Denies any history of coronary artery disease. General Exam Limitations: no limitations General appearance: alert, in no apparent distress Head exam: Present: atraumatic, normocephalic Eye exam: Present: normal appearance, PERRL ENT exam: Present: normal exam Neck exam: Present: normal inspection. Absent: tenderness, meningismus Respiratory exam: Present: normal lung sounds bilaterally. Absent: respiratory distress, wheezes Cardiovascular Exam: Present: regular rate, normal rhythm GI/Abdominal exam: Present: soft. Absent: distended, tenderness, guarding Extremities exam: Present: normal inspection, normal capillary refill Neurological exam: Present: alert, oriented X3, CN II-XII intact. Absent: motor sensory deficit Psychiatric exam: Present: normal affect, normal mood Skin exam: Present: warm, dry, intact. Absent: cyanosis, diaphoretic Course Vital Signs 04/01/22 04/01/22 12:41 14:51 Temperature 98.0 F Pulse Rate 68 66 Respiratory 18 16 Rate Blood Pressure 94/45 126/78 O2 Sat by Pulse 97 99 Oximetry EKG Findings - EKG Comments: EKG Findings:: EKG: Sinus rhythm with first-degree AV block, left axis, rate is 62, WA interval 2:15, QRS duration 111, QTC 367, no ST segment elevation. Medical Decision Making - Medical Decision Making 52-year-old male presented for evaluation of abnormal outpatient labs, chest pain. Patient had recent ER evaluation and transfer to [facility] with melanotic stool. He states he had an upper GI. These records are being requested currently. He was sent in for low hemoglobin. Hemoglobin today is 8.4 which is stable for this patient. He had complained of some intermittent chest pain as well. EKG is sinus rhythm without ST segment elevation. Chest x- ray shows mild pulmonary vascular congestion. His troponin is negative. Other laboratory testing is unremarkable. He is scheduled for implantable defibrillator within the next one week. He'll be placed in observation for stroke or headache enzymes, close monitoring, and cardiology consultation. Case discussed with [facility]. - Lab Data Result diagrams: 04/01/22 12:47 04/01/22 12:47 Lab Results 04/01/22 04/01/22 04/01/22 Range/Units 12:47 12:47 12:47 WBC 11.7 H (3.8-10.6) k/uL RBC 4.13 L (4.30-5.90) m/uL Hgb 8.4 L (13.0-17.5) gm/dL Hct 30.4 L (39.0-53.0) % MCV 73.6 L (80.0-100.0) fL MCH 20.4 L (25.0-35.0) pg MCHC 27.8 L (31.0-37.0) g/dL RDW 17.7 H (11.5-15.5) % Plt Count 443 (150-450) k/uL MPV 7.2 Neutrophils % 73 % Lymphocytes % 14 % Monocytes % 5 % Eosinophils % 6 % Basophils % 1 % Neutrophils # 8.5 H (1.3-7.7) k/uL Lymphocytes # 1.6 (1.0-4.8) k/uL Monocytes # 0.5 (0-1.0) k/uL Eosinophils # 0.7 (0-0.7) k/uL Basophils # 0.1 (0-0.2) k/uL Hypochromasia Marked Poikilocytosis Slight Anisocytosis Slight Microcytosis Moderate PT 11.0 (9.0-12.0) sec INR 1.0 (<1.2) APTT 22.7 (22.0-30.0) sec Sodium 135 L (137-145) mmol/L Potassium 4.9 (3.5-5.1) mmol/L Chloride 99 (98-107) mmol/L Carbon Dioxide 25 (22-30) mmol/L Anion Gap 11 mmol/L BUN 16 (9-20) mg/dL Creatinine 1.30 H (0.66-1.25) mg/dL Est GFR (CKD-EPI)AfAm 72 (>60 ml/min/1.73 sqM) Est GFR (CKD-EPI)NonAf 62 (>60 ml/min/1.73 sqM) Glucose 93 (74-99) mg/dL Calcium 9.2 (8.4-10.2) mg/dL Total Bilirubin 1.1 (0.2-1.3) mg/dL AST 32 (17-59) U/L ALT 9 (4-49) U/L Alkaline Phosphatase 158 H (38-126) U/L Troponin I (0.000-0.034) ng/mL Total Protein 7.8 (6.3-8.2) g/dL Albumin 4.2 (3.5-5.0) g/dL 04/01/22 Range/Units 12:47 WBC (3.8-10.6) k/uL RBC (4.30-5.90) m/uL Hgb (13.0-17.5) gm/dL Hct (39.0-53.0) % MCV (80.0-100.0) fL MCH (25.0-35.0) pg MCHC (31.0-37.0) g/dL RDW (11.5-15.5) % Plt Count (150-450) k/uL MPV Neutrophils % % Lymphocytes % % Monocytes % % Eosinophils % % Basophils % % Neutrophils # (1.3-7.7) k/uL Lymphocytes # (1.0-4.8) k/uL Monocytes # (0-1.0) k/uL Eosinophils # (0-0.7) k/uL Basophils # (0-0.2) k/uL Hypochromasia Poikilocytosis Anisocytosis Microcytosis PT (9.0-12.0) sec INR (<1.2) APTT (22.0-30.0) sec Sodium (137-145) mmol/L Potassium (3.5-5.1) mmol/L Chloride (98-107) mmol/L Carbon Dioxide (22-30) mmol/L Anion Gap mmol/L BUN (9-20) mg/dL Creatinine (0.66-1.25) mg/dL Est GFR (CKD-EPI)AfAm (>60 ml/min/1.73 sqM) Est GFR (CKD-EPI)NonAf (>60 ml/min/1.73 sqM) Glucose (74-99) mg/dL Calcium (8.4-10.2) mg/dL Total Bilirubin (0.2-1.3) mg/dL AST (17-59) U/L ALT (4-49) U/L Alkaline Phosphatase (38-126) U/L Troponin I 0.020 (0.000-0.034) ng/mL Total Protein (6.3-8.2) g/dL Albumin (3.5-5.0) g/dL Disposition Clinical Impression: Chest pain, Ischemic cardiomyopathy, Anemia Disposition: ADMITTED IP TO THIS HOSP Condition: Stable Is patient prescribed a controlled substance at d/c from ED?: No Referrals: Manuel Jameson MD [Primary Care Provider] - 1-2 days Time of Disposition: 15:50
--- NOTE | 2022-04-01 15:32 | XR ---
EXAMINATION TYPE: XR chest 2V DATE OF EXAM: 04/01/2022 COMPARISON: 03/14/2022 TECHNIQUE: PA and lateral views submitted. HISTORY: Cough FINDINGS: The lungs are clear and there is no pneumothorax, pleural effusion, or focal pneumonia. Heart size is stable and normal. Mildly prominent interstitium. Suspect underlying COPD with biapical pleural th ickening. Tiny bilateral pleural effusions or thickening. IMPRESSION: 1. COPD correlate for chronic interstitial lung disease or mild venous congestion versus interstitial pneumonitis. Tiny bilateral pleural effusions..
[2022-04-01] MEDS ORDERED: NALOXONE 0.4 MG/ML 1 ML VIAL IV PRN (15:53)
[2022-04-01] MEDS ORDERED: ACETAMINOPHEN TAB 325 MG TAB PO PRN (15:53)
--- NOTE | 2022-04-01 17:07 | P.HPIM ---
History of Present Illness H&P Date: 04/01/22 Chief Complaint: Abnormal lab work Patient is a 52-year-old male with PMH of CAD, hypertension, diabetes mellitus, dyslipidemia, ischemic cardiomyopathy with EF of 20-25% with global hypokinesis presents the ED for abnormal blood work. His PCP advised him to go to the ED fo r a low hemoglobin. Patient reports occasional melanotic stool and lightheadedness with exertion. He reports feeling short of breath on walking from the parking lot to the ER. Patient reports that he had a follow-up with Dr. Sellers for defibrillator placement. He was also supposed to schedule an appointment with Dr. Coello for colonoscopy which he never got the chance to. He denies any orthopnea or lower extremity swelling. He denies any headache, nausea or vomiting, fever chills, cough, chest pain, palpitations, changes in urination. No changes in appetite or weight. He denies any numb ness/weakness/tingling of the extremities. In the ED, he was noted to be hypotensive 94/55 with pulse of 68. His blood pressure improved with a SBP in the 120s with no intervention. CBC showed a leukocytosis of 11.7 and hemoglobin 8.4 with MCV of 73.6. Coagulation profile negative. CMP showed sodium of 135, creatinine of 1.3 and alkaline phosphatase of 158. Troponin was 0.02 with EKG showing T-wave inversions. Chest x-ray showed mild venous congestion with tiny bilateral pleural effusion. Patient is admitted to rule out acute coronary syndrome and cardiology evaluation. Review of systems was performed and is negative except above. General: [non toxic], [no distress], [appears at stated age] Derm: [warm], [dry] Head: [atraumatic], [normocephalic], [symmetric] Eyes: [EOMI], [no lid lag], [anicteric sclera] Mouth: [no lip lesion], [mucus membranes moist] Cardiovascular: [S1S2 reg], [no murmur] Lungs: [CTA bilateral], [no rhonchi, no rales] , [no accessory muscle use] Abdominal: [soft], [ nontender to palpation], [no guarding], [no appreciable organomegaly] Ext: [no gross muscle atrophy], [no edema], [no contractures] Neuro: [ CN II-XI grossly intact], [no focal neuro deficits] Psych: [Alert], [oriented], [appropriate affect] #Acute on chronic systolic CHF exacerbation #Microcytic anemia with history of GI bleed #Acute kidney injury #Smoker #Morbid obesity Chronic conditions: CAD, Diabetes mellitus, dyslipidemia, BPH Chest x-ray shows pulmonary vascular congestion. Most recent echocardiogram shows EF of 20-25% with global hypokinesis. Patient be started on Lasix 40 mg IV daily. Strict intake and output take will be ordered along with daily weights. Troponins were trended and ACS be ruled out. Restart Losartan, Aldactone and Metoprolol. Patient be placed on telemetry monitoring. Cardiology has been consulted for further management of this patient. Patient presents after being advised by his PCP for low hemoglobin. He denies any chest pain or palpitations. He reports occasional melanotic stools and lightheadedness, shortness of breath with exertion. His hemoglobin is 8.4 with MCV of 73.6. This is improved when compared to his hemoglobin from March 14 which was 7.7. CBC will be repeated tomorrow morning. Patient be transfused PRBCs if hemoglobin is less than 7. Aspirin and Parasugrel will be held. Stool for occult blood is ordered. He will be restarted on Protonix 40 mg PO BID. Surgery has been consulted for further management of this patient. Patient likely has a component of chronic kidney disease. His creatinine on discharge was 1.32. Creatinine today is 1.30. Nephrotoxins will be avoided. BMP will be repeated tomorrow morning. Patient was offered a nicotine patch which he refused. His been encouraged to quit smoking. Patient will benefit from a structured weight loss program. Start low dose insulin sliding scale along with accuchecks four times a day and hypoglycemic precations. Restart Lipitor for dyslipidemia. Restart Flomax. DVT prophylaxis: [SCDs] Discussed with: [Patient and , ED physician] Anticipated discharge: [1-2 days] Anticipated discharge place: [Home] A total of [45] minutes was spent on the care of this complex patient more than 50% of the time was spent in counseling and care coordination. Patient names his decision maker if he can make decisions for himself. Patient would like to be full code. Past Medical History Past Medical History: Asthma, Chest Pain / Angina, Diabetes Mellitus, Hyperlipidemia, Hypertension, Myocardial Infarction (HI), Pneumonia, Sleep Apnea/CPAP/BIPAP Additional Past Medical History / Comment(s): NUMBNESS/TINGLING LAWRENCE LEGS, kidney stone, Last Myocardial Infarction Date:: 03/2019 History of Any Multi-Drug Resistant Organisms: None Reported Past Surgical History: Back Surgery, Cholecystectomy, Heart Catheterization With Stent, Hernia Repair, Orthopedic Surgery, Tonsillectomy Additional Past Surgical History / Comment(s): RT KNEE arthroscopy, LAWRENCE WRIST ORIF, RIGHT SHOULDER arthroscopy x 2, SINUS surgery,. 3 cardiac stents, rt wrist ganglion cyst, 4 screws and 2 rods lower back, recent stent placed Past Anesthesia/Blood Transfusion Reactions: No Reported Reaction Date of Last Stent Placement:: 05/2019 Past Psychological History: Anxiety, Depression Smoking Status: Current every day smoker Past Alcohol Use History: None Reported Past Drug Use History: Marijuana - Past Family History Father Family Medical History: Cancer Additional Family Medical History / Comment(s): COLON Family Additional Family Medical History / Comment(s): Multiple people hypertension. Denies any history of coronary artery disease. Medications and Allergies Home Medications Medication Instructions Recorded Confirmed Type Atorvastatin [Lipitor] 80 mg PO HS #30 tab 04/06/19 04/01/22 Rx Tamsulosin HCl [Flomax] 0.4 mg PO DAILY 08/07/19 04/01/22 History Famotidine 20 mg PO BID 05/09/20 04/01/22 History DULoxetine HCL [Cymbalta] 30 mg PO DAILY 03/16/21 04/01/22 History DULoxetine HCL [Cymbalta] 60 mg PO DAILY 03/16/21 04/01/22 History Gabapentin 800 mg PO TID 03/16/21 04/01/22 History Insulin Degludec [Tresiba 50 units SQ DAILY 12/23/21 04/01/22 History Flextouch U-100 Pen] Aspirin 81 mg PO DAILY 12/26/21 04/01/22 Rx Nitroglycerin Sl Tabs [Nitrostat] 0.4 mg SUBLINGUAL Q5M PRN #25 tab 12/26/21 04/01/22 Rx Prasugrel [Effient] 10 mg PO DAILY #90 tab 12/26/21 04/01/22 Rx Spironolactone [Aldactone] 25 mg PO DAILY #90 tab 12/26/21 04/01/22 Rx Losartan [Cozaar] 25 mg PO DAILY 30 Days #30 tab 12/31/21 04/01/22 Rx Empagliflozin [Jardiance] 10 mg PO DAILY 04/01/22 04/01/22 History Furosemide [Lasix] 20 mg PO DAILY 04/01/22 04/01/22 History Metoprolol Succinate (ER) [Toprol 50 mg PO DAILY 04/01/22 04/01/22 History Xl] Pantoprazole Sodium [Protonix] 40 mg PO BID 04/01/22 04/01/22 History metFORMIN HCL [Glucophage XR] 1,500 mg PO DAILY 04/01/22 04/01/22 History Allergies Allergy/AdvReac Type Severity Reaction Status Date / Time penicillin V Allergy Severe Rapid Verified 04/01/22 16:20 Heart Rate Mushroom AdvReac Mild Nausea & Verified 04/01/22 16:20 Vomiting Physical Exam Vitals: Vital Signs Temp Pulse Resp BP Pulse Ox 04/01/22 14:51 66 16 126/78 99 04/01/22 12:41 98.0 F 68 18 94/45 97 Intake and Output 04/01/22 04/01/22 04/01/22 06:59 14:59 22:59 Other: Weight 136.078 kg Results CBC & Chem 7: 04/01/22 12:47 04/01/22 12:47 Labs: Abnormal Lab Results - Last 24 Hours (Table) 04/01/22 04/01/22 Range/Units 12:47 12:47 WBC 11.7 H (3.8-10.6) k/uL RBC 4.13 L (4.30-5.90) m/uL Hgb 8.4 L (13.0-17.5) gm/dL Hct 30.4 L (39.0-53.0) % MCV 73.6 L (80.0-100.0) fL MCH 20.4 L (25.0-35.0) pg MCHC 27.8 L (31.0-37.0) g/dL RDW 17.7 H (11.5-15.5) % Neutrophils # 8.5 H (1.3-7.7) k/uL Sodium 135 L (137-145) mmol/L Creatinine 1.30 H (0.66-1.25) mg/dL Alkaline Phosphatase 158 H (38-126) U/L
[2022-04-01] MEDS: PANTOPRAZOLE 40 MG TABLET PO SCH (19:58)
[2022-04-01] MEDS: FUROSEMIDE 10 MG/ML 4 ML VIAL IV SCH (19:58)
[2022-04-01] MEDS: INSULIN ASPART (NovoLOG) 100 UNIT/ML VIAL SQ SCH (20:02)
[2022-04-01 20:04] LABS: Glucose,Whole Blood 97 mg/dL (75-99)
[2022-04-01] MEDS ORDERED: ATORVASTATIN 80 MG TAB PO SCH (21:00)
[2022-04-01] MEDS: GABAPENTIN 400 MG CAP PO SCH (21:34)
[2022-04-02 07:09] LABS: Glucose,Whole Blood 128 mg/dL (75-99)
[2022-04-02] MEDS: INSULIN ASPART (NovoLOG) 100 UNIT/ML VIAL SQ SCH (07:21)
[2022-04-02 07:27] VITALS: BP 107/66; PULSE 69; RESP 18; TEMP 98.4
[2022-04-02] MEDS: GABAPENTIN 400 MG CAP PO SCH (08:57)
[2022-04-02] MEDS: PANTOPRAZOLE 40 MG TABLET PO SCH (08:57)
[2022-04-02] MEDS ORDERED: METOPROLOL SUCCINATE (ER) 50 MG TAB.ER.24H PO SCH (09:00)
[2022-04-02] MEDS ORDERED: ASPIRIN 81 MG PO SCH (09:00)
[2022-04-02] MEDS ORDERED: DULoxetine HCL 60 MG CAPSULE.DR PO SCH (09:00)
[2022-04-02] MEDS ORDERED: LOSARTAN 25 MG TAB PO SCH (09:00)
[2022-04-02] MEDS ORDERED: SPIRONOLACTONE 25 MG TAB PO SCH (09:00)
[2022-04-02] MEDS ORDERED: TAMSULOSIN 0.4 MG CAP.ER.24H PO SCH (09:00)
[2022-04-02] MEDS ORDERED: DULoxetine HCL 30 MG CAPSULE.DR PO SCH (09:00)
[2022-04-02] MEDS: FUROSEMIDE 10 MG/ML 4 ML VIAL IV SCH (09:04)
[2022-04-02 09:10] LABS: HCT 28.2 % (39.6-50.0); HGB 7.9 g/dL (13.0-17.0); MCH 20.4 pg (27.0-32.0); MCV 72.7 fL (80.0-97.0); Mean Platelet Volume 10.7 fL (9.5-12.2); NRBC Per 100 WBC 0 /100 WBCS (0.0-0.0); Platelet Count 446 X 10*3/uL (140-440); RBC 3.88 X 10*6/uL (4.40-5.60); RDW 18.7 % (11.5-14.5); WBC 13.26 X 10*3/uL (4.50-10.00)
[2022-04-02 09:34] LABS: African American GFR (CKD) 71.7 (60.0-200.0); Anion Gap 12.2 mmol/L (10.00-18.00); BUN/Creat Ratio 10.69 Ratio (12.00-20.00); Blood Urea Nitrogen 13.9 mg/dL (9.0-27.0); Calcium 9.1 mg/dL (8.7-10.3); Carbon Dioxide 23.8 mmol/L (20.0-27.5); Non-African American GFR(CKD) 61.9 (60.0-200.0); Potassium 4.6 mmol/L (3.5-5.5)
--- NOTE | 2022-04-02 10:05 | P.DS ---
Providers Date of admission: 04/01/22 15:54 Expected date of discharge: 04/02/22 Attending physician: Godwin Vaughn MD Consults: 04/01/22 15:53 Consult Physician Routine Consulting Provider: Narciso Sellers Consult Reason/Comments: Ischemic cardiomyopathy, chest pain Do you want consulting provider notified?: Yes 04/01/22 16:59 Consult Physician Routine Consulting Provider: Ronnie Cruz Consult Reason/Comments: low Hg Do you want consulting provider notified?: Yes Primary care physician: [facility] Hospital Course: Patient is a 52-year-old male with PMH of CAD, hypertension, diabetes mellitus, dyslipidemia, ischemic cardiomyopathy with EF of 20-25% with global hypokinesis presents the ED for abnormal blood work. His PCP advised him to go to the ED for a low hemoglobin. Patient reports occasional melanotic stool and lightheadedness with exertion. He reports feeling short of breath on walking from the parking lot to the ER. Patient reports that he had a follow-up with Dr. Sellers for defibrillator placement. He was also supposed to schedule an appointment with Dr. Coello for colonoscopy which he never got the chance to. He denies any orthopnea or lower extremity swelling. He denies any headache, nausea or vomiting, fever chills, cough, chest pain, palpitations, changes in urination. No changes in appetite or weight. He denies any numbness/weakness/tingling of the extremities. In the ED, he was noted to be hypotensive 94/55 with pulse of 68. His blood pressure improved with a SBP in the 120s with no intervention. CBC showed a leukocytosis of 11.7 and hemoglobin 8.4 with MCV of 73.6. Coagulation profile negative. CMP showed sodium of 135, creatinine of 1.3 and alkaline phosphatase of 158. Troponin was 0.02 with EKG s howing T-wave inversions. Chest x-ray showed mild venous congestion with tiny bilateral pleural effusion. Patient is admitted to rule out acute coronary syndrome and cardiology evaluation. Troponins were trended and ACS was ruled out. He was diuresis with Lasix 40 mg IV daily. Lasix was transitioned to 40 mg by mouth daily which was increased from 20 mg by mouth which is part of his home regimen. Cardiology was consulted and cleared the patient for discharge. He did have a hemoglobin of 8.4 on admission and 7.9 on repeat. During his hospitalization in February his hemoglobin was 7.7 at the time of discharge. He was restarted on Protonix 40 mg by mouth twice a day. Patient did not have any bowel movements during this hospitalization. Given that his hemoglobin was stable, patient was advised to follow-up with Dr. De La Rosa within 1 week of discharge for scheduling colonoscopy. Cardiology cleared the patient to restart aspirin and parasugrel. He was advised to follow-up with cardiology Dr. Sellers on Tuesday for defibrillator placement. Advised to follow-up with PCP within 1-2 days of discharge. Advised to repeat CBC within 3 days to be followed by PCP. This complex discharge took about 45 minutes to complete. General: [non toxic], [no distress], [appears at stated age] Derm: [warm], [dry] Head: [atraumatic], [normocephalic], [symmetric] Eyes: [EOMI], [no lid lag], [anicteric sclera] Mouth: [no lip lesion], [mucus membranes moist] Cardiovascular: [S1S2 reg], [no murmur] Lungs: [CTA bilateral], [no rhonchi, no rales] , [no accessory muscle use] Abdominal: [soft], [ nontender to palpation], [no guarding], [no appreciable organomegaly] Ext: [no gross muscle atrophy], [no edema], [no contractures] Neuro: [no focal neuro deficits] Psych: [Alert], [oriented], [appropriate affect] Discharge Diagnosis: #Acute on chronic systolic CHF exacerbation #Microcytic anemia with history of GI bleed #Smoker #Morbid obesity Resolved: Acute kidney injury Chronic conditions: CAD, Diabetes mellitus, dyslipidemia, BPH Pertinent Studies: CXR EKG Patient Condition at Discharge: Stable Plan - Discharge Summary New Discharge Prescriptions: New Furosemide [Lasix] 40 mg PO DAILY #30 tablet Continue Atorvastatin [Lipitor] 80 mg PO HS #30 tab Tamsulosin HCl [Flomax] 0.4 mg PO DAILY DULoxetine HCL [Cymbalta] 60 mg PO DAILY DULoxetine HCL [Cymbalta] 30 mg PO DAILY Insulin Degludec [Tresiba Flextouch U-100 Pen] 50 units SQ DAILY Aspirin 81 mg PO DAILY Empagliflozin [Jardiance] 10 mg PO DAILY Pantoprazole Sodium [Protonix] 40 mg PO BID Gabapentin 800 mg PO TID Spironolactone [Aldactone] 25 mg PO DAILY #90 tab Prasugrel [Effient] 10 mg PO DAILY #90 tab Nitroglycerin Sl Tabs [Nitrostat] 0.4 mg SUBLINGUAL Q5M PRN #25 tab PRN Reason: Chest Pain Losartan [Cozaar] 25 mg PO DAILY 30 Days #30 tab metFORMIN HCL [Glucophage XR] 1,500 mg PO DAILY Metoprolol Succinate (ER) [Toprol XL] 50 mg PO DAILY Discontinued Famotidine 20 mg PO BID Furosemide [Lasix] 20 mg PO DAILY Discharge Medication List Atorvastatin [Lipitor] 80 mg PO HS #30 tab 04/06/19 [Rx] Tamsulosin HCl [Flomax] 0.4 mg PO DAILY 08/07/19 [History] DULoxetine HCL [Cymbalta] 30 mg PO DAILY 03/16/21 [History] DULoxetine HCL [Cymbalta] 60 mg PO DAILY 03/16/21 [History] Gabapentin 800 mg PO TID 03/16/21 [History] Insulin Degludec [Tresiba Flextouch U-100 Pen] 50 units SQ DAILY 12/23/21 [Hi story] Aspirin 81 mg PO DAILY 12/26/21 [Rx] Nitroglycerin Sl Tabs [Nitrostat] 0.4 mg SUBLINGUAL Q5M PRN #25 tab 12/26/21 [Rx] Prasugrel [Effient] 10 mg PO DAILY #90 tab 12/26/21 [Rx] Spironolactone [Aldactone] 25 mg PO DAILY #90 tab 12/26/21 [Rx] Losartan [Cozaar] 25 mg PO DAILY 30 Days #30 tab 12/31/21 [Rx] Empagliflozin [Jardiance] 10 mg PO DAILY 04/01/22 [History] Metoprolol Succinate (ER) [Toprol XL] 50 mg PO DAILY 04/01/22 [History] Pantoprazole Sodium [Protonix] 40 mg PO BID 04/01/22 [History] metFORMIN HCL [Glucophage XR] 1,500 mg PO DAILY 04/01/22 [History] Furosemide [Lasix] 40 mg PO DAILY #30 tablet 04/02/22 [Rx] Follow up Appointment(s)/Referral(s): Narciso Sellers MD [STAFF PHYSICIAN] - 04/06/22 Manuel Jameson MD [Primary Care Provider] - 1-2 days Cristine De La Rosa MD [STAFF PHYSICIAN] - 1 Week Ambulatory/Diagnostic Orders: Complete Blood Count w/diff [LAB.AMB] Time Frame: 3 Days, Location: None Selected Activity/Diet/Wound Care/Special Instructions: Diet: Cardiac Follow up with PCP within 1-2 days of discharge. Follow up with Dr. Sellers on Tuesday for defibrillator procedure. Follow up with GI Dr. De La Rosa within 1 week of discharge. Take all medications as advised. Come back to the ED for worsening, chest pain, shortness of breath, palpitations, lightheadedness, bright red blood in your stools or charcoal/black stools. Discharge Disposition: HOME SELF-CARE
--- NOTE | 2022-04-02 12:02 | P.CRDCN ---
History of Present Illness History of present illness: HISTORY OF PRESENT ILLNESS: This is a 52 year old male with a past medical history significant for coronary artery disease with previous stent placement, HTN, HLD, and cardiomyopathy. Patient follows in the office with Dr. Lozano. We have been asked to see the patient in consultation for pain. Patient examined at the bedside. Patient was sent to the ER by his PCP for anemia. Patient states he has had some black stools over the past few weeks. He reports a recent EGD. He states he believes he is supposed to have to a colonoscopy. He reports he was started on iron supplements about 2 weeks ago. However he reports that his black stools were present prior to beginning iron therapy. He denies any chest pain or pressure. Reports SOB with exertion. Patient was a history of ischemic cardiomyopathy. He wears a lifevest at home. He is supposed to have an AICD with Dr. Sellers next week. * EKG reveals sinus mechanism with no signs of acute ischemia * Chest xray COPD correlate for chronic interstitial lung disease or mild venous congestion versus interstitial pneumonitis. Tiny bilateral pleural effusions. * Laboratory data: WBC 13.6. Hemoglobin 7.9. Platelet count 446. Sodium 134. Potassium 4.6. BUN 18. Creatinine 1.3. Troponin negative 3. * Current home cardiac medications include Jardiance 10 mg daily, aspirin 81 mg daily, Aldactone 25 mg daily, Effient 10 mg daily, losartan 25 mg daily, metoprolol succinate 50 mg daily, Lipitor 80 mg daily, Lasix 40 mg daily * Most recent echocardiogram obtained in November 2021 revealed ejection fraction 20-25%, [id number] MR, mild TR * Cardiac catheterization history: December 2021 with stenting of the LAD REVIEW OF SYSTEMS: At the time of my exam: CONSTITUTIONAL: Denies fever or chills. HEENT: Denies blurred vision, vision changes, or eye pain. Denies hemoptysis CARDIOVASCULAR: Denies chest pain. Denies orthopnea. Denies PND. Denies palpitations RESPIRATORY: Denies shortness of breath. GASTROINTESTINAL: Denies abdominal pain. Denies nausea or vomiting. HEMATOLOGIC: Denies bleeding disorders. GENITOURINARY: Denies any blood in urine. SKIN: Denies pruitis. Denies rash. PHYSICAL EXAM: VITAL SIGNS: Reviewed. GENERAL: Well-developed in no acute distress. HEENT: Head is normocephalic. Pupils are equal, round. Sclerae anicteric. Mucous membranes of the mouth are moist. Neck supple. No JVD or thyromegaly LUNGS: Respirations even and unlabored. Lungs essentially clear to auscultation bilaterally. HEART: Regular rate and rhythm. S1 and S2 heard. ABDOMEN: Soft. Nondistended. Nontender. EXTREMITIES: Normal range of motion. No clubbing or cyanosis. Peripheral pulses intact. No lower extremity edema NEUROLOGIC: Awake and alert. Oriented x 3. ASSESSMENT: Anemia Coronary artery disease with previous stent placement, most recently in December 2021 Hypertension Hyperlipidemia Ischemic cardiomyopathy PLAN: Resume home cardiac medications Given patients recent stent placement, ideally patient needs to continue with aspirin and effient. Patients hemoglobin is fairly stable at this time. General surgery has been consulted and awaiting evaluation. If general surgery recommends discontinuing one antiplatelet, would like to discontinue aspirin and continue effient. Again, given his recent stenting, dual antiplatelet therapy is recommended. Patient is stable from a cardiac standpoint He may be discharged home and follow up outpatient with Dr. Lozano. Nurse practitioner note has been reviewed by physician. Signing provider agrees with the documented findings, assessment, and plan of care. Past Medical History Past Medical History: Asthma, Chest Pain / Angina, Diabetes Mellitus, Hyperlipidemia, Hypertension, Myocardial Infarction ([place]), Pneumonia, Sleep Apnea/CPAP/BIPAP Additional Past Medical History / Comment(s): NUMBNESS/TINGLING LAWRENCE LEGS, kidney stone, Last Myocardial Infarction Date:: 12/2021 History of Any Multi-Drug Resistant Organisms: None Reported Past Surgical History: Back Surgery, Cholecystectomy, Heart Catheterization With Stent, Hernia Repair, Orthopedic Surgery, Tonsillectomy Additional Past Surgical History / Comment(s): RT KNEE arthroscopy, LAWRENCE WRIST ORIF, RIGHT SHOULDER arthroscopy x 2, SINUS surgery,. 3 cardiac stents, rt wrist ganglion cyst, 4 screws and 2 rods lower back, recent stent placed Past Anesthesia/Blood Transfusion Reactions: No Reported Reaction Date of Last Stent Placement:: 12/2021 Past Psychological History: Anxiety, Depression Smoking Status: Current every day smoker Past Alcohol Use History: None Reported Additional Past Alcohol Use History / Comment(s): smokes 1/2 PPD for > 30 yrs Past Drug Use History: Marijuana - Past Family History Father Family Medical History: Cancer Additional Family Medical History / Comment(s): COLON Family Additional Family Medical History / Comment(s): Multiple people hypertension. Denies any history of coronary artery disease. Medications and Allergies Home Medications Medication Instructions Recorded Confirmed Type Atorvastatin [Lipitor] 80 mg PO HS #30 tab 04/06/19 04/01/22 Rx Tamsulosin HCl [Flomax] 0.4 mg PO DAILY 08/07/19 04/01/22 History DULoxetine HCL [Cymbalta] 30 mg PO DAILY 03/16/21 04/01/22 History DULoxetine HCL [Cymbalta] 60 mg PO DAILY 03/16/21 04/01/22 History Gabapentin 800 mg PO TID 03/16/21 04/01/22 History Insulin Degludec [Tresiba 50 units SQ DAILY 12/23/21 04/01/22 History Flextouch U-100 Pen] Aspirin 81 mg PO DAILY 12/26/21 04/01/22 Rx Nitroglycerin Sl Tabs [Nitrostat] 0.4 mg SUBLINGUAL Q5M PRN #25 tab 12/26/21 04/01/22 Rx Prasugrel [Effient] 10 mg PO DAILY #90 tab 12/26/21 04/01/22 Rx Spironolactone [Aldactone] 25 mg PO DAILY #90 tab 12/26/21 04/01/22 Rx Losartan [Cozaar] 25 mg PO DAILY 30 Days #30 tab 12/31/21 04/01/22 Rx Empagliflozin [Jardiance] 10 mg PO DAILY 04/01/22 04/01/22 History Metoprolol Succinate (ER) [Toprol 50 mg PO DAILY 04/01/22 04/01/22 History XL] Pantoprazole Sodium [Protonix] 40 mg PO BID 04/01/22 04/01/22 History metFORMIN HCL [Glucophage XR] 1,500 mg PO DAILY 04/01/22 04/01/22 History Furosemide [Lasix] 40 mg PO DAILY #30 tablet 04/02/22 Rx Allergies Allergy/AdvReac Type Severity Reaction Status Date / Time penicillin V Allergy Severe Rapid Verified 04/01/22 16:20 Heart Rate Mushroom AdvReac Mild Nausea & Verified 04/01/22 16:20 Vomiting Physical Exam Vitals: Vital Signs Temp Pulse Pulse Resp BP BP Pulse Ox 04/02/22 07:00 98.4 F 69 18 107/66 94 L 04/02/22 02:00 98.2 F 76 17 108/64 91 L 04/01/22 21:32 77 18 114/69 97 04/01/22 19:45 98.2 F 76 16 117/65 96 04/01/22 14:51 66 16 126/78 99 04/01/22 12:41 98.0 F 68 18 94/45 97 Intake and Output 04/01/22 04/02/22 04/02/22 22:59 06:59 14:59 Other: Weight 136.078 kg 154.5 kg Results 04/02/22 06:32 04/02/22 06:32 Cardiac Enzymes 04/01/22 04/01/22 04/01/22 Range/Units 12:47 12:47 17:27 AST 32 (17-59) U/L Troponin I 0.020 0.020 (0.000-0.034) ng/mL 04/01/22 Range/Units 20:30 AST (17-59) U/L Troponin I 0.023 (0.000-0.034) ng/mL Coagulation 04/01/22 Range/Units 12:47 PT 11.0 (9.0-12.0) sec APTT 22.7 (22.0-30.0) sec CBC 04/01/22 Range/Units 12:47 WBC 11.7 H (3.8-10.6) k/uL RBC 4.13 L (4.30-5.90) m/uL Hgb 8.4 L (13.0-17.5) gm/dL Hct 30.4 L (39.0-53.0) % Plt Count 443 (150-450) k/uL Comprehensive Metabolic Panel 04/01/22 Range/Units 12:47 Sodium 135 L (137-145) mmol/L Potassium 4.9 (3.5-5.1) mmol/L Chloride 99 (98-107) mmol/L Carbon Dioxide 25 (22-30) mmol/L BUN 16 (9-20) mg/dL Creatinine 1.30 H (0.66-1.25) mg/dL Glucose 93 (74-99) mg/dL Calcium 9.2 (8.4-10.2) mg/dL AST 32 (17-59) U/L ALT 9 (4-49) U/L Alkaline Phosphatase 158 H (38-126) U/L Total Protein 7.8 (6.3-8.2) g/dL Albumin 4.2 (3.5-5.0) g/dL Current Medications Generic Name Dose Route Start Last Admin Trade Name Freq PRN Reason Stop Dose Admin Acetaminophen 650 mg 04/01/22 15:53 Acetaminophen Tab 325 Mg Tab PO Q6HR PRN Mild Pain or Fever > 100.5 Atorvastatin Calcium 80 mg 04/01/22 21:00 04/01/22 21:34 Atorvastatin 80 Mg Tab PO 80 mg HS MARCIAL Administration Duloxetine HCl 90 mg 04/02/22 09:00 Duloxetine Hcl 30 Mg Capsule.Dr PO DAILY MARCIAL Furosemide 40 mg 04/01/22 17:15 04/01/22 19:58 Furosemide 10 Mg/Ml 4 Ml Vial IV 40 mg DAILY MARCIAL Administration Gabapentin 800 mg 04/01/22 22:00 04/01/22 21:34 Gabapentin 400 Mg Cap PO 800 mg TID MARCIAL Administration Insulin Aspart 0 unit 04/01/22 17:30 04/02/22 07:21 Insulin Aspart (Novolog) 100 Unit/Ml Vial SQ Not Given AC-TID [facility] Protocol Losartan Potassium 25 mg 04/02/22 09:00 Losartan 25 Mg Tab PO DAILY MARCIAL Metoprolol Succinate 50 mg 04/02/22 09:00 Metoprolol Succinate (Er) 50 Mg Tab.Er.24h PO DAILY MARCIAL Naloxone HCl 0.2 mg 04/01/22 15:53 Naloxone 0.4 Mg/Ml 1 Ml Vial IV Q2M PRN Opioid Reversal Pantoprazole Sodium 40 mg 04/01/22 17:30 04/01/22 19:58 Pantoprazole 40 Mg Tablet PO 40 mg AC-BID MARCIAL Administration Spironolactone 25 mg 04/02/22 09:00 Spironolactone 25 Mg Tab PO DAILY MARCIAL Tamsulosin HCl 0.4 mg 04/02/22 09:00 Tamsulosin 0.4 Mg Cap.Er.24h PO DAILY MARCIAL Intake and Output 04/01/22 04/02/22 04/02/22 22:59 06:59 14:59 Other: Weight 136.078 kg 154.5 kg 04/01/22 12:47 04/01/22 12:47
--- NOTE | 2022-04-02 12:55 | P.GSCN ---
History of Present Illness Consult date: 04/02/22 History of present illness: CHIEF COMPLAINT: Low hemoglobin HISTORY OF PRESENT ILLNESS: This is a 52-year-old male who was sent from his PCP office due to low hemoglobin. Patient had recently been hospitalized for GI bleed. He was transferred from here to [facility] with a distant EGD. Those results are unavailable to me the patient reports that they were negative. And this took place 2 weeks ago. Patient was supposed to have colonoscopy outpatient and currently has not been set up. Patient has known coronary artery disease and recent stent placement about 3 months ago. He is on aspirin and Effient. Cardiology recommending that he states on the Effient. Patient also has known ischemic cardiomyopathy with an EF of 20-25% and he is scheduled for AICD placement next Tuesday. Patient reports that he occasionally has black stools. He does take iron daily at home. Hemoglobin is 8.4 on admission. He does report having some shortness of breath and fatigue with activity. He denies any nausea or vomiting. He denies any abdominal pain. Patient also evaluated by cardiology during this admission. Case discussed with cardiology. Patient seen and examined with Dr. james PAST MEDICAL HISTORY: See list. PAST SURGICAL HISTORY: See list. MEDICATIONS: See list. ALLERGIES: See list. SOCIAL HISTORY: No illicit drug use. REVIEW OF SYSTEMS: CONSTITUTIONAL: Denies fever or chills. HEENT: Denies blurred vision, vision changes, or eye pain. Denies hemoptysis CARDIOVASCULAR: Denies chest pain or pressure. RESPIRATORY: No shortness of breath. GASTROINTESTINAL: See HPI for pertinent findings HEMATOLOGIC: Denies bleeding disorders. GENITOURINARY: Denies any blood in urine or increased urinary frequency. SKIN: Denies pruitis. Denies rash. PHYSICAL EXAM: VITAL SIGNS: Reviewed GENERAL: Well-developed in no acute distress. HEENT: No sclera icterus. Extraocular movements grossly intact. Moist buccal mucosa. Head is atraumatic, normocephalic. No nasal drainage. ABDOMEN: Soft. Nondistended. Nontender NEUROLOGIC: Alert and oriented. Cranial nerves II through XII grossly intact. LABORATORY DATA: WBC up to 13.26 hemoglobin 8.4-7.9 and platelets 446 Sodium is 134 potassium 4.6 creatinine 1.3 IMAGING: ASSESSMENT: 1. Anemia with occasional black stools. recent EGD 2 weeks ago at [facility] 2. Coronary disease with recent stent placement in December 2021 3. Ischemic cardiomyopathy PLAN: -Patient can be discharged from surgical standpoint -Would usually recommend colonoscopy but due to patient's requiring blood thinners due to his cardiac stent will observe patient -Patient to follow up with Dr. james next week in the office Physician Primer Inserting Machine Adjuster note has been reviewed by physician. Signing provider agrees with the documented findings, assessment, and plan of care. Past Medical History Past Medical History: Asthma, Chest Pain / Angina, Diabetes Mellitus, Hyperlipidemia, Hypertension, Myocardial Infarction ([place]), Pneumonia, Sleep Apnea/CPAP/BIPAP Additional Past Medical History / Comment(s): NUMBNESS/TINGLING LAWRENCE LEGS, kidney stone, Last Myocardial Infarction Date:: 12/2021 History of Any Multi-Drug Resistant Organisms: None Reported Past Surgical History: Back Surgery, Cholecystectomy, Heart Catheterization With Stent, Hernia Repair, Orthopedic Surgery, Tonsillectomy Additional Past Surgical History / Comment(s): RT KNEE arthroscopy, LAWRENCE WRIST ORIF, RIGHT SHOULDER arthroscopy x 2, SINUS surgery,. 3 cardiac stents, rt w rist ganglion cyst, 4 screws and 2 rods lower back, recent stent placed Past Anesthesia/Blood Transfusion Reactions: No Reported Reaction Date of Last Stent Placement:: 12/2021 Past Psychological History: Anxiety, Depression Smoking Status: Current every day smoker Past Alcohol Use History: None Reported Additional Past Alcohol Use History / Comment(s): smokes 1/2 PPD for > 30 yrs Past Drug Use History: Marijuana - Past Family History Father Family Medical History: Cancer Additional Family Medical History / Comment(s): COLON Family Additional Family Medical History / Comment(s): Multiple people hypertension. Denies any history of coronary artery disease. Medications and Allergies Home Medications Medication Instructions Recorded Confirmed Type Atorvastatin [Lipitor] 80 mg PO HS #30 tab 04/06/19 04/01/22 Rx Tamsulosin HCl [Flomax] 0.4 mg PO DAILY 08/07/19 04/01/22 History DULoxetine HCL [Cymbalta] 30 mg PO DAILY 03/16/21 04/01/22 History DULoxetine HCL [Cymbalta] 60 mg PO DAILY 03/16/21 04/01/22 History Gabapentin 800 mg PO TID 03/16/21 04/01/22 History Insulin Degludec [Tresiba 50 units SQ DAILY 12/23/21 04/01/22 History Flextouch U-100 Pen] Aspirin 81 mg PO DAILY 12/26/21 04/01/22 Rx Nitroglycerin Sl Tabs [Nitrostat] 0.4 mg SUBLINGUAL Q5M PRN #25 tab 12/26/21 04/01/22 Rx Prasugrel [Effient] 10 mg PO DAILY #90 tab 12/26/21 04/01/22 Rx Spironolactone [Aldactone] 25 mg PO DAILY #90 tab 12/26/21 04/01/22 Rx Losartan [Cozaar] 25 mg PO DAILY 30 Days #30 tab 12/31/21 04/01/22 Rx Empagliflozin [Jardiance] 10 mg PO DAILY 04/01/22 04/01/22 History Metoprolol Succinate (ER) [Toprol 50 mg PO DAILY 04/01/22 04/01/22 History XL] Pantoprazole Sodium [Protonix] 40 mg PO BID 04/01/22 04/01/22 History metFORMIN HCL [Glucophage XR] 1,500 mg PO DAILY 04/01/22 04/01/22 History Furosemide [Lasix] 40 mg PO DAILY #30 tablet 04/02/22 Rx Allergies Allergy/AdvReac Type Severity Reaction Status Date / Time penicillin V Allergy Severe Rapid Verified 04/01/22 16:20 Heart Rate Mushroom AdvReac Mild Nausea & Verified 04/01/22 16:20 Vomiting Surgical - Exam Vital Signs Temp Pulse Resp BP Pulse Ox 98.0 F 68 18 94/45 97 04/01/22 12:41 04/01/22 12:41 04/01/22 12:41 04/01/22 12:41 04/01/22 12:41 Results - Labs 04/02/22 06:32 04/02/22 06:32 Abnormal Lab Results - Last 24 Hours (Table) 04/01/22 04/01/22 04/02/22 Range/Units 12:47 12:47 06:32 WBC 11.7 H 13.26 H (3.8-10.6) k/uL RBC 4.13 L 3.88 L (4.30-5.90) m/uL Hgb 8.4 L 7.9 L (13.0-17.5) gm/dL Hct 30.4 L 28.2 L (39.0-53.0) % MCV 73.6 L 72.7 L (80.0-100.0) fL MCH 20.4 L 20.4 L (25.0-35.0) pg MCHC 27.8 L 28.0 L (31.0-37.0) g/dL RDW 17.7 H 18.7 H (11.5-15.5) % Plt Count 446 H (140-440) X 10*3/uL Neutrophils # 8.5 H (1.3-7.7) k/uL Sodium 135 L (137-145) mmol/L Creatinine 1.30 H (0.66-1.25) mg/dL BUN/Creatinine Ratio (12.00-20.00) Ratio Glucose (70-110) mg/dL POC Glucose (mg/dL) (75-99) mg/dL Alkaline Phosphatase 158 H (38-126) U/L 04/02/22 04/02/22 Range/Units 06:32 07:08 WBC (3.8-10.6) k/uL RBC (4.30-5.90) m/uL Hgb (13.0-17.5) gm/dL Hct (39.0-53.0) % MCV (80.0-100.0) fL MCH (25.0-35.0) pg MCHC (31.0-37.0) g/dL RDW (11.5-15.5) % Plt Count (140-440) X 10*3/uL Neutrophils # (1.3-7.7) k/uL Sodium 134 L (137-145) mmol/L Creatinine (0.66-1.25) mg/dL BUN/Creatinine Ratio 10.69 L (12.00-20.00) Ratio Glucose 111 H (70-110) mg/dL POC Glucose (mg/dL) 128 H (75-99) mg/dL Alkaline Phosphatase (38-126) U/L Diabetes panel 04/01/22 04/02/22 Range/Units 12:47 06:32 Sodium 135 L 134 L (137-145) mmol/L Potassium 4.9 4.6 (3.5-5.1) mmol/L Chloride 99 98 (98-107) mmol/L Carbon Dioxide 25 23.8 (22-30) mmol/L BUN 16 13.9 (9-20) mg/dL Creatinine 1.30 H 1.3 (0.66-1.25) mg/dL Glucose 93 111 H (74-99) mg/dL Calcium 9.2 9.1 (8.4-10.2) mg/dL AST 32 (17-59) U/L ALT 9 (4-49) U/L Alkaline Phosphatase 158 H (38-126) U/L Total Protein 7.8 (6.3-8.2) g/dL Albumin 4.2 (3.5-5.0) g/dL Calcium panel 04/01/22 04/02/22 Range/Units 12:47 06:32 Calcium 9.2 9.1 (8.4-10.2) mg/dL Albumin 4.2 (3.5-5.0) g/dL Pituitary panel 04/01/22 04/02/22 Range/Units 12:47 06:32 Sodium 135 L 134 L (137-145) mmol/L Potassium 4.9 4.6 (3.5-5.1) mmol/L Chloride 99 98 (98-107) mmol/L Carbon Dioxide 25 23.8 (22-30) mmol/L BUN 16 13.9 (9-20) mg/dL Creatinine 1.30 H 1.3 (0.66-1.25) mg/dL Glucose 93 111 H (74-99) mg/dL Calcium 9.2 9.1 (8.4-10.2) mg/dL Adrenal panel 04/01/22 04/02/22 Range/Units 12:47 06:32 Sodium 135 L 134 L (137-145) mmol/L Potassium 4.9 4.6 (3.5-5.1) mmol/L Chloride 99 98 (98-107) mmol/L Carbon Dioxide 25 23.8 (22-30) mmol/L BUN 16 13.9 (9-20) mg/dL Creatinine 1.30 H 1.3 (0.66-1.25) mg/dL Glucose 93 111 H (74-99) mg/dL Calcium 9.2 9.1 (8.4-10.2) mg/dL Total Bilirubin 1.1 (0.2-1.3) mg/dL AST 32 (17-59) U/L ALT 9 (4-49) U/L Alkaline Phosphatase 158 H (38-126) U/L Total Protein 7.8 (6.3-8.2) g/dL Albumin 4.2 (3.5-5.0) g/dL
[2022-04-02 13:41] VITALS: BMI 46.2
== END 2022-04-02 12:04 | disposition home or self-care (01) ==
LOC: EC 10:58 → 6NMEDSUR 15:54
PROVIDERS: ADMIT Internal Medicine; ATTEND Internal Medicine
DX: I13.0 Hypertensive heart and chronic kidney disease with heart failure and stage 1 through stage 4 chronic kidney disease, or unspecified chronic kidney disease (principal); I50.23 Acute on chronic systolic (congestive) heart failure; D50.0 Iron deficiency anemia secondary to blood loss (chronic); N17.9 Acute kidney failure, unspecified; N18.9 Chronic kidney disease, unspecified; E11.22 Type 2 diabetes mellitus with diabetic chronic kidney disease; I25.5 Ischemic cardiomyopathy; J44.9 Chronic obstructive pulmonary disease, unspecified; I95.9 Hypotension, unspecified; I25.10 Atherosclerotic heart disease of native coronary artery without angina pectoris; I08.1 Rheumatic disorders of both mitral and tricuspid valves; I44.0 Atrioventricular block, first degree; D72.829 Elevated white blood cell count, unspecified; N40.0 Benign prostatic hyperplasia without lower urinary tract symptoms; F17.210 Nicotine dependence, cigarettes, uncomplicated; E78.5 Hyperlipidemia, unspecified; J45.909 Unspecified asthma, uncomplicated; I25.2 Old myocardial infarction; G47.30 Sleep apnea, unspecified; F32.A Depression, unspecified; F41.9 Anxiety disorder, unspecified; R19.5 Other fecal abnormalities; E66.01 Morbid (severe) obesity due to excess calories; Z68.42 Body mass index [BMI] 45.0-49.9, adult; Z79.84 Long term (current) use of oral hypoglycemic drugs; Z79.4 Long term (current) use of insulin; Z79.82 Long term (current) use of aspirin; Z79.02 Long term (current) use of antithrombotics/antiplatelets; Z79.899 Other long term (current) drug therapy; Z88.0 Allergy status to penicillin; Z91.018 Allergy to other foods; Z87.01 Personal history of pneumonia (recurrent); Z87.442 Personal history of urinary calculi; Z87.19 Personal history of other diseases of the digestive system; Z71.6 Tobacco abuse counseling; Z71.3 Dietary counseling and surveillance; Z95.5 Presence of coronary angioplasty implant and graft; Z90.49 Acquired absence of other specified parts of digestive tract; Z98.890 Other specified postprocedural states; Z82.49 Family history of ischemic heart disease and other diseases of the circulatory system; Z80.0 Family history of malignant neoplasm of digestive organs
CPT/HCPCS: 96376; 96374; 99285; 36415; 93005; 80053; 80048; 82728; 84484; 85025; 85027; 85610; 85730; 71046; G0378 ×2; J1940 ×2

== ENCOUNTER 2022-04-13 07:01 | Day surgery (SDC) | payer BC ==
[2022-04-09 15:28] VITALS: BMI 39.3
[~2022-04-13 07:01] MED LIST changes: -ALPRAZolam 0.25 MG TAB PO PRN; -ALPRAZolam 0.5 MG TAB PO PRN; -ASPIRIN 325 MG TAB PO ONE; +LIDOCAINE 1% (10MG/ML) FOR IV START INTRADERMA PRN; -NITROGLYCERIN SL TABS 0.4 MG TAB SUBLINGUAL PRN; -SODIUM CHLORIDE 0.9% 1,000 ML in EMPTY BAG 1 BAG IV ONE
[2022-04-13 07:36] LABS: Glucose,Whole Blood 138 mg/dL (75-99)
[2022-04-13 07:37] VITALS: TEMP 97.6
[2022-04-13] MEDS: LACTATED RINGERS 1,000 ML IV SCH ×2 (07:37→08:26)
[2022-04-13] MEDS ORDERED: PROPOFOL 10 MG/ML 20 ML VIAL IV ONE (08:28)
[2022-04-13] MEDS ORDERED: LIDOCAINE 2% INJ 20 MG/ML (2 ML VIAL) ONE (08:28)
--- NOTE | 2022-04-13 08:58 | P.PCN ---
Date of Procedure: 04/13/22 Procedure(s) Performed: BRIEF HISTORY: Patient is a 52-year-old pleasant white male scheduled for an elective colonoscopy as a part of evaluation of severe iron deficiency anemia. Patient was recently admitted [facility] with anemia and hemoglobin of 6.9 g/dL He underwent an upper endoscopy that revealed hemorrhagic gastritis. His last colonoscopy was 5 years ago. Because of the persistent anemia scheduled for colonoscopy today. PROCEDURE PERFORMED: Colonoscopy snare polypectomy. PREOPERATIVE DIAGNOSIS: And deficiency anemia. IV sedation per Anesthesia. PROCEDURE: After informed consent was obtained, the patient, was brought into the endoscopy unit. IV sedation was administered by Anesthesia under continuous monitoring. Digital rectal examination was normal. Initially the Olympus CF-160 flexible video colonoscope was then inserted in the rectum, gradually advanced into the cecum without any difficulty. Careful examination was performed as the scope was gradually being withdrawn. Ileocecal valve and the appendiceal orifice were visualized and appeared normal. Prep was excellent. Mucosa of the cecum appeared normal. There was a 3 cm broad-based polyp adjacent to the ileocecal valve which was removed by piecemeal snare polypectomy and complete polypectomy was accomplished. Rest of the, ascending colon, transverse colon, descending colon normal. In the sigmoid: there was a 5 mm polyp removed by snare polypectomy. Rest of the sigmoid colon, and rectum appeared normal. Retroflexion was performed in the rectum and no lesions were seen. The patient tolerated the procedure well. IMPRESSION: 3 cm broad-based polyp adjacent to the ileocecal valve status post piecemeal snare polypectomy and complete polypectomy accomplished 5 mm sigmoid polyp status post snare polypectomy RECOMMENDATIONS: Findings of this examination were discussed with the patient as his family. He was advised to follow with the biopsy results. If the biopsy reveals adenoma he can have a repeat colonoscopy in one year.
[2022-04-13 09:01] VITALS: BP 120/77
[2022-04-13 09:18] VITALS: PULSE 74; RESP 16
== END 2022-04-13 09:30 | disposition home or self-care (01) ==
LOC: ORWHC2ENDO 07:01
PROVIDERS: ATTEND Internal Medicine Gastroenterology
DX: D12.5 Benign neoplasm of sigmoid colon (principal); D64.9 Anemia, unspecified; Z86.010 Personal history of colon polyps
CPT/HCPCS: 45385; 88305; J2704; J2001

== ENCOUNTER → 2023-02-21 | Outpatient (CLI) | payer BC ==
--- NOTE | 2023-02-21 10:44 | CT ---
EXAMINATION TYPE: CT lumbar spine wo con DATE OF EXAM: 02/21/2023 COMPARISON: None HISTORY: 53-year-old male M51.16, Low back pain, Intervertebral disc degeneration/disorders with radi culopathy, lumbar TECHNIQUE: Contiguous axial scanning of the lumbar spine without IV contrast. Coronal and sagittal re constructions performed. CT DLP: 2390.30 mGycm Automated exposure control for dose reduction was used. FINDINGS: Hepatic steatosis. Slightly atrophic right kidney. Cholecystectomy clips. Degenerative bony bridging at the bilateral SI joints, left greater than right. Some anterior bridging endplate spondylosis lower thoracic spine. Previous posterior fusion at L5-S1 with fixed grade 2 anterolisthesis. Severe hypertrophic facet arth ropathy lower lumbar spine. Assessment of the spinal canal at L4-L5 and L5-S1 is limited due to metal artifact from the orthopedic hardware. Mild disc bulging at other levels of the lumbar spine. No ray canal compromise seen along the visua lized levels. Mild superior endplate deformity L1 is noted to be new from 03/03/2019. However, suspect a chronic com pression deformity due to the lack of a well-defined fracture line and the lack of any significant pa ravertebral soft tissue swelling. No retropulsion into the ventral spinal canal. There is a component of mild congenital spinal canal stenosis mid lumbar spine with AP canal dimensio n of 1.2 cm. On the left, there is severe neural foraminal stenosis at L5-S1 and moderate at L4-L5. On the right, there is severe neural foraminal stenosis at L5-S1 and mild to moderate at L4-L5. IMPRESSION: 1. PREVIOUS L5-S1 POSTERIOR FUSION WITH A FIXED GRADE 2 ANTEROLISTHESIS HERE. ASSESSMENT OF THE SPINA L CANAL AT BOTH L4-L5 AND L5-S1 IS LIMITED DUE TO METAL HARDWARE ARTIFACT. 2. 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 3. MILD SUPERIOR ENDPLATE DEFORMITY OF L1 IS NEW FROM 03/03/2019 BUT STILL AGE INDETERMINATE. SUSPECT EITHER A CHRONIC OR SUBACUTE INJURY. CLINICALLY CORRELATE. NO SIGNIFICANT PARAVERTEBRAL SOFT TISSUE S WELLING OR RETROPULSION INTO THE SPINAL CANAL. 4. SEVERE BILATERAL NEUROFORAMINAL STENOSES AT L5-S1. MODERATE ON THE LEFT AT L4-L5. MILD TO MODERATE ON THE RIGHT AT L4-L5.
== END | disposition home or self-care (01) ==
LOC: RADCTMAIN 07:47
PROVIDERS: ATTEND Orthopaedic Surgery Orthopaedic Surgery of the Spine
DX: M51.16 Intervertebral disc disorders with radiculopathy, lumbar region (principal); M99.73 Connective tissue and disc stenosis of intervertebral foramina of lumbar region; M48.061 Spinal stenosis, lumbar region without neurogenic claudication; Z98.1 Arthrodesis status
CPT/HCPCS: 72131

== ENCOUNTER → 2023-04-07 | Outpatient (CLI) | payer BC ==
[2023-04-07 13:40] VITALS: BP 115/75; PULSE 74; RESP 18; TEMP 98.3
--- NOTE | 2023-04-07 15:22 | P.PAINPG ---
PQRS Measure Charge Sheet Comment: HISTORY OF PRESENT ILLNESS: 53 yr old male as a referral from Dr Kauffman presents today w severe and chronic LBP secondary to DDD, spondylosis and facet arthropathy without myelopathy for evaluation. Pt states pain level is provoked at 10 /10 in intensity, constant, localized in the lower lumbar spine, sharp in character w shooting pain towards the BL feet. Pain is provoked by laying supine. Pain is alleviated by PT years ago, heat, ice, medications (Neurontin), Cannabis products, repositioning and rest. PMH: Asthma, Angina, DM II, Hyperlipidemia, HTN, NH (2021), Sleep Apnea/CPAP/BIPAP, MDD/ Anxiety PSH: Colonoscopy w Polypectomy (2021), L4-5 Fusion w Hardware, Cholecystectomy, Heart Catheterization With Stent x3 (2021), Hernia Repair, R Knee Arthroscopy, BL Wrist ORIF, R Shoulder Surgery x2, Tonsillectomy, R Wrist Ganglion Cystectomy SH: 20 pack/ yr daily tobacco use, No ETOH abuse, Cannabis use FH: Fa- HTN, Colon CA. All: See list Meds: See list REVIEW OF ORGAN SYSTEMS: CONSTITUTIONAL: No fevers or chills. No recent weight loss. NEUROLOGICAL: + numbness and tingling along the distal extremities. No seizure disorders or headaches. MUSCULOSKELETAL: + pain PSYCHIATRIC: Denies current depression or suicidal thoughts. Physical Examinations : Constitutional : Cooperative , not in acute distress . Neurologic : Cranial nerve II to XII intact. No focal neurological deficits. Psychiatric : alert & oriented x 3. Matching mood & appropriate affect. Judgment & insight intact. Musculoskeletal : Cervical Spine Motor strength in the deltoid and biceps: Normal right side. Normal Left side Motor strength biceps and the wrist extensors: Normal right side . Normal left side Motor strength in the triceps muscle: Normal right side. Normal left side Deep tendon reflexes: Normal at the biceps. Normal at Brachioradialis. Normal at triceps Vertebral body tenderness to deep palpation over Cervical facet loading test: positive bilaterally Spurling test: positive bilaterally Neck distraction test: positive bilaterally Laila sign: positive bilaterally Lumbar spine Motor strength lower extremities ,thigh and legs 5/5 Right side , 5/5 Left side Deep tendon reflexes : Normal Knee Jerk. Normal Ankle Jerk Vertebral body tenderness over L4 + Selby Test positive Lumbar facet Loading Test: positive Right / positive Left Range of motion of the lumbar spine Flexion 30 degrees, extension 10 degrees Straight Leg Raise test: Left/ Right positive at degree Eloisa test: positive right / positive left. Severe tenderness over the Sacroiliac joint on the Right / Left sides Gaenslen test: positive bilaterally Seated flexion test: positive bilaterally. Sacral spine : Severe tenderness over the Sacroiliac joint: right side / left side Range of motion: Flexion of the lumbar spine <60 degrees Range of motion: Extension of the lumbar spine <20 degrees Gaenslen's Test positive Haile's Test positive Elosia test: positive right side / left side Thigh Thrust Test Sacral Thrust Test Imaging: CT noncontrast of the lumbar spine from 02/21/23 reviewed Assessment/ Plan : Lumbar DDD Recommendation of NAOMI L4-L5 #1. May need a series of injections for optimal pain relief. Risks, benefits of procedure discussed and patient verbalized understanding. Admits to aspirin or anti- coagulant use or medical history of diabetes. Protocol for discontinuation/ continuation of medications jah procedure discussed. Minimal anesthesia provided, if clinically indicated, consisting of Versed and Fentanyl. All questions answered. I have spent greater than 30 minutes on patient care today. Dr Pennington was available by phone for the evaluation of this patient. The time was used to review the medical records including relevant urine studies and Prescription history (MAPs), review of the available imaging, evaluation and examination of the patient, coordination of care with the medical staff and if applicable referring physicians, as well as creation of the medical record PQRS Narrative: Smoking Status Current every day smoker Home Medications: Ambulatory Orders Atorvastatin [Lipitor] 80 mg PO HS #30 tab 04/06/19 Tamsulosin HCl [Flomax] 0.4 mg PO QAM 08/07/19 DULoxetine HCL [Cymbalta] 60 mg PO QAM 03/16/21 Gabapentin 800 mg PO TID 03/16/21 Insulin Degludec [Tresiba Flextouch U-100 Pen] 50 units SQ QAM 12/23/21 Aspirin 81 mg PO DAILY 12/26/21 Nitroglycerin Sl Tabs [Nitrostat] 0.4 mg SUBLINGUAL Q5M PRN #25 tab 12/26/21 Prasugrel [Effient] 10 mg PO DAILY #90 tab 12/26/21 Spironolactone [Aldactone] 25 mg PO DAILY #90 tab 12/26/21 Empagliflozin [Jardiance] 10 mg PO DAILY 04/01/22 Metoprolol Succinate (ER) [Toprol XL] 50 mg PO QAM 04/01/22 Pantoprazole Sodium [Protonix] 40 mg PO BID 04/01/22 metFORMIN HCL [Glucophage XR] 1,500 mg PO DAILY 04/01/22 Furosemide [Lasix] 40 mg PO DAILY #30 tablet 04/02/22 Losartan [Cozaar] 25 mg PO QAM 04/09/22 Controlled Substance Measures - Controlled Substance Measures Is patient prescribed a controlled substance at discharge?: No
== END ==
LOC: PNWHC3 12:50
PROVIDERS: ATTEND Specialist
DX: M51.36 Other intervertebral disc degeneration, lumbar region (principal); F17.200 Nicotine dependence, unspecified, uncomplicated; Z79.82 Long term (current) use of aspirin; J45.909 Unspecified asthma, uncomplicated; E11.9 Type 2 diabetes mellitus without complications; E78.5 Hyperlipidemia, unspecified; I10 Essential (primary) hypertension; I25.2 Old myocardial infarction; F32.9 Major depressive disorder, single episode, unspecified; Z88.0 Allergy status to penicillin; Z91.018 Allergy to other foods; F17.210 Nicotine dependence, cigarettes, uncomplicated
CPT/HCPCS: 99211

== ENCOUNTER 2023-05-05 07:44 | Day surgery (SDC) | payer BC ==
[2023-05-03 15:09] VITALS: BMI 42.7
[~2023-05-05 07:44] MED LIST changes: +LACTATED RINGERS 1,000 ML IV SCH; -LIDOCAINE 1% (10MG/ML) FOR IV START INTRADERMA PRN
[2023-05-05 08:09] VITALS: TEMP 97.2
[2023-05-05 08:15] LABS: Glucose,Whole Blood 86 mg/dL (70-110)
[2023-05-05] MEDS ORDERED: methylPREDNISolone ACETATE 40 MG/ML 1 ML VIAL ONE (08:29)
[2023-05-05] MEDS ORDERED: IOPAMIDOL M200 10 ML VIAL ONE (08:29)
--- NOTE | 2023-05-05 08:35 | P.PCN ---
Date of Procedure: 05/05/23 Procedure(s) Performed: PREOPERATIVE DIAGNOSIS: 1- Lumbar Degenerative Disc Diseases 2-Lumbar Radiculopathy. POSTOPERATIVE DIAGNOSIS: 1-lumbar degenerative disc disease. 2-lumbar Radiculopathy. PROCEDURE 1. Lumbar epidural steroid injection under fluoroscopic guidance at the L4- 5level. (Fluoroscopy imaging was available in radiology department) 2. Lumbar epidurogram. ANESTHESIA: Lidocaine 1% 3 mL only : EBL: Minimal PROCEDURE INDICATION: The patient with low back pain and radiculitis symptoms unresponsive to conservative treatment. Fluoroscopy was used to optimize visualization of the needle placement and to maximize safety. PROCEDURE DESCRIPTION / TECHNIQUE: The patient was seen and identified in the preoperative area. Risks, benefits, complications including but not limited to infections ,bleeding ,allergic reaction to the medications ,nerve damage and not complete pain releife , and alternatives were discussed with the patient. The patient agreed to proceed with the procedure and signed the consent. IV was started, and vital signs were stable. Patient was taken to the OR and time out was completed. The patient was placed in the prone position on procedure table and a pillow was placed under the abdomen to reduce lumbar lordosis. The lumbosacral area was prepped and draped in the usual sterile fashion.ere closely monitored during the procedure. Conscious sedation was used during the procedure to decrease patients anxiety. Vital signs was monitered during the entire procedure. Using anterior-posterior fluoroscopy, the L4-5 interlaminar space was identified and the skin over this site was marked and then infiltrated with 1% lidocaine subcutaneously. Subsequently, a 20-gauge Tuohy epidural needle was inserted and advanced toward the epidural space using the ``Loss of resistance technique and guided by AP and lateral fluoroscopy. The correct needle position in the epidural space was verified with the injection of 2 mL of the water soluble contrast dye Isovue 200 contrast and observing an excellent epidurogram with the epidural spread of the dye, after negative aspiration for blood and CSF and in the absence of paresthesias. Again after negative aspiration, a 6 ml mixture containing 40 mg of Depo-medrol ( Preservetive Free ), and 2 ml of preservative free Normal Saline, and 2 ml of preservative free lidocaine 1% solution was injected and a washout of epidurogram was seen. Needle was withdrawn intact, skin was cleansed, and bandages were applied. COMPLICATIONS: None DISPOSITION / PLANS: The patient was placed in a supine position and transferred to the recovery area in a stable condition for observation. There was no evidence of lower extremity motor or sensory deficit after the procedure. Patient was discharged from the recovery room after meeting discharge criteria. Home discharge instructions were given to the patient by the staff. The patient was reexamined prior to discharge. The patient will schedule a follow up in the clinic in 2-4 weeks.
[2023-05-05 08:38] VITALS: PULSE 65
--- NOTE | 2023-05-05 08:47 | FL ---
Fluoroscopy History: Lumbar Epid Inj 2.5 S FL TIME. DAP [id number].-AB/CE
[2023-05-05 08:56] VITALS: BP 115/74; RESP 18
== END 2023-05-05 08:56 | disposition home or self-care (01) ==
LOC: ORPAIN 07:44
PROVIDERS: ATTEND Specialist
DX: M51.16 Intervertebral disc disorders with radiculopathy, lumbar region (principal); Z88.0 Allergy status to penicillin
CPT/HCPCS: 62323; J1030; Q9966

== ENCOUNTER → 2023-06-20 | Outpatient (CLI) | payer BC ==
[2023-06-20 13:47] VITALS: BP 119/75; PULSE 67; RESP 16; TEMP 98.1
--- NOTE | 2023-06-20 14:43 | P.PAINPG ---
PQRS Measure Charge Sheet Comment: HISTORY OF PRESENT ILLNESS: 53 yr old male presents today w severe and chronic LBP x 5 yrs secondary to DDD, spondylosis and facet arthropathy without myelopathy for evaluation s/p NAOMI L4- L5 #1. Pt states he experienced 70 % pain relief x 2 wks s/p procedure. Pt states pain level is provoked at 5 /10 in intensity, constant, localized in the lower lumbar spine, sharp in character w shooting pain towards the BL feet. Pain is provoked by laying supine. Pain is alleviated by PT years ago, physician guided home exercises every other day x 3 yrs, heat, ice, medications (Neurontin), Cannabis products, repositioning and rest. Oswestry axial pain score of 26. Interventional procedures include NAOMI L4-L5 x1 Medications include Neurontin REVIEW OF ORGAN SYSTEMS: CONSTITUTIONAL: No fevers or chills. No recent weight loss. NEUROLOGICAL: + numbness and tingling along the distal extremities. No seizure disorders or headaches. MUSCULOSKELETAL: + pain PSYCHIATRIC: Denies current depression or suicidal thoughts. Physical Examinations : Constitutional : Cooperative , not in acute distress . Neurologic : Cranial nerve II to XII intact. No focal neurological deficits. Psychiatric : alert & oriented x 3. Matching mood & appropriate affect. Judgment & insight intact. Musculoskeletal : Cervical Spine Motor strength in the deltoid and biceps: Normal right side. Normal Left side Motor strength biceps and the wrist extensors: Normal right side . Normal left side Motor strength in the triceps muscle: Normal right side. Normal left side Deep tendon reflexes: Normal at the biceps. Normal at Brachioradialis. Normal at triceps Vertebral body tenderness to deep palpation over Cervical facet loading test: positive bilaterally Spurling test: positive bilaterally Neck distraction test: positive bilaterally Laila sign: positive bilaterally Lumbar spine Motor strength lower extremities ,thigh and legs 5/5 Right side , 5/5 Left side Deep tendon reflexes : Normal Knee Jerk. Normal Ankle Jerk Vertebral body tenderness over L4 Selby Test positive Lumbar facet Loading Test: positive Right / positive Left Range of motion of the lumbar spine Flexion 30 degrees, extension 10 degrees Straight Leg Raise test: Left/ Right positive at 35 degrees Eloisa test: positive right / positive left. Severe tenderness over the Sacroiliac joint on the Right / Left sides Gaenslen test: positive bilaterally Seated flexion test: positive bilaterally. Sacral spine : Severe tenderness over the Sacroiliac joint: right side / left side Range of motion: Flexion of the lumbar spine <60 degrees Range of motion: Extension of the lumbar spine <20 degrees Gaenslen's Test positive Haile's Test positive Eloisa test: positive right side / left side Thigh Thrust Test Sacral Thrust Test Imaging: CT non contrast of the lumbar spine from 02/21/23 reviewed Assessment/ Plan : Lumbar DDD Recommendation of R TFESI L4-L5 #1. May need a series of injections for optimal pain relief. Risks, benefits of procedure discussed and patient verbalized understanding. Admits to aspirin or anti- coagulant use or medical history of diabetes. Protocol for discontinuation/ continuation of medications jah procedure discussed. Minimal anesthesia provided, if clinically indicated, consisting of Versed and Fentanyl. All questions answered. I have spent greater than 30 minutes on patient care today. Dr Pennington was available by phone for the evaluation of this patient. The time was used to review the medical records including relevant urine studies and Prescription history (MAPs), review of the available imaging, evaluation and examination of the patient, coordination of care with the medical staff and if applicable referring physicians, as well as creation of the medical record PQRS Narrative: Smoking Status Current every day smoker Hx Alcohol Use (MH) No Home Medications: Ambulatory Orders Atorvastatin [Lipitor] 80 mg PO HS #30 tab 04/06/19 Tamsulosin HCl [Flomax] 0.4 mg PO QAM 08/07/19 DULoxetine HCL [Cymbalta] 90 mg PO QAM 03/16/21 Gabapentin 900 mg PO TID 03/16/21 Insulin Degludec [Tresiba Flextouch U-100 Pen] 50 units SQ QAM 12/23/21 Nitroglycerin Sl Tabs [Nitrostat] 0.4 mg SUBLINGUAL Q5M PRN #25 tab 12/26/21 Prasugrel [Effient] 10 mg PO DAILY #90 tab 12/26/21 Spironolactone [Aldactone] 25 mg PO DAILY #90 tab 12/26/21 Empagliflozin [Jardiance] 10 mg PO DAILY 04/01/22 Metoprolol Succinate (ER) [Toprol XL] 50 mg PO QAM 04/01/22 metFORMIN HCL [Glucophage XR] 1,500 mg PO DAILY 04/01/22 Losartan [Cozaar] 25 mg PO QAM 04/09/22 Semaglutide [Ozempic] 1 mg SQ Q7D 05/03/23 Controlled Substance Measures - Controlled Substance Measures Is patient prescribed a controlled substance at discharge?: No
== END ==
LOC: PNWHC3 13:14
PROVIDERS: ATTEND Specialist
DX: M51.36 Other intervertebral disc degeneration, lumbar region (principal); E11.9 Type 2 diabetes mellitus without complications; F17.200 Nicotine dependence, unspecified, uncomplicated; Z88.0 Allergy status to penicillin; Z91.018 Allergy to other foods; Z79.4 Long term (current) use of insulin; Z79.84 Long term (current) use of oral hypoglycemic drugs; Z79.85 Long-term (current) use of injectable non-insulin antidiabetic drugs
CPT/HCPCS: 99211

== ENCOUNTER → 2023-07-05 | Day surgery (SDC) | payer BC ==
[2023-06-28 10:44] VITALS: BMI 42.7
[2023-07-05 09:37] VITALS: BP 106/64; PULSE 60; RESP 16; TEMP 97
[2023-07-05 09:38] LABS: Glucose,Whole Blood 151 mg/dL (70-110)
== END ==
LOC: ORPAIN 08:49
PROVIDERS: ATTEND Specialist
DX: M54.16 Radiculopathy, lumbar region (principal); Z53.09 Procedure and treatment not carried out because of other contraindication

== ENCOUNTER 2023-09-01 09:44 | Observation (INO) | payer MEDICARE, BC ==
--- NOTE | 2023-09-01 10:05 | ED ---
Chest Pain HPI - General Source: patient, RN notes reviewed Mode of arrival: ambulatory Limitations: no limitations - History of Present Illness MD Complaint: chest pain Onset/Timin -: week(s) <Rafaela Anderson - Last Filed: 09/01/23 10:03> <Moose Brandt - Last Filed: 09/01/23 14:17> - General Chief Complaint: Chest Pain Stated Complaint: abn EKG Time Seen by Provider: 09/01/23 10:03 - History of Present Illness Initial Comments: This is a 53 year old male who presents to the emergency department for chest pain. Symptoms have been intermittent over the last 2 weeks. He saw his PCP this morning and had an abnormal EKG, and was sent here for further evaluation. He notes sleeping a lot lately and feeling increasingly fatigued. Unsure if the chest pain is worse with exertion. Denies any shortness of breath. (Rafaela Anderson) This is a 53-year-old male with a past medical history significant for diabetes hypertension high cholesterol and a history of MIs with stent placement and a defibrillator pacemaker. Patient comes in today because he states for the last 2 weeks she hasn't been feeling good and he is been having some intermittent chest pain. Patient states the chest pain usually lasts about an hour or hour and half. Patient states he is somewhat short of breath and occurs he has had some sweating episodes with it as well. Patient denies any radiation of the pain. Patient's any nausea. Patient states currently has no pain. Patient states associated with this chest pain is been fatigue and a lot of sleeping over the last 2 weeks. Patient has had no headache patient has no numbness weakness. Patient denies any back pain. Patient has abdominal pain patient denies nausea vomiting diarrhea. (Moose Brandt) - Related Data Home Medications Medication Instructions Recorded Confirmed Tamsulosin HCl [Flomax] 0.4 mg PO DAILY 08/07/19 09/01/23 DULoxetine HCL [Cymbalta] 60 mg PO DAILY 03/16/21 09/01/23 Insulin Degludec [Tresiba 50 units SQ DAILY 12/23/21 09/01/23 Flextouch U-100 Pen] Metoprolol Succinate (ER) [Toprol 50 mg PO DAILY 04/01/22 09/01/23 XL] metFORMIN HCL [Glucophage XR] 1,500 mg PO DAILY 04/01/22 09/01/23 Losartan [Cozaar] 25 mg PO DAILY 04/09/22 09/01/23 Semaglutide [Ozempic] 2 mg SQ ELLER 05/03/23 09/01/23 Spironolactone [Aldactone] 25 mg PO DAILY 07/27/23 09/01/23 Albuterol Sulfate [Albuterol 2 puff PO RT-TID 09/01/23 09/01/23 Sulfate Hfa] Bumetanide [BUMEX] 2 mg PO DAILY 09/01/23 09/01/23 DULoxetine HCL [Cymbalta] 30 mg PO DAILY 09/01/23 09/01/23 Gabapentin [Neurontin] 900 mg PO TID 09/01/23 09/01/23 Previous Rx's Medication Instructions Recorded Atorvastatin [Lipitor] 80 mg PO HS #30 tab 04/06/19 Nitroglycerin Sl Tabs [Nitrostat] 0.4 mg SUBLINGUAL Q5M PRN #25 tab 12/26/21 Prasugrel [Effient] 10 mg PO DAILY #90 tab 12/26/21 Allergies Allergy/AdvReac Type Severity Reaction Status Date / Time penicillin V Allergy Severe Rapid Verified 09/01/23 11:06 Heart Rate Mushroom AdvReac Mild Nausea & Verified 09/01/23 11:06 Vomiting Review of Systems ROS Other: All systems not noted in ROS Statement are negative. <Rafaela Anderson - Last Filed: 09/01/23 10:03> ROS Other: All systems not noted in ROS Statement are negative. <Moose Brandt - Last Filed: 09/01/23 14:17> ROS Statement: Those systems with pertinent positive or pertinent negative responses have been documented in the HPI. Past Medical History Past Medical History: Asthma, Chest Pain / Angina, Diabetes Mellitus, Hyperlipidemia, Hypertension, Myocardial Infarction ([place]), Pneumonia, Renal Disease, Sleep Apnea/CPAP/BIPAP Additional Past Medical History / Comment(s): BACK PAIN, NUMBNESS/TINGLING LAWRENCE LEGS, kidney stone, Last Myocardial Infarction Date:: 12/2021 History of Any Multi-Drug Resistant Organisms: None Reported Past Surgical History: Back Surgery, Cholecystectomy, Heart Catheterization With Stent, Hernia Repair, Orthopedic Surgery, Tonsillectomy Additional Past Surgical History / Comment(s): PAIN CLINIC PROCEDURE, RT KNEE arthroscopy, LAWRENCE WRIST ORIF, RIGHT SHOULDER arthroscopy x 2, SINUS surgery,. 3 cardiac stents, rt wrist ganglion cyst, 4 screws and 2 rods lower back, recent stent placed Past Anesthesia/Blood Transfusion Reactions: No Reported Reaction Date of Last Stent Placement:: 12/2021 Smoking Status: Current every day smoker - Past Family History Father Family Medical History: Cancer Additional Family Medical History / Comment(s): COLON Family Additional Family Medical History / Comment(s): Multiple people hypertension. Denies any history of coronary artery disease. <Rafaela Anderson - Last Filed: 09/01/23 10:03> General Exam <Rafaela Anderson - Last Filed: 09/01/23 10:03> <Moose Brandt - Last Filed: 09/01/23 14:17> - General Exam Comments Initial Comments: Visual Physical Exam Vital signs reviewed General: Well-appearing, nontoxic, no acute distress. Head: Normocephalic, atraumatic Eyes: PERRLA, EOMI ENT: Airway patent Chest: Nonlabored breathing Skin: No visual rash, normal skin tone Neuro: Alert and oriented 3 Musculoskeletal: No gross abnormalities I performed the QuickNote portion of this chart. Signed Rafaela Anderson PA-C. (Rafaela Anderson) GENERAL: Patient is well-developed and well-nourished. Patient is nontoxic and well-h ydrated and is in mild distress. ENT: Neck is soft and supple. No significant lymphadenopathy is noted. Oropharynx is clear. Moist mucous membranes. Neck has full range of motion without eliciting any pain. EYES: The sclera were anicteric and conjunctiva were pink and moist. Extraocular movements were intact and pupils were equal round and reactive to light. Eyelids were unremarkable. PULMONARY: Unlabored respirations. Good breath sounds bilaterally. No audible rales rhonchi or wheezing was noted. CARDIOVASCULAR: There is a regular rate and rhythm without any murmurs gallops or rubs. ABDOMEN: Soft and nontender with normal bowel sounds. SKIN: Skin is clear with no lesions or rashes and otherwise unremarkable. NEUROLOGIC: Patient is alert and oriented x3. Cranial nerves II through XII are grossly intact. Motor and sensory are also intact. Normal speech, volume and content. Symmetrical smile. MUSCULOSKELETAL: Normal extremities with adequate strength and full range of motion. No lower extremity swelling or edema. No calf tenderness. LYMPHATICS: No significant lymphadenopathy is noted PSYCHIATRIC: Normal psychiatric evaluation. (Moose Brandt) Course Vital Signs 09/01/23 09/01/23 10:09 14:00 Temperature 97.7 F Pulse Rate 73 63 Respiratory 16 16 Rate Blood Pressure 116/71 107/67 O2 Sat by Pulse [address] [facility] <Moose Brandt - Last Filed: 09/01/23 14:17> - [facility] EKG is interpreted by myself. EKG shows a sinus rhythm at 60 bpm W[place] interval is 2:15 QRS is 90 QT interval 372 QTC is 392. Patient's EKG shows some slight ST segment elevation V1 and V2 and V3 however all those leads also had Q waves. Patient also has some T-wave inversions in V4 V5 and V6. As well as lateral leads 1 and aVL. When I saw the EKG I spoke with cardiology immediately even though the patient still in triage and Dr. Fontana came down within 5 minutes. Was pt. sent in by a medical professional or institution (, PA, UNLOADER OPERATOR, urgent care, hospital, or half-way...) When possible be specific @ -No Did you speak to anyone other than the patient for history (EMS, parent, family, police, friend...)? What history was obtained from this source @ -No Did you review nursing and triage notes (agree or disagree)? Why? @ -I reviewed and agree with nursing and triage notes Were old charts reviewed (outside hosp., previous admission, EMS record, old EKG, old radiological studies, urgent care reports/EKG's, half-way records)? Report findings @ -I reviewed prior charts in prior laboratory on this patient Differential Diagnosis (chest pain, altered mental status, abdominal pain women, abdominal pain men, vaginal bleeding, weakness, fever, dyspnea, syncope, headache, dizziness, GI bleed, back pain, seizure, CVA, palpatations, mental health, musculoskeletal)? @ -Differential Chest Pain: Stable Angina, Unstable Angina, STEMI, NSTEMI Aortic Dissection, Pneumothorax, Musculoskeletal, Esophageal Spasm GERD, Cholecystitis, Pancreatitis, Zoster, this is not meant to be an all-inclusive list. EKG interpreted by me (3pts min.). @ -As above X-rays interpreted by me (1pt min.). @ -Chest x-ray shows no acute abnormality CT interpreted by me (1pt min.). @ -None done U/S interpreted by me (1pt. min.). @ -None done What testing was considered but not performed or refused? (CT, X-rays, U/S, labs)? Why? @ -None What meds were considered but not given or refused? Why? @ -None Did you discuss the management of the patient with other professionals (professionals i.e. , PA, UNLOADER OPERATOR, lab, RT, psych nurse, 7th grade social studies teacher, nurse gynecology, teacher, rating officer, family preservation caseworker)? Give summary @ -I spoke with ramila physician's they agree to admit the patient admitted the patient I wrote admitting orders Was smoking cessation discussed for >3mins.? @ -No Was critical care preformed (if so, how long)? @ -35 minutes Were there social determinants of health that impacted care today? How? (Homelessness, low income, unemployed, alcoholism, drug addiction, transportation, low edu. Level, literacy, decrease access to med. care, prison, rehab)? @ -No Was there de-escalation of care discussed even if they declined (Discuss DNR or withdrawal of care, Hospice)? DNR status @ -No What co-morbidities impacted this encounter? (DM, HTN, Smoking, COPD, CAD, Cancer, CVA, ARF, Chemo, Hep., AIDS, mental health diagnosis, sleep apnea, morbid obesity)? @ -None Was patient admitted / discharged? Hospital course, mention meds given and route, prescriptions, significant lab abnormalities, going to OR and other pertinent info. @ -Patient has significant chest pain Dr. Fontana came down and saw the patient in the emergency department he wanted the patient admitted. I started the patient on heparin. Patient has been Nitropaste as well. I will continue the heparin and aspirin and Nitropaste on the floor. Cardiology will be consulted sounds physician's agreed to admit the patient I wrote admitting orders. Undiagnosed new problem with uncertain prognosis? @ -No Drug Therapy requiring intensive monitoring for toxicity (Heparin, Nitro, Insulin, Cardizem)? @ -No Were any procedures done? @ -No Diagnosis/symptom? @ -Chest pain Acute, or Chronic, or Acute on Chronic? @ -Acute Uncomplicated (without systemic symptoms) or Complicated (systemic symptoms)? @ -Complicated Side effects of treatment? @ -No Exacerbation, Progression, or Severe Exacerbation? @ -No Poses a threat to life or bodily function? How? (Chest pain, [place], [place], pneumonia, PE, COPD, DKA, ARF, appy, cholecystitis, CVA, Diverticulitis, Homicidal, Suicidal, threat to staff... and all critical care pts) @ -Yes This could lead to an [place] and end organ dysfunction Diagnosis/symptom? @ -COVID Acute, or Chronic, or Acute on Chronic? @ -Acute Uncomplicated (without systemic symptoms) or Complicated (systemic symptoms)? @ -Complicated Side effects of treatment? @ -none Exacerbation, Progression, or Severe Exacerbation] @ -no Poses a threat to life or bodily function? @ -no (Moose Brandt) Disposition <Rafaela Anderson - Last Filed: 09/01/23 10:03> Time of Disposition: 14:17 <Moose Brandt - Last Filed: 09/01/23 14:17> Clinical Impression: Chest pain, COVID Disposition: ADMITTED IP TO THIS HOSP Referrals: Manuel Jameson MD [Primary Care Provider] - 1-2 days
[2023-09-01 10:37] LABS: Basophils # (A) 0.1 k/uL (0-0.2); Basophils % (A) 1 %; Eosinophils # (A) 0.5 k/uL (0-0.7); Eosinophils % (A) 4 %; HCT 47.5 % (39.0-53.0); HGB 15.9 gm/dL (13.0-17.5); Lymphocytes # (A) 2.2 k/uL (1.0-4.8); Lymphocytes % (A) 16 %; MCH 29.3 pg (25.0-35.0); MCHC 33.5 g/dL (31.0-37.0); MCV 87.4 fL (80.0-100.0); Mean Platelet Volume 8.5; Monocytes # (A) 0.9 k/uL (0-1.0); Monocytes % (A) 7 %; Neutrophils # (A) 9.9 k/uL (1.3-7.7); Neutrophils % (A) 72 %; Platelet Count 328 k/uL (150-450); RBC 5.44 m/uL (4.30-5.90); RDW 15.1 % (11.5-15.5); WBC 13.7 k/uL (3.8-10.6)
[2023-09-01] MEDS ORDERED: NITROGLYCERIN OINT 1 INCH/GM PACKET TOPICAL STA (10:41)
[2023-09-01] MEDS ORDERED: HEPARIN SODIUM 1,000 UN/ML (10ML VL) IV ONE (10:41)
[2023-09-01] MEDS ORDERED: ASPIRIN 81 MG PO STA (10:41)
[2023-09-01 10:48] LABS: Partial Thromboplastin Time 24.1 sec (22.0-30.0); Prothrombin Time 10.8 sec (9.0-12.0)
[2023-09-01] MEDS: HEPARIN SOD,PORK IN 0.45% NACL 25,000 UNIT in 0.45% NACL 1 250ML.BAG IV SCH (11:05)
[2023-09-01 11:14] LABS: ALT 44 U/L (4-49); AST 38 U/L (17-59); African American GFR (CKD) >90 (>60 ml/min/1.73 sqM); Albumin 4.7 g/dL (3.5-5.0); Alkaline Phosphatase 103 U/L (38-126); Anion Gap 14 mmol/L; Blood Urea Nitrogen 22 mg/dL (9-20); Carbon Dioxide 22 mmol/L (22-30); Chloride 104 mmol/L (98-107); Glucose 115 mg/dL (74-99); Magnesium 1.7 mg/dL (1.6-2.3); Non-African American GFR(CKD) 80 (>60 ml/min/1.73 sqM); Potassium 4.1 mmol/L (3.5-5.1); Sodium 140 mmol/L (137-145); Total Bilirubin 1.1 mg/dL (0.2-1.3)
--- NOTE | 2023-09-01 11:14 | XR ---
EXAMINATION TYPE: XR chest 2V DATE OF EXAM: 09/01/2023 COMPARISON: 04/01/2022 TECHNIQUE: PA and lateral views submitted. HISTORY: Chest pain FINDINGS: The lungs are clear and there is no pneumothorax, pleural effusion, or focal pneumonia. Heart size normal and no overt failure. Osseous structures demonstrate hypertrophic and degenerative changes of the spine. Emphysematous changes seen. There is a cardiac device. Biapical pleural thickening. IMPRESSION: 1. No acute process. Correlate COPD.
[2023-09-01] MEDS ORDERED: NITROGLYCERIN SL TABS 0.4 MG TAB SUBLINGUAL PRN ×2 (13:43→14:17)
[2023-09-01] MEDS ORDERED: HYDROcodone/APAP 5-325MG 1 EACH TAB PO PRN (13:44)
[2023-09-01] MEDS ORDERED: NALOXONE 0.4 MG/ML 1 ML VIAL IVP PRN (13:44)
--- NOTE | 2023-09-01 13:46 | P.HPIM ---
History of Present Illness H&P Date: 09/01/23 History of Presenting Illness: Patient is a very pleasant 53-year-old male with a past medical history of CAD with previous HI and ischemic cardiomyopathy with previous EF of 20-25% status post AICD placement in 2021, hypertension, hyperlipidemia, insulin-dependent diabetes mellitus, chronic kidney disease, and asthma/COPD with continued nicotine dependence. Patient presented to the emergency department with a chief complaint of overall feeling unwell with intermittent chest pains and shortness of breath 2 weeks. Patient denies anything making these pains worse and states only resolves when he is sleeping. Patient denies having any fevers, chills, diaphoresis headache, lightheadedness, dizziness, palpitations, cough or congestion, nausea, vomiting, or noticing any swelling/weakness/tingling/weakness in his extremities. Patient underwent full evaluation in the emergency department. Vital signs upon arrival blood pressure 116/71, heart rate 73, respiratory rate 16, temp 97.7F, SpO2 99% on room air. EKG was completed showing normal sinus rhythm with a first-degree AV block with HI interval of 215 ms and T-wave inversion in lateral leads 2, 3, aVL, and V4 t hrough V6. Chest x-ray completed consistent with COPD but negative for acute cardiopulmonary process. Labs completed and reviewed. CBC showing mild leukocytosis with WBC count of 13.7. Coagulation profile normal findings. BMP unremarkable with the exception of mild prerenal azotemia with BUN of 22. Liver profile unremarkable. Troponin 0.018. Covid PCR was positive. Patient was admitted under our services with consultation to cardiology for chest pain. Review of systems: Pertinent positives and negatives as discussed in HPI, a complete review of systems was performed and all other systems are negative. Physical exam: Vital signs reviewed and stable. General: Nontoxic, no distress and appears stated age. Derm: Skin warm and dry, normal coloration for ethnicity. Head: Atraumatic, normocephalic and symmetric. Eyes: EOMs intact, no lid lag, and anicteric sclera Mouth: no lip lesions, mucus membranes moist Cardiovascular: regular rate and rhythm with normal S1S2, no murmur, positive posterior tibial pulses bilaterally, and cap refill < 2 seconds. Lungs: Respirations even, regular, and unlabored on room air. Lungs CTA bilaterally, no rhonchi, no rales, no wheezing, and no accessory muscle usage. Abdominal: soft, nontender to palpation, no guarding, no appreciable o rganomegaly Ext: ROM intact. No gross muscle atrophy, no edema, no contractures Neuro: Speech clear, face symmetrical and CN II-XII grossly intact with no noted focal neuro deficits Psych: Alert and oriented to person, place, time, and situation. Appropriate and pleasant affect. Assessment and Plan of Care: Chest pain, rule out acute coronary event Covid infection COPD with continued nicotine dependence History of CAD with previous HI History of ischemic cardiomyopathy status post AICD placement in 2021 Hypertension Hyperlipidemia -Cardiology consult, appreciate further recommendations -Continue heparin infusion -Telemetry monitoring -Trend troponins -Cardiac diet, NPO at midnight -Patient to continue daily medication regimen with aspirin 81 mg daily, atorvastatin 80 mg daily Bumex 2 mg daily, losartan 25 mg daily, metoprolol 50 mg daily, spironolactone 25 mg daily and Effient 10 mg daily. Insulin-dependent diabetes mellitus -Patient to continue with Levemir 50 units daily and placed on glycemic protocol with NovoLog sliding scale. Data and imaging reviewed: -Vital signs upon arrival blood pressure 116/71, heart rate 73, respiratory rate 16, temp 97.7F, SpO2 99% on room air. -EKG was completed showing normal sinus rhythm with a first-degree AV block with HI interval of 215 ms and T-wave inversion in lateral leads 2, 3, aVL, and V4 through V6. -Chest x-ray completed consistent with COPD but negative for acute cardiopulmonary process. Labs completed and reviewed. CBC showing mild leukocytosis with WBC count of 13.7. Coagulation profile normal findings. BMP unremarkable with the exception of mild prerenal azotemia with BUN of 22. Liver profile unremarkable. Troponin 0.018. Covid PCR was positive. Patient was admitted under our services with consultation to cardiology for chest pain. CODE STATUS: Full code DVT prophylaxis: Heparin Discussed with: Pt, ED physician and RN Anticipated discharge date: 24-[address]: Home Patient was seen independently by Nurse Practitioner. This document was prepared using [employer] dictation software. Please allow for errors in organ teacher while rare they do occur. Past Medical History Past Medical History: Asthma, Chest Pain / Angina, Diabetes Mellitus, Hyperlipidemia, Hypertension, Myocardial Infarction ([place]), Pneumonia, Renal Disease, Sleep Apnea/CPAP/BIPAP Additional Past Medical History / Comment(s): BACK PAIN, NUMBNESS/TINGLING LAWRENCE LEGS, kidney stone, Last Myocardial Infarction Date:: 12/2021 History of Any Multi-Drug Resistant Organisms: None Reported Past Surgical History: Back Surgery, Cholecystectomy, Heart Catheterization With Stent, Hernia Repair, Orthopedic Surgery, Tonsillectomy Additional Past Surgical History / Comment(s): PAIN CLINIC PROCEDURE, RT KNEE arthroscopy, LAWRENCE WRIST ORIF, RIGHT SHOULDER arthroscopy x 2, SINUS surgery,. 3 cardiac stents, rt wrist ganglion cyst, 4 screws and 2 rods lower back, recent stent placed Past Anesthesia/Blood Transfusion Reactions: No Reported Reaction Date of Last Stent Placement:: 12/2021 Past Psychological History: Anxiety, Depression Smoking Status: Current every day smoker Past Alcohol Use History: None Reported Past Drug Use History: None Reported - Past Family History Father Family Medical History: Cancer Additional Family Medical History / Comment(s): COLON Family Additional Family Medical History / Comment(s): Multiple people hypertension. Denies any history of coronary artery disease. Medications and Allergies Home Medications Medication Instructions Recorded Confirmed Type Atorvastatin [Lipitor] 80 mg PO HS #30 tab 04/06/19 09/01/23 Rx Tamsulosin HCl [Flomax] 0.4 mg PO DAILY 08/07/19 09/01/23 History DULoxetine HCL [Cymbalta] 60 mg PO DAILY 03/16/21 09/01/23 History Insulin Degludec [Tresiba 50 units SQ DAILY 12/23/21 09/01/23 History Flextouch U-100 Pen] Nitroglycerin Sl Tabs [Nitrostat] 0.4 mg SUBLINGUAL Q5M PRN #25 tab 12/26/21 09/01/23 Rx Prasugrel [Effient] 10 mg PO DAILY #90 tab 12/26/21 09/01/23 Rx Metoprolol Succinate (ER) [Toprol 50 mg PO DAILY 04/01/22 09/01/23 History XL] metFORMIN HCL [Glucophage XR] 1,500 mg PO DAILY 04/01/22 09/01/23 History Losartan [Cozaar] 25 mg PO DAILY 04/09/22 09/01/23 History Semaglutide [Ozempic] 2 mg SQ ELLER 05/03/23 09/01/23 History Spironolactone [Aldactone] 25 mg PO DAILY 07/27/23 09/01/23 History Albuterol Sulfate [Albuterol 2 puff PO RT-TID 09/01/23 09/01/23 History Sulfate Hfa] Bumetanide [BUMEX] 2 mg PO DAILY 09/01/23 09/01/23 History DULoxetine HCL [Cymbalta] 30 mg PO DAILY 09/01/23 09/01/23 History Gabapentin [Neurontin] 900 mg PO TID 09/01/23 09/01/23 History Allergies Allergy/AdvReac Type Severity Reaction Status Date / Time penicillin V Allergy Severe Rapid Verified 09/01/23 11:06 Heart Rate Mushroom AdvReac Mild Nausea & Verified 09/01/23 11:06 Vomiting Physical Exam Vitals: Vital Signs Temp Pulse Resp BP Pulse Ox 09/01/23 10:09 97.7 F 73 16 116/71 99 Intake and Output 08/31/23 09/01/23 09/01/23 22:59 06:59 14:59 Other: Weight 137.438 kg Results CBC & Chem 7: 09/01/23 10:21 09/01/23 10:21 Labs: Abnormal Lab Results - Last 24 Hours (Table) 09/01/23 09/01/23 09/01/23 Range/Units 10:21 10:21 11:12 WBC 13.7 H (3.8-10.6) k/uL Neutrophils # 9.9 H (1.3-7.7) k/uL BUN 22 H (9-20) mg/dL Glucose 115 H (74-99) mg/dL Coronavirus (PCR) Detected A (Not Detectd)
[2023-09-01] MEDS: METOPROLOL SUCCINATE (ER) 50 MG TAB.ER.24H PO SCH (14:06)
[2023-09-01] MEDS: GABAPENTIN 300 MG CAP PO SCH ×2 (15:39→22:21)
[2023-09-01] MEDS: NITROGLYCERIN OINT 1 INCH/GM PACKET TOPICAL SCH (19:01)
[2023-09-01] MEDS ORDERED: DEXTROSE 50% SYRINGE 50 ML IVP PRN ×2 (19:08)
[2023-09-01] MEDS: HEPARIN SODIUM 1,000 UN/ML (10ML VL) IV PRN (19:16)
[2023-09-01] MEDS ORDERED: ATORVASTATIN 80 MG TAB PO SCH (21:00)
[2023-09-01] MEDS: INSULIN ASPART (NovoLOG) 100 UNIT/ML VIAL SQ SCH (22:09)
[2023-09-01 22:10] LABS: Glucose,Whole Blood 103 mg/dL (70-110)
[2023-09-02] MEDS: NITROGLYCERIN OINT 1 INCH/GM PACKET TOPICAL SCH ×2 (01:44→06:21)
[2023-09-02] MEDS: HEPARIN SOD,PORK IN 0.45% NACL 25,000 UNIT in 0.45% NACL 1 250ML.BAG IV SCH (04:36)
[2023-09-02 05:53] LABS: Glucose,Whole Blood 100 mg/dL (70-110)
[2023-09-02] MEDS: INSULIN ASPART (NovoLOG) 100 UNIT/ML VIAL SQ SCH (05:54)
[2023-09-02] MEDS: HEPARIN SODIUM 1,000 UN/ML (10ML VL) IV PRN (06:50)
[2023-09-02] MEDS: GABAPENTIN 300 MG CAP PO SCH (08:39)
[2023-09-02] MEDS: METOPROLOL SUCCINATE (ER) 50 MG TAB.ER.24H PO SCH (08:40)
[2023-09-02] MEDS ORDERED: INSULIN DETEMIR (LEVEMIR) 100 UNIT/ML SYR SQ SCH (09:00)
[2023-09-02] MEDS ORDERED: LOSARTAN 25 MG TAB PO SCH (09:00)
[2023-09-02] MEDS ORDERED: PRASUGREL 10 MG TAB PO SCH (09:00)
[2023-09-02] MEDS ORDERED: BUMETANIDE 1 MG TAB PO SCH (09:00)
[2023-09-02] MEDS ORDERED: DULoxetine HCL 30 MG CAPSULE.DR PO SCH (09:00)
[2023-09-02] MEDS ORDERED: TAMSULOSIN 0.4 MG CAP.ER.24H PO SCH (09:00)
[2023-09-02] MEDS ORDERED: SPIRONOLACTONE 25 MG TAB PO SCH (09:00)
[2023-09-02] MEDS ORDERED: DULoxetine HCL 60 MG CAPSULE.DR PO SCH (09:00)
[2023-09-02] MEDS ORDERED: ASPIRIN 81 MG PO SCH (09:00)
[2023-09-02 09:30] VITALS: BP 122/85; PULSE 57; RESP 16; TEMP 98
[2023-09-02 09:36] LABS: LDL Cholesterol,Calculated 8.6 mg/dL (0.0-131.0)
--- NOTE | 2023-09-02 10:42 | P.CRDCN ---
History of Present Illness History of present illness: CHIEF COMPLAINT: Shortness of breath HISTORY OF PRESENT ILLNESS: This is a 53-year-old male with a past medical history significant for COPD, n icotine dependence coronary artery disease with previous stenting, ischemic cardiomyopathy, AICD implantation, congestive heart failure, hypertension, and hyperlipidemia. Patient follows in the office with Dr. Sellers. We have been asked to see the patient in consultation for chest pain. Patient examined at the bedside. Patient presented to the hospital with a chief complaint of feeling unwell. Patient has been having shortness of breath for the past week. He also reports intermediate chest pain. The patient was found to be positive for Covid. * EKG reveals sinus mechanism with T-wave inversions in anterior lateral leads * Chest xray negative for acute process * Current home cardiac medications include Lipitor 80 mg at night, Bumex 2 mg daily, Effient 10 mg daily, metoprolol succinate 50 mg daily, Aldactone 25 mg daily, and losartan 25 mg daily * Most recent echocardiogram obtained in December 2021 revealing ejection fraction 20-25%, mild to moderate MR, mild TR * Cardiac catheterization history: December 2021 with stenting of the proximal LAD REVIEW OF SYSTEMS: Thorough review of systems not completed secondary to limited evaluation/examination due to Covid19 PHYSICAL EXAM: Thorough physical exam not completed secondary to limited evaluation/examination due to Covid19 ASSESSMENT: Acute Covid 19 Chest pain, troponins negative 3, likely secondary to above Acute COPD exacerbation Coronary artery disease with previous stenting Ischemic cardiomyopathy History of AICD implantation Hypertension Hyperlipidemia Nicotine dependence PLAN: An acute coronary and has been ruled out No need to obtain echocardiogram Resume home cardiac medications D-dimer obtained and within normal limits. Discontinue IV heparin. No further inpatient recommendations from a cardiology standpoint. We will sign off. Please reconsult if needed. Nurse practitioner note has been reviewed by physician. Signing provider agrees with the documented findings, assessment, and plan of care. Past Medical History Past Medical History: Asthma, Chest Pain / Angina, Diabetes Mellitus, Hyperlipidemia, Hypertension, Myocardial Infarction (AL), Pneumonia, Renal Disease, Sleep Apnea/CPAP/BIPAP Additional Past Medical History / Comment(s): BACK PAIN, NUMBNESS/TINGLING LAWRENCE LEGS, kidney stone, Last Myocardial Infarction Date:: 12/2021 History of Any Multi-Drug Resistant Organisms: None Reported Past Surgical History: Back Surgery, Cholecystectomy, Heart Catheterization With Stent, Hernia Repair, Orthopedic Surgery, Tonsillectomy Additional Past Surgical History / Comment(s): PAIN CLINIC PROCEDURE, RT KNEE arthroscopy, LAWRENCE WRIST ORIF, RIGHT SHOULDER arthroscopy x 2, SINUS surgery,. 3 cardiac stents, rt wrist ganglion cyst, 4 screws and 2 rods lower back, recent stent placed Past Anesthesia/Blood Transfusion Reactions: No Reported Reaction Date of Last Stent Placement:: 12/2021 Past Psychological History: Anxiety, Depression Smoking Status: Current every day smoker Past Alcohol Use History: None Reported Additional Past Alcohol Use History / Comment(s): smokes 1/2 PPD for > 30 yrs Past Drug Use History: None Reported - Past Family History Father Family Medical History: Cancer Additional Family Medical History / Comment(s): COLON Family Additional Family Medical History / Comment(s): Multiple people hypertension. Denies any history of coronary artery disease. Medications and Allergies Home Medications Medication Instructions Recorded Confirmed Type Atorvastatin [Lipitor] 80 mg PO HS #30 tab 04/06/19 09/01/23 Rx Tamsulosin HCl [Flomax] 0.4 mg PO DAILY 08/07/19 09/01/23 History DULoxetine HCL [Cymbalta] 60 mg PO DAILY 03/16/21 09/01/23 History Insulin Degludec [Tresiba 50 units SQ DAILY 12/23/21 09/01/23 History Flextouch U-100 Pen] Nitroglycerin Sl Tabs [Nitrostat] 0.4 mg SUBLINGUAL Q5M PRN #25 tab 12/26/21 09/01/23 Rx Prasugrel [Effient] 10 mg PO DAILY #90 tab 12/26/21 09/01/23 Rx Metoprolol Succinate (ER) [Toprol 50 mg PO DAILY 04/01/22 09/01/23 History XL] metFORMIN HCL [Glucophage XR] 1,500 mg PO DAILY 04/01/22 09/01/23 History Losartan [Cozaar] 25 mg PO DAILY 04/09/22 09/01/23 History Semaglutide [Ozempic] 2 mg SQ ELLER 05/03/23 09/01/23 History Spironolactone [Aldactone] 25 mg PO DAILY 07/27/23 09/01/23 History Albuterol Sulfate [Albuterol 2 puff PO RT-TID 09/01/23 09/01/23 History Sulfate Hfa] Bumetanide [BUMEX] 2 mg PO DAILY 09/01/23 09/01/23 History DULoxetine HCL [Cymbalta] 30 mg PO DAILY 09/01/23 09/01/23 History Gabapentin [Neurontin] 900 mg PO TID 09/01/23 09/01/23 History Allergies Allergy/AdvReac Type Severity Reaction Status Date / Time penicillin V Allergy Severe Rapid Verified 09/01/23 11:06 Heart Rate Mushroom AdvReac Mild Nausea & Verified 09/01/23 11:06 Vomiting Physical Exam Vitals: Vital Signs Temp Pulse Pulse Resp BP BP Pulse Ox 09/02/23 07:00 98.0 F 57 L 16 122/85 92 L 09/02/23 02:35 98.2 F 92 15 100/58 95 09/02/23 01:32 65 15 09/02/23 00:45 98.5 F 65 15 124/78 95 09/01/23 20:00 61 16 117/76 94 L 09/01/23 18:00 61 18 109/74 95 09/01/23 17:00 64 17 111/69 97 09/01/23 16:00 72 17 127/83 97 09/01/23 15:00 64 18 98/75 96 09/01/23 14:00 63 16 107/67 95 Intake and Output 09/01/23 09/02/23 09/02/23 22:59 06:59 14:59 Intake Total 82 164.768 Balance 82 164.768 Intake: Intake, IV Titration 82 164.768 Amount Heparin Sod,Pork in 0.45% 82 164.768 NaCl 25,000 unit In 0.45 % NaCl 1 250ml.bag @ 7. 276 UNITS/KG/HR 10 mls/hr IV .Q24H [facility] Rx#: [id number] Other: Voiding Method Toilet # Voids 1 1 Weight 137.438 kg Results 09/01/23 10:21 09/01/23 10:21 Cardiac Enzymes 09/01/23 09/01/23 09/01/23 Range/Units 10:21 10:21 15:31 AST 38 (17-59) U/L Troponin I 0.018 <0.012 (0.000-0.034) ng/mL 09/01/23 Range/Units 18:24 AST (17-59) U/L Troponin I 0.018 (0.000-0.034) ng/mL Coagulation 09/01/23 09/01/23 09/02/23 Range/Units 10:21 18:20 01:16 PT 10.8 (9.0-12.0) sec APTT 24.1 29.2 43.4 H (22.0-30.0) sec 09/02/23 Range/Units 05:53 PT (9.0-12.0) sec APTT 42.4 H (22.0-30.0) sec Lipids 09/01/23 Range/Units 10:21 Triglycerides 237.00 H (0.00-149.00) mg/dL Cholesterol 84.00 (0.00-200.00) mg/dL HDL Cholesterol 28.00 L (40.00-60.00) mg/dL Cholesterol/HDL Ratio 3.00 Ratio CBC 09/01/23 Range/Units 10:21 WBC 13.7 H (3.8-10.6) k/uL RBC 5.44 (4.30-5.90) m/uL Hgb 15.9 (13.0-17.5) gm/dL Hct 47.5 (39.0-53.0) % Plt Count 328 (150-450) k/uL Comprehensive Metabolic Panel 09/01/23 Range/Units 10:21 Sodium 140 (137-145) mmol/L Potassium 4.1 (3.5-5.1) mmol/L Chloride 104 (98-107) mmol/L Carbon Dioxide 22 (22-30) mmol/L BUN 22 H (9-20) mg/dL Creatinine 1.05 (0.66-1.25) mg/dL Glucose 115 H (74-99) mg/dL Calcium 10.0 (8.4-10.2) mg/dL AST 38 (17-59) U/L ALT 44 (4-49) U/L Alkaline Phosphatase 103 (38-126) U/L Total Protein 8.0 (6.3-8.2) g/dL Albumin 4.7 (3.5-5.0) g/dL Current Medications Generic Name Dose Route Start Last Admin Trade Name Freq PRN Reason Stop Dose Admin Hydrocodone Bitart/Acetaminophen 1 each 09/01/23 13:44 Hydrocodone/Apap 5-325mg 1 Each Tab PO Q4HR PRN Moderate Pain (Scale 4 to 6) Aspirin 81 mg 09/02/23 09:00 09/02/23 08:40 Aspirin 81 Mg PO 81 mg DAILY MARCIAL Administration Atorvastatin Calcium 80 mg 09/01/23 21:00 09/01/23 22:21 Atorvastatin 80 Mg Tab PO 80 mg HS MARCIAL Administration Bumetanide 2 mg 09/02/23 09:00 09/02/23 08:40 Bumetanide 1 Mg Tab PO 2 mg DAILY MARCIAL Administration Dextrose/Water 25 ml 09/01/23 19:08 Dextrose 50% Syringe 50 Ml IVP PER PROTOCOL PRN Hypoglycemia Protocol Dextrose/Water 50 ml 09/01/23 19:08 Dextrose 50% Syringe 50 Ml IVP PER PROTOCOL PRN Hypoglycemia Protocol Duloxetine HCl 90 mg 09/02/23 09:00 09/02/23 08:40 Duloxetine Hcl 30 Mg Capsule.Dr PO 90 mg DAILY MARCIAL Administration Gabapentin 900 mg 09/01/23 16:00 09/02/23 08:39 Gabapentin 300 Mg Cap PO 900 mg TID MARCIAL Administration Heparin Sodium (Porcine) 0 unit 09/01/23 19:03 09/02/23 06:50 Heparin Sodium 1,000 Un/Ml (10ml Vl) IV 3,425 unit Q6HR PRN Administration Low PTT Protocol Insulin Aspart 0 unit 09/01/23 21:00 09/02/23 05:54 Insulin Aspart (Novolog) 100 Unit/Ml Vial SQ Not Given ACHS MARCIAL Protocol Insulin Detemir 50 unit 09/02/23 09:00 09/02/23 08:39 Insulin Detemir (Levemir) 100 Unit/Ml Syr SQ 50 unit DAILY MARCIAL Administration Losartan Potassium 25 mg 09/02/23 09:00 09/02/23 08:40 Losartan 25 Mg Tab PO 25 mg DAILY MARCIAL Administration Metoprolol Succinate 50 mg 09/01/23 13:45 09/02/23 08:40 Metoprolol Succinate (Er) 50 Mg Tab.Er.24h PO 50 mg DAILY MARCIAL Administration Naloxone HCl 0.2 mg 09/01/23 13:44 Naloxone 0.4 Mg/Ml 1 Ml Vial IVP Q2M PRN Opioid Reversal Nitroglycerin 0.4 mg 09/01/23 14:17 Nitroglycerin Sl Tabs 0.4 Mg Tab SUBLINGUAL Q5M PRN Chest Pain Prasugrel 10 mg 09/02/23 09:00 09/02/23 08:40 Prasugrel 10 Mg Tab PO 10 mg DAILY MARCIAL Administration Spironolactone 25 mg 09/02/23 09:00 09/02/23 08:40 Spironolactone 25 Mg Tab PO 25 mg DAILY MARCIAL Administration Tamsulosin HCl 0.4 mg 09/02/23 09:00 09/02/23 08:40 Tamsulosin 0.4 Mg Cap.Er.24h PO 0.4 mg DAILY MARCIAL Administration Intake and Output 09/01/23 09/02/23 09/02/23 22:59 06:59 14:59 Intake Total 82 164.768 Balance 82 164.768 Intake: Intake, IV Titration 82 164.768 Amount Heparin Sod,Pork in 0.45% 82 164.768 NaCl 25,000 unit In 0.45 % NaCl 1 250ml.bag @ 7. 276 UNITS/KG/HR 10 mls/hr IV .Q24H [facility] Rx#: [id number] Other: Voiding Method Toilet # Voids 1 1 Weight 137.438 kg 09/01/23 10:21 09/01/23 10:21
--- NOTE | 2023-09-02 16:37 | P.DS ---
Providers Date of admission: 09/01/23 13:44 Expected date of discharge: 09/02/23 Attending physician: Marley Schafer DO Primary care physician: Manuel Jameson [facility] Course: Discharge Diagnosis: COVID-19 infection Chest pain, acute coronary event ruled out. Cardiac workup negative chest pain was likely secondary to Covid infection and accompanied by COPD. History of CAD with previous NH. History of ischemic cardiomyopathy status post AICD placement in 2021 Hypertension Hyperlipidemia Insulin-dependent diabetes mellitus Hospital Course: Patient is a very pleasant 53-year-old male with a past medical history of CAD with previous NH and ischemic cardiomyopathy with previous EF of 20-25% status post AICD placement in 2021, hypertension, hyperlipidemia, insulin-dependent diabetes mellitus, chronic kidney disease, and asthma/COPD with continued nicotine dependence. Patient presented to the emergency department with a chief complaint of overall feeling unwell with intermittent chest pains and shortness of breath 2 weeks. Patient denies anything making these pains worse and states only resolves when he is sleeping. Patient denies having any fevers, chills, diaphoresis headache, lightheadedness, dizziness, palpitations, cough or congestion, nausea, vomiting, or noticing any swelling/weakness/tingling/weakness in his extremities. Patient underwent full evaluation in the emergency department. Vital signs upon arrival blood pressure 116/71, heart rate 73, respiratory rate 16, temp 97.7F, SpO2 99% on room air. EKG was completed showing normal sinus rhythm with a first-degree AV block with ND interval of 215 ms and T-wave inversion in lateral leads 2, 3, aVL, and V4 through V6. Chest x-ray completed consistent with COPD but negative for acute cardiopulmonary process. Labs completed and reviewed. CBC showing mild leukocytosis with WBC count of 13.7. Coagulation profile normal findings. BMP unremarkable with the exception of mild prerenal azotemia with BUN of 22. Liver profile unremarkable. Troponin 0.018. Covid PCR was positive. Patient was admitted under our services with consultation to cardiology for chest pain. Troponins trended overnight all negative at 0.018, less than 0.012, and 0.018. D-dimer also 0.38. Cardiology evaluated ruling out acute coronary event stating no further recommendations for inpatient testing at this time recommending patient follow-up in their office in 2 weeks. Medically, patient stable for discharge at this time he reports being free from chest pain/discomfort and was sitting up on the edge of bed visiting with and reported ready to go home. Patient to follow up outpatient with PCP in 1-2 days and with cardiology in 2 weeks. Patient educated on the importance of wearing a mask consult to distancing to prevent further spread of Covid 19 infection. Physical exam: Vital signs reviewed and stable. General: Nontoxic, no distress and appears stated age. Derm: Skin warm and dry, normal coloration for ethnicity. Head: Atraumatic, normocephalic and symmetric. Eyes: EOMs intact, no lid lag, and anicteric sclera Mouth: no lip lesions, mucus membranes moist Cardiovascular: regular rate and rhythm with normal S1S2, no murmur, positive posterior tibial pulses bilaterally, and cap refill < 2 seconds. Lungs: Respirations even, regular, and unlabored on room air. Lungs CTA bilaterally, no rhonchi, no rales, no wheezing, and no accessory muscle usage. Abdominal: soft, nontender to palpation, no guarding, no appreciable organomegaly Ext: ROM intact. No gross muscle atrophy, no edema, no contractures Neuro: Speech clear, face symmetrical and CN II-XII grossly intact with no noted focal neuro deficits Psych: Alert and oriented to person, place, time, and situation. Appropriate and pleasant affect. A total of 31 minutes of time were spent preparing this complex discharge summary. Pt was discharged on 09/02/23 12:07 PM Patient was seen independently by Nurse Practitioner. This document was prepared using [employer] dictation software. Please allow for errors in supervisor hot dip tinning while rare they do occur. Patient Condition at Discharge: Stable Plan - Discharge Summary Discharge Rx Participant: No New Discharge Prescriptions: Continue Atorvastatin [Lipitor] 80 mg PO HS #30 tab Tamsulosin HCl [Flomax] 0.4 mg PO DAILY DULoxetine HCL [Cymbalta] 60 mg PO DAILY Insulin Degludec [Tresiba Flextouch U-100 Pen] 50 units SQ DAILY Semaglutide [Ozempic] 2 mg SQ ELLER Albuterol Sulfate [Albuterol Sulfate Hfa] 2 puff PO RT-TID Prasugrel [Effient] 10 mg PO DAILY #90 tab Nitroglycerin Sl Tabs [Nitrostat] 0.4 mg SUBLINGUAL Q5M PRN #25 tab PRN Reason: Chest Pain metFORMIN HCL [Glucophage XR] 1,500 mg PO DAILY Metoprolol Succinate (ER) [Toprol XL] 50 mg PO DAILY Losartan [Cozaar] 25 mg PO DAILY Spironolactone [Aldactone] 25 mg PO DAILY Gabapentin [Neurontin] 900 mg PO TID Bumetanide [BUMEX] 2 mg PO DAILY DULoxetine HCL [Cymbalta] 30 mg PO DAILY Discharge Medication List Atorvastatin [Lipitor] 80 mg PO HS #30 tab 04/06/19 [Rx] Tamsulosin HCl [Flomax] 0.4 mg PO DAILY 08/07/19 [History] DULoxetine HCL [Cymbalta] 60 mg PO DAILY 03/16/21 [History] Insulin Degludec [Tresiba Flextouch U-100 Pen] 50 units SQ DAILY 12/23/21 [History] Nitroglycerin Sl Tabs [Nitrostat] 0.4 mg SUBLINGUAL Q5M PRN #25 tab 12/26/21 [Rx] Prasugrel [Effient] 10 mg PO DAILY #90 tab 12/26/21 [Rx] Metoprolol Succinate (ER) [Toprol XL] 50 mg PO DAILY 04/01/22 [History] metFORMIN HCL [Glucophage XR] 1,500 mg PO DAILY 04/01/22 [History] Losartan [Cozaar] 25 mg PO DAILY 04/09/22 [History] Semaglutide [Ozempic] 2 mg SQ ELLER 05/03/23 [History] Spironolactone [Aldactone] 25 mg PO DAILY 07/27/23 [History] Albuterol Sulfate [Albuterol Sulfate Hfa] 2 puff PO RT-TID 09/01/23 [History] Bumetanide [BUMEX] 2 mg PO DAILY 09/01/23 [History] DULoxetine HCL [Cymbalta] 30 mg PO DAILY 09/01/23 [History] Gabapentin [Neurontin] 900 mg PO TID 09/01/23 [History] Follow up Appointment(s)/Referral(s): Narciso Sellers MD [STAFF PHYSICIAN] - 2 Weeks Manuel Jameson MD [Primary Care Provider] - 1-2 days Patient Instructions/Handouts: How to Stop Smoking (DC), COVID-19 (Coronavirus Disease 2019) (DC), COVID-19 and Chronic Health Conditions (DC), COVID-19: Slow the Coronavirus Spread (DC), Social Distancing Guidelines for COVID-19 (DC) Activity/Diet/Wound Care/Special Instructions: Activity: As tolerated. Take breaks as needed. Diet: Heart healthy and carb consistent diet. Avoid salts, or foods with hidden salts such as canned or boxed foods and frozen dinners. Extra salt makes your heart work harder and traps the fluid in your body for longer. Special Instructions: Take all of your medications as directed and remember to keep all of your doctor's appointments and follow-up as needed. Thank you for allowing us to participate in your care, it was truly a pleasure having you for our patient!!! Discharge Disposition: HOME SELF-CARE
== END 2023-09-02 12:35 | disposition home or self-care (01) ==
LOC: EC 09:44 → 6NMEDSUR 13:44
PROVIDERS: ADMIT Internal Medicine; ATTEND Internal Medicine
DX: U07.1 COVID-19 (principal); J44.1 Chronic obstructive pulmonary disease with (acute) exacerbation; I13.10 Hypertensive heart and chronic kidney disease without heart failure, with stage 1 through stage 4 chronic kidney disease, or unspecified chronic kidney disease; I50.9 Heart failure, unspecified; N18.9 Chronic kidney disease, unspecified; E11.22 Type 2 diabetes mellitus with diabetic chronic kidney disease; E78.00 Pure hypercholesterolemia, unspecified; G47.30 Sleep apnea, unspecified; F41.9 Anxiety disorder, unspecified; F32.A Depression, unspecified; I25.5 Ischemic cardiomyopathy; I25.10 Atherosclerotic heart disease of native coronary artery without angina pectoris; I25.2 Old myocardial infarction; F17.200 Nicotine dependence, unspecified, uncomplicated; Z95.5 Presence of coronary angioplasty implant and graft; Z95.810 Presence of automatic (implantable) cardiac defibrillator; Z79.4 Long term (current) use of insulin; Z79.899 Other long term (current) drug therapy; Z79.84 Long term (current) use of oral hypoglycemic drugs; Z79.85 Long-term (current) use of injectable non-insulin antidiabetic drugs; Z79.02 Long term (current) use of antithrombotics/antiplatelets; Z88.0 Allergy status to penicillin
CPT/HCPCS: 96376 ×2; 96365; 96366; 96372; 96375; 99285; 36415; 93005; 85379; 80061; 80053; 83735; 84484; 85025; 85610; 85730 ×2; 87635; 71046; G0378 ×2; J1644 ×4

== ENCOUNTER → 2023-09-14 | Outpatient (CLI) | payer MEDICARE, BC ==
[2023-09-14 13:30] VITALS: BP 138/76; PULSE 101; RESP 16; TEMP 98.9
--- NOTE | 2023-09-14 16:07 | P.PAINPG ---
PQRS Measure Charge Sheet Comment: HISTORY OF PRESENT ILLNESS: 53 yr old male presents today w severe and chronic LBP x 5 yrs secondary to DDD, spondylosis and facet arthropathy without myelopathy for evaluation s/p NAOMI L4- L5 #1. Pt states he experienced 90 % pain relief x 3 wks and ongoing s/p procedure. Pt states pain level is provoked at 0 /10 in intensity. Pain is alleviated by PT years ago, physician guided home exercises every other day x 3 yrs, heat, ice, medications, Cannabis products, repositioning and rest. Interventional procedures include NAOIM L4-L5 x1 Medications include Neurontin REVIEW OF ORGAN SYSTEMS: CONSTITUTIONAL: No fevers or chills. No recent weight loss. NEUROLOGICAL: + numbness and tingling along the distal extremities. No seizure disorders or headaches. MUSCULOSKELETAL: + pain PSYCHIATRIC: Denies current depression or suicidal thoughts. Physical Examinations : Constitutional : Cooperative , not in acute distress . Neurologic : Cranial nerve II to XII intact. No focal neurological deficits. Psychiatric : alert & oriented x 3. Matching mood & appropriate affect. Judgment & insight intact. Musculoskeletal : Cervical Spine Motor strength in the deltoid and biceps: Normal right side. Normal Left side Motor strength biceps and the wrist extensors: Normal right side . Normal left side Motor strength in the triceps muscle: Normal right side. Normal left side Deep tendon reflexes: Normal at the biceps. Normal at Brachioradialis. Normal at triceps Vertebral body tenderness to deep palpation over Cervical facet loading test: positive bilaterally Spurling test: positive bilaterally Neck distraction test: positive bilate rally Laila sign: positive bilaterally Lumbar spine Motor strength lower extremities ,thigh and legs 5/5 Right side , 5/5 Left side Deep tendon reflexes : Normal Knee Jerk. Normal Ankle Jerk Vertebral body tenderness over L4 Selby Test positive Lumbar facet Loading Test: positive R ight / positive Left Range of motion of the lumbar spine Flexion 30 degrees, extension 10 degrees Straight Leg Raise test: Left/ Right positive at 35 degrees Eloisa test: positive right / positive left. Severe tenderness over the Sacroiliac joint on the Right / Left sides Gaenslen test: positive bilaterally Seated flexion test: positive bilaterally. Sacral spine : Severe tenderness over the Sacroiliac joint: right side / left side Range of motion: Flexion of the lumbar spine <60 degrees Range of motion: Extension of the lumbar spine <20 degrees Gaenslen's Test positive Haile's Test positive Eloisa test: positive right side / left side Thigh Thrust Test Sacral Thrust Test Imaging: CT non contrast of the lumbar spine from 02/21/23 reviewed Assessment/ Plan : Lumbar DDD Will manage residual pain and may RTC on an as needed basis. All questions answered. I have spent greater than 30 minutes on patient care today. Dr Pennington was available by phone for the evaluation of this patient. The time was used to review the medical records including relevant urine studies and Prescription history (MAPs), review of the available imaging, evaluation and examination of the patient, coordination of care with the medical staff and if applicable referring physicians, as well as creation of the medical record PQRS Narrative: Smoking Status Current every day smoker Hx Alcohol Use (MH) No Home Medications: Ambulatory Orders Atorvastatin [Lipitor] 80 mg PO HS #30 tab 04/06/19 Tamsulosin HCl [Flomax] 0.4 mg PO DAILY 08/07/19 DULoxetine HCL [Cymbalta] 60 mg PO DAILY 03/16/21 Insulin Degludec [Tresiba Flextouch U-100 Pen] 50 units SQ DAILY 12/23/21 Nitroglycerin Sl Tabs [Nitrostat] 0.4 mg SUBLINGUAL Q5M PRN #25 tab 12/26/21 Prasugrel [Effient] 10 mg PO DAILY #90 tab 12/26/21 Metoprolol Succinate (ER) [Toprol XL] 50 mg PO DAILY 04/01/22 metFORMIN HCL [Glucophage XR] 1,500 mg PO DAILY 04/01/22 Losartan [Cozaar] 25 mg PO DAILY 04/09/22 Semaglutide [Ozempic] 2 mg SQ ELLER 05/03/23 Spironolactone [Aldactone] 25 mg PO DAILY 07/27/23 Albuterol Sulfate [Albuterol Sulfate Hfa] 2 puff PO RT-TID 09/01/23 Bumetanide [BUMEX] 2 mg PO DAILY 09/01/23 DULoxetine HCL [Cymbalta] 30 mg PO DAILY 09/01/23 Gabapentin [Neurontin] 900 mg PO TID 09/01/23 Controlled Substance Measures - Controlled Substance Measures Is patient prescribed a controlled substance at discharge?: No
== END ==
LOC: PNWHC3 11:05
PROVIDERS: ATTEND Specialist
DX: M51.36 Other intervertebral disc degeneration, lumbar region (principal); F17.200 Nicotine dependence, unspecified, uncomplicated; Z88.0 Allergy status to penicillin; Z91.018 Allergy to other foods
CPT/HCPCS: 99211

== ENCOUNTER → 2023-10-24 | Outpatient (CLI) | payer BC, MEDICARE ==
--- NOTE | 2023-10-24 14:33 | MM ---
Reason for Exam: Clinical finding. Baseline mammogram. Indicated Problems: Lump or thickening of the right side for 1 Month(s). Patient History: Mother had breast cancer, age 70. Prior Study Comparison: Patient's first Mammogram. Tissue Density: The breast tissue is almost entirely fat. Findings: Analyzed By CAD. Gynecomastia changes right greater than left. On the right area correlates with palpable marker. No new suspicious masses, calcifications or distortions. Overall Assessment: Benign, BI-RAD 2 Management: No Follow-up Results were given to the patient verbally at the time of exam. Patient should continue monthly self-breast exams. A clinical breast exam by your physician is recommended on an annual basis. This exam should not preclude additional follow-up of suspicious palpable abnormalities. Note on Amee scores and lifetime risk: 1. A Amee score greater than 3% is considered moderate risk. If this is the case, consider specialist referral to assess eligibility for a risk reducing agent. 2. If overall lifetime risk for the development of breast cancer is 20% or higher, the patient may qualify for future screening with alternating mammogram and breast MRI. Electronically signed and approved by: Frank Bourne DO
== END | disposition home or self-care (01) ==
LOC: RADMAMWWP 14:04
PROVIDERS: ATTEND Family Medicine
DX: N63.10 Unspecified lump in the right breast, unspecified quadrant (principal); N63.20 Unspecified lump in the left breast, unspecified quadrant; R92.313 Mammographic fatty tissue density, bilateral breasts; Z80.3 Family history of malignant neoplasm of breast
CPT/HCPCS: 77062; 77066

== ENCOUNTER 2023-11-11 08:25 | Day surgery (SDC) | payer BC, MEDICARE ==
[2023-11-08 14:54] VITALS: BMI 42.0
[2023-11-11 09:07] LABS: Glucose,Whole Blood 121 mg/dL (70-110)
[2023-11-11 09:14] VITALS: TEMP 96.7
[2023-11-11] MEDS ORDERED: PROPOFOL 10 MG/ML 20 ML VIAL IV ONE (09:36)
--- NOTE | 2023-11-11 09:59 | P.PCN ---
Date of Procedure: 11/11/23 Procedure(s) Performed: BRIEF HISTORY: Patient is a 53-year-old pleasant white male scheduled for an elective colonoscopy as a part of follow-up of prior history of colon polyps. Last colonoscopy was in March 2022 and was noted to have a 3 cm broad-based polyp on the ileocecal valve that was removed by snare polypectomy. Biopsy revealed adenoma. He scheduled for repeat surveillance colonoscopy in one year PROCEDURE PERFORMED: Colonoscopy with snare polypectomy. PREOPERATIVE DIAGNOSIS: Follow-up large polyp on the ileocecal valve noted in March 2022. IV sedation per Anesthesia. PROCEDURE: After informed consent was obtained, the patient, was brought into the endoscopy unit. IV sedation was administered by Anesthesia under continuous monitoring. Digital rectal examination was normal. Initially the Olympus CF-160 flexible video colonoscope was then inserted in the rectum, gradually advanced into the cecum without any difficulty. Careful examination was performed as the scope was gradually being withdrawn. Ileocecal valve and the appendiceal orifice were visualized and appeared normal. Prep was poor and several areas of the colon. On the ileocecal valve there was a 2 cm ascending polyp identified which was removed by snare polypectomy. Complete polypectomy was accomplished.. Mucosa of the cecum, ascending colon, transverse colon, descending colon, sigmoid colon, and rectum appeared normal. Retroflexion was performed in the rectum and no lesions were seen. The patient tolerated the procedure well. IMPRESSION: 2 cm rest severe polyp on the ileocecal valve status post snare polypectomy and complete polypectomy accomplished Poor prep in several areas of the colon RECOMMENDATIONS: Findings of this examination were discussed with the patient as well as his family. He was advised to follow with the biopsy results. If the biopsy reveals adenoma he can have a repeat colonoscopy in one year.
[2023-11-11 10:16] LABS: Glucose,Whole Blood 119 mg/dL (70-110)
[2023-11-11 10:30] VITALS: BP 112/72; PULSE 64; RESP 19
== END 2023-11-11 10:45 | disposition home or self-care (01) ==
LOC: ORWHC2ENDO 08:25
PROVIDERS: ATTEND Internal Medicine Gastroenterology
DX: Z12.11 Encounter for screening for malignant neoplasm of colon (principal); D12.0 Benign neoplasm of cecum; Z86.010 Personal history of colon polyps
CPT/HCPCS: 88305; 45385; J2704

== ENCOUNTER → 2023-12-27 | Outpatient (CLI) | payer BC, MEDICARE ==
--- NOTE | 2023-12-27 14:54 | CT ---
EXAMINATION TYPE: CT abdomen pelvis wo con CT DLP: 1191 mGycm, Automated exposure control for dose reduction was used. DATE OF EXAM: 12/27/2023 2:48 PM COMPARISON: CT abdomen pelvis most recent from CLINICAL INDICATION:Male, 53 years old with history of R10.31 RIGHT LOWER QUADRANT PAIN; RLQ pain for 10 days TECHNIQUE: Axial CT abdomen pelvis wo con;Sagittal and coronal reformats were created on a separate workstation. Contrast used: mL of , (none if empty) Oral contrast used: without Oral Contrast (none if empty) FINDINGS: LOWER CHEST: Cardiac conduction leads are partially visualized. ABDOMEN LIVER: Diffusely hypoattenuating parenchyma. GALLBLADDER AND BILE DUCTS: The gallbladder surgically absent. PANCREAS: Unremarkable. SPLEEN: Unremarkable. ADRENAL GLANDS: Unremarkable. KIDNEYS AND URETERS: Right kidney is mildly atrophic. Left kidney nodular contour posterolaterally no underlying renal cysts. No evidence of hydronephrosis or renal calculus. The ureters are unremarkabl e. PELVIS BLADDER: Unremarkable REPRODUCTIVE: Unremarkable. ABDOMEN & PELVIS STOMACH AND BOWEL: No evidence of bowel obstruction. The appendix is normal. Scattered colonic divert icula. PERITONEUM/RETROPERITONEUM: No evidence of pneumoperitoneum or free fluid. VASCULATURE: Mild atherosclerotic calcifications are present throughout the abdominal aorta and its b ranches. No evidence of aortic aneurysm. MUSCULOSKELETAL: No acute osseous abnormalities, degeneration changes throughout the spine with grade 2 anterolisthesis of L5 on S1 which has fixation hardware hardware appears intact. LYMPH NODES: No gross evidence for lymphadenopathy. SOFT TISSUE/ABDOMINAL WALL: Fat-containing umbilical hernia. IMPRESSION: 1. No obstructive uropathy or renal calculus. The appendix is normal. No acute abdominal process to explain the patient's right lower quadrant plane. 2. Hepatic steatosis.
== END | disposition home or self-care (01) ==
LOC: RADCTMAIN 14:18
PROVIDERS: ATTEND Family Medicine
DX: K76.0 Fatty (change of) liver, not elsewhere classified (principal)
CPT/HCPCS: 74176

== ENCOUNTER 2024-08-25 19:30 | Observation (INO) | payer BC, MEDICARE ==
--- NOTE | 2024-08-25 20:07 | ED ---
Dizziness HPI - General Chief Complaint: Dizziness Stated Complaint: dizziness Time Seen by Provider: 08/25/24 20:04 Source: patient, RN notes reviewed, old records reviewed Mode of arrival: ambulatory Limitations: no limitations - History of Present Illness Initial Comments: This is a 54-year-old male to the ER for evaluation of severe dizziness room s pinning debility, persistent dizziness especially with standing up. Lightheadedness and dizziness and feels near syncopal MD Complaint: dizziness, lightheadedness, near syncope -: hour(s) Timing: sudden onset Description: sense of movement, lightheadedness, near-syncope History of Same: Yes History of Trauma: Yes Worsens With: movement Associated Symptoms: denies other symptoms - Related Data Home Medications Medication Instructions Recorded Confirmed Insulin Degludec [Tresiba 15 units SQ DAILY 12/23/21 08/26/24 Flextouch U-100 Pen] Metoprolol Succinate (ER) [Toprol 50 mg PO DAILY 04/01/22 08/26/24 XL] metFORMIN HCL [Glucophage XR] 1,500 mg PO DAILY 04/01/22 08/26/24 Losartan [Cozaar] 25 mg PO DAILY 04/09/22 08/26/24 Spironolactone [Aldactone] 25 mg PO DAILY 07/27/23 08/26/24 DULoxetine HCL [Cymbalta] 30 mg PO DAILY 09/01/23 08/26/24 Gabapentin [Neurontin] 900 mg PO TID 09/01/23 08/26/24 Cyanocobalamin (Vitamin B-12) 1,000 mcg PO DAILY 08/26/24 08/26/24 [Vitamin B-12] DULoxetine HCL [Cymbalta] 60 mg PO DAILY 08/26/24 08/26/24 Ferrous Sulfate [Iron (65 MG 325 mg PO DAILY 08/26/24 08/26/24 Elemental)] Ipratropium-Albuterol Nebulize 3 ml INHALATION RT-QID 08/26/24 08/26/24 [Duoneb 0.5 mg-3 mg/3 ml Soln] Multivit,Calc,Min/FA/K1/Lycop 1 tab PO DAILY 08/26/24 08/26/24 [One-A-Day Men's Complete Tab] Tirzepatide [Mounjaro] 15 mg SQ WE 08/26/24 08/26/24 Previous Rx's Medication Instructions Recorded Atorvastatin [Lipitor] 80 mg PO HS #30 tab 04/06/19 Prasugrel [Effient] 10 mg PO DAILY #90 tab 12/26/21 Bumetanide [BUMEX] 1 mg PO DAILY #0 08/26/24 Midodrine [ProAmatine] 2.5 mg PO AC-TID #45 tab 08/26/24 Allergies Allergy/AdvReac Type Severity Reaction Status Date / Time penicillin V Allergy Severe Rapid Verified 08/26/24 09:45 Heart Rate/HIVES Mushroom AdvReac Mild Nausea & Verified 08/26/24 09:45 Vomiting Review of Systems ROS Statement: Those systems with pertinent positive or pertinent negative responses have been documented in the HPI. ROS Other: All systems not noted in ROS Statement are negative. Past Medical History Past Medical History: Asthma, Chest Pain / Angina, Diabetes Mellitus, Hyperlipidemia, Hypertension, Myocardial Infarction (ME), Pneumonia, Sleep Apnea/CPAP/BIPAP Additional Past Medical History / Comment(s): BACK PAIN, NUMBNESS/TINGLING LAWRENCE LEGS, kidney stone Last Myocardial Infarction Date:: 12/2021 History of Any Multi-Drug Resistant Organisms: None Reported Past Surgical History: Back Surgery, Cholecystectomy, Heart Catheterization With Stent, Hernia Repair, Orthopedic Surgery, Tonsillectomy Additional Past Surgical History / Comment(s): PAIN CLINIC PROCEDURE, RT KNEE arthroscopy, LAWRENCE WRIST ORIF, RIGHT SHOULDER arthroscopy x 2, SINUS surgery, 3 cardiac stents, rt wrist ganglion cyst, 4 screws and 2 rods lower back Past Anesthesia/Blood Transfusion Reactions: No Reported Reaction Date of Last Stent Placement:: 12/2021 Past Psychological History: Anxiety, Depression Smoking Status: Current every day smoker Past Alcohol Use History: None Reported Past Drug Use History: Marijuana - Past Family History Father Family Medical History: Cancer Additional Family Medical History / Comment(s): COLON Family Additional Family Medical History / Comment(s): Multiple people hypertension. Denies any history of coronary artery disease. General Exam Limitations: no limitations General appearance: alert, in no apparent distress, anxious, obtunded Head exam: Present: atraumatic, normocephalic, normal inspection Eye exam: Present: normal appearance, PERRL, EOMI. Absent: scleral icterus, conjunctival injection, periorbital swelling ENT exam: Present: normal exam, mucous membranes moist Neck exam: Present: normal inspection. Absent: tenderness, meningismus, lymphadenopathy Respiratory exam: Present: normal lung sounds bilaterally. Absent: respiratory distress, wheezes, rales, rhonchi, stridor Cardiovascular Exam: Present: regular rate, normal rhythm, normal heart sounds. Absent: systolic murmur, diastolic murmur, rubs, gallop, clicks GI/Abdominal exam: Present: soft, normal bowel sounds. Absent: distended, tenderness, guarding, rebound, rigid Extremities exam: Present: normal inspection, full ROM, normal capillary refill. Absent: tenderness, pedal edema, joint swelling, calf tenderness Back exam: Present: normal inspection Neurological exam: Present: alert, oriented X3, CN II-XII intact Psychiatric exam: Present: normal affect, normal mood Skin exam: Present: warm, dry, intact, normal color. Absent: rash Course Vital Signs 08/25/24 08/25/24 08/25/24 19:44 20:15 21:46 Temperature 98.2 F Pulse Rate 69 78 Pulse Rate [ 69 Sitting Pulse Oximetery] Pulse Rate [ 73 Standing Pulse Oximetery] Pulse Rate [ 67 Supine Pulse Oximetery] Respiratory 18 Rate Blood Pressure 101/66 Blood Pressure 101/60 [Left Arm Sitting] Blood Pressure 89/56 [Left Arm Standing] Blood Pressure 115/64 [Left Arm Supine] O2 Sat by Pulse 99 Oximetry 08/25/24 08/25/24 08/26/24 22:06 23:25 00:47 Temperature Pulse Rate 80 71 73 Pulse Rate [ Sitting Pulse Oximetery] Pulse Rate [ Standing Pulse Oximetery] Pulse Rate [ Supine Pulse Oximetery] Respiratory 19 18 Rate Blood Pressure 110/66 102/66 Blood Pressure [Left Arm Sitting] Blood Pressure [Left Arm Standing] Blood Pressure [Left Arm Supine] O2 Sat by Pulse 94 L 96 Oximetry 08/26/24 08/26/24 08/26/24 02:20 04:47 06:06 Temperature 98.0 F Pulse Rate 72 73 74 Pulse Rate [ Sitting Pulse Oximetery] Pulse Rate [ Standing Pulse Oximetery] Pulse Rate [ Supine Pulse Oximetery] Respiratory 19 18 17 Rate Blood Pressure 108/63 106/65 111/71 Blood Pressure [Left Arm Sitting] Blood Pressure [Left Arm Standing] Blood Pressure [Left Arm Supine] O2 Sat by Pulse 94 L 93 L 94 L Oximetry 08/26/24 08/26/24 08/26/24 07:56 07:58 08:10 Temperature Pulse Rate 70 75 74 Pulse Rate [ Sitting Pulse Oximetery] Pulse Rate [ Standing Pulse Oximetery] Pulse Rate [ Supine Pulse Oximetery] Respiratory 18 Rate Blood Pressure 131/76 Blood Pressure [Left Arm Sitting] Blood Pressure [Left Arm Standing] Blood Pressure [Left Arm Supine] O2 Sat by Pulse 97 98 Oximetry 08/26/24 08/26/24 08/26/24 11:40 11:42 12:42 Temperature 97.7 F Pulse Rate 75 69 Pulse Rate [ Sitting Pulse Oximetery] Pulse Rate [ Standing Pulse Oximetery] Pulse Rate [ Supine Pulse Oximetery] Respiratory 18 18 Rate Blood Pressure 95/51 98/59 102/82 Blood Pressure [Left Arm Sitting] Blood Pressure [Left Arm Standing] Blood Pressure [Left Arm Supine] O2 Sat by Pulse 99 97 Oximetry 08/26/24 08/26/24 08/26/24 15:12 15:19 15:23 Temperature Pulse Rate 79 76 79 Pulse Rate [ Sitting Pulse Oximetery] Pulse Rate [ Standing Pulse Oximetery] Pulse Rate [ Supine Pulse Oximetery] Respiratory 18 Rate Blood Pressure 104/59 Blood Pressure [Left Arm Sitting] Blood Pressure [Left Arm Standing] Blood Pressure [Left Arm Supine] O2 Sat by Pulse 100 Oximetry 08/26/24 08/26/24 15:56 16:35 Temperature 97.5 F L 97.9 F Pulse Rate Pulse Rate [ 90 Sitting Pulse Oximetery] Pulse Rate [ 84 Standing Pulse Oximetery] Pulse Rate [ 79 Supine Pulse Oximetery] Respiratory 18 18 Rate Blood Pressure 109/71 Blood Pressure 106/64 [Left Arm Sitting] Blood Pressure 101/58 [Left Arm Standing] Blood Pressure 104/55 [Left Arm Supine] O2 Sat by Pulse 97 97 Oximetry - Reevaluation(s) Reevaluation #1: 08/25/24 20:45 Medical records reviewed Reevaluation #2: 08/25/24 20:45 Patient symptoms improved Reevaluation #3: 08/25/24 20:45 Patient informed of results questions answered Reevaluation #4: Was pt. sent in by a medical professional or institution (, PA, PROOF CLERK, urgent care, hospital, or long term...) When possible be specific @ -no Did you speak to anyone other than the patient for history (EMS, parent, family, police, friend...)? What history was obtained from this source @ -no Did you review nursing and triage notes (agree or disagree)? Why? @ -agree Are old charts reviewed (outside hosp., previous admission, EMS record, old EKG, old radiological studies, urgent care reports/EKG's, long term records)? Rep ort findings @ -yes Differential Diagnosis (chest pain, altered mental status, abdominal pain women, abdominal pain men, vaginal bleeding, weakness, fever, dyspnea, syncope, headache, dizziness, GI bleed, back pain, seizure, CVA, palpatations, mental health, musculoskeletal)? @ -prior EKG interpreted by me (3pts min.). @ -yes X-rays interpreted by me (1pt min.). @ -Yes negative for acute disease CT interpreted by me (1pt min.). @ -no U/S interpreted by me (1pt. min.). @ -no What testing was considered but not performed or refused? (CT, X-rays, U/S, labs)? Why? @ -none What meds were considered but not given or refused? Why? @ -none Did you discuss the management of the patient with other professionals (professionals i.e. , PA, PROOF CLERK, lab, RT, psych nurse, social service assistant, channel director, t eacher, medical corps officer, shoe caser)? Give summary @ -no Was smoking cessation discussed for >3mins.? @ -no Was critical care preformed (if so, how long)? @ -no Were there social determinants of health that impacted care today? How? (Homelessness, low income, unemployed, alcoholism, drug addiction, transportation, low edu. Level, literacy, decrease access to med. care, [facility], rehab)? @ -none Was there de-escalation of care discussed even if they declined (Discuss DNR or withdrawal of care, Hospice)? DNR status @ -no What co-morbidities impacted this encounter? (DM, HTN, Smoking, COPD, CAD, Cancer, CVA, ARF, Chemo, Hep., AIDS, mental health diagnosis, sleep apnea, morbid obesity)? @ -none Was patient admitted / discharged? Hospital course, mention meds given and route, prescriptions, significant lab abnormalities, going to OR and other pertinent info. @ - 54 male to the ER for evaluation patient will be admitted for syncopal event near syncope with orthostatic hypotension. Patient will be admitted for cardiac evaluation and treatment Admitted syncope Undiagnosed new problem with uncertain prognosis? @ -no Drug Therapy requiring intensive monitoring for toxicity (Heparin, Nitro, Insulin, Cardizem)? @ -no Were any procedures done? @ -no Diagnosis/symptom? @ - Acute, or Chronic, or Acute on Chronic? @ -Acute Uncomplicated (without systemic symptoms) or Complicated (systemic symptoms)? @ -Complicated Side effects of treatment? @ -no Exacerbation, Progression, or Severe Exacerbation? @ -exacerbation Poses a threat to life or bodily function? How? (Chest pain, USA, ME, pneumonia, PE, COPD, DKA, ARF, appy, cholecystitis, CVA, Diverticulitis, Homicidal, Suicidal, threat to staff... and all critical care pts) @ -yes with syncope Reevaluation #5: Differential Dizziness: Benign paroxysmal positional Vertigo, Meniere's disease, otitis media, acoustic neuroma, vertebrobasilar insufficiency, cerebellar stroke, encephalitis, hypovolemic, arrhythmia, coronary artery syndrome, anemia, this is not meant to be an all-inclusive list - Consultations Consultation #1: Spoke admitting physicians who agreed to admit this patient EKG Findings - EKG Comments: EKG Findings:: EKG is sinus 65 TN 228 QRS 113 QTc 395 - EKG Results: EKG: interpreted by LESIA Medical Decision Making - Medical Decision Making 54 male to the ER for evaluation patient will be admitted for syncopal event near syncope with orthostatic hypotension. Patient will be admitted for cardiac evaluation and treatment - Lab Data Result diagrams: 08/26/24 05:47 08/26/24 05:47 Lab Results 08/25/24 08/25/24 08/25/24 Range/Units 20:20 20:20 20:20 WBC 16.8 H (3.8-10.6) k/uL RBC 4.57 (4.30-5.90) m/uL Hgb 13.1 (13.0-17.5) gm/dL Hct 39.1 (39.0-53.0) % MCV 85.7 (80.0-100.0) fL MCH 28.8 (25.0-35.0) pg MCHC 33.6 (31.0-37.0) g/dL RDW 14.9 (11.5-15.5) % Plt Count 291 (150-450) k/uL MPV 7.9 Neutrophils % 77 % Lymphocytes % 15 % Monocytes % 4 % Eosinophils % 2 % Basophils % 0 % Neutrophils # 12.9 H (1.3-7.7) k/uL Lymphocytes # 2.5 (1.0-4.8) k/uL Monocytes # 0.7 (0-1.0) k/uL Eosinophils # 0.3 (0-0.7) k/uL Basophils # 0.0 (0-0.2) k/uL PT 11.3 (10.0-12.5) sec INR 1.0 (<1.2) APTT 25.5 (22.0-30.0) sec Sodium 135 L (137-145) mmol/L Potassium 3.0 L (3.5-5.1) mmol/L Chloride 100 (98-107) mmol/L Carbon Dioxide 22 (22-30) mmol/L Anion Gap 13 mmol/L BUN 7 L (9-20) mg/dL Creatinine 1.01 (0.66-1.25) mg/dL Est GFR (CKD-EPI)AfAm >90 (>60 ml/min/1.73 sqM) Est GFR (CKD-EPI)NonAf 83 (>60 ml/min/1.73 sqM) Glucose 92 (74-99) mg/dL Plasma Lactic Acid Jules (0.7-2.0) mmol/L Calcium 9.5 (8.4-10.2) mg/dL Phosphorus 3.1 (2.5-4.5) mg/dL Magnesium 1.4 L (1.6-2.3) mg/dL Total Bilirubin 0.8 (0.2-1.3) mg/dL AST 21 (17-59) U/L ALT 18 (4-49) U/L Alkaline Phosphatase 110 (38-126) U/L Troponin I (0.000-0.034) ng/mL NT-Pro-B Natriuret Pep 508 pg/mL Total Protein 6.4 (6.3-8.2) g/dL Albumin 3.8 (3.5-5.0) g/dL 08/25/24 08/25/24 Range/Units 20:20 20:20 WBC (3.8-10.6) k/uL RBC (4.30-5.90) m/uL Hgb (13.0-17.5) gm/dL Hct (39.0-53.0) % MCV (80.0-100.0) fL MCH (25.0-35.0) pg MCHC (31.0-37.0) g/dL RDW (11.5-15.5) % Plt Count (150-450) k/uL MPV Neutrophils % % Lymphocytes % % Monocytes % % Eosinophils % % Basophils % % Neutrophils # (1.3-7.7) k/uL Lymphocytes # (1.0-4.8) k/uL Monocytes # (0-1.0) k/uL Eosinophils # (0-0.7) k/uL Basophils # (0-0.2) k/uL PT (10.0-12.5) sec INR (<1.2) APTT (22.0-30.0) sec Sodium (137-145) mmol/L Potassium (3.5-5.1) mmol/L Chloride (98-107) mmol/L Carbon Dioxide (22-30) mmol/L Anion Gap mmol/L BUN (9-20) mg/dL Creatinine (0.66-1.25) mg/dL Est GFR (CKD-EPI)AfAm (>60 ml/min/1.73 sqM) Est GFR (CKD-EPI)NonAf (>60 ml/min/1.73 sqM) Glucose (74-99) mg/dL Plasma Lactic Acid Jules 2.0 (0.7-2.0) mmol/L Calcium (8.4-10.2) mg/dL Phosphorus (2.5-4.5) mg/dL Magnesium (1.6-2.3) mg/dL Total Bilirubin (0.2-1.3) mg/dL AST (17-59) U/L ALT (4-49) U/L Alkaline Phosphatase (38-126) U/L Troponin I 0.014 (0.000-0.034) ng/mL NT-Pro-B Natriuret Pep pg/mL Total Protein (6.3-8.2) g/dL Albumin (3.5-5.0) g/dL - EKG Data -: EKG Interpreted by Me - Radiology Data Radiology results: report reviewed (Chest x-ray is negative for acute disease), image reviewed Critical Care Time Critical Care Time: Yes Total Critical Care Time: 31 Disposition Clinical Impression: Dehydration, Dizziness, Near syncope, Orthostatic syncope, Chest pain, Syncope and collapse, Hypotension Disposition: ADMITTED IP TO THIS [facility] Condition: Good Is patient prescribed a controlled substance at d/c from ED?: No
[2024-08-25 20:39] LABS: Basophils % (A) 0 %; Eosinophils # (A) 0.3 k/uL (0-0.7); Eosinophils % (A) 2 %; HCT 39.1 % (39.0-53.0); HGB 13.1 gm/dL (13.0-17.5); Lymphocytes # (A) 2.5 k/uL (1.0-4.8); Lymphocytes % (A) 15 %; MCH 28.8 pg (25.0-35.0); MCHC 33.6 g/dL (31.0-37.0); MCV 85.7 fL (80.0-100.0); Mean Platelet Volume 7.9; Monocytes # (A) 0.7 k/uL (0-1.0); Monocytes % (A) 4 %; Neutrophils # (A) 12.9 k/uL (1.3-7.7); Neutrophils % (A) 77 %; Platelet Count 291 k/uL (150-450); RBC 4.57 m/uL (4.30-5.90); RDW 14.9 % (11.5-15.5); WBC 16.8 k/uL (3.8-10.6)
[2024-08-25] MEDS: SODIUM CHLORIDE 0.9% 1,000 ML IV STA ×2 (20:45→20:46)
[2024-08-25 20:51] LABS: ALT 18 U/L (4-49); AST 21 U/L (17-59); African American GFR (CKD) >90 (>60 ml/min/1.73 sqM); Albumin 3.8 g/dL (3.5-5.0); Alkaline Phosphatase 110 U/L (38-126); Anion Gap 13 mmol/L; Blood Urea Nitrogen 7 mg/dL (9-20); Calcium 9.5 mg/dL (8.4-10.2); Carbon Dioxide 22 mmol/L (22-30); Chloride 100 mmol/L (98-107); Glucose 92 mg/dL (74-99); Magnesium 1.4 mg/dL (1.6-2.3); Non-African American GFR(CKD) 83 (>60 ml/min/1.73 sqM); Phosphorus 3.1 mg/dL (2.5-4.5); Sodium 135 mmol/L (137-145); Total Bilirubin 0.8 mg/dL (0.2-1.3); Total Protein 6.4 g/dL (6.3-8.2)
[2024-08-25 21:00] LABS: NT-Pro-B-Type Natriuretic Pept 508 pg/mL
[2024-08-25 21:05] LABS: Partial Thromboplastin Time 25.5 sec (22.0-30.0); Prothrombin Time 11.3 sec (10.0-12.5)
[2024-08-25] MEDS ORDERED: ONDANSETRON 4 MG/2 ML VIAL IVP PRN (21:32)
[2024-08-25] MEDS ORDERED: NALOXONE 0.4 MG/ML 1 ML VIAL IV PRN (21:32)
[2024-08-25] MEDS ORDERED: MORPHINE SULFATE 4 MG/ML SYRINGE IV PRN (21:32)
[2024-08-25] MEDS: IPRATROPIUM-ALBUTEROL 3 ML NEB INHALATION STA (21:46)
[2024-08-25] MEDS: methylPREDNISolone SOD SUCCI 125 MG/2 ML VIAL IV STA (21:56)
[2024-08-25] MEDS: POTASSIUM BICARBONATE/CIT AC 20 MEQ TABLET.EFF PO ONE ×2 (23:08)
[2024-08-25] MEDS: MAGNESIUM OXIDE 400 MG TAB PO STA ×2 (23:09)
[2024-08-25] MEDS: SODIUM CHLORIDE 0.9% 1,000 ML IV SCH (23:11)
[2024-08-25 23:59] LABS: Appearance,Urine Cloudy (Clear); Bilirubin,Urine Negative (Negative); Blood,Urine Negative (Negative); Calcium Oxalate Crystals,Urine Many /hpf; Color,Urine Yellow; Glucose,Urine (UA) Negative (Negative); Hyaline Casts,Urine 43 /lpf (0-2); Ketones,Urine Negative (Negative); Leukocyte Esterase,Urine Negative (Negative); Mucus,Urine Occasional /hpf; Nitrite,Urine Negative (Negative); PH, Urine 5.5 (5.0-8.0); Protein,Urine Trace (Negative); RBC,Urine <1 /hpf (0-5); Specific Gravity,Urine 1.017 (1.001-1.035); Squamous Epithelial Cell,Urine <1 /hpf (0-4); WBC,Urine 2 /hpf (0-5)
--- NOTE | 2024-08-26 00:36 | XR ---
EXAM: XR Chest, 2 Views CLINICAL HISTORY: ITS.REASON XR Reason: sob TECHNIQUE: Frontal and lateral views of the chest. COMPARISON: September 01, 2023. FINDINGS: Lungs: Unremarkable. No consolidation. Pleural space: Unremarkable. No pneumothorax. Heart: Unremarkable. No cardiomegaly. Mediastinum: Unremarkable. Normal mediastinal contour. Bones/joints: Unremarkable. No acute fracture. Tubes, lines and devices: AICD/pacemaker. IMPRESSION: No acute findings in the chest.
[2024-08-26] MEDS: methylPREDNISolone SOD SUCCI 125 MG/2 ML VIAL IV SCH (00:49)
--- NOTE | 2024-08-26 02:59 | P.HPIM ---
History of Present Illness H&P Date: 08/26/24 Chief Complaint: Near syncope Patient is a 54-year-old male past medical history of multiple episodes of near syncopal events who presented to the ED with dizziness and lightheadedness. The patient mentions experiences dizziness and lightheadedness upon standing up. It usually takes a couple of minutes for him to go back to normal. He mentions he has always had such episodes but in the past 1 month has seen increased frequency of the symptoms. Yesterday he experienced lightheadedness while getting up the entire day which is what brought him to the ED. Sometimes the episodes are so severe that he has to sit down again for him to feel normal again. Sometimes he gets dizzy even while he is already standing. He does report starting Mounjaro recently but he does not report any increase in physical activity. He denies worsening of the symptoms with head tilting. He reports chronic joint pain as well as a numbness and tingling in his feet. Denies loss of consciousness, fever, chills, chest pain, cough, abdominal pain, nausea, vomiting, dysuria. Vitals: T 98.2 F, P 69 bpm, RR 18, BP 101/66, O2 sat 99% on room air Labs: WBC 16.8, hemoglobin 13.1, PT 11.3, INR 1, sodium 135, potassium 3, BUN 7, magnesium 1.4, lactic acid 2. ED documentation reviewed. BP upon standing up 89/56. Troponin x 2 0.014, proBNP 508. Chest x-ray shows no acute findings. EKG shows sinus rhythm, rate 65 bpm, QTc 395 ms, incomplete right bundle branch block. In the ED he was treated with Solu-Medrol, DuoNebs, potassium bicarbonate, magnesium oxide, 0.9 normal saline at 130 mL/h. Review of systems: Pertinent positives and negatives as discussed in HPI, a complete review of systems was performed and all other systems are negative. PMH: Asthma, [place], ALEK on CPAP at home, hypertension, hyperlipidemia, DM PSH: Heart cath in December 2021 FMH: None Social history: Tobacco: Current smoker, 1.5 packs a day for 43 years Alcohol: Denies use Recreational drugs: Occasional marijuana for pain Travel: No recent travel history Sick contacts: None Occupation: Retired Physical examination: Vital signs reviewed General: non toxic, no distress, appears at stated age, obese Derm: no unusual rashes/lesions, warm Head: atraumatic, normocephalic, symmetric Eyes: EOMI, anicteric sclera ENT: Nose and ears atraumatic Cardiovascular: S1S2 reg, no murmur, positive dorsalis pedis pulse bilateral, no edema Lungs: CTA bilateral, no rhonchi, no rales, no accessory muscle use Abdominal: soft, nontender to palpation, no guarding Ext: muscle strength 5 out of 5 in all 4 extremities grossly, no gross muscle atrophy, no contractures, Neuro: CN II-XI grossly intact, no gross focal neuro deficits Psych: Alert, oriented, appropriate affect Assessment/Plan: Patient is a 54-year-old male with past medical history of multiple near syncopal events who presented to the ED with dizziness and lightheadedness. He has been admitted for further workup of orthostatic hypotension. #. Orthostatic hypotension BP while Supine: 115/64, Standing BP 89/56 Continue 0.9 normal saline at 130 mL/h Start midodrine 2.5 mg p.o. 3 times daily Orthostatics twice daily Echo ordered Continue trending troponin Continue telemetry monitoring Cardiology consulted in the ED #. Abnormal urinalysis Many calcium oxalate crystals, 43 hyaline casts, occasional mucus, trace protein Patient does not complain of dysuria #. Hypokalemia Potassium 3.0 Potassium bicarbonate 80 mEq p.o. given in the ED Monitor for improvement Hypomagnesemia Magnesium 1.4 Magnesium oxide 800 mg p.o. given in the ED Give additional 1 g and monitor for improvement #. Leukocytosis, unclear etiology, no other signs of infection at this time WBC 16.8 Monitor CBC #. History of asthma Continue DuoNeb 3 mL RT 3 times daily s/p Solu-Medrol 125 mg IV in the ED, discontinue Solumedrol Supplemental oxygen as required #. Hyperlipidemia Continue atorvastatin 80 mg p.o. at bedtime #. Insulin-dependent diabetes mellitus Insulin sliding scale and blood glucose monitoring ACHS #. History of CAD, s/p stent in the LAD in December 2021 #. Congestive heart failure, last known EF 20 to 25% in December 2021 #. Hypertension Continue metoprolol 50 mg p.o. daily, losartan 25 mg p.o. daily, spironolactone 25 mg p.o. daily #. History of BPH Continue tamsulosin 0.4 mg p.o. daily #. Peripheral neuropathy Continue gabapentin 900 mg p.o. 3 times daily #. History of anxiety/depression Continue duloxetine 90 mg p.o. daily Resume home meds once reconciled F: 0.9 normal saline 130 mL/h E: Potassium and magnesium repleted in the ED N: Heart healthy diet A: Ambulatory DVT prophylaxis: Lovenox 40 mg SQ daily GI prophylaxis: Protonix 40 mg IV daily The patient is admitted with an anticipated less than 2 midnight stay for evaluation of near syncope CODE STATUS: Full code Discussed with: Patient Anticipated discharge place: Home Past Medical History Past Medical History: Asthma, Chest Pain / Angina, Diabetes Mellitus, Hyperlipidemia, Hypertension, Myocardial Infarction ([place]), Pneumonia, Sleep Apnea/CPAP/BIPAP Additional Past Medical History / Comment(s): BACK PAIN, NUMBNESS/TINGLING LAWRENCE LEGS, kidney stone Last Myocardial Infarction Date:: 12/2021 History of Any Multi-Drug Resistant Organisms: None Reported Past Surgical History: Back Surgery, Cholecystectomy, Heart Catheterization With Stent, Hernia Repair, Orthopedic Surgery, Tonsillectomy Additional Past Surgical History / Comment(s): PAIN CLINIC PROCEDURE, RT KNEE arthroscopy, LAWRENCE WRIST ORIF, RIGHT SHOULDER arthroscopy x 2, SINUS surgery, 3 cardiac stents, rt wrist ganglion cyst, 4 screws and 2 rods lower back Past Anesthesia/Blood Transfusion Reactions: No Reported Reaction Date of Last Stent Placement:: 12/2021 Past Psychological History: Anxiety, Depression Smoking Status: Current every day smoker Past Alcohol Use History: None Reported Past Drug Use History: Marijuana - Past Family History Father Family Medical History: Cancer Additional Family Medical History / Comment(s): COLON Family Additional Family Medical History / Comment(s): Multiple people hypertension. Denies any history of coronary artery disease. Medications and Allergies Home Medications Medication Instructions Recorded Confirmed Type Atorvastatin [Lipitor] 80 mg PO HS #30 tab 04/06/19 11/08/23 Rx Tamsulosin HCl [Flomax] 0.4 mg PO DAILY 08/07/19 11/08/23 History Insulin Degludec [Tresiba 50 units SQ QAM 12/23/21 11/08/23 History Flextouch U-100 Pen] Nitroglycerin Sl Tabs [Nitrostat] 0.4 mg SUBLINGUAL Q5M PRN #25 tab 12/26/21 11/08/23 Rx Prasugrel [Effient] 10 mg PO DAILY #90 tab 12/26/21 11/08/23 Rx Metoprolol Succinate (ER) [Toprol 50 mg PO DAILY 04/01/22 11/08/23 History XL] metFORMIN HCL [Glucophage XR] 1,500 mg PO DAILY 04/01/22 11/08/23 History Losartan [Cozaar] 25 mg PO DAILY 04/09/22 11/08/23 History Semaglutide [Ozempic] 1 mg SQ ELLER 05/03/23 11/08/23 History Spironolactone [Aldactone] 25 mg PO DAILY 07/27/23 11/08/23 History Albuterol Sulfate [Albuterol 2 puff PO RT-TID 09/01/23 11/08/23 History Sulfate Hfa] Bumetanide [BUMEX] 2 mg PO DAILY 09/01/23 11/08/23 History DULoxetine HCL [Cymbalta] 90 mg PO DAILY 09/01/23 11/08/23 History Gabapentin [Neurontin] 900 mg PO TID 09/01/23 11/08/23 History Allergies Allergy/AdvReac Type Severity Reaction Status Date / Time penicillin V Allergy Severe Rapid Verified 08/25/24 19:46 Heart Rate Mushroom AdvReac Mild Nausea & Verified 08/25/24 19:46 Vomiting Physical Exam Vitals: Vital Signs Temp Pulse Pulse Pulse Pulse Resp BP 08/26/24 00:47 73 18 102/66 08/25/24 23:25 71 19 110/66 08/25/24 22:06 80 08/25/24 21:46 78 08/25/24 20:15 69 73 67 08/25/24 19:44 98.2 F 69 18 101/66 BP BP BP Pulse Ox 08/26/24 00:47 96 08/25/24 23:25 94 L 08/25/24 22:06 08/25/24 21:46 08/25/24 20:15 101/60 89/56 115/64 08/25/24 19:44 99 Intake and Output 08/25/24 08/25/24 08/26/24 14:59 22:59 06:59 Other: Weight 125.191 kg Results CBC & Chem 7: 08/26/24 03:32 08/25/24 20:20 Labs: Abnormal Lab Results - Last 24 Hours (Table) 08/25/24 08/25/24 08/25/24 Range/Units 20:20 20:20 23:25 WBC 16.8 H (3.8-10.6) k/uL Neutrophils # 12.9 H (1.3-7.7) k/uL Sodium 135 L (137-145) mmol/L Potassium 3.0 L (3.5-5.1) mmol/L BUN 7 L (9-20) mg/dL Magnesium 1.4 L (1.6-2.3) mg/dL Urine Protein Trace H (Negative) Calcium Oxalate Crystal Many H (None) /hpf Hyaline Casts 43 H (0-2) /lpf Urine Mucus Occasional H (None) /hpf
[2024-08-26 03:50] LABS: Basophils % (A) 0 %; Eosinophils # (A) 0.1 k/uL (0-0.7); Eosinophils % (A) 1 %; HCT 38.7 % (39.0-53.0); Lymphocytes # (A) 0.9 k/uL (1.0-4.8); Lymphocytes % (A) 5 %; MCH 28.5 pg (25.0-35.0); MCHC 33.7 g/dL (31.0-37.0); MCV 84.5 fL (80.0-100.0); Mean Platelet Volume 8.2; Monocytes # (A) 0.2 k/uL (0-1.0); Monocytes % (A) 1 %; Neutrophils # (A) 15.2 k/uL (1.3-7.7); Neutrophils % (A) 92 %; Platelet Count 253 k/uL (150-450); RBC 4.58 m/uL (4.30-5.90); RDW 15.1 % (11.5-15.5); WBC 16.5 k/uL (3.8-10.6)
[2024-08-26] MEDS ORDERED: DEXTROSE 50% SYRINGE 50 ML IVP PRN ×2 (04:09)
[2024-08-26] MEDS: MAGNESIUM OXIDE 400 MG TAB PO STA (04:54)
[2024-08-26 05:17] LABS: ALT 18 U/L (4-49); AST 20 U/L (17-59); African American GFR (CKD) >90 (>60 ml/min/1.73 sqM); Albumin 3.6 g/dL (3.5-5.0); Alkaline Phosphatase 118 U/L (38-126); Anion Gap 11 mmol/L; Blood Urea Nitrogen 9 mg/dL (9-20); Calcium 9.1 mg/dL (8.4-10.2); Carbon Dioxide 23 mmol/L (22-30); Chloride 102 mmol/L (98-107); Glucose 145 mg/dL (74-99); Lipase 66 U/L (23-300); Magnesium 1.4 mg/dL (1.6-2.3); Non-African American GFR(CKD) 87 (>60 ml/min/1.73 sqM); Potassium 3.5 mmol/L (3.5-5.1); Sodium 136 mmol/L (137-145); Total Bilirubin 0.7 mg/dL (0.2-1.3); Total Protein 6.2 g/dL (6.3-8.2)
[2024-08-26 07:04] LABS: HCT 38.7 % (39.0-53.0); HGB 13.3 gm/dL (13.0-17.5); MCH 29.3 pg (25.0-35.0); MCHC 34.3 g/dL (31.0-37.0); MCV 85.6 fL (80.0-100.0); Mean Platelet Volume 8.5; Platelet Count 256 k/uL (150-450); RBC 4.52 m/uL (4.30-5.90); RDW 15.1 % (11.5-15.5); WBC 15.1 k/uL (3.8-10.6)
[2024-08-26 07:13] LABS: African American GFR (CKD) >90 (>60 ml/min/1.73 sqM); Anion Gap 10 mmol/L; Blood Urea Nitrogen 9 mg/dL (9-20); Calcium 9.1 mg/dL (8.4-10.2); Carbon Dioxide 25 mmol/L (22-30); Chloride 100 mmol/L (98-107); Glucose 143 mg/dL (74-99); Magnesium 1.4 mg/dL (1.6-2.3); Non-African American GFR(CKD) 89 (>60 ml/min/1.73 sqM); Potassium 3.6 mmol/L (3.5-5.1); Sodium 135 mmol/L (137-145)
[2024-08-26 07:56] LABS: Glucose,Whole Blood 152 mg/dL (70-110)
[2024-08-26] MEDS: IPRATROPIUM-ALBUTEROL 3 ML NEB INHALATION SCH (07:56)
[2024-08-26 07:59] VITALS: RESP 18
[2024-08-26] MEDS: INSULIN ASPART (NovoLOG) 100 UNIT/ML VIAL SQ SCH (08:12)
[2024-08-26] MEDS: ENOXAPARIN 40 MG/0.4 ML SYRINGE SQ SCH (08:12)
[2024-08-26] MEDS: PANTOPRAZOLE 40 MG/10 ML VIAL IV SCH (08:12)
[2024-08-26] MEDS: MIDODRINE 5 MG TAB PO SCH (08:13)
--- NOTE | 2024-08-26 10:56 | P.CRDCN ---
History of Present Illness Consult date: 08/26/24 Consult reason: sycope (near syncope, dizziness) Chief complaint: dizziness History of present illness: History of present illness: Pleasant 54-year-old male with significant past medical history of CAD status post multiple stents most recent with PCI of the LAD 12/2021, diabetes, hypertension, hyperlipidemia, cardiomyopathy, status post AICD presented with complaints of dizziness and lightheadedness. He does follow with Dr. Lozano in the office. He reports over the past couple days he has noticed he has had lower blood pressure and has had multiple episodes of nearly passing out. He has also had occasional chest pain. Denies any shortness of breath. Rest, chills. Denies any med changes. Labs reviewed: WBC 15.1, hemoglobin 13.3, sodium 135, potassium 3.6, creatinine 0.96, troponins negative x 3, BNP 508. Chest x-ray with no acute findings. EKG shows sinus rhythm with first-degree AV block. Orthostatic vital signs were positive with systolic blood pressure dropping from 115-89 from lying to standing. Prior echocardiogram 12/2021 with a EF 20-25%, mildmoderate mitral regurgitation, moderate LVH. He does admit that he has weight recently with Monjaro. REVIEW OF SYSTEMS: No fever or chills. No cough or expectoration. No diaphoresis. Patient denies headache, blurred vision, double vision. Patient denies any stomach discomfort. No nausea, vomiting. No hematochezia. No hematemesis. Denies any black stools or blood in his stools. Denies dysuria or hematuria. No muscle weakness or numbness. No chest pain or pressure. His dizziness and near syncope. PHYSICAL EXAMINATION: This is a 54-year-old male in no apparent distress at the time of my examination. HEENT: Head is atraumatic, normocephalic. Pupils are equal, round. Sclerae anicteric. Conjunctivae are clear. Mucous membranes of the mouth are moist. Neck is supple. There is no jugular venous distention. No carotid bruit is heard. CHEST EXAMINATION: Lungs are clear to auscultation. No chest wall tenderness is noted on palpation or with deep breathing. HEART EXAMINATION: Heart regular rate and rhythm. S1, S2 heard. No murmurs, ga llops or rub. ABDOMEN: Soft, nontender. Bowel sounds are heard. No organomegaly noted. EXTREMITIES: 2+ peripheral pulses with no evidence of peripheral edema and no calf tenderness noted. NEUROLOGIC EXAMINATION: Patient is awake, alert and oriented x3. IMPRESSION AND PLAN: CAD status post multiple PCI Diabetes type 2 Hypertension Hyperlipidemia Chronic systolic heart failure Status post AICD Dizziness Near syncope Orthostatic hypotension PLAN: Positive orthostatic VS, continue to hold hypertensive medications, will not likely need midodrine. He has had recent weight loss and likely needs decrease in medications. OK to check ECHO outpatient. Advised to monitor blood pressure at home and keep log. OK to discharge home from channel layer standpoint if ambulatory. Follow up in office with Dr. Lozano in 1 week. Please call with any questions. I am dictating on behalf of Dr. Hood Eisenberg's history/physical and assessment/plan. Past Medical History Past Medical History: Asthma, Chest Pain / Angina, Diabetes Mellitus, Hyperlipidemia, Hypertension, Myocardial Infarction ([place]), Pneumonia, Sleep Apnea/CPAP/BIPAP Additional Past Medical History / Comment(s): BACK PAIN, NUMBNESS/TINGLING LAWRENCE LEGS, kidney stone Last Myocardial Infarction Date:: 12/2021 History of Any Multi-Drug Resistant Organisms: None Reported Past Surgical History: Back Surgery, Cholecystectomy, Heart Catheterization With Stent, Hernia Repair, Orthopedic Surgery, Tonsillectomy Additional Past Surgical History / Comment(s): PAIN CLINIC PROCEDURE, RT KNEE arthroscopy, LAWRENCE WRIST ORIF, RIGHT SHOULDER arthroscopy x 2, SINUS surgery, 3 cardiac stents, rt wrist ganglion cyst, 4 screws and 2 rods lower back Past Anesthesia/Blood Transfusion Reactions: No Reported Reaction Date of Last Stent Placement:: 12/2021 Past Psychological History: Anxiety, Depression Smoking Status: Current every day smoker Past Alcohol Use History: None Reported Past Drug Use History: Marijuana - Past Family History Father Family Medical History: Cancer Additional Family Medical History / Comment(s): COLON Family Additional Family Medical History / Comment(s): Multiple people hypertension. Denies any history of coronary artery disease. Medications and Allergies Home Medications Medication Instructions Recorded Confirmed Type Atorvastatin [Lipitor] 80 mg PO HS #30 tab 04/06/19 08/26/24 Rx Tamsulosin HCl [Flomax] 0.4 mg PO DAILY 08/07/19 08/26/24 History Insulin Degludec [Tresiba 15 units SQ DAILY 12/23/21 08/26/24 History Flextouch U-100 Pen] Prasugrel [Effient] 10 mg PO DAILY #90 tab 12/26/21 08/26/24 Rx Metoprolol Succinate (ER) [Toprol 50 mg PO DAILY 04/01/22 08/26/24 History XL] metFORMIN HCL [Glucophage XR] 1,500 mg PO DAILY 04/01/22 08/26/24 History Losartan [Cozaar] 25 mg PO DAILY 04/09/22 08/26/24 History Spironolactone [Aldactone] 25 mg PO DAILY 07/27/23 08/26/24 History Bumetanide [BUMEX] 2 mg PO DAILY 09/01/23 08/26/24 History DULoxetine HCL [Cymbalta] 30 mg PO DAILY 09/01/23 08/26/24 History Gabapentin [Neurontin] 900 mg PO TID 09/01/23 08/26/24 History Cyanocobalamin (Vitamin B-12) 1,000 mcg PO DAILY 08/26/24 08/26/24 History [Vitamin B-12] DULoxetine HCL [Cymbalta] 60 mg PO DAILY 08/26/24 08/26/24 History Ferrous Sulfate [Feosol] 325 mg PO DAILY 08/26/24 08/26/24 History Ipratropium-Albuterol Nebulize 3 ml INHALATION RT-QID 08/26/24 08/26/24 History [Duoneb 0.5 mg-3 mg/3 ml Soln] Multivit,Calc,Min/FA/K1/Lycop 1 tab PO DAILY 08/26/24 08/26/24 History [One-A-Day Men's Complete Tab] Tirzepatide [Mounjaro] 15 mg SQ WE 08/26/24 08/26/24 History Allergies Allergy/AdvReac Type Severity Reaction Status Date / Time penicillin V Allergy Severe Rapid Verified 08/26/24 09:45 Heart Rate/HIVES Mushroom AdvReac Mild Nausea & Verified 08/26/24 09:45 Vomiting Physical Exam Vitals: Vital Signs Temp Pulse Pulse Pulse Pulse Resp BP 08/26/24 08:10 74 08/26/24 07:58 75 18 131/76 08/26/24 07:56 70 08/26/24 06:06 98.0 F 74 17 111/71 08/26/24 04:47 73 18 106/65 08/26/24 02:20 72 19 108/63 08/26/24 00:47 73 18 102/66 08/25/24 23:25 71 19 110/66 08/25/24 22:06 80 08/25/24 21:46 78 08/25/24 20:15 69 73 67 08/25/24 19:44 98.2 F 69 18 101/66 BP BP BP Pulse Ox 08/26/24 08:10 08/26/24 07:58 98 08/26/24 07:56 97 08/26/24 06:06 94 L 08/26/24 04:47 93 L 08/26/24 02:20 94 L 08/26/24 00:47 96 08/25/24 23:25 94 L 08/25/24 22:06 08/25/24 21:46 08/25/24 20:15 101/60 89/56 115/64 08/25/24 19:44 99 Intake and Output 08/25/24 08/26/24 08/26/24 22:59 06:59 14:59 Other: Weight 125.191 kg Results 08/26/24 05:47 08/26/24 05:47 Cardiac Enzymes 08/25/24 08/25/24 08/26/24 Range/Units 20:20 20:20 00:06 AST 21 (17-59) U/L Troponin I 0.014 0.014 (0.000-0.034) ng/mL 08/26/24 08/26/24 Range/Units 03:32 03:32 AST 20 (17-59) U/L Troponin I 0.013 (0.000-0.034) ng/mL Coagulation 08/25/24 Range/Units 20:20 PT 11.3 (10.0-12.5) sec APTT 25.5 (22.0-30.0) sec CBC 08/25/24 08/26/24 08/26/24 Range/Units 20:20 03:32 05:47 WBC 16.8 H 16.5 H 15.1 H (3.8-10.6) k/uL RBC 4.57 4.58 4.52 (4.30-5.90) m/uL Hgb 13.1 13.0 13.3 (13.0-17.5) gm/dL Hct 39.1 38.7 L 38.7 L (39.0-53.0) % Plt Count 291 253 256 (150-450) k/uL Comprehensive Metabolic Panel 08/25/24 08/26/24 08/26/24 Range/Units 20:20 03:32 05:47 Sodium 135 L 136 L 135 L (137-145) mmol/L Potassium 3.0 L 3.5 3.6 (3.5-5.1) mmol/L Chloride 100 102 100 (98-107) mmol/L Carbon Dioxide 22 23 25 (22-30) mmol/L BUN 7 L 9 9 (9-20) mg/dL Creatinine 1.01 0.98 0.96 (0.66-1.25) mg/dL Glucose 92 145 H 143 H (74-99) mg/dL Calcium 9.5 9.1 9.1 (8.4-10.2) mg/dL AST 21 20 (17-59) U/L ALT 18 18 (4-49) U/L Alkaline Phosphatase 110 118 (38-126) U/L Total Protein 6.4 6.2 L (6.3-8.2) g/dL Albumin 3.8 3.6 (3.5-5.0) g/dL Current Medications Generic Name Dose Route Start Last Admin Trade Name Freq PRN Reason Stop Dose Admin Albuterol/Ipratropium 3 ml 08/26/24 08:00 08/26/24 07:56 Ipratropium-Albuterol 3 Ml Neb INHALATION 3 ml RT-TID MARCIAL Administration Dextrose/Water 25 ml 08/26/24 04:09 Dextrose 50% Syringe 50 Ml IVP PER PROTOCOL PRN Hypoglycemia Protocol Dextrose/Water 50 ml 08/26/24 04:09 Dextrose 50% Syringe 50 Ml IVP PER PROTOCOL PRN Hypoglycemia Protocol Enoxaparin Sodium 40 mg 08/26/24 09:00 08/26/24 08:12 Enoxaparin 40 Mg/0.4 Ml Syringe SQ 40 mg DAILY MARCIAL Administration Sodium Chloride 1,000 mls @ 130 mls/hr 08/25/24 21:45 08/26/24 06:36 Saline 0.9% IV 130 mls/hr .[id number] MARCIAL Administration Insulin Aspart 0 unit 08/26/24 07:30 08/26/24 08:12 Insulin Aspart (Novolog) 100 Unit/Ml Vial SQ 3 unit ACHS MARCIAL Administration Protocol Midodrine 2.5 mg 08/26/24 07:30 08/26/24 08:13 Midodrine 5 Mg Tab PO 2.5 mg AC-TID MARCIAL Administration Morphine Sulfate 4 mg 08/25/24 21:32 Morphine Sulfate 4 Mg/Ml Syringe IV Q4HR PRN Severe Pain (Scale 7 to 10) Naloxone HCl 0.2 mg 08/25/24 21:32 Naloxone 0.4 Mg/Ml 1 Ml Vial IV Q2M PRN Opioid Reversal Ondansetron HCl 4 mg 08/25/24 21:32 Ondansetron 4 Mg/2 Ml Vial IVP Q8HR PRN Nausea And Vomiting Pantoprazole Sodium 40 mg 08/26/24 09:00 08/26/24 08:12 Pantoprazole 40 Mg/10 Ml Vial IV 40 mg DAILY MARCILA Administration Intake and Output 08/25/24 08/26/24 08/26/24 22:59 06:59 14:59 Other: Weight 125.191 kg 08/26/24 05:47 08/26/24 05:47
[2024-08-26 11:46] LABS: Glucose,Whole Blood 156 mg/dL (70-110)
[2024-08-26 15:24] VITALS: PULSE 79
--- NOTE | 2024-08-26 16:02 | P.DS ---
Providers Date of admission: 08/25/24 21:32 Expected date of discharge: 08/26/24 Attending physician: Denzel Merrill MD Consults: 08/25/24 21:32 Consult Physician Routine Consulting Provider: Dimitris Lozano Consult Reason/Comments: CAD,syncope Do you want consulting provider notified?: Yes Primary care physician: [facility] Course: #. Orthostatic hypotension #. Abnormal urinalysis #. Hypokalemia Hypomagnesemia #. Leukocytosis, unclear etiology, no other signs of infection at this time #. History of asthma #. Hyperlipidemia #. Insulin-dependent diabetes mellitus #. History of CAD, s/p stent in the LAD in December 2021 #. Congestive heart failure, last known EF 20 to 25% in December 2021 #. Hypertension #. History of BPH #. Peripheral neuropathy #. History of anxiety/depression Hospital Course: Patient is a 54-year-old male past medical history of multiple episodes of near syncopal events who presented to the ED with dizziness and lightheadedness. Vitals: T 98.2 F, P 69 bpm, RR 18, BP 101/66, O2 sat 99% on room air Labs: WBC 16.8, hemoglobin 13.1, PT 11.3, INR 1, sodium 135, potassium 3, BUN 7, magnesium 1.4, lactic acid 2. ED documentation reviewed. BP upon standing up 89/56. Troponin x 2 0.014, proBNP 508. Chest x-ray shows no acute findings. EKG shows sinus rhythm, rate 65 bpm, QTc 395 ms, incomplete right bundle branch block. In the ED he was treated with Solu-Medrol, DuoNebs, potassium bicarbonate, magnesium oxide, 0.9 normal saline at 130 mL/h. Patient's orthostatics resolved with these measures as well as the initiation of midodrine. Patient was seen by cardiology and cleared with some medication adjustments. Patient will have a follow-up echocardiogram as an outpatient. He will follow-up with primary care physician. His Bumex was reduced in half on discharge. Gen: In NAD, non-toxic HEENT: normocephalic, atraumatic, hearing acuity is intant, mucous membranes moist CVS: perfusing all extremities well, no pitting edema, Respiratory: symmetric chest expansion, no accessory muscle use, GI: soft, NTTP, ND, : no suprapubic tenderness, no CVA tenderness MSK/Derm: no rashes, cyanosis Neuro: CN II-XII intact, no motor weakness, Psych: cooperative, euthymic mood, judgment and insight is intact Patient Condition at Discharge: Good Plan - Discharge Summary New Discharge Prescriptions: New Midodrine [ProAmatine] 2.5 mg PO AC-TID #45 tab Continue Atorvastatin [Lipitor] 80 mg PO HS #30 tab Insulin Degludec [Tresiba Flextouch U-100 Pen] 15 units SQ DAILY DULoxetine HCL [Cymbalta] 60 mg PO DAILY Tirzepatide [Mounjaro] 15 mg SQ WE Multivit,Calc,Min/FA/K1/Lycop [One-A-Day Men's Complete Tab] 1 tab PO DAILY Ipratropium-Albuterol Nebulize [Duoneb 0.5 mg-3 mg/3 ml Soln] 3 ml INHALATION RT-QID Ferrous Sulfate [Iron (65 MG Elemental)] 325 mg PO DAILY Prasugrel [Effient] 10 mg PO DAILY #90 tab metFORMIN HCL [Glucophage XR] 1,500 mg PO DAILY Metoprolol Succinate (ER) [Toprol XL] 50 mg PO DAILY Losartan [Cozaar] 25 mg PO DAILY Spironolactone [Aldactone] 25 mg PO DAILY Gabapentin [Neurontin] 900 mg PO TID DULoxetine HCL [Cymbalta] 30 mg PO DAILY Cyanocobalamin (Vitamin B-12) [Vitamin B-12] 1,000 mcg PO DAILY Changed Bumetanide [BUMEX] 1 mg PO DAILY #0 Discontinued Tamsulosin HCl [Flomax] 0.4 mg PO DAILY Discharge Medication List Atorvastatin [Lipitor] 80 mg PO HS #30 tab 04/06/19 [Rx] Insulin Degludec [Tresiba Flextouch U-100 Pen] 15 units SQ DAILY 12/23/21 [History] Prasugrel [Effient] 10 mg PO DAILY #90 tab 12/26/21 [Rx] Metoprolol Succinate (ER) [Toprol XL] 50 mg PO DAILY 04/01/22 [History] metFORMIN HCL [Glucophage XR] 1,500 mg PO DAILY 04/01/22 [History] Losartan [Cozaar] 25 mg PO DAILY 04/09/22 [History] Spironolactone [Aldactone] 25 mg PO DAILY 07/27/23 [History] DULoxetine HCL [Cymbalta] 30 mg PO DAILY 09/01/23 [History] Gabapentin [Neurontin] 900 mg PO TID 09/01/23 [History] Bumetanide [BUMEX] 1 mg PO DAILY #0 08/26/24 [Rx] Cyanocobalamin (Vitamin B-12) [Vitamin B-12] 1,000 mcg PO DAILY 08/26/24 [History] DULoxetine HCL [Cymbalta] 60 mg PO DAILY 08/26/24 [History] Ferrous Sulfate [Iron (65 MG Elemental)] 325 mg PO DAILY 08/26/24 [History] Ipratropium-Albuterol Nebulize [Duoneb 0.5 mg-3 mg/3 ml Soln] 3 ml INHALATION RT-QID 08/26/24 [History] Midodrine [ProAmatine] 2.5 mg PO AC-TID #45 tab 08/26/24 [Rx] Multivit,Calc,Min/FA/K1/Lycop [One-A-Day Men's Complete Tab] 1 tab PO DAILY 08/26/24 [History] Tirzepatide [Mounjaro] 15 mg SQ WE 08/26/24 [History] Follow up Appointment(s)/Referral(s): Manuel Jameson MD [Primary Care Provider] - 1-2 days Discharge Disposition: HOME SELF-CARE
[2024-08-26 16:48] VITALS: BP 109/71; TEMP 97.9
== END 2024-08-26 16:35 | disposition home or self-care (01) ==
LOC: EC 19:30 → 3SCARD 21:32 → INTOOBSV 21:32 → 3SCARD 22:56 → 5NMEDONC 08-26 11:20 → UNDODISIN 08-26 16:35
PROVIDERS: ADMIT Internal Medicine; ATTEND Internal Medicine
DX: I95.1 Orthostatic hypotension (principal); E86.0 Dehydration; E11.42 Type 2 diabetes mellitus with diabetic polyneuropathy; I11.0 Hypertensive heart disease with heart failure; I50.22 Chronic systolic (congestive) heart failure; E83.42 Hypomagnesemia; E87.6 Hypokalemia; I42.9 Cardiomyopathy, unspecified; I44.0 Atrioventricular block, first degree; I34.0 Nonrheumatic mitral (valve) insufficiency; I45.10 Unspecified right bundle-branch block; E78.5 Hyperlipidemia, unspecified; I25.10 Atherosclerotic heart disease of native coronary artery without angina pectoris; N40.0 Benign prostatic hyperplasia without lower urinary tract symptoms; J45.909 Unspecified asthma, uncomplicated; R82.90 Unspecified abnormal findings in urine; D72.829 Elevated white blood cell count, unspecified; F41.9 Anxiety disorder, unspecified; F32.A Depression, unspecified; G89.29 Other chronic pain; M25.50 Pain in unspecified joint; F17.210 Nicotine dependence, cigarettes, uncomplicated; Z79.4 Long term (current) use of insulin; Z79.84 Long term (current) use of oral hypoglycemic drugs; Z79.02 Long term (current) use of antithrombotics/antiplatelets; Z79.85 Long-term (current) use of injectable non-insulin antidiabetic drugs; Z79.899 Other long term (current) drug therapy; Z88.0 Allergy status to penicillin; Z95.810 Presence of automatic (implantable) cardiac defibrillator; Z95.5 Presence of coronary angioplasty implant and graft
CPT/HCPCS: 96361; 96374; 99291; 36415; 94640 ×2; 94760; 93005; 83880; 80053 ×2; 80048; 83605; 83690; 83735 ×2; 84100 ×2; 84484 ×2; 85025 ×2; 85027; 85610; 85730; 81001; 71046; G0378 ×3; J1650; J2919; J2470

== ENCOUNTER → 2025-01-22 | Day surgery (SDC) | payer BC, MEDICARE ==
[~2025-01-22] MED LIST changes: -LACTATED RINGERS 1,000 ML IV SCH; +LIDOCAINE 1% (10MG/ML) FOR IV START INTRADERMA PRN; +LIDOCAINE 1% INJ 10MG/ML (20 ML MDV) ONE; +PROPOFOL 10 MG/ML 20 ML VIAL IV ONE
[2025-01-22] MEDS: IV FLUID CONTINUATION 1,000 ML IV ONE ×2 (06:56→07:20)
[2025-01-22 06:59] VITALS: TEMP 97
[2025-01-22] MEDS: LACTATED RINGERS 1,000 ML IV SCH (07:07)
[2025-01-22 07:10] LABS: Glucose,Whole Blood 109 mg/dL (70-110)
--- NOTE | 2025-01-22 07:44 | P.PCN ---
Date of Procedure: 01/22/25 Procedure(s) Performed: BRIEF HISTORY: Patient is a 55-year-old pleasant white male scheduled for an elective colonoscopy as a part of screening for history of colon polyps. His last colonoscopy was in October 2023 and was noted to have a 2 cm residual polyp of the ileocecal valve. Initial colonoscopy was in March 2022 and was noted to have a 3 cm broad-based polyp in the ileocecal valve biopsies of which revealed tubular adenoma. He scheduled for a surveillance/follow-up colonoscopy today PROCEDURE PERFORMED: Colonoscopy. PREOPERATIVE DIAGNOSIS: Screening for history of colon polyps. IV sedation per Anesthesia. PROCEDURE: After informed consent was obtained, the patient, was brought into [facility] endoscopy unit. IV sedation was administered by Anesthesia under continuous monitoring. Digital rectal examination was normal. Initially the Olympus CF-160 flexible video colonoscope was then inserted in the rectum, gradually advanced into the cecum without any difficulty. Careful examination was performed as the scope was gradually being withdrawn. Ileocecal valve and the appendiceal orifice were visualized and appeared normal. Prep was excellent. Mucosa of the cecum, normal. There was no residual polyp noted on the ileocecal valve. Mucosa of the ascending colon, transverse colon, descending colon, sigmoid colon, and rectum appeared normal. Retroflexion was performed in the rectum and grade 2 were seen. The patient tolerated the procedure well. IMPRESSION: Normal-appearing colon from rectum to cecum no evidence of colitis or colorectal neoplasia Grade 2 internal hemorrhoids. RECOMMENDATIONS: Findings of this examination were discussed with the patient as well as his family. He was advised to have repeat screening colonoscopy in 3 years prior history of large colon polyps.
[2025-01-22 07:50] VITALS: RESP 16
[2025-01-22 08:33] VITALS: BP 110/66; PULSE 58
== END ==
LOC: ORWHC2ENDO 06:20
PROVIDERS: ATTEND Internal Medicine Gastroenterology
DX: Z12.11 Encounter for screening for malignant neoplasm of colon (principal); K64.1 Second degree hemorrhoids; Z86.0101 Personal history of adenomatous and serrated colon polyps; E78.5 Hyperlipidemia, unspecified; I11.0 Hypertensive heart disease with heart failure; I50.9 Heart failure, unspecified; G47.33 Obstructive sleep apnea (adult) (pediatric); J45.909 Unspecified asthma, uncomplicated; F41.9 Anxiety disorder, unspecified; F32.A Depression, unspecified; F17.210 Nicotine dependence, cigarettes, uncomplicated; Z95.0 Presence of cardiac pacemaker; Z95.5 Presence of coronary angioplasty implant and graft; Z88.0 Allergy status to penicillin; Z91.018 Allergy to other foods; Z87.442 Personal history of urinary calculi; Z79.84 Long term (current) use of oral hypoglycemic drugs; Z79.899 Other long term (current) drug therapy
CPT/HCPCS: 45378; J2003; J2704